=== PATIENT | female | born 1960 | race Caucasian/White ===

== ENCOUNTER 2023-06-29 14:34 | Outpatient (CLI) | payer MEDICARE, MEDICAID ==
[~2023-06-29 14:34] MED LIST: ADV50250 IH; ALBU18HF2 IH; ALBU8.5H17 IH; CLA10T PO; IBUP-1986 PO; LISI20TA28 PO
== END 2023-06-29 23:59 | disposition home or self-care (01) ==
LOC: RAD 14:34
PROVIDERS: ATTEND Nurse Practitioner Family
DX: M19.021 Primary osteoarthritis, right elbow (principal); M19.011 Primary osteoarthritis, right shoulder; M25.811 Other specified joint disorders, right shoulder; M65.28 Calcific tendinitis, other site; M25.821 Other specified joint disorders, right elbow; M25.721 Osteophyte, right elbow; M25.521 Pain in right elbow; M25.511 Pain in right shoulder; R09.02 Hypoxemia
CPT/HCPCS: 71046; 73030; 73080

== ENCOUNTER 2024-06-02 10:13 | Inpatient (IN) | payer MEDICARE, MEDICAID ==
[2024-06-02] VITALS (21 sets, daily range): BP systolic 114–165; BP diastolic 64–94; PULSE 87–151; RESP 12–28; TEMP 98.9–99.8; O2SAT 70–100
[~2024-06-02] VITALS: Ht 152.4 cm; Wt 138.0 kg
[2024-06-02] MEDS: metoprolol tartrate 1mg/ml inj IV ONE ×4 (10:34→14:02)
--- NOTE | 2024-06-02 10:36 | Physician Documentation ---
History of Present Illness ~ Chief Complaint: Rapid Heartbeat Stated Complaint: SVT Time Seen by MD: 10:35 Primary Medical Doctor: Radhames Source: patient, EMS Mode of Arrival: EMS HPI The patient arrives by EMS, with rapid heart rate and respiratory distress. She reportedly had SVT, was given 2 doses of adenosine, 6 mg and 12 mg, with what appeared to be atrial flutter as an underlying rhythm. She was placed on a non- rebreather for shortness of breath and hypoxia. Here in the ED, the patient states she is feeling somewhat better. She does report that recently she has been feeling ill, over the past 3-4 days. She reports having a cough and shortness of breath. No definite fevers. Today, she started to develop some chest discomfort, lightheadedness, and worsening shortness of breath. Does have a history of COPD and has had an increased cough. She has been using her inhalers without relief. She also reports a history of atrial fibrillation, is on sotalol and Eliquis. She did not take her morning medications. She reports chronic swelling in her legs, right worse than left. She has not been in the medical system for the past 6 months. She was report being under lot of stress recently due to moving Medication Reconciliation Allergies: Coded Allergies: coconut (Verified Allergy, Unknown, 09/10/17) HIVES codeine (Verified Allergy, Unknown, rash, 08/14/16) Scheduled Albuterol Sulfate (Ventolin Hfa), 2 PUFFS IH Q4H PRN SOB Apixaban (Eliquis), 1 TAB PO BID, (Reported) Fluticasone Propion/Salmeterol (Wixela 100-50 Inhub), 1 PUFFS PO BID, (Reported) Furosemide (Lasix), 1 TAB PO DAILY, (Reported) Lisinopril* (Lisinopril*), 1 TAB PO DAILY, (Reported) Loratadine* (Claritin*), 10 MG PO DAILY, (Reported) Potassium Chloride* (Potassium Chloride*), 1 CAP PO DAILY, (Reported) Sotalol Hcl (Sotalol Af), 0.5 TAB PO BID, (Reported) Discontinued Medications Albuterol Sulfate (Proair Hfa), 2 PUFFS IH Q4H PRN for SOB or wheezing Discontinued Reason: patient no longer taking Fluticasone/Salmeterol* (Advair 250-50 Diskus*), 1 PUFF IH BID, (Reported) Discontinued Reason: patient no longer taking Ibuprofen (Ibuprofen), 1 TAB PO Q8H Discontinued Reason: patient no longer taking Lisinopril (Lisinopril), MG PO DAILY, (Reported) Discontinued Reason: patient no longer taking Past Medical History Past Medical History: Atrial Fibrillation, Hypertension, COPD, Diabetes, Depression Past Surgical History: no surgical history Alcohol Use: None Drug Use: none Lives with: Family Lives In: Home Occupation: unemployed Review of Systems Constitutional: Denies: fever Respiratory: Reports: shortness of breath Cardiovascular: Reports: chest pain Physical Exam Vital Signs: Temperature: 97.9, Heart Rate: 157, Respiratory Rate: 22, BP: 171/117, Pulse Oximetry: 69, Weight: 132.300 Oxygen Flow Rate: 0 Physical Exam General: This is an ill-appearing middle-aged female, not currently in distress HEENT: Atraumatic, oropharynx appears dry Heart: Irregular rhythm with rapid rate, heart rate in the 150s, appears irregular on the monitor. She does have palpable radial pulses Lungs: Very tight lungs with poor air movement and scattered expiratory wheezes, oxygen saturations in the low 90s on 4 L nasal cannula Abdomen: Soft, nondistended, nontender all quadrants Extremities: Pitting edema to bilateral lower extremities, right worse than left Neuro: Alert and oriented, no focal deficits Psychiatric: Calm and cooperative with exam Progress Results/Orders Results/Orders Orders - ULISSES BARRERA MD Culture Blood (06/02/24 10:16) Urinalysis, Cult If Indicated (06/02/24 10:16) Chest,Single View (06/02/24 10:16) Monitor (06/02/24 10:16) Saline Lock (06/02/24 10:16) Electrocardiogram (06/02/24 10:16) BMP (06/02/24 10:16) Hs Troponin I W Calculations (06/02/24 13:16) Ipratropium/Albuterol Nebule (Ipratrop/A (06/02/24 11:30) MG (06/02/24 10:56) PBNP (06/02/24 10:56) TSH (06/02/24 10:56) Page Hospitalist (06/02/24 12:04) Completed Orders - ULISSES BARRERA MD Cbc/Diff (06/02/24 10:16) Chest,Single View (06/02/24 10:16) Procalcitonin (06/02/24 10:16) Hs Troponin I W Calculations (06/02/24 10:16) Hs Troponin I W Calculations (06/02/24 12:16) Lacticsepsis (06/02/24 10:16) Metoprolol Tartrate Inj (Lopressor Iv) (06/02/24 10:30) Metoprolol Tartrate Inj (Lopressor Iv) (06/02/24 10:40) Metoprolol Tartrate Inj (Lopressor Iv) (06/02/24 10:55) Diltiazem Iv (Cardizem Iv 5mg/Ml Inj.) (06/02/24 11:20) Methylprednisolone Sod Succ (Solumedrol (06/02/24 11:30) Furosemide Inj (Lasix Inj) (06/02/24 11:35) Furosemide 40mg Inj (Lasix Inj) (06/02/24 11:40) Medications Received in ER Medications (Trade) Dose Ordered Sig/Brina Route PRN Reason Start Time Stop Time Status Last Admin Dose Admin (Lopressor IV) 5 mg ONCE ONCE IV 06/02/24 10:30 06/02/24 10:31 DC 06/02/24 10:34 5 MG (Lopressor IV) 5 mg ONCE ONCE IV 06/02/24 10:40 06/02/24 10:41 DC 06/02/24 10:42 5 MG (Lopressor IV) 5 mg ONCE ONCE IV 06/02/24 10:55 06/02/24 10:56 DC 06/02/24 11:04 5 MG (Cardizem IV 5mg/ ml inj.) 20 mg ONCE ONCE IV 06/02/24 11:20 06/02/24 11:21 DC 06/02/24 11:23 20 MG (SoluMEDROL 125mg inj) 125 mg ONCE ONCE IV 06/02/24 11:30 06/02/24 11:31 DC 06/02/24 11:55 125 MG (ipratrop/ albuterol 0.5-3(2.5) MG/3ml nebule) 3 ml Q4H PRN NEB SOB or wheezing 06/02/24 11:30 06/02/24 12:06 3 ML (Lasix inj) 40 mg ONCE ONCE IV 06/02/24 11:40 06/02/24 11:41 DC 06/02/24 11:58 40 MG Vital Signs 06/02/24 06/02/24 06/02/24 06/02/24 10:17 10:34 10:40 10:42 Temp 97.9 98.4 Pulse 157 157 155 154 Resp 22 25 B/P (MAP) 192/117 154/101 (118) Pulse Ox 69 92 O2 Flow Rate 0 6.0 06/02/24 06/02/24 06/02/24 06/02/24 11:04 11:06 11:23 11:25 Temp 98.4 98.3 Pulse 152 151 151 76 Resp 18 29 B/P (MAP) 142/104 (117) 134/105 131/73 (92) Pulse Ox 93 91 O2 Flow Rate 6.0 4.0 06/02/24 06/02/24 06/02/24 06/02/24 12:08 12:18 12:21 12:24 Temp 98.3 Pulse 87 92 101 Resp 12 20 22 20 B/P (MAP) 136/97 (110) Pulse Ox 92 93 92 O2 Delivery Nasal Cannula* Nasal Cannula* O2 Flow Rate 6 4 6.0 FiO2 44 36 Laboratory Tests Test 06/02/24 10:56 06/02/24 12:07 White Blood Count 10.1 Red Blood Count 4.57 Hemoglobin 13.4 Hematocrit 41.0 Mean Corpuscular Volume 89.7 Mean Corpuscular Hemoglobin 29.3 Mean Corpuscular Hemoglobin Concent 32.6 L Red Cell Distribution Width 15.7 H Platelet Count 267 Mean Platelet Volume 10.1 Neutrophils (%) (Auto) 80.0 H Lymphocytes (%) (Auto) 13.0 L Monocytes (%) (Auto) 6.6 Eosinophils (%) (Auto) 0.2 Basophils (%) (Auto) 0.2 Neutrophils # (Auto) 8.0 H Lymphocytes # (Auto) 1.3 Monocytes # (Auto) 0.7 Eosinophils # (Auto) 0.0 Basophils # (Auto) 0.0 CBC Comment Sodium Level 142 Potassium Level 4.1 Chloride Level 104 Carbon Dioxide Level 34.2 H Anion Gap 4 L Blood Urea Nitrogen 20 H Creatinine 0.92 H Estimated GFR/1.73 m2 61 BUN/Creatinine Ratio 21.7 H Glucose Level 177 H Lactic Acid Level 1.2 Calcium Level 9.0 Troponin I High Sensitivity 23 24 Albumin 3.6 Procalcitonin < 0.05 Chemistry Comments Troponin I High Sens Percent Delta 4 Troponin I Hi Sens Absolute Change 1 Re-Evaluation Re-Evaluation : Additional Comment Re-evaluation: After 3 doses of IV metoprolol, the patient remains with flutter and heart rate of 150. Blood pressure remains elevated. Plan: Diltiazem trial. 12:00 p.m.: Re-evaluation: The patient's heart rate is now in the 80-90 range after 20 mg of diltiazem. She remains on oxygen. Discussed results of testing and plan for admission. EKG/XRAY/CT/US/VASC/MRI EKG : Additional Comment I personally interpreted the EKG and this shows: Atrial fibrillation/atrial flutter, rate 158, QTC 490, no obvious STEMI Chest X-Ray : Additional Comments I personally reviewed the x-ray, and it shows: Pulmonary edema and a very enlarged heart, no focal consolidation Consults/PCP Consults/PCP : Additional Comment Consult: I spoke to the internal medicine service, for admission in the hospital Medical Decision Making Additional Information Differential includes pneumonia, sepsis, dysrhythmia, CHF, ACS, COPD exacerbation, dehydration, electrolyte derangement, PE Assessment 63-year-old female, initially presenting with respiratory distress and tachycardia. EKG shows atrial fibrillation/atrial flutter with a rapid rate. She was given IV metoprolol with no response. She was then given IV diltiazem, with good rate control. Her workup is concerning for congestive heart failure exacerbation related to her heart rate. She may also have some component of a COPD exacerbation. She was treated for these things including with steroids, and Lasix. She does have an oxygen requirement that is new. She was already on anticoagulation, and so I doubt PE. She will be admitted to the medicine service for further workup and treatment. Departure Impression: Primary Impression: Rapid atrial fibrillation Additional Impressions: Acute hypoxic respiratory failure Acute exacerbation of congestive heart failure Referrals: NO PRIMARY CARE PROVIDER (PCP) Critical Care Note Critical Care Note Critical Care Note The very real possibility of a deterioration of this patient's condition required the highest level of my preparedness for sudden, emergent intervention. I provided critical care services, which included medication orders, frequent reevaluations of the patient's condition and response to treatment, ordering and reviewing test results, and discussing the case with various consultants. Excludes time spent performing separately billable procedures. The critical care time associated with the care of the patient was 45 minutes in the management of atrial fibrillation with RVR and hypoxic respiratory failure Signature Scribe Signature: osei Attestation: ULISSES Mukherjee MD Jun 02, 2024 10:36
--- NOTE | 2024-06-02 10:51 | RADIOLOGY REPORT ---
DI CHEST,SINGLE VIEW, HISTORY: sob COMPARISON: None None TECHNICAL DATA: 1 view of the chest was obtained. FINDINGS: Lines and tubes: None Cardiomediastinal silhouette: large Pulmonary vasculature: prominent Lung expansion: normal Lung airspace: normal Lung interstitium: normal Pleura: normal Pneumothorax: no Bones: Unremarkable Other: no IMPRESSION: Cardiomegaly with pulmonary vascular congestion.
[2024-06-02 11:12] LABS: BASOPHILS % (AUTO) 0.2 % (0-1); EOSINOPHILS % (AUTO) 0.2 % (0-6); HEMOGLOBIN 13.4 g/dl (12.0-16.0); LYMPHOCYTES # (AUTO) 1.3 X10'3 (1.1-4.8); MEAN CORPUSCULAR HEMOGLOBIN 29.3 PG (27.0-31.0); MEAN CORPUSCULAR HGB CONC 32.6 g/dL (33.0-36.5); MEAN CORPUSCULAR VOLUME 89.7 FL (78-98); MEAN PLATELET VOLUME 10.1 FL (7.4-10.4); MONOCYTES # (AUTO) 0.7 X10'3 (0-0.9); MONOCYTES % (AUTO) 6.6 % (2-12); PLATELET COUNT 267 X10'3 (140-440); RED BLOOD COUNT 4.57 X10'6 (4.20-5.60); RED CELL DISTRIBUTION WIDTH 15.7 % (11.5-14.5); WHITE BLOOD COUNT 10.1 X10'3 (4.5-11.0)
[2024-06-02 11:23] LABS: ALBUMIN 3.6 G/DL (3.4-5.0); ANION GAP 4 (8-16); BLOOD UREA NITROGEN 20 MG/DL (7-18); BUN/CREATININE RATIO 21.7 (10.0-20.0); CHLORIDE 104 MMOL/L (99-107); CREATININE 0.92 MG/DL (0.40-0.90); GLUCOSE 177 MG/DL (70-104); POTASSIUM 4.1 MMOL/L (3.5-5.1); SODIUM 142 MMOL/L (135-145); TOTAL CARBON DIOXIDE 34.2 MMOL/L (24-32); eCRCL 65 ML/MIN; eGFR 61 ML/MIN
[2024-06-02] MEDS: diltiazem 5mg/ml 5ml inj. IV ONE (11:23)
[2024-06-02] MEDS: methylPREDNISolone sod succ 125mg/2ml vial IV ONE (11:45)
[2024-06-02] MEDS: furosemide 10 MG/1 ML 10ml inj IV ONE (11:55)
[2024-06-02] MEDS: furosemide 40mg/4ml inj IV ONE (11:58)
[2024-06-02] MEDS: ipratropium/albuterol 3ml nebule NEB PRN (12:06)
[2024-06-02] MEDS ORDERED: LISI40TA13 PO (12:21)
[2024-06-02] MEDS ORDERED: SOTA80TA10 PO (12:21)
[2024-06-02] MEDS ORDERED: FURO-149 PO (12:21)
[2024-06-02] MEDS ORDERED: FLUT1BLS9 PO (12:21)
[2024-06-02] MEDS ORDERED: APIX5TAB3 PO (12:21)
[2024-06-02] MEDS ORDERED: POTA10CA95 PO (12:21)
[2024-06-02] MEDS ORDERED: potassium Cl 20 mEq SR tablet PO PRN ×2 (12:25)
[2024-06-02] MEDS ORDERED: magnesium Cl slow-release 64mg tablet PO PRN (12:25)
[2024-06-02] MEDS ORDERED: magnesium sulf-water 2g/50mL 50 ML IV PRN (12:25)
[2024-06-02] MEDS ORDERED: acetaminophen 325mg tablet PO PRN ×2 (12:25)
[2024-06-02] MEDS ORDERED: magnesium sulf-water 4G/100mL 100 ML IV PRN (12:25)
[2024-06-02] MEDS: diltiazem-NS 100mg/100ml 100 ML IV SCH (12:57)
[2024-06-02 13:31] LABS: MAGNESIUM 1.8 MG/DL (1.5-2.4); PRO BRAIN NATRIURETIC PEPTIDE 1201 PG/ML (0-125); THYROID STIMULATING HORMONE 2.04 ulU/ml (0.34-4.50)
--- NOTE | 2024-06-02 14:20 | RADIOLOGY REPORT ---
CHEST RADIOGRAPH Indication: foreign body Technique: Single frontal view of the chest was obtained Comparison: DI CHEST,SINGLE VIEW on DOS: 06/02/24 FINDINGS: Lines and Tubes: None Lungs: Interstitial prominence with obscuration of bilateral hemidiaphragm slightly worsened from kiah or imaging and may be accentuated by decreased lung volumes compared to prior imaging. No pneumothorax. Cardiomediastinal contours: Moderate cardiomegaly Bones: No acute osseous abnormality. IMPRESSION: Cardiomegaly with findings suggestive of congestive heart failure. Underlying infectious process can not be excluded. Possible pleural effusion.
--- NOTE | 2024-06-02 14:23 | ELECTROCARDIOGRAPH REPORT ---
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 Frank Corley Measurements Intervals [place] Rate: 158 P: 240 MS: 102 QRS: 80 QRSD: 105 T: 47 QT: 302 QTc: 490 Interpretive Statements Supraventricular tachycardia Low voltage, extremity and precordial leads Electronically Signed On 06-08-2024 9:38:[address] Frank Corley Please click the below link to view image of tracing.
[2024-06-02] MEDS ORDERED: fentaNYL/PF 50MCG/1 ML 2ML syringe IV PRN (14:35)
[2024-06-02] MEDS: propofol 1000mg/100ml bottle 100 ML IV SCH (14:43)
[2024-06-02] MEDS: FENTANYL-0.9 % NACL/PF 100 ML IV SCH (14:44)
--- NOTE | 2024-06-02 14:53 | CONSULTATION REPORT - RESIDENT ---
Consult Providers to CC Resident Creating Document: MAGDALENA SHEETS MD History of Present Illness Reason for Admit\Complaint: Resp Failure History of Present Illness Morbidly obese with H/O Chronic A Fib on Eliquis, HTN, CHF brought into ER with worsening SOB and palpitation. EKG showing SVT, pt did received Adenosine. HR now 150/m. While awaiting transfer to [facility] her WOB and SpO2 rapidly deteriorated requiring intubation and mechanical ventilation. Allergies: Coded Allergies: coconut (Verified Allergy, Unknown, 09/10/17) HIVES codeine (Verified Allergy, Unknown, rash, 08/14/16) Home Medications Home Medications Active Ventolin Hfa (Albuterol) 8.5 Gm Inhaler 2 Puffs IH Q4H PRN SOB Reported Lasix (Furosemide) 40 Mg Tablet 1 Tab PO DAILY 30 Days Lisinopril* (Lisinopril) 40 Mg Tablet 1 Tab PO DAILY Eliquis (Apixaban) 5 Mg Tablet 1 Tab PO BID Wixela 100-50 Inhub (Fluticasone Propion/Salmeterol) 100 Mcg-50 Mcg/Dose Blst.w.dev 1 Puffs PO BID Potassium Chloride* (Potassium Chloride) 10 Meq Capsule.sa 1 Cap PO DAILY Sotalol Af (Sotalol Hcl) 80 Mg Tablet 0.5 Tab PO BID Claritin* (Loratadine) 10 Mg Tablet 10 Mg PO DAILY Past Medical History Past Medical History See H&P SHELBY RYAN Unable to obtain, intubated Exam Vitals: Vital Signs Date Time Temp Pulse Resp B/P (MAP) Pulse Ox O2 Delivery O2 Flow Rate FiO2 06/02/24 14:44 16 06/02/24 14:43 118/87 06/02/24 14:40 151 100 100 06/02/24 14:11 Non-Rebreather 16 06/02/24 13:31 98.3 General: Morbidly obese HEENT: NICK Neck: Supple Chest: Crackles at bases Cardiovascular: A Fib Abdomen: Soft, non-tender, BS (+) Extremities: Edema (+) Central Nervous System: Sedated Diagnostic Data Last Recorded Lab Results: 06/02/24 1056 06/02/24 1056 Additional Plan 1-Acute Hypoxemic Resp Failure -F/U ABG 2-Acute CHF exacerbation -Check echo -Pre- and afterload reduction -Diuresis 3-Chronic A Fib -Continue home meds Hong REAGAN time 35min Sepsis Screening Reassessment Date: Jun 02, 2024 Date of Service: Jun 02, 2024 Billing Provider: MAGDALENA SHEETS MD Common Visit Codes: [id number] CARE 30-74 MIN MAGDALENA SHEETS MD Jun 02, 2024 14:53
--- NOTE | 2024-06-02 14:56 | RADIOLOGY REPORT ---
EXAM: DI CHEST,SINGLE VIEW HISTORY: ET Tube Placement COMPARISON: DI CHEST,SINGLE VIEW on DOS: 06/02/24, DI CHEST,SINGLE VIEW on DOS: 06/02/24 TECHNIQUE: Portable AP view of the chest was performed. FINDINGS: There is an endotracheal tube with its tip about 3.2 cm above the raul, difficult to well visualize the raul secondary to technical factors. OG tube is identified with its tip at or distal to the GE junction, not fully imaged here. No pneumothorax. There are diffuse bilateral pulmonary infiltrates , most dense in the left lung base. The heart is enlarged. There is thoracic degenerative disc disea se. IMPRESSION: 1. Mechanical ventilation with endotracheal tube and OG tube in good position. 2. Cardiomegaly and diffuse Bilateral pulmonary infiltrates which may be due to florid pulmonary clary a or bilateral severe pneumonia.
[2024-06-02] MEDS ORDERED: rocuronium 10mg/ml inj IV ONE (15:00)
[2024-06-02 15:15] LABS: BILIRUBIN,URINE NEGATIVE (Neg); CLARITY,URINE CLEAR (Clear); COLOR,URINE YELLOW (Yellow); GLUCOSE, URINE NEGATIVE (Neg); KETONES,URINE NEGATIVE (Neg); LEUKOCYTE ESTERASE ,URINE NEGATIVE (Neg); NITRITES, URINE NEGATIVE (Neg); OCCULT BLOOD,URINE NEGATIVE (Neg); PROTEIN,URINE 100 mg/dl (Neg); UROBILINOGEN,URINE 0.2 E.U/dL (0.2-1.0)
[2024-06-02 15:19] LABS: UA COLLECTION TYPE FOLEY CATH
[2024-06-02 15:21] LABS: BACTERIA,URINE FEW /HPF (Neg); SQUAMOUS EPITHELIAL CELL,UR FEW /LPF (FEW); TRANSITIONAL EPI CELLS,URINE FEW /HPF; WBC,URINE 0-4 /HPF (0-4)
[2024-06-02 15:22] LABS: FINE GRANULAR CAST 0-3 /LPF (NEGATIVE)
[2024-06-02] MEDS: sotalol 80mg tablet OGT SCH (16:26)
[2024-06-02 16:41] LABS: ABG BASE EXCESS 3.5 mmol/L (-2.0-3.0); ABG HCO3 29.2 mmol/L (21.0-28.0); ABG OXYGEN SATURATION 99.8 % (94.0-98.0); ABG PCO2 (T) 48.9 mmHg (32.0-45.0); ABG PH (T) 7.395 (7.350-7.450); ABG PO2 (T) 211.3 mmHg (83.0-108.0); ALLEN'S TEST POSITIVE; FCOHb 1.7 % (0.5-1.5); FHHb 0.2 % (0.0-5.0); FMetHb 0.3 % (0.0-1.5); FO2Hb 97.8 % (94.0-98.0); MODE VENT - AC/PRVC; PATIENT TEMPERATURE 37.2; PEEP 10 cm H2O; RESPIRATORY RATE 16 b/min; TIDAL VOLUME 450 mL; TOTAL HEMOGLOBIN 14.9 G/dl (12.0-16.0)
[2024-06-02] MEDS ORDERED: UNABLE TO OBTAIN (17:10)
--- NOTE | 2024-06-02 17:41 | HISTORY AND PHYSICAL ---
History & Physical Providers to CC ~ History of Present Illness Reason for Admit\Complaint: Rapid Heartbeat History of Present Illness Patient was seen in ER in presence of ER physician and nursing staff. Patient was coughing and choking and about to get intubated. As per ER provider she choked on her sandwich and they are going to transfer her soon to CICU after intubation. Unable to get any history from the patient. All the history is obtained from ER records. I called Dr. Rico who is aware regarding patient's transferred to CICU.The patient arrives by EMS, with rapid heart rate and respiratory distress. She reportedly had SVT, was given 2 doses of adenosine, 6 mg and 12 mg, with what appeared to be atrial flutter as an underlying rhythm. She was placed on a non-rebreather for shortness of breath and hypoxia. Today, she started to develop some chest discomfort, lightheadedness, and worsening shortness of breath. Does have a history of COPD and has had an increased cough. She has been using her inhalers without relief. She also reports a history of atrial fibrillation, is on sotalol and Eliquis. She did not take her morning medications. Allergies: Coded Allergies: coconut (Verified Allergy, Unknown, 09/10/17) HIVES codeine (Verified Allergy, Unknown, rash, 08/14/16) Home Medications Home Medications Active Ventolin Hfa (Albuterol) 8.5 Gm Inhaler 2 Puffs IH Q4H PRN SOB Reported Unable to Obtain Medications (Non-Formulary Medication) Each PT INTUBATED/SEDATED; SPOKE TO PTS DAUGHTER, UNABLE TO RECALL HOME MEDS. WILL BRING IN LIST AND GIVE TO NURSE Lasix (Furosemide) 40 Mg Tablet 1 Tab PO DAILY 30 Days Lisinopril* (Lisinopril) 40 Mg Tablet 1 Tab PO DAILY Eliquis (Apixaban) 5 Mg Tablet 1 Tab PO BID Wixela 100-50 Inhub (Fluticasone Propion/Salmeterol) 100 Mcg-50 Mcg/Dose Blst.w.dev 1 Puffs PO BID Potassium Chloride* (Potassium Chloride) 10 Meq Capsule.sa 1 Cap PO DAILY Sotalol Af (Sotalol Hcl) 80 Mg Tablet 0.5 Tab PO BID Claritin* (Loratadine) 10 Mg Tablet 10 Mg PO DAILY Past Medical History Past Medical History chronic swelling in her legs, Atrial Fibrillation, Hypertension, COPD, Diabetes, Depression Past Surgical History Surgical History Comment no surgical history Family History Family History: Patient reports no known family medical history. Past Social History Social History Comment Unable to obtain ROS ROS Unable to obtain Exam Vitals: Vital Signs Date Time Temp Pulse Resp B/P (MAP) Pulse Ox O2 Delivery O2 Flow Rate FiO2 06/02/24 17:00 99.4 97 16 145/94 (111) 99 Mechanical Ventilator 60 06/02/24 14:11 16 General: General-patient is in acute distress, awake , looking ill coughing lungs- coughing and choking and about to get intubated Eyes-no icterus or pallor seen in eyes Neurology-awake oriented Psychiatry - patient is not confused Diagnostic Data Last Recorded Lab Results: 06/02/24 1056 06/02/24 1056 Additional Plan Patient is 63-year-old female admitted for atrial fibrillation with RVR, acute respiratory failure, acute exacerbation of congestive heart failure. Order placed for nebulizer, IV antibiotics steroids and IV Lasix. Ordered echo. Patient is started on Cardizem for AFib with a RVR. In ER she choked while eating the sandwich intubated and transferred to CICU. We will continue to follow patient along with the CICU team. Further management as per columnist. Date of Service: Jun 02, 2024 Billing Provider: ALVARADO ALEXANDRE MD Common Visit Codes: [id number] INP/OBS CARE (HIGH) ALVARADO ALEXANDRE MD Jun 02, 2024 17:41
--- NOTE | 2024-06-02 18:47 | CARDIOLOGY REPORT ---
APPROVED REPORT EXAM: Comprehensive 2D, Doppler, and color-flow Echocardiogram. 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 118.9 cm/s AoV VTI 20.6 cm AO Peak GR. 5.7 mmHg AO Mean GR. 4 mmHg LVOT VTI 20.20 cm LVOT Peak Jaspal. 112.5 cm/s ENOC(VTI)/BSA 2.98 cm2/m2 ENOC (VTI) 2.98 cm2 Tricuspid Valve TR P. Velocity 241 cm/s RAP ESTIMATE 10 mmHg TR Peak Gr. 23 mmHg RVSP 33 mmHg LEFT VENTRICLE Normal LV size and wall thickness. Overall systolic function is normal. LVEF is 60-65%. RIGHT VENTRICLE Right ventricle is grossly normal in size and function. ATRIA The left atrium size is normal. AORTIC VALVE Trileaflet AV appears mildly sclerotic without stenosis. No insufficiency. MITRAL VALVE Mitral valve leaflets are mildly thickened with mild annular calcification. No stenosis. TRICUSPID VALVE The tricuspid valve is normal in structure with trace regurgitation. PULMONIC VALVE The pulmonary valve is normal in structure with physiologic insufficiency. GREAT VESSELS The aortic root is normal in size. The ascending aorta is normal in size. IVC is normal in size and c ollapses less than 50% with inspiration. PERICARDIUM Trace circumferential pericardial effusion without hemodynamic compromise. No echo indications of pe ricardial tamponade. Other Information Study Quality: Fair due to body habitus. Conclusion Normal LV size and wall thickness. Overall systolic function is normal. LVEF is 60-65%. Right ventricle is grossly normal in size and function. The left atrium size is normal. Trileaflet AV appears mildly sclerotic without stenosis. No insufficiency. Mitral valve leaflets are mildly thickened with mild annular calcification. No stenosis. The tricuspid valve is normal in structure with trace regurgitation. Trace circumferential pericardial effusion without hemodynamic compromise. No echo indications of pe ricardial tamponade.
[2024-06-02] MEDS: acetaZOLAMIDE IV 500mg inj IV SCH (19:39)
[2024-06-02] MEDS: apixaban 5mg tablet PO SCH (19:39)
[2024-06-02] MEDS: furosemide 40mg/4ml inj IV SCH (19:39)
[2024-06-02] MEDS: nystatin 15 GM powder TP SCH (19:40)
[2024-06-02] MEDS ORDERED: sotalol 80mg tablet PO SCH (20:00)
[2024-06-02] MEDS ORDERED: heparin, porcine 5000 units/ml vial SQ SCH (20:00)
[2024-06-02] MEDS ORDERED: methylPREDNISolone sod succ/PF 40mg inj. IV SCH (20:00)
[2024-06-02] MEDS: albuterol 2.5 MG/3 ML nebule NEB SCH (21:19)
[2024-06-02 22:52] LABS: BASOPHILS % (AUTO) 0 % (0-1); EOSINOPHILS % (AUTO) 0 % (0-6); HEMATOCRIT 38.4 % (35.0-45.0); HEMOGLOBIN 12.4 g/dl (12.0-16.0); LYMPHOCYTES # (AUTO) 0.8 X10'3 (1.1-4.8); LYMPHOCYTES % (AUTO) 9.5 % (21-51); MEAN CORPUSCULAR HEMOGLOBIN 29.1 PG (27.0-31.0); MEAN CORPUSCULAR HGB CONC 32.3 g/dL (33.0-36.5); MEAN CORPUSCULAR VOLUME 90.1 FL (78-98); MEAN PLATELET VOLUME 10.3 FL (7.4-10.4); MONOCYTES # (AUTO) 0.4 X10'3 (0-0.9); MONOCYTES % (AUTO) 4.2 % (2-12); NEUTROPHILS # (AUTO) 7.6 X10'3 (1.8-7.7); NEUTROPHILS % (AUTO) 86.3 % (42-75); PLATELET COUNT 208 X10'3 (140-440); RED BLOOD COUNT 4.26 X10'6 (4.20-5.60); RED CELL DISTRIBUTION WIDTH 15.7 % (11.5-14.5); WHITE BLOOD COUNT 8.8 X10'3 (4.5-11.0)
[2024-06-02] MEDS: pantoprazole 40 MG vial IV STA (23:02)
[2024-06-03] VITALS (44 sets, daily range): BP systolic 74–153; BP diastolic 32–84; PULSE 83–136; RESP 14–22; O2SAT 90–98
--- NOTE | 2024-06-03 00:15 | PROGRESS NOTE ---
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
[2024-06-03 02:51] LABS: BASOPHILS % (AUTO) 0.2 % (0-1); EOSINOPHILS % (AUTO) 0 % (0-6); HEMOGLOBIN 12.3 g/dl (12.0-16.0); LYMPHOCYTES % (AUTO) 9.8 % (21-51); MEAN CORPUSCULAR HEMOGLOBIN 29.5 PG (27.0-31.0); MEAN CORPUSCULAR HGB CONC 33.1 g/dL (33.0-36.5); MEAN CORPUSCULAR VOLUME 89.1 FL (78-98); MEAN PLATELET VOLUME 10.3 FL (7.4-10.4); MONOCYTES # (AUTO) 0.7 X10'3 (0-0.9); MONOCYTES % (AUTO) 6.7 % (2-12); NEUTROPHILS # (AUTO) 8.7 X10'3 (1.8-7.7); NEUTROPHILS % (AUTO) 83.3 % (42-75); PLATELET COUNT 200 X10'3 (140-440); RED BLOOD COUNT 4.16 X10'6 (4.20-5.60); RED CELL DISTRIBUTION WIDTH 15.5 % (11.5-14.5); WHITE BLOOD COUNT 10.5 X10'3 (4.5-11.0)
[2024-06-03 03:15] LABS: ALANINE AMINOTRANSFERASE 52 U/L (12-78); ALBUMIN/GLOBULIN RATIO 0.9 (1.1-1.5); ALKALINE PHOSPHATASE 74 IU/L (46-116); ANION GAP 6 (8-16); ASPARTATE AMINO TRANSFERASE 25 U/L (10-37); BILIRUBIN,TOTAL 0.9 MG/DL (0.1-1.0); BLOOD UREA NITROGEN 24 MG/DL (7-18); BUN/CREATININE RATIO 19.4 (10.0-20.0); CALCIUM 8.5 MG/DL (8.5-10.1); CHLORIDE 104 MMOL/L (99-107); CREATININE 1.24 MG/DL (0.40-0.90); GLUCOSE 120 MG/DL (70-104); MAGNESIUM 1.7 MG/DL (1.5-2.4); PHOSPHORUS 4.2 MG/DL (2.3-4.5); POTASSIUM 3.3 MMOL/L (3.5-5.1); SODIUM 144 MMOL/L (135-145); TOTAL CARBON DIOXIDE 33.8 MMOL/L (24-32); TOTAL PROTEIN 6.2 G/DL (6.4-8.2); eCRCL 48 ML/MIN; eGFR 44 ML/MIN
[2024-06-03 04:12] LABS: ABG BASE EXCESS 6.4 mmol/L (-2.0-3.0); ABG HCO3 29.6 mmol/L (21.0-28.0); ABG PCO2 (T) 37.7 mmHg (32.0-45.0); ABG PH (T) 7.513 (7.350-7.450); FCOHb 1.5 % (0.5-1.5); FHHb 6.9 % (0.0-5.0); FMetHb 0.3 % (0.0-1.5); FO2Hb 91.3 % (94.0-98.0); MODE VENT - PRVC; PATIENT TEMPERATURE 37.3; PEEP 10 cm H2O; RESPIRATORY RATE 16 b/min; TIDAL VOLUME 450 mL; TOTAL HEMOGLOBIN 12.7 G/dl (12.0-16.0)
[2024-06-03] MEDS: potassium Cl 40MEQ/1/2NS 520ml 520 ML IV PRN (04:23)
--- NOTE | 2024-06-03 06:12 | RADIOLOGY REPORT ---
EXAM: XR Chest, 1 View CLINICAL INDICATION: ET Tube Placement TECHNIQUE: Frontal view of the chest. COMPARISON: DI CHEST,SINGLE VIEW on DOS: 06/02/24, DI CHEST,SINGLE VIEW on DOS: 06/02/24, DI CHEST,SI NGLE VIEW on DOS: 06/02/24 FINDINGS: LUNGS AND PLEURAL SPACES: See below. HEART: Cardiomegaly with mild congestion. MEDIASTINUM: Unremarkable. Normal mediastinal contour. BONES/JOINTS: Unremarkable. No acute fracture. TUBES, LINES AND DEVICES: ETT in satisfactory position. Enteric tube tip cannot be seen but is bel ow the diaphragm. OTHER FINDINGS: . . . IMPRESSION: 1. ETT in satisfactory position. 2. Cardiomegaly with mild congestion.
[2024-06-03] MEDS ORDERED: CefTRIAXone 2gm/D5W 50ml BAG 50 ML IV SCH (08:00)
--- NOTE | 2024-06-03 08:15 | PROGRESS NOTE ---
Progress Note Dictate Providers to CC ~ Progress Note: No new acute issues overnight. Central Line/PICC still needed: N\A Ying Indications Met/Not Met: F/C Indications Met Antibiotic Ordered?: No Subjective Subjective Comfortable Objective Vitals Vital Signs Date Time Temp Pulse Resp B/P (MAP) Pulse Ox O2 Delivery O2 Flow Rate FiO2 06/03/24 07:30 108 16 94 35 06/03/24 06:01 99.3 153/34 (73) Mechanical Ventilator 06/02/24 14:11 16 Lab Results: 06/03/2421406/03/24214 Objective Heart: A Fib Lungs: crackles at bases Abd: Soft, non-tender, BS (+) Ext: No edema Neuro: sedated Problem\Assessment\Plan Additional Plan 1-Acute Hypoxemic/Hypercapnic Resp Failure -F/U ABG -Weaning trials 2-CHFpEF -Diuresis 3-Chronic A Fib -Continue home meds 4-Morbidly Obese -Will need referral for Bariatric Sx as aliya Rico CC time 35min Sepsis Screening Reassessment Date: Jun 03, 2024 MAGDALENA RICO MD Jun 03, 2024 08:15
[2024-06-03] MEDS: pantoprazole 40 MG vial IV SCH (09:48)
[2024-06-03] MEDS ORDERED: furosemide 40mg/4ml inj IV SCH (10:42)
[2024-06-03] MEDS ORDERED: albumin (human) 25% 100ml IV 100 ML in dextrose 5% water 500ml 400 ML IV ONE (11:25)
[2024-06-03] MEDS: albumin (Human) 5% 250ml 250 ML IV ONE ×2 (11:45)
[2024-06-03] MEDS ORDERED: albumin (Human) 5% 250ml 250 ML IV ONE ×2 (11:45→12:50)
[2024-06-03] MEDS ORDERED: acetaminophen 325mg/10.15ml oral unit dose solution OGT PRN ×2 (12:28→12:30)
[2024-06-03] MEDS ORDERED: POTASSIUM CHLORIDE 20 MEQ/15 ML oral solution OGT PRN ×2 (12:32)
[2024-06-03] MEDS ORDERED: HYDR12.55 PO (12:36)
--- NOTE | 2024-06-03 14:48 | PROGRESS NOTE- Residence ---
Progress Note - Resident Providers to CC Resident Creating Document: TATI OCASIO RES ~ Antibiotic Timeout Antibiotic Ordered?: No Objective Vital Signs Date Time Temp Pulse Resp B/P (MAP) Pulse Ox O2 Delivery O2 Flow Rate FiO2 06/03/24 14:00 98.6 107 16 112/56 (74) 98 Mechanical Ventilator 35 06/02/24 14:11 16 Result Diagram: 06/03/24 0215 06/03/24 0215 Vitals were stable at the moment with temp 98.6� F, [place] 107/minute, RR 16/minute, BP 112/56 mm Hg, pulse oximetry 98% on mechanical ventilator 35% FiO2. General: under sedations, not in acute distress, well cooperated during the physical. HEENT: Conjunctive are pink, sclerae clear, no icterus, pupil is equal in both sides, reactive to light, no ear discharge, no pharyngeal erythema or an edema, mouth and lips are dry. Neck: Supple, no JVD, no lymphadenopathy and thyromegaly. Lungs: Equal air entry on both lungs, bilateral fine basal crackles Heart: S1-S2 atrial fibrillation rhythm and, RVR, no gallops, no rubs, no murmurs Abdomen: No visible peristalsis, Bowel sounds present on auscultation, soft, nontender, no guarding, no rigidity Extremities: No obvious deformities, no pitting edema bilaterally, capillary refill intact, able to wiggle toes both sides, peripheral pulsations are intact on both sides LINING STUFFER: No focal neurological deficits, no motor and sensory weakness in all 4 extremities, could move all 4 extremities Musculoskeletal: No joint swelling, deformities, inflammations, and no scoliosis and back tenderness Skin: No active skin lesions and rashes. Assessment Assessment 63-year-old female, initially presenting with respiratory distress and tachycardia. EKG shows atrial fibrillation/atrial flutter with a rapid rate. She was given IV metoprolol with no response. She was then given IV diltiazem, with good rate control. Her workup is concerning for congestive heart failure exacerbation related to her heart rate. She may also have some component of a COPD exacerbation. She was treated for these things including with steroids, and Lasix. She does have an oxygen requirement that is new. She was already on anticoagulation, and so I doubt PE. She will be admitted to the medicine service for further workup and treatment. Plan Plan # A fib with RVR on Eliquis and Sotalol # Acute hypoxic and hypercapnic respiratory failure from possible CHFpEF 60-65% # ERASMO and Class 3 obesity, BMI 43.2 # elevated proBNP # Hx of HTN # low anion gap -currently on the [facility] vantilation in CICU under management of Intensivinist. -ABG showed pH 7.5, pO2 63, pCO2 37.7, HCO3 29.6 showing possible respiratory alkalosis as a compensation from the chronic metabolic and respiratory acidosis -Echocardiogram on 06/02/2024 showed LV wall thickness, overall systolic function normal, LVEF 60-65%, LA normal, trace circumferential pericardial effusion without hemodynamic compromise, [place] indications of pericardial tamponade. -serial trop showed 23, 24, 25. -proBNP 1201 and continue IV Lasix 40 mg daily. -she was given one time dose of IV ceftriaxone in ER. -her anion gap six, continue IV Diamox 500 mg b.i.d. -continue her sotalol 80 mg q.12 hours, monitor her QT interval, continue Eliquis -continue albuterol/ipratropium nebulization q.4 hours as needed -manage mechanical ventilation with sedation as per CICU team management plan, hospitalist team will follow patient in ICU. # mild electrolyte imbalance-hypokalemia # Possible DILAN on CKD 3 -creatinine 1.24, BUN 24, monitor I's and O's daily with the renal function tests. -continue IV fluids -replace electrolytes as needed as per protocol. CODE STATUS: Full code DVT prophylaxis: Eliquis Analgesia/sedation: Under sedations Lines/tubes: Peripheral IV, Ying, intubation with mechanical ventilation GI prophylaxis: Protonix Nutrition: NPO Prognosis: Guarded Disposition: Continue medical management as per CICU team management plan, hospitalist team will follow up patient in ICU and take care of the patient one the patient will be downgraded to the floor, appreciate for letting hospitalist team involve in the patient management. Resident MD attestation: Patient was seen and examined with attending MD, Dr. Mela OCASIO MD Internal Medicine Resident, PGY2 [facility] Date of Service: Jun 03, 2024 Billing Provider: ALVARADO ALEXANDRE MD Common Visit Codes: [id number] INP/OBS CARE(MOD) TATI OCASIO, RES Jun 03, 2024 14:48 ALVARADO ALEXANDRE MD Jun 03, 2024 18:21
[2024-06-03] MEDS: dexmedetomidin/NS 400mcg/100ml 100 ML IV SCH (16:20)
[2024-06-03] MEDS: apixaban 5mg tablet OGT SCH (21:07)
[2024-06-03] MEDS: ringers solution, lacted 1,000 ML IV ONE (21:08)
[2024-06-03 21:58] LABS: BASOPHILS % (AUTO) 0.1 % (0-1); EOSINOPHILS % (AUTO) 0.1 % (0-6); HEMOGLOBIN 11.8 g/dl (12.0-16.0); LYMPHOCYTES # (AUTO) 1.8 X10'3 (1.1-4.8); LYMPHOCYTES % (AUTO) 19.3 % (21-51); MEAN CORPUSCULAR HEMOGLOBIN 29.3 PG (27.0-31.0); MEAN CORPUSCULAR HGB CONC 32.7 g/dL (33.0-36.5); MEAN CORPUSCULAR VOLUME 89.7 FL (78-98); MEAN PLATELET VOLUME 10.2 FL (7.4-10.4); MONOCYTES # (AUTO) 0.8 X10'3 (0-0.9); MONOCYTES % (AUTO) 8.7 % (2-12); NEUTROPHILS # (AUTO) 6.7 X10'3 (1.8-7.7); NEUTROPHILS % (AUTO) 71.8 % (42-75); PLATELET COUNT 178 X10'3 (140-440); RED BLOOD COUNT 4.01 X10'6 (4.20-5.60); RED CELL DISTRIBUTION WIDTH 15.8 % (11.5-14.5); WHITE BLOOD COUNT 9.3 X10'3 (4.5-11.0)
[2024-06-04] VITALS (38 sets, daily range): BP systolic 92–147; BP diastolic 49–81; PULSE 96–155; RESP 13–25; TEMP 98–99.3; O2SAT 92–99
--- NOTE | 2024-06-04 02:29 | PROGRESS NOTE ---
Progress Note Dictate Providers to CC ~ Antibiotic Ordered?: No Objective Vitals Vital Signs Date Time Temp Pulse Resp B/P (MAP) Pulse Ox O2 Delivery O2 Flow Rate FiO2 06/04/24 02:00 99.7 97 16 103/58 (73) 96 35 06/04/24 01:00 Mechanical Ventilator 06/02/24 14:11 16 Lab Results: 06/03/24 2134 06/03/24 0215 Problem\Assessment\Plan Additional Plan TeleICU Patient seen and evaluated with HIPPA compliant AV device, discussed with bellows charger assembler On diuretics and had transient hypotention, no fevers Continue water valve mechanic vent hold diuretics 1L LR Daily SBT CCT 60mins [facility],ADRIANNE Pitts MD Jun 04, 2024 02:29
[2024-06-04 03:50] LABS: BASOPHILS % (AUTO) 0.1 % (0-1); EOSINOPHILS % (AUTO) 0.3 % (0-6); HEMATOCRIT 39.2 % (35.0-45.0); HEMOGLOBIN 12.8 g/dl (12.0-16.0); LYMPHOCYTES # (AUTO) 1.9 X10'3 (1.1-4.8); MEAN CORPUSCULAR HEMOGLOBIN 29.4 PG (27.0-31.0); MEAN CORPUSCULAR HGB CONC 32.6 g/dL (33.0-36.5); MEAN CORPUSCULAR VOLUME 90.1 FL (78-98); MEAN PLATELET VOLUME 10.3 FL (7.4-10.4); MONOCYTES % (AUTO) 10.4 % (2-12); NEUTROPHILS # (AUTO) 6.7 X10'3 (1.8-7.7); NEUTROPHILS % (AUTO) 69.2 % (42-75); PLATELET COUNT 154 X10'3 (140-440); RED BLOOD COUNT 4.35 X10'6 (4.20-5.60); RED CELL DISTRIBUTION WIDTH 16.3 % (11.5-14.5); WHITE BLOOD COUNT 9.7 X10'3 (4.5-11.0)
[2024-06-04 03:58] LABS: ABG BASE EXCESS 5.9 mmol/L (-2.0-3.0); ABG HCO3 30.4 mmol/L (21.0-28.0); ABG OXYGEN SATURATION 93.9 % (94.0-98.0); ABG PCO2 (T) 44.8 mmHg (32.0-45.0); ABG PH (T) 7.452 (7.350-7.450); ABG PO2 (T) 72.4 mmHg (83.0-108.0); FCOHb 1.3 % (0.5-1.5); FMetHb 0.3 % (0.0-1.5); FO2Hb 92.4 % (94.0-98.0); MODE VENT - PRVC; PATIENT TEMPERATURE 37.6; PEEP 5 cm H2O; RESPIRATORY RATE 16 b/min; TIDAL VOLUME 450 mL; TOTAL HEMOGLOBIN 12.4 G/dl (12.0-16.0)
[2024-06-04 04:16] LABS: ALANINE AMINOTRANSFERASE 45 U/L (12-78); ALBUMIN 2.9 G/DL (3.4-5.0); ALKALINE PHOSPHATASE 68 IU/L (46-116); ANION GAP 9 (8-16); ASPARTATE AMINO TRANSFERASE 19 U/L (10-37); BILIRUBIN,TOTAL 1.1 MG/DL (0.1-1.0); BLOOD UREA NITROGEN 38 MG/DL (7-18); BUN/CREATININE RATIO 22.6 (10.0-20.0); CALCIUM 8.3 MG/DL (8.5-10.1); CHLORIDE 104 MMOL/L (99-107); CREATININE 1.68 MG/DL (0.40-0.90); GLUCOSE 86 MG/DL (70-104); POTASSIUM 3.5 MMOL/L (3.5-5.1); SODIUM 144 MMOL/L (135-145); TOTAL CARBON DIOXIDE 30.9 MMOL/L (24-32); TOTAL PROTEIN 5.7 G/DL (6.4-8.2); eCRCL 35 ML/MIN; eGFR 31 ML/MIN
--- NOTE | 2024-06-04 06:35 | RADIOLOGY REPORT ---
CHEST RADIOGRAPH Indication: ET Tube Placement Technique: Single frontal view of the chest was obtained COMPARISON: DI CHEST,SINGLE VIEW on DOS: 06/03/24, DI CHEST,SINGLE VIEW on DOS: 06/02/24, DI CHEST,SING LE VIEW on DOS: 06/02/24, DI CHEST,SINGLE VIEW on DOS: 06/02/24 FINDINGS: Lines and Tubes: Unchanged. Lungs: Mild diffuse increased prominence of the pulmonary vasculature. No evidence of focal consolid ation. Pleura: No effusion. No pneumothorax. Cardiomediastinal contours: Stable cardiomegaly. Bones: Unremarkable IMPRESSION: 1. Mild diffuse increased prominence of the pulmonary vasculature. No evidence of consolidation. 2. Lines and tubes unchanged. 3. Cardiomegaly.
--- NOTE | 2024-06-04 06:49 | PROGRESS NOTE ---
Progress Note Dictate Providers to CC ~ Progress Note: No new acute issues overight Central Line/PICC still needed: N\A Ying Indications Met/Not Met: F/C Indications Met Antibiotic Ordered?: No Subjective Subjective Comfortable Objective Vitals Vital Signs Date Time Temp Pulse Resp B/P (MAP) Pulse Ox O2 Delivery O2 Flow Rate FiO2 06/04/24 06:00 99.5 100 16 121/75 (90) 96 Mechanical Ventilator 35 06/02/24 14:11 16 Lab Results: 06/04/24 0323 06/04/24 0323 Objective Heart: A Fib Lungs: crackles at bases Abd: Soft, non-tender, BS (+) Ext: No edema Neuro: sedated Problem\Assessment\Plan Additional Plan 1-Acute Hypoxemic Resp Failure -Weaning trials 2-Chronic A Fib -Continue current plan 3-CHF -Hold Lasix: increase BUN/creat 4-Morbidly Obese -Bariatric Sx and Sleep Study referral as aliya Rico CC time 35min Sepsis Screening Reassessment Date: Jun 04, 2024 MAGDALENA RICO MD Jun 04, 2024 06:49
[2024-06-04] MEDS ORDERED: acetaminophen 325mg/10.15ml oral unit dose solution PO PRN ×2 (10:30)
[2024-06-04] MEDS ORDERED: POTASSIUM CHLORIDE 20 MEQ/15 ML oral solution PO PRN ×2 (10:31)
--- NOTE | 2024-06-04 19:19 | PROGRESS NOTE ---
Daily Progress Note Providers to CC ~ Antibiotic Timeout Antibiotic Ordered?: No Subjective Patient was seen in CICU she is transferred to PCU floor today by hemotherapist team. As per patient breathing is getting better denies any other concerns. Before coming to the hospital she was able to ambulate with the help of walker. Objective Vital Signs Date Time Temp Pulse Resp B/P (MAP) Pulse Ox O2 Delivery O2 Flow Rate FiO2 06/04/24 17:38 123 06/04/24 17:00 99.1 21 131/79 (96) 95 Nasal Cannula 4.0 06/04/24 14:42 40 Result Diagram: 06/04/24 0323 06/04/24 0323 General-patient not in any acute distress, alert awake chronically ill-appearing , morbidly obese HEENT-atraumatic normocephalic, neck supple without elevated JVD, no thyromegaly or carotid bruit. No lymphadenopathy bilaterally. Eyes-no icterus or pallor seen in eyes Chest-coarse breath sounds to auscultation bilaterally, breathing nonlabored Heart-S1-S2 normal, regular heart rate no murmur Abdomen bowel sounds positive on auscultation, soft nondistended nontender no guarding, no rigidity Skin no active skin rash Neurology-grossly intact, nonfocal alert awake oriented Extremity- no pedal edema able to move all 4 extremities Psychiatry - patient is not confused or agitated cooperated during physical examination Problem\Assessment\Plan 63-year-old female, initially presenting with respiratory distress and tachycardia. EKG shows atrial fibrillation/atrial flutter with a rapid rate. She was given IV metoprolol with no response. She was then given IV diltiazem, with good rate control. Her workup is concerning for congestive heart failure exacerbation related to her heart rate. She may also have some component of a COPD exacerbation. She was treated for these things including with steroids, and Lasix. She does have an oxygen requirement that is new. She was already on anticoagulation, and so I doubt PE. She will be admitted to the medicine service for further workup and treatment. Plan Plan # A fib with RVR on Eliquis and Sotalol # Acute hypoxic and hypercapnic respiratory failure from possible CHFpEF 60-65% # ERASMO and Class 3 obesity, BMI 43.2 # elevated proBNP # Hx of HTN # low anion gap -she was initially on the [facility] vantilation in CICU under management of Intensivinist. -ABG showed pH 7.5, pO2 63, pCO2 37.7, HCO3 29.6 showing possible respiratory alkalosis as a compensation from the chronic metabolic and respiratory acidosis -serial trop showed 23, 24, 25. -proBNP 1201 and continue IV Lasix 40 mg daily. -started on IV Diamox 500 mg b.i.d. -continue her sotalol 80 mg q.12 hours, monitor her QT interval, continue Eliquis -continue albuterol/ipratropium nebulization q.4 hours as needed # mild electrolyte imbalance-hypokalemia # Possible DILAN on CKD 3 -replace electrolytes as needed as per protocol. Treated with IV fluids for acute kidney injury Patient is extubated currently in transferred to PCU we will continue to follow patient from hospitalist team in a.m. Date of Service: Jun 04, 2024 Billing Provider: ALVARADO ALEXANDRE MD Common Visit Codes: [id number] INP/OBS CARE(MOD) ALVARADO ALEXANDRE MD Jun 04, 2024 19:19
[2024-06-04] MEDS: apixaban 5mg tablet PO SCH (19:49)
[2024-06-04] MEDS: sotalol 80mg tablet PO SCH (19:50)
[2024-06-04] MEDS: famotidine 20mg tablet PO SCH (19:50)
[2024-06-05] VITALS (50 sets, daily range): BP systolic 56–173; BP diastolic 37–120; PULSE 49–148; RESP 15–29; TEMP 97.4–98.6; O2SAT 81–99
[2024-06-05] MEDS: sotalol HCl 40mg (1/2 tablet) PO ONE ×2 (02:43→06:08)
--- NOTE | 2024-06-05 05:50 | RADIOLOGY REPORT ---
CHEST RADIOGRAPH Indication: ET Tube Placement Technique: Single frontal view of the chest was obtained COMPARISON: DI CHEST,SINGLE VIEW on DOS: 06/04/24, DI CHEST,SINGLE VIEW on DOS: 06/03/24, DI CHEST,SING LE VIEW on DOS: 06/02/24, DI CHEST,SINGLE VIEW on DOS: 06/02/24, DI CHEST,SINGLE VIEW on DOS: 06/02/24 FINDINGS: Lines and Tubes: There has been interval extubation and removal of the enteric catheter. Lungs: No evidence of consolidation. Mild persistent increased prominence of the pulmonary vasculatu re. Pleura: No definite effusion. No pneumothorax. Cardiomediastinal contours: Stable cardiomegaly. Bones: Unremarkable IMPRESSION: 1. Status post interval extubation and removal of enteric catheter. 2. Stable mild diffuse increased prominence of the pulmonary vasculature. 3. Cardiomegaly.
[2024-06-05 06:30] LABS: BASOPHILS % (AUTO) 0.2 % (0-1); EOSINOPHILS % (AUTO) 0.4 % (0-6); HEMATOCRIT 39.1 % (35.0-45.0); HEMOGLOBIN 12.3 g/dl (12.0-16.0); LYMPHOCYTES # (AUTO) 1.2 X10'3 (1.1-4.8); LYMPHOCYTES % (AUTO) 12.5 % (21-51); MEAN CORPUSCULAR HEMOGLOBIN 28.9 PG (27.0-31.0); MEAN CORPUSCULAR HGB CONC 31.5 g/dL (33.0-36.5); MEAN CORPUSCULAR VOLUME 91.7 FL (78-98); MEAN PLATELET VOLUME 10.7 FL (7.4-10.4); MONOCYTES # (AUTO) 0.9 X10'3 (0-0.9); MONOCYTES % (AUTO) 9.7 % (2-12); NEUTROPHILS # (AUTO) 7.1 X10'3 (1.8-7.7); NEUTROPHILS % (AUTO) 77.2 % (42-75); PLATELET COUNT 235 X10'3 (140-440); RED BLOOD COUNT 4.26 X10'6 (4.20-5.60); RED CELL DISTRIBUTION WIDTH 16.6 % (11.5-14.5); WHITE BLOOD COUNT 9.2 X10'3 (4.5-11.0)
[2024-06-05 07:34] LABS: ANISOCYTOSIS 1+; LARGE PLATELETS FEW; PLATELET ESTIMATE NORMAL
[2024-06-05] MEDS ORDERED: atropine 0.1mg/ml 10ml syringe ONE (08:00)
[2024-06-05] MEDS: propofol 1000mg/100ml bottle 100 ML IV ONE (08:54)
[2024-06-05] MEDS: NORepinephrine 8mg/ 250ml NS 250 ML IV ONE (09:01)
[2024-06-05] MEDS: midazolam 1 mg/ML 2ml injection ONE (09:12)
[2024-06-05 09:42] LABS: ABG BASE EXCESS 0.8 mmol/L (-2.0-3.0); ABG HCO3 32.4 mmol/L (21.0-28.0); ABG PCO2 (T) 91.8 mmHg (32.0-45.0); ABG PH (T) 7.165 (7.350-7.450); ABG PO2 (T) 100.3 mmHg (83.0-108.0); FCOHb 1.8 % (0.5-1.5); FHHb 2.9 % (0.0-5.0); FMetHb 0.3 % (0.0-1.5); MODE VENT - AC; RESPIRATORY RATE 16 b/min; TIDAL VOLUME 400 mL
--- NOTE | 2024-06-05 09:57 | RADIOLOGY REPORT ---
CHEST RADIOGRAPH Indication: Post code blue Technique: Single frontal view of the chest was obtained COMPARISON: DI CHEST,SINGLE VIEW on DOS: 06/05/24, DI CHEST,SINGLE VIEW on DOS: 06/04/24, DI CHEST,SING LE VIEW on DOS: 06/03/24, DI CHEST,SINGLE VIEW on DOS: 06/02/24, DI CHEST,SINGLE VIEW on DOS: 06/02/24 FINDINGS: Lines and Tubes: Endotracheal tube in satisfactory position Lungs: Congestion Pleura: No effusion. No pneumothorax. Cardiomediastinal contours: Cardiomegaly Bones: Unremarkable IMPRESSION: Endotracheal tube in satisfactory position
--- NOTE | 2024-06-05 10:28 | PROCEDURE NOTE CC ---
Procedure Note CC Providers to CC ~ Procedure Name: Arterial Line Description: Indication: Shock Consent: Emergency Time Out: Done Site: R Radial Complication: None EBL: 0.5ml Technique: Direct Puncture Post: Good wave form Sepsis Screening Reassessment Date: Jun 05, 2024 MAGDALENA SHEETS MD Jun 05, 2024 10:28
--- NOTE | 2024-06-05 10:31 | PROCEDURE NOTE CC ---
Procedure Note CC Providers to CC ~ Procedure Name: Central Venous Multi-lumen Catheter Description: Indication: Shock Consent: Emergency Time Out: Done Site: R Sub-clavian Technique: [place] EBL: 0.5ml Complications: None. CXR reviewed by myself Anesthesia: Local Sepsis Screening Reassessment Date: Jun 05, 2024 MAGDALENA SHEETS MD Jun 05, 2024 10:31
--- NOTE | 2024-06-05 10:35 | PROGRESS NOTE ---
Progress Note Dictate Providers to CC ~ Progress Note: S/P Cardiac-resp arrest after choking on Breakfast. CPR *6min before ROSC Ying Indications Met/Not Met: F/C Indications Met Antibiotic Ordered?: No Subjective Subjective Critically ill Objective Vitals Vital Signs Date Time Temp Pulse Resp B/P (MAP) Pulse Ox O2 Delivery O2 Flow Rate FiO2 06/05/24 08:57 130 18 100 06/05/24 07:37 Nasal Cannula 4.0 06/05/24 07:30 93 06/05/24 07:00 97.4 94/54 (67) Lab Results: 06/05/24 0554 06/04/24 0323 Objective Heart: A Fib Lungs: crackles at bases. Decrease BS R-side Abd: Soft, non-tender, BS (+) Ext: No edema Neuro: sedated Problem\Assessment\Plan Additional Plan 1-Acute Hypoxemic/Hypercapnic Resp Failure -F/U ABG 2-Atelectasis -Bronchoscopy -F/U CXR 3-Chronic A Fib -Continue Current Tx 4-CHFpEF -Repeat echo 5-S/P Cardiac Arrest -EEG in next 24-48h 6-Morbidly Obese Hong Rico CC time 35min Sepsis Screening Reassessment Date: Jun 05, 2024 MAGDALENA RICO MD Jun 05, 2024 10:35
--- NOTE | 2024-06-05 11:08 | PROCEDURE NOTE CC ---
Procedure Note CC Providers to CC ~ Procedure Name: Bronchoscopy Description: Consent: Family Indication: Near complete R Atelectasis Time Out: Done Description: Bronchoscope introduced through ETT. [place]. L-side with minimal secretion. R-side with copious thick secretion partially occluding R Main bronc hus. BAL performed Complications: None Post: CXR ordered Sepsis Screening Reassessment Date: Jun 05, 2024 MAGDALENA SHEETS MD Jun 05, 2024 11:08
[2024-06-05] MEDS: FENTANYL-0.9 % NACL/PF 100 ML IV SCH (11:38)
[2024-06-05] MEDS: midazolam 100mg in NS 100ml 100 ML IV SCH (11:39)
[2024-06-05] MEDS: normal saline 1000ml 1,000 ML IV ONE ×2 (11:44→11:45)
[2024-06-05] MEDS: ringers solution, lacted 1,000 ML IV SCH (12:36)
--- NOTE | 2024-06-05 13:05 | RADIOLOGY REPORT ---
CLINICAL INFORMATION: Post bronchoscopy. TECHNIQUE: Single AP portable chest radiograph was obtained. COMPARISON: DI CHEST,SINGLE VIEW on DOS: 06/05/24, DI CHEST,SINGLE VIEW on DOS: 06/05/24, DI CHEST,SING LE VIEW on DOS: 06/04/24 FINDINGS: Stable satisfactory positioning of the endotracheal tube, enteric tube, and right subclavian central venous catheter. Bilateral airspace opacities and interstitial opacities again noted. There may be sl ight improvement in the consolidation in the right upper lung compared to the prior exam. No pneumoth orax. No other significant interval change. IMPRESSION: 1. Stable satisfactory positioning of the endotracheal tube, enteric tube, right subclavian central v enous catheter. 2. Questionable slight improvement in the consolidation in the right upper lung compared to the prior exam. Otherwise stable bilateral airspace opacities and interstitial opacities
--- NOTE | 2024-06-05 13:06 | RADIOLOGY REPORT ---
CHEST RADIOGRAPH Indication: POST LINE PLACEMENT Technique: Single frontal view of the chest was obtained Comparison: DI CHEST,SINGLE VIEW on DOS: 06/05/24, DI CHEST,SINGLE VIEW on DOS: 06/05/24, DI CHEST,SING LE VIEW on DOS: 06/04/24 FINDINGS: Lines and Tubes: Endotracheal tube, enteric tube and right upper extremity PICC are in satisfactory p osition. Lungs: Unchanged right upper to mid lung zone opacification. Diffuse interstitial prominence. Indisti nctness of the left hemidiaphragm. No pneumothorax. Cardiomediastinal contours: Moderate to severe cardiomegaly Bones: No acute osseous abnormality. IMPRESSION: Endotracheal tube, enteric tube and right upper extremity PICC in satisfactory position. Unchanged cardiomegaly. Pericardial effusion can not be excluded. Pulmonary vascular congestion. Right upper lung zone opacification which may represent atelectasis /e ffusion. Possible trace left-sided pleural effusion. CT chest is recommended for further evaluation.
[2024-06-05] MEDS: propofol 1000mg/100ml bottle 100 ML IV SCH (13:17)
--- NOTE | 2024-06-05 13:34 | PROGRESS NOTE- Residence ---
Progress Note - Resident Providers to CC Resident Creating Document: CAROLYNN MCCALL, JOSEPH ~ Objective Vital Signs Date Time Temp Pulse Resp B/P (MAP) Pulse Ox O2 Delivery O2 Flow Rate FiO2 06/05/24 13:00 98.2 92 24 110/82 (91) 94 Mechanical Ventilator 100 06/05/24 08:00 4.0 Result Diagram: 06/05/24 0554 06/04/24 0323 Assessment Assessment 63-year-old female, initially presenting with respiratory distress and tachycardia. EKG shows atrial fibrillation/atrial flutter with a rapid rate. She was given IV metoprolol with no response. She was then given IV diltiazem, with good rate control. Her workup is concerning for congestive heart failure exacerbation related to her heart rate. She may also have some component of a COPD exacerbation. She was treated for these things including with steroids, and Lasix. She does have an oxygen requirement that is new. She was already on anticoagulation, and so I doubt PE. She will be admitted to the medicine service for further workup and treatment. Plan Plan # A fib with RVR on Eliquis and Sotalol # Acute hypoxic and hypercapnic respiratory failure from possible CHFpEF 60-65% # ERASMO and Class 3 obesity, BMI 43.2 # elevated proBNP # Hx of HTN # low anion gap -currently on the [facility] vantilation in CICU under management of Intensivinist. -ABG showed pH 7.5, pO2 63, pCO2 37.7, HCO3 29.6 showing possible respiratory alkalosis as a compensation from the chronic metabolic and respiratory acidosis -Echocardiogram on 06/02/2024 showed LV wall thickness, overall systolic function normal, LVEF 60-65%, LA normal, trace circumferential pericardial effusion without hemodynamic compromise, [place] indications of pericardial tamponade. -serial trop showed 23, 24, 25. -proBNP 1201 and continue IV Lasix 40 mg daily. -she was given one time dose of IV ceftriaxone in ER. -her anion gap six, continue IV Diamox 500 mg b.i.d. -continue her sotalol 80 mg q.12 hours, monitor her QT interval, continue Eliquis -continue albuterol/ipratropium nebulization q.4 hours as needed -manage mechanical ventilation with sedation as per CICU team management plan, hospitalist team will follow patient in ICU. # mild electrolyte imbalance-hypokalemia # Possible DILAN on CKD 3 -creatinine 1.24, BUN 24, monitor I's and O's daily with the renal function tests. -continue IV fluids -replace electrolytes as needed as per protocol. CODE STATUS: Full code DVT prophylaxis: Eliquis Analgesia/sedation: Under sedations Lines/tubes: Peripheral IV, Ying, intubation with mechanical ventilation GI prophylaxis: Protonix Nutrition: NPO Prognosis: Guarded Disposition: Continue medical management as per CICU team management plan, hospitalist team will follow up patient in ICU and take care of the patient one the patient will be downgraded to the floor, appreciate for letting hospitalist team involve in the patient management. Resident MD attestation: Patient was seen and examined with attending MD, Dr. Mela OCASIO MD Internal Medicine Resident, PGY2 [facility] Date of Service: Jun 05, 2024 Billing Provider: RENÉE DELEON MD, PRAVAHIKA, RES Jun 05, 2024 13:34
--- NOTE | 2024-06-05 13:53 | PROGRESS NOTE- Residence ---
Progress Note - Resident Providers to CC Resident Creating Document: CAROLYNN MCCALL RES ~ Antibiotic Timeout Antibiotic Ordered?: No Subjective Patient had a code blue this morning. Patient apparently choked on his eggs this morning. ROSC was achieved after 6 minutes, was intubated and ventilated and was transferred to ICU. In the ICU was started on Levophed drip. Objective Vital Signs Date Time Temp Pulse Resp B/P (MAP) Pulse Ox O2 Delivery O2 Flow Rate FiO2 06/05/24 13:00 98.2 92 24 110/82 (91) 94 Mechanical Ventilator 100 06/05/24 08:00 4.0 Result Diagram: 06/05/24 0554 06/04/24 0323 General- patient is sedated and intubated. HEENT-atraumatic normocephalic, neck supple without elevated JVD, no thyromegaly or carotid bruit. No lymphadenopathy bilaterally. Eyes-no icterus or pallor seen in eyes Chest-crackles heard at the bases. Decreased breath sounds in the right Heart-S1-S2 normal, irregular rhythm, no murmurs Abdomen bowel sounds positive on auscultation, soft nondistended nontender no guarding, no rigidity Skin no active skin rash Neurology-patient is sedated and intubated. Extremity- no pedal edema able to move all 4 extremities Plan Plan Assessment This is a 63-year-old female with a history of atrial fibrillation, hypertension, COPD, diabetes, depression. She was brought to the ER with rapid heart rate and respiratory distress. Reportedly had SVT, was given two doses of adenosine. In the ER at the time of admission patient was coughing and choking on her sandwich, was intubated on was transferred to the ICU. Patient was doing well, was extubated on 06/04/2024 and was transferred to the floors. On 2024, she choked on her eggs in the morning, went into cardiac arrest, code blue was initiated, ROSC was achieved in 6 minutes. She was intubated and was transferred to ICU. In the ICU central line was placed and was started on Levophed drip. Acute hypoxemic respiratory failure Aspiration pneumonia Acute on chronic COPD exacerbation Obstructive sleep apnea and class 3 obesity On 06/02/2024 patient choked on her sandwich in the ER at the time of admission, was intubated and ventilated and was transferred to ICU. She was extubated on 06/04/2024 and was transferred to PCU She again choked on her breakfast on 2024, went into cardiac arrest, ROSC was achieved in 6 minutes, was intubated and ventilated and transferred back to ICU. Currently on mechanical ventilator with a FiO2 of 100 and PEEP of 10. ABG showed a pH of 7.165, pCO2 of 91.8 Bronchoscopy was done by Dr. Rico. Findings- L-side with minimal secretion. R-side with copious thick secretion partially occluding R Main bronchus. BAL performed. Follow up with respiratory cultures. Cardiac arrest s/p ROSC Patient went into cardiac arrest this morning after choking on breakfast, ROSC was achieved after 6 minutes. Was intubated and transferred to ICU. On LR @100 mL/hour Initiated on Levophed drip in the ICU. Sedated with fentanyl, midazolam, propofol. EEG in the next 24-48 hours. Atrial fibrillation with controlled ventricular rate She was in rapid ventricular rate at the time of admission. Heart rate improved. Continued medications sotalol 80 mg b.i.d. and apixaban 5 mg b.i.d.. Chronic CHF with preserved ejection fraction Echo on 06/02/2024 showed an ejection fraction of 60-65%, trace pericardial effusion. Repeat echo ordered. Lasix discontinued DILAN on CKD three, likely secondary to vasomotor nephropathy. Creatinine today is 1.68 Baseline 0.9-1.0 Follow up with repeat BMP. Disposition: Continue care in ICU CODE STATUS: Full code DVT prophylaxis: Eliquis-WAS DISCONTINUED PATIENT IS NPO Analgesia/sedation: Under sedations Lines/tubes: Peripheral IV, Ying, intubation with mechanical ventilation, central line GI prophylaxis: Protonix Nutrition: NPO Prognosis: Guarded Carolynn Mccall M.D PGY1 PATIENT IS BEING MANAGED IN THE ICU BY THE [employer] Date of Service: Jun 05, 2024 Billing Provider: RENÉE DELEON MD Common Visit Codes: [id number] INP/OBS CARE(HIGH) CAROLYNN MCCALL, RES Jun 05, 2024 13:53 RENÉE DELEON MD Jun 05, 2024 14:27
[2024-06-05] MEDS: NORepinephrine 8mg/ 250ml NS 250 ML IV SCH (14:12)
[2024-06-05] MEDS: amiodarone 150mg/dext, iso-os 100 ML IV ONE (15:07)
[2024-06-05] MEDS: amiodarone/D5 360MG/200ML BAG 200 ML IV SCH (15:26)
--- NOTE | 2024-06-05 18:44 | CARDIOLOGY REPORT ---
APPROVED REPORT EXAM: Limited 2D, Doppler, and color-flow Echocardiogram. Patient Location: 2006 Blood Pressure: 109/70 mmHg Heart Rate: 67 bpm Rhythm: ATRIAL FIBRILLATION Indications EVALUATE LVEF S/P CARDIAC ARREST ATRIAL FLUTTER HYPERTENSION DIABETES COPD [employer] Manager: Sergio Sung MD Previous echo: 06/02/24 [facility] (EF 60-65%, trace TR, trace pericardial effusion without hemodynamic comp romise) 2D Dimensions RVDd 4.4 cm FS (%) 39.3 % SV 41.7 ml CO 2.7 L/min M-Mode Dimensions IVSd 1.14 (0.7-1.1cm) LVDd 4.82 (4.0-5.6cm) PWd 1.11 (0.7-1.1cm) IVSs 1.60 cm LVDs 3.62 (2.0-3.8cm) FS (%) 31 % PWs 1.46 cm ESV(Teich) 44.2 ml LVEF(%) 48 (>50%) LEFT VENTRICLE Normal LV size and wall thickness. Overall systolic function is mildly reduced. LVEF appears to be 45 -50%. RIGHT VENTRICLE RV is moderatley dilated with severely reduced systolic function. AORTIC VALVE Trileaflet AV appears grossly normal without gross stenosis or insufficiency. MITRAL VALVE Mild MV annular calcification without gross stenosis. Trace regurgitation. TRICUSPID VALVE TV appears structurally normal with trace regurgitation. PERICARDIUM Trace circumferential pericardial effusion without evidence of hemodynamic compromise. Conclusion Normal LV size and wall thickness. Overall systolic function is mildly reduced. LVEF appears to be 45 -50%. RV is moderatley dilated with severely reduced systolic function. Trileaflet AV appears grossly normal without gross stenosis or insufficiency. Mild MV annular calcification without gross stenosis. Trace regurgitation. TV appears structurally normal with trace regurgitation. Trace circumferential pericardial effusion without evidence of hemodynamic compromise.
[2024-06-05 19:30] LABS: BASOPHILS % (AUTO) 0.2 % (0-1); EOSINOPHILS # (AUTO) 0.1 X10'3 (0-0.9); EOSINOPHILS % (AUTO) 0.5 % (0-6); HEMATOCRIT 39.3 % (35.0-45.0); HEMOGLOBIN 12.6 g/dl (12.0-16.0); LYMPHOCYTES # (AUTO) 1.6 X10'3 (1.1-4.8); MEAN CORPUSCULAR HEMOGLOBIN 28.7 PG (27.0-31.0); MEAN CORPUSCULAR VOLUME 89.7 FL (78-98); MEAN PLATELET VOLUME 10.8 FL (7.4-10.4); MONOCYTES # (AUTO) 1.3 X10'3 (0-0.9); MONOCYTES % (AUTO) 10.7 % (2-12); NEUTROPHILS # (AUTO) 9.2 X10'3 (1.8-7.7); NEUTROPHILS % (AUTO) 75.6 % (42-75); PLATELET COUNT 271 X10'3 (140-440); RED BLOOD COUNT 4.38 X10'6 (4.20-5.60); RED CELL DISTRIBUTION WIDTH 15.9 % (11.5-14.5); WHITE BLOOD COUNT 12.2 X10'3 (4.5-11.0)
[2024-06-05 19:47] LABS: ALANINE AMINOTRANSFERASE 121 U/L (12-78); ALBUMIN 2.6 G/DL (3.4-5.0); ALKALINE PHOSPHATASE 68 IU/L (46-116); ANION GAP 12 (8-16); ASPARTATE AMINO TRANSFERASE 89 U/L (10-37); BILIRUBIN,TOTAL 1.2 MG/DL (0.1-1.0); BLOOD UREA NITROGEN 44 MG/DL (7-18); BUN/CREATININE RATIO 33.1 (10.0-20.0); CALCIUM 7.8 MG/DL (8.5-10.1); CHLORIDE 104 MMOL/L (99-107); CREATININE 1.33 MG/DL (0.40-0.90); GLUCOSE 130 MG/DL (70-104); MAGNESIUM 1.8 MG/DL (1.5-2.4); PHOSPHORUS 3.1 MG/DL (2.3-4.5); POTASSIUM 3.8 MMOL/L (3.5-5.1); SODIUM 141 MMOL/L (135-145); TOTAL CARBON DIOXIDE 24.8 MMOL/L (24-32); TOTAL PROTEIN 5.3 G/DL (6.4-8.2); eCRCL 45 ML/MIN; eGFR 40 ML/MIN
[2024-06-06] VITALS (43 sets, daily range): BP systolic 95–152; BP diastolic 32–74; PULSE 51–71; RESP 17–24; O2SAT 92–98
[2024-06-06 02:33] LABS: BASOPHILS % (AUTO) 0.1 % (0-1); EOSINOPHILS % (AUTO) 0.5 % (0-6); HEMATOCRIT 37.2 % (35.0-45.0); HEMOGLOBIN 11.8 g/dl (12.0-16.0); LYMPHOCYTES # (AUTO) 1.5 X10'3 (1.1-4.8); MEAN CORPUSCULAR HEMOGLOBIN 28.4 PG (27.0-31.0); MEAN CORPUSCULAR HGB CONC 31.9 g/dL (33.0-36.5); MEAN CORPUSCULAR VOLUME 89.1 FL (78-98); MEAN PLATELET VOLUME 10.7 FL (7.4-10.4); MONOCYTES # (AUTO) 0.8 X10'3 (0-0.9); MONOCYTES % (AUTO) 8.7 % (2-12); NEUTROPHILS # (AUTO) 7.1 X10'3 (1.8-7.7); NEUTROPHILS % (AUTO) 74.7 % (42-75); PLATELET COUNT 213 X10'3 (140-440); RED BLOOD COUNT 4.17 X10'6 (4.20-5.60); RED CELL DISTRIBUTION WIDTH 15.6 % (11.5-14.5); WHITE BLOOD COUNT 9.5 X10'3 (4.5-11.0)
[2024-06-06 02:52] LABS: ALANINE AMINOTRANSFERASE 105 U/L (12-78); ALBUMIN 2.3 G/DL (3.4-5.0); ALBUMIN/GLOBULIN RATIO 0.8 (1.1-1.5); ALKALINE PHOSPHATASE 61 IU/L (46-116); ANION GAP 12 (8-16); BILIRUBIN,TOTAL 1.2 MG/DL (0.1-1.0); BLOOD UREA NITROGEN 44 MG/DL (7-18); BUN/CREATININE RATIO 31.4 (10.0-20.0); CALCIUM 7.6 MG/DL (8.5-10.1); CHLORIDE 105 MMOL/L (99-107); GLUCOSE 117 MG/DL (70-104); MAGNESIUM 1.8 MG/DL (1.5-2.4); PREALBUMIN 13.7 MG/DL (19-36); SODIUM 141 MMOL/L (135-145); TOTAL CARBON DIOXIDE 24.3 MMOL/L (24-32); TOTAL PROTEIN 5.1 G/DL (6.4-8.2); TRIGLYCERIDES 156 MG/DL (20-135); eCRCL 42 ML/MIN; eGFR 38 ML/MIN
[2024-06-06 02:53] LABS: ASPARTATE AMINO TRANSFERASE 68 U/L (10-37); POTASSIUM 3.5 MMOL/L (3.5-5.1)
[2024-06-06 03:23] LABS: ABG BASE EXCESS 1.7 mmol/L (-2.0-3.0); ABG HCO3 24.3 mmol/L (21.0-28.0); ABG PCO2 (T) 31.3 mmHg (32.0-45.0); ABG PH (T) 7.506 (7.350-7.450); ABG PO2 (T) 79.7 mmHg (83.0-108.0); FCOHb 1.2 % (0.5-1.5); FMetHb 0.3 % (0.0-1.5); FO2Hb 95.5 % (94.0-98.0); MODE PRVC; PATIENT TEMPERATURE 36.5; PEEP 10 cm H2O; RESPIRATORY RATE 24 b/min; TIDAL VOLUME 375 mL; TOTAL HEMOGLOBIN 12.8 G/dl (12.0-16.0)
[2024-06-06 05:33] LABS: ABG BASE EXCESS 0.5 mmol/L (-2.0-3.0); ABG HCO3 24.1 mmol/L (21.0-28.0); ABG OXYGEN SATURATION 94.9 % (94.0-98.0); ABG PCO2 (T) 35.3 mmHg (32.0-45.0); ABG PH (T) 7.452 (7.350-7.450); ABG PO2 (T) 71.7 mmHg (83.0-108.0); FCOHb 1.1 % (0.5-1.5); FMetHb 0.3 % (0.0-1.5); FO2Hb 93.6 % (94.0-98.0); MODE prvc; PATIENT TEMPERATURE 36.8; PEEP 10 cm H2O; RESPIRATORY RATE 18 b/min; TIDAL VOLUME 375 mL; TOTAL HEMOGLOBIN 12.1 G/dl (12.0-16.0)
--- NOTE | 2024-06-06 05:46 | RADIOLOGY REPORT ---
CHEST RADIOGRAPH Indication: ET Tube Placement Technique: Single frontal view of the chest was obtained COMPARISON: DI CHEST,SINGLE VIEW on DOS: 06/05/24, DI CHEST,SINGLE VIEW on DOS: 06/05/24, DI CHEST,SING LE VIEW on DOS: 06/05/24, DI CHEST,SINGLE VIEW on DOS: 06/05/24, DI CHEST,SINGLE VIEW on DOS: 06/04/24 FINDINGS: Lines and Tubes: Endotracheal tube, enteric catheter and right central venous catheter in satisfactor y position. Lungs: Multifocal airspace disease. Pleura: No effusion. No pneumothorax. Cardiomediastinal contours: Cardiomegaly Bones: Unremarkable IMPRESSION: Lines and tubes in satisfactory position. No significant interval change.
[2024-06-06] MEDS ORDERED: dextrose 50%-water 50ml dispensing syringe IV PRN (07:50)
[2024-06-06] MEDS ORDERED: DEXTROSE 15 GM of carb/4 tabs (each vial/BOTTLE has 4 tablets) PO PRN ×2 (07:50)
[2024-06-06] MEDS ORDERED: glucagon, human recombinant 1mg kit SUBCUT PRN (07:50)
[2024-06-06] MEDS: dextrose 50%-water 50ml dispensing syringe IV PRN (07:55)
--- NOTE | 2024-06-06 09:39 | PROGRESS NOTE- Residence ---
Progress Note - Resident Providers to CC Resident Creating Document: MONTEZ ONOFRE RES CC: MAGDALENA SHEETS MD ~ Central Line/PICC still needed: Yes Ying-Non Protocol Ying Indications Met/Not Met: F/C Indications Met Antibiotic Timeout Antibiotic Ordered?: No Subjective Patient is seen this morning. She is intubated and sedated with RASS of -1. She is on low-dose Levophed Objective Vital Signs Date Time Temp Pulse Resp B/P (MAP) Pulse Ox O2 Delivery O2 Flow Rate FiO2 06/06/24 08:00 18 97 Mechanical Ventilator 50 06/06/24 08:00 98.2 54 111/56 (74) 06/05/24 08:00 4.0 Result Diagram: 06/06/2415806/06/24 015 General: Elderly female, obese, intubated and sedated with RASS of -1 Head: Normocephalic with an atraumatic Eyes: Pupils- 3mm, reacting to light, conjunctiva- anicteric Nose and throat: No polyps, septum- normal, no mucosal ulcers Neck: Supple, no lymphadenopathy, no carotid bruit Respiratory: No use of accessory muscles of respiration, Bilateral equal air entry Cardiac: S1-S2 heard, rythm regular, no gallop/murmur Abdomen: obese, distended, no tenderness, no organomegaly, bowel sounds- heard Extremities: no clubbing, no pedal edema, no deformities, peripheral pulses- 2+ Skin: warm and dry, no rash, no purpura, 1+ pitting edema Neuro: sedated Assessment Assessment This is a 63-year-old female with a history of atrial fibrillation, hypertension, COPD, diabetes, depression. She was brought to the ER with rapid heart rate and respiratory distress. Reportedly had SVT, was given two doses of adenosine. In the ER at the time of admission patient was coughing and choking on her sandwich, was intubated on was transferred to the ICU. Patient was doing well, was extubated on 06/04/2024 and was transferred to the floors. On 2024, she choked on her eggs in the morning, went into cardiac arrest, code blue was initiated, ROSC was achieved in 6 minutes. She was intubated and was transferred to ICU. In the ICU central line was placed and was started on Levophed drip. Plan Plan Respiratory Acute hypoxemic respiratory failure Secondary to aspiration pneumonia COPD exacerbation ERASMO -currently on AC/PRVC, FiO2 of 50, tidal volume of 375, peep of 10 -ABG 7.45/35/71/24, PF ratio 112 -bronchoscopy done on 05/26- L-side with minimal secretion. R-side with copious thick secretion partially occluding R Main bronchus. BAL performed. -preliminary respiratory cultures negative -SBT trials from tomorrow Cardiac S/p cardiac arrest- PEA Cardiogenic shock AFib with CVR Chronic heart failure with preserved ejection fraction -currently on Levophed 0.03 mics per kg per minute -monitor to maintain map above 65 -amiodarone is DCed as the heart rate is under control -continue Eliquis -Echo on 06/02/2024 showed an ejection fraction of 60-65%, trace pericardial effusion. -echo done on 06/05 after cardiac arrest showed EF of 45-50%, RV moderately dilated with severely reduced systolic function Renal DILAN-likely prerenal Creatinine 1.4>>1.33>>1.68 net positive of 4.2L Monitor bmp and i/o chart GI Elevated transaminase -suspect likely secondary to amiodarone Endocrine Diabetes mellitus type 2 -follow up on A1c -patient had hypoglycemic episode this morning, resolved with IV dextrose -goal to maintain glucose in the range of 140-180 Nutrition -started on tube feeds from today Code Status: Full code Analgesia/sedation: Fentanyl, midazolam, propofol Line/tube: Right subclavian CVC, right radial arterial line, ETT, OGT, Ying GI prophylaxis: Pepcid DVT prophylaxis: Eliquis Nutrition: Tube feeds Prognosis: critical Disposition: Continue care in ICU Montez Onofre, ICU PGY-2 resident Date of Service: Jun 06, 2024 Billing Provider: MAGDALENA SHEETS MD,MONTEZ, RES Jun 06, 2024 09:39
--- NOTE | 2024-06-06 12:50 | PROGRESS NOTE- Residence ---
Progress Note - Resident Providers to CC Resident Creating Document: TATI OCASIO RES ~ Antibiotic Timeout Antibiotic Ordered?: No Subjective Patient was seen at the CICU under sedation with Levophed pressor, her amiodarone was stopped yesterday because of her bradycardia, stay under mechanical ventilation. Objective Vital Signs Date Time Temp Pulse Resp B/P (MAP) Pulse Ox O2 Delivery O2 Flow Rate FiO2 06/06/24 12:00 97.7 51 18 111/58 (75) 98 Mechanical Ventilator 40 06/05/24 08:00 4.0 Result Diagram: 06/06/2415806/06/24158 Vitals were stable at the moment with temp 36.5, BP 108/56 mmHg, MAP 73, RR 18/min, FIO2 50% with PEEP 10 and making UO. General: under sedations, not in acute distress. HEENT: Conjunctive are pink, sclerae clear, no icterus, pupil is equal in both sides, reactive to light, no ear discharge, no pharyngeal erythema or an edema, mouth and lips are dry. Neck: Supple, no JVD, no lymphadenopathy and thyromegaly. Lungs: Equal air entry on both lungs, bilateral fine basal crackles Heart: S1-S2 atrial fibrillation rhythm and, RVR, no gallops, no rubs, no murmurs Abdomen: No visible peristalsis, Bowel sounds present on auscultation, soft, nontender, no guarding, no rigidity Extremities: No obvious deformities, no pitting edema bilaterally, capillary refill intact, able to wiggle toes both sides, peripheral pulsations are intact on both sides HUMANITIES COORDINATOR: No focal neurological deficits, no motor and sensory weakness in all 4 extremities, could move all 4 extremities Musculoskeletal: No joint swelling, deformities, inflammations, and no scoliosis and back tenderness Skin: No active skin lesions and rashes. Assessment Assessment A 63-year-old female with PMH AFib with RVR on Eliquis and sotalol, ERASMO and class two obesity BMI 43.2, hypertension, CKD 3, COPD, and T2DM and depression presented to the Hospital with rapid heart rate and respiratory distress. In ER, she possibly underwent SVT for which she was given two doses of adenosine causing possible bronchospasm in lieu of choking on her sandwich and a coughing in ER made her intubation and transferred out to CICU on admission. The patient was extubated on 06/04/2024 after SBT and downgraded to the floor on 06/05/24. However, she choked again on her scrambled eggs in the morning of 05/2024 made her to cardiac arrest for which code blue was initiated and she regained her ROSC in 6 minutes after CPR. Her respiration was supported with mechanical ventilation again and transferred out to CICU again, central line was placed for pressor drips. She had a bronchoscopy on 06/05/24 found that she has an aspiration pneumonia with evidences of scrambled egg in her respiratory tract. Plan Plan Acute hypoxemic respiratory failure Aspiration pneumonia Acute on chronic COPD exacerbation Obstructive sleep apnea and class 3 obesity - currently on mechanical ventilation support under sedation, Sedated with fentanyl, midazolam, propofol. -Dr. Rico performed bronchoscopy yesterday with the evidence of scrambled eight aspiration, left-sided with minimal secretion, right-sided with copious thick secretions partially occluding right main bronchus. -ICU team will try SBT tomorrow Cardiac arrest s/p ROSC -Patient went into cardiac arrest after choking on breakfast, ROSC was achieved after 6 minutes. Was intubated and transferred to ICU. -On LR @100 mL/hour and currently on Levophed drip in the ICU with MAP 73 -echo done on 06/05 after cardiac arrest showed EF of 45-50%, RV moderately dilated with severely reduced systolic function Atrial fibrillation with controlled ventricular rate Chronic CHF with preserved ejection fraction -She was in rapid ventricular rate at the time of admission. - amiodarone was stopped because of her bradycardia. EEG in the next 24-48 hours. -Echo on 06/02/2024 showed an ejection fraction of 60-65%, trace pericardial effusion. Heart rate improved. -Lasix discontinued DILAN on CKD three, likely secondary to vasomotor nephropathy. -Creatinine today is 1.4 -Baseline 0.9-1.0 -Follow up with repeat BMP. Non specific Transaminitis -mostly 2/2 reduced hepatic blood supply Vs amiodarone administration -monitor liver function tests daily. -Continue tube feedings Disposition: Continue care in ICU CODE STATUS: Full code DVT prophylaxis: Eliquis Analgesia/sedation: Under sedations (Fentanyl, midazolam, propofol) Lines/tubes: Peripheral IV, Ying, intubation with mechanical ventilation, central line GI prophylaxis: Protonix Nutrition: Tube feeding Prognosis: Guarded Resident MD padgettation: Patient was seen and examined with attending MD, Dr. Blanca OCASIO MD Internal Medicine Resident, PGY2 [facility] Patient is seen and examined at bedside Patient is being managed in the ICU by the product consultant Date of Service: Jun 06, 2024 Billing Provider: RENÉE DELEON MD Common Visit Codes: [id number] INP/OBS CARE(HIGH) TATI OCASIO, RES Jun 06, 2024 12:50 RENÉE DELEON MD Jun 06, 2024 17:43
[2024-06-06] MEDS: famotidine 20mg tablet NG SCH (20:05)
[2024-06-06] MEDS: apixaban 5mg tablet NG SCH (20:06)
[2024-06-06 23:27] LABS: ABG BASE EXCESS 0.3 mmol/L (-2.0-3.0); ABG HCO3 27.8 mmol/L (21.0-28.0); ABG OXYGEN SATURATION 91.6 % (94.0-98.0); ABG PCO2 (T) 58.6 mmHg (32.0-45.0); ABG PH (T) 7.295 (7.350-7.450); ABG PO2 (T) 71.3 mmHg (83.0-108.0); FCOHb 1.3 % (0.5-1.5); FHHb 8.3 % (0.0-5.0); FMetHb 0.3 % (0.0-1.5); FO2Hb 90.1 % (94.0-98.0); MODE PRVC; PATIENT TEMPERATURE 37.4; PEEP 10 cm H2O; RESPIRATORY RATE 18 b/min; TIDAL VOLUME 375 mL; TOTAL HEMOGLOBIN 12.9 G/dl (12.0-16.0)
[2024-06-07] VITALS (45 sets, daily range): BP systolic 84–129; BP diastolic 36–64; PULSE 57–88; RESP 19–23; O2SAT 93–98
--- NOTE | 2024-06-07 02:40 | PROGRESS NOTE ---
Progress Note Dictate Providers to CC ~ Antibiotic Ordered?: N/A Objective Vitals Vital Signs Date Time Temp Pulse Resp B/P (MAP) Pulse Ox O2 Delivery O2 Flow Rate FiO2 06/07/24 01:29 131/56 06/07/24 01:11 71 22 96 50 06/07/24 01:00 99.5 Mechanical Ventilator 06/06/24 20:00 Lab Results: 06/06/24 0159 06/06/24 0159 Problem\Assessment\Plan Additional Plan TeleICU Patient seen and evaluated with HIPPA compliant AV device, discussed with charge nurse Had cardiac arrest from chocking CXR PNA Now intubated and sedated levophed for shock Vent magement Tube feed Daily SBT CCT 60mins Adrianne MELENDEZ,ADRIANNE Pitts MD Jun 07, 2024 02:40
[2024-06-07 03:41] LABS: ABG HCO3 22.1 mmol/L (21.0-28.0); ABG OXYGEN SATURATION 97.6 % (94.0-98.0); ABG PCO2 (T) 36.1 mmHg (32.0-45.0); ABG PH (T) 7.406 (7.350-7.450); ABG PO2 (T) 97.3 mmHg (83.0-108.0); FCOHb 1.2 % (0.5-1.5); FHHb 2.4 % (0.0-5.0); FMetHb 0.3 % (0.0-1.5); FO2Hb 96.1 % (94.0-98.0); MODE PRVC; PATIENT TEMPERATURE 37.2; PEEP 10 cm H2O; RESPIRATORY RATE 22 b/min; TIDAL VOLUME 375 mL; TOTAL HEMOGLOBIN 12.1 G/dl (12.0-16.0)
[2024-06-07 04:01] LABS: BASOPHILS % (AUTO) 0.2 % (0-1); EOSINOPHILS # (AUTO) 0.1 X10'3 (0-0.9); EOSINOPHILS % (AUTO) 0.9 % (0-6); HEMATOCRIT 35.5 % (35.0-45.0); HEMOGLOBIN 11.6 g/dl (12.0-16.0); LYMPHOCYTES % (AUTO) 12.2 % (21-51); MEAN CORPUSCULAR HEMOGLOBIN 29.2 PG (27.0-31.0); MEAN CORPUSCULAR HGB CONC 32.7 g/dL (33.0-36.5); MEAN CORPUSCULAR VOLUME 89.2 FL (78-98); MEAN PLATELET VOLUME 10.8 FL (7.4-10.4); MONOCYTES # (AUTO) 0.9 X10'3 (0-0.9); MONOCYTES % (AUTO) 10.5 % (2-12); NEUTROPHILS # (AUTO) 6.6 X10'3 (1.8-7.7); NEUTROPHILS % (AUTO) 76.2 % (42-75); PLATELET COUNT 188 X10'3 (140-440); RED BLOOD COUNT 3.98 X10'6 (4.20-5.60); RED CELL DISTRIBUTION WIDTH 15.9 % (11.5-14.5); WHITE BLOOD COUNT 8.6 X10'3 (4.5-11.0)
[2024-06-07 04:14] LABS: ALANINE AMINOTRANSFERASE 70 U/L (12-78); ALBUMIN 2.3 G/DL (3.4-5.0); ALBUMIN/GLOBULIN RATIO 0.7 (1.1-1.5); ALKALINE PHOSPHATASE 59 IU/L (46-116); ANION GAP 6 (8-16); ASPARTATE AMINO TRANSFERASE 33 U/L (10-37); BILIRUBIN,TOTAL 0.9 MG/DL (0.1-1.0); BLOOD UREA NITROGEN 43 MG/DL (7-18); BUN/CREATININE RATIO 33.9 (10.0-20.0); CALCIUM 7.8 MG/DL (8.5-10.1); CHLORIDE 105 MMOL/L (99-107); CREATININE 1.27 MG/DL (0.40-0.90); GLUCOSE 121 MG/DL (70-104); POTASSIUM 3.4 MMOL/L (3.5-5.1); SODIUM 140 MMOL/L (135-145); TOTAL CARBON DIOXIDE 28.8 MMOL/L (24-32); TOTAL PROTEIN 5.4 G/DL (6.4-8.2); eCRCL 47 ML/MIN; eGFR 42 ML/MIN
[2024-06-07] MEDS ORDERED: magnesium sulf-water 2g/50mL 50 ML IV PRN (04:30)
[2024-06-07] MEDS ORDERED: potassium Cl 20 mEq SR tablet PO PRN ×2 (04:30)
[2024-06-07] MEDS ORDERED: magnesium sulf-water 4G/100mL 100 ML IV PRN (04:30)
[2024-06-07 05:06] LABS: HEMOGLOBIN A1C 6.8 % (4.5-6.2)
[2024-06-07] MEDS: potassium Cl 40MEQ/270ML bag 270 ML IV PRN (05:34)
--- NOTE | 2024-06-07 05:57 | RADIOLOGY REPORT ---
EXAM: XR Chest, 1 View CLINICAL INDICATION: ET Tube Placement TECHNIQUE: Frontal view of the chest. COMPARISON: DI CHEST,SINGLE VIEW on DOS: 06/06/24, DI CHEST,SINGLE VIEW on DOS: 06/05/24, DI CHEST,SI NGLE VIEW on DOS: 06/05/24, DI CHEST,SINGLE VIEW on DOS: 06/05/24, DI CHEST,SINGLE VIEW on DOS: 06/05/24 FINDINGS: LUNGS AND PLEURAL SPACES: See below. HEART: Cardiomegaly with pulmonary congestion and edema. Superimposed pneumonia cannot be excluded. MEDIASTINUM: Unremarkable. Normal mediastinal contour. BONES/JOINTS: Unremarkable. No acute fracture. TUBES, LINES AND DEVICES: The endotracheal tube (ETT) is in satisfactory position. Enteric tube ti p cannot be seen but is below the diaphragm. Right-sided central line with distal tip in the SVC. OTHER FINDINGS: . . . IMPRESSION: Cardiomegaly with pulmonary congestion and edema. Superimposed pneumonia cannot be excluded.
[2024-06-07] MEDS ORDERED: DEXTROSE 15 GM of carb/4 tabs (each vial/BOTTLE has 4 tablets) NG PRN ×2 (07:31)
[2024-06-07] MEDS: sotalol HCl 40mg (1/2 tablet) NG SCH (08:00)
[2024-06-07] MEDS: K and/or MAG REPLACEMENT MC SCH (08:00)
[2024-06-07] MEDS: mineral oil/petrolatum ophthal oint EACHEYE SCH (08:30)
--- NOTE | 2024-06-07 09:40 | PROGRESS NOTE- Residence ---
Progress Note - Resident Providers to CC Resident Creating Document: MONTEZ ONOFRE RES CC: MAGDALENA SHEETS MD ~ Central Line/PICC still needed: Yes Ying-Non Protocol Ying Indications Met/Not Met: F/C Indications Met Antibiotic Timeout Antibiotic Ordered?: No Subjective No acute overnight events. This morning at around 7:45 a.m. the sedation was stopped, and even after 3 hours patient is still somnolent. She was on low-dose Levophed this morning which was stopped after that pressures has been normal. Objective Vital Signs Date Time Temp Pulse Resp B/P (MAP) Pulse Ox O2 Delivery O2 Flow Rate FiO2 06/07/24 08:56 122/57 06/07/24 07:20 76 22 Mechanical Ventilator 40.0 06/07/24 07:13 97 40 06/07/24 06:00 99.0 Result Diagram: 06/07/246 06/07/24 0246 General: Elderly female, obese, intubated, not responding even after stopping sedation Head: Normocephalic with an atraumatic Eyes: Pupils- 3mm, reacting to light, conjunctiva- anicteric Nose and throat: No polyps, septum- normal, no mucosal ulcers Neck: Supple, no lymphadenopathy, no carotid bruit Respiratory: No use of accessory muscles of respiration, Bilateral equal air entry Cardiac: S1-S2 heard, rythm regular, no gallop/murmur Abdomen: obese, distended, no tenderness, no organomegaly, bowel sounds- heard Extremities: no clubbing, no pedal edema, no deformities, peripheral pulses- 2+ Skin: warm and dry, no rash, no purpura, 1+ pitting edema Neuro: sedated Assessment Assessment This is a 63-year-old female with a history of atrial fibrillation, hypertension, COPD, diabetes, depression. She was brought to the ER with rapid heart rate and respiratory distress. Reportedly had SVT, was given two doses of adenosine. In the ER at the time of admission patient was coughing and choking on her sandwich, was intubated on was transferred to the ICU. Patient was doing well, was extubated on 06/04/2024 and was transferred to the floors. On 2024, she choked on her eggs in the morning, went into cardiac arrest, code blue was initiated, ROSC was achieved in 6 minutes. She was intubated and was transferred to ICU. In the ICU central line was placed and was started on Levophed drip. Plan Plan Respiratory Acute hypoxemic respiratory failure Secondary to aspiration pneumonia COPD exacerbation ERASMO -currently on AC/PRVC, FiO2 of 40, tidal volume of 375, peep of 10 -ABG 7.4/36/97/22, PF ratio 192 -bronchoscopy done on 05/26- L-side with minimal secretion. R-side with copious thick secretion partially occluding R Main bronchus. BAL performed. -preliminary respiratory cultures negative Plan -FiO2 is down to 40 from 50 and improved PF ratio -SAT and SBT today Cardiac S/p cardiac arrest- PEA ROSC after 6 mins Cardiogenic shock AFib with CVR Chronic heart failure with preserved ejection fraction -levophed stopped -monitor to maintain map above 65 -amiodarone is DCed on 06/06 -continue Eliquis, and sotalol 40 mg bid -Echo on 06/02/2024 showed an ejection fraction of 60-65%, trace pericardial effusion. -echo done on 06/05 after cardiac arrest showed EF of 45-50%, RV moderately dilated with severely reduced systolic function Renal DILAN-likely prerenal Creatinine 1.27>> 1.4>>1.33>>1.68 net positive of 1.9L Monitor bmp and i/o chart GI Elevated transaminase -lfts trending down -suspect likely secondary to amiodarone Endocrine Diabetes mellitus type 2 with a1c of 6.8 -goal to maintain glucose in the range of 140-180 -insulin if needed Nutrition -continue TFs Neurology -EEG today as she has no response even after stopping sedation\ Events on 06/06 -FiO2 50, on low-dose Levophed -started tube feeds -DC amiodarone Events on 06/07 -FiO2 down to 40 from 50 -weaned off Levophed -SAT/SBT -creatinine, LFTs trending down -EEG today -added sotalol Code Status: Full code Analgesia/sedation: Fentanyl, midazolam, propofol, currently on hold Line/tube: Right subclavian CVC, right radial arterial line, ETT, OGT, Ying GI prophylaxis: Pepcid DVT prophylaxis: Eliquis Nutrition: Tube feeds Prognosis: critical Disposition: Continue care in ICU Montez Onofre, ICU PGY-2 resident Date of Service: Jun 07, 2024 Billing Provider: MAGDALENA SHEETS MD,[facility], RES Jun 07, 2024 09:40
--- NOTE | 2024-06-07 18:38 | PROGRESS NOTE- Residence ---
Progress Note - Resident Providers to CC Resident Creating Document: TATI OCASIO RES ~ Antibiotic Timeout Antibiotic Ordered?: No Subjective No acute overnight events. This morning at around 7:45 a.m. the sedation was stopped, and even after 3 hours patient is still somnolent. She was on low-dose Levophed this morning which was stopped after that pressures has been normal. Objective Vital Signs Date Time Temp Pulse Resp B/P (MAP) Pulse Ox O2 Delivery O2 Flow Rate FiO2 06/07/24 18:11 118/48 06/07/24 17:37 81 22 96 45 06/07/24 15:00 99.5 Mechanical Ventilator 06/07/24 07:20 40.0 Result Diagram: 06/07/24 0246 06/07/24 024 Vitals were stable at the moment with temp 99.1 F, BP 99/59 mmHg, MAP 69, RR 18/min, FIO2 40% with PEEP 10 and making UO. General: under sedations, not in acute distress. HEENT: Conjunctive are pink, sclerae clear, no icterus, pupil is equal in both sides, reactive to light, no ear discharge, no pharyngeal erythema or an edema, mouth and lips are dry. Neck: Supple, no JVD, no lymphadenopathy and thyromegaly. Lungs: Equal air entry on both lungs, bilateral fine basal crackles Heart: S1-S2 atrial fibrillation rhythm and, RVR, no gallops, no rubs, no murmurs Abdomen: No visible peristalsis, Bowel sounds present on auscultation, soft, nontender, no guarding, no rigidity Extremities: No obvious deformities, no pitting edema bilaterally, capillary refill intact, able to wiggle toes both sides, peripheral pulsations are intact on both sides OCEAN CLAM BOAT CAPTAIN: No focal neurological deficits, no motor and sensory weakness in all 4 extremities, could move all 4 extremities Musculoskeletal: No joint swelling, deformities, inflammations, and no scoliosis and back tenderness Skin: No active skin lesions and rashes. Assessment Assessment A 63-year-old female with PMH AFib with RVR on Eliquis and sotalol, ERASMO and class two obesity BMI 43.2, hypertension, CKD 3, COPD, and T2DM and depression presented to the Hospital with rapid heart rate and respiratory distress. In ER, she possibly underwent SVT for which she was given two doses of adenosine causing possible bronchospasm in lieu of choking on her sandwich and a coughing in ER made her intubation and transferred out to CICU on admission. The patient was extubated on 06/04/2024 after SBT and downgraded to the floor on 06/05/24. However, she choked again on her scrambled eggs in the morning of 05/2024 made her to cardiac arrest for which code blue was initiated and she regained her ROSC in 6 minutes after CPR. Her respiration was supported with mechanical ventilation again and transferred out to CICU again, central line was placed for pressor drips. She had a bronchoscopy on 06/05/24 found that she has an aspiration pneumonia with evidences of scrambled egg in her respiratory tract. Plan Plan Acute hypoxemic respiratory failure Aspiration pneumonia Acute on chronic COPD exacerbation Obstructive sleep apnea and class 3 obesity -currently on AC/PRVC, FiO2 of 40% was tirated down from 50 on 06/07/24, peep of 10 -ABG pH 7.4, pCO2 36.1, PO2 97.3, HC03 22.1 -Dr. Rico performed bronchoscopy on 06/05/24 with the evidence of scrambled eight aspiration, left-sided with minimal secretion, right-sided with copious thick secretions partially occluding right main bronchus. -preliminary respiratory cultures negative -ICU will try SBT S/p cardiac arrest- PEA ROSC after 6 mins Cardiogenic shock -levophed was stopped after titrated down, sedations will be weaned off -monitor to maintain map above 65 -amiodarone was DCed on 06/06 -continue Eliquis, and sotalol 40 mg bid -Echo on 06/02/2024 showed an ejection fraction of 60-65%, trace pericardial effusion. -echo done on 06/05 after cardiac arrest showed EF of 45-50%, RV moderately dilated with severely reduced systolic function Atrial fibrillation with controlled ventricular rate Chronic CHF with preserved ejection fraction -She was in rapid ventricular rate at the time of admission. - amiodarone was stopped because of her bradycardia. EEG in the next 24-48 hours. -Echo on 06/02/2024 showed an ejection fraction of 60-65%, trace pericardial effusion. Heart rate improved. -Lasix was discontinued DILAN on CKD three, likely secondary to renal tubular statsis/ pre renal. Creatinine 1.27, Baseline 0.9-1.0 Monitor bmp and i/o chart Non specific Transaminitis -mostly 2/2 reduced hepatic blood supply Vs amiodarone administration -monitor liver function tests daily. -Continue tube feedings Diabetes mellitus type 2 with a1c of 6.8 -goal to maintain glucose in the range of 140-180 -insulin if needed Post cardiac arrest encephalopathy mostly anoxic brain injury -EEG today as she has no response even after stopping sedation Events on 06/06 -FiO2 50, on low-dose Levophed -started tube feeds -DC amiodarone Events on 06/07 -FiO2 down to 40 from 50 -weaned off Levophed -SAT/SBT -creatinine, LFTs trending down -EEG today -added sotalol Code Status: Full code Analgesia/sedation: Fentanyl, midazolam, propofol, currently on hold Line/tube: Right subclavian CVC, right radial arterial line, ETT, OGT, Ying GI prophylaxis: Pepcid DVT prophylaxis: Eliquis Nutrition: Tube feeds Prognosis: critical Disposition: Continue care in ICU, hospitalist team will follow the patient and appreciate for letting us involve in patient care. Resident MD attestation: Patient was seen and examined with attending MD, Dr. Jeremy OCASIO MD Internal Medicine Resident, PGY2 [facility] Date of Service: Jun 07, 2024 Billing Provider: SHIRAZ MOLINA MD Common Visit Codes: [id number] INP/OBS CARE(HIGH) TATI OCASIO, RES Jun 07, 2024 18:38 SHIRAZ MOLINA MD Jun 08, 2024 05:45
[2024-06-07] MEDS: dexmedetomidin/NS 400mcg/100ml 100 ML IV PRN (18:48)
--- NOTE | 2024-06-07 18:49 | PROCEDURE NOTE ---
Procedure Note Providers to CC ~ Interpretation: [place] EEG Note # Demographics Type of EEG Read: - Routine EEG - video Patient Location: Inpatient First Name: Kristy Last Name: Hakan Date of : 1960 Age: 63 Gender: Female Facility: [facility] Time of Initial Page ([place] ): 06/07/2024 11:44 Time of Return Call ([place] Time): 06/07/2024 11:44 # EEG Interpretation Start Time of EEG Read ([place] Time): 06/07/2024 11:45 Stop Time of EEG Read ([place] ): 06/07/2024 12:06 Duration: 0h 21m Technical Details: - The EEG electrodes were placed using the standard International 10-20 system of electrode placement. Video and an accessory EKG lead were used during the course of this study. - This study was recorded using the [employer] EEG software Indication: - seizure # Description Phases Captured: - drowsy Symmetry: symmetric Predominant Frequencies: - theta (4-7 Hz) - abundant (50-89%) Superimposed Frequencies: - delta (2-3 Hz) - frequent (10-49%) Non-posterior dominant alpha rhythm also seen Amplitude: normal Reactivity: yes Variability: yes Continuity: continuous # Abnormalities Epileptiform Abnormalities: - NOT present Focal Slowing: no Seizure: - NOT present # Impression Impression: abnormal 1. Diffuse Slowing # Clinical Correlation Clinical Correlation: Diffuse slowing is non-specific and may be seen in the setting of diffuse cerebral dysfunction; such as toxic/metabolic/infectious encephalopathy or heavily sedating medication use. # Demographics First Name: Kristy Last Name: Hakan Facility: [facility] JJ YEPEZ MD Jun 07, 2024 18:49
[2024-06-07] MEDS: ringers solution, lactated 500ml IV solution IV ONE (23:48)
[2024-06-08] VITALS (45 sets, daily range): BP systolic 81–144; BP diastolic 40–64; PULSE 63–85; RESP 17–26; O2SAT 93–99
[2024-06-08 01:23] LABS: BASOPHILS % (AUTO) 0.2 % (0-1); EOSINOPHILS # (AUTO) 0.1 X10'3 (0-0.9); EOSINOPHILS % (AUTO) 1.3 % (0-6); HEMATOCRIT 31.9 % (35.0-45.0); HEMOGLOBIN 10.6 g/dl (12.0-16.0); LYMPHOCYTES # (AUTO) 0.9 X10'3 (1.1-4.8); LYMPHOCYTES % (AUTO) 12.4 % (21-51); MEAN CORPUSCULAR HEMOGLOBIN 29.9 PG (27.0-31.0); MEAN CORPUSCULAR HGB CONC 33.3 g/dL (33.0-36.5); MEAN CORPUSCULAR VOLUME 89.7 FL (78-98); MEAN PLATELET VOLUME 10.4 FL (7.4-10.4); MONOCYTES # (AUTO) 0.8 X10'3 (0-0.9); MONOCYTES % (AUTO) 11.3 % (2-12); NEUTROPHILS # (AUTO) 5.3 X10'3 (1.8-7.7); NEUTROPHILS % (AUTO) 74.8 % (42-75); PLATELET COUNT 151 X10'3 (140-440); RED BLOOD COUNT 3.55 X10'6 (4.20-5.60); RED CELL DISTRIBUTION WIDTH 15.4 % (11.5-14.5); WHITE BLOOD COUNT 7.1 X10'3 (4.5-11.0)
[2024-06-08 01:37] LABS: ALANINE AMINOTRANSFERASE 54 U/L (12-78); ALBUMIN 2.1 G/DL (3.4-5.0); ALBUMIN/GLOBULIN RATIO 0.7 (1.1-1.5); ALKALINE PHOSPHATASE 52 IU/L (46-116); ANION GAP 7 (8-16); ASPARTATE AMINO TRANSFERASE 18 U/L (10-37); BILIRUBIN,TOTAL 0.9 MG/DL (0.1-1.0); BLOOD UREA NITROGEN 45 MG/DL (7-18); BUN/CREATININE RATIO 35.4 (10.0-20.0); CHLORIDE 107 MMOL/L (99-107); CREATININE 1.27 MG/DL (0.40-0.90); GLUCOSE 139 MG/DL (70-104); PHOSPHORUS 2.7 MG/DL (2.3-4.5); POTASSIUM 3.7 MMOL/L (3.5-5.1); SODIUM 142 MMOL/L (135-145); TOTAL CARBON DIOXIDE 28.1 MMOL/L (24-32); TOTAL PROTEIN 5.1 G/DL (6.4-8.2); TRIGLYCERIDES 116 MG/DL (20-135); eCRCL 32 ML/MIN; eGFR 42 ML/MIN
[2024-06-08 03:58] LABS: ABG BASE EXCESS -0.7 mmol/L (-2.0-3.0); ABG HCO3 22.5 mmol/L (21.0-28.0); ABG PCO2 (T) 32.7 mmHg (32.0-45.0); ABG PH (T) 7.456 (7.350-7.450); ABG PO2 (T) 79.8 mmHg (83.0-108.0); FCOHb 1.2 % (0.5-1.5); FHHb 3.9 % (0.0-5.0); FMetHb 0.3 % (0.0-1.5); FO2Hb 94.6 % (94.0-98.0); MODE VENT - AC; PATIENT TEMPERATURE 37.5; PEEP 10 cm H2O; RESPIRATORY RATE 22 b/min; TIDAL VOLUME 375 mL; TOTAL HEMOGLOBIN 11.2 G/dl (12.0-16.0)
--- NOTE | 2024-06-08 06:01 | RADIOLOGY REPORT ---
CHEST RADIOGRAPH Indication: ET Tube Placement Technique: Single frontal view of the chest was obtained Comparison: DI CHEST,SINGLE VIEW on DOS: 06/07/24, DI CHEST FINDINGS: Lines and Tubes: The endotracheal tube terminates 3.9 cm above the raul. Right central venous beatriz ter terminates in the superior vena cava. The enteric tube is seen to the level of the distal esophag us. The tip is obscured. Lungs: Bilateral pulmonary suggesting edema and/or congestion similar to prior study. Pleura: Bilateral pleural effusions. No pneumothorax. No pneumothorax. Cardiomediastinal contours: Cardiomegaly. Bones: No acute osseous abnormality. IMPRESSION: 1. Endotracheal tube terminates 3.9 cm above the raul. 2. Pulmonary edema and/or congestion. Bilateral pleural effusions.
[2024-06-08] MEDS: furosemide 10 MG/1 ML 10ml inj IV ONE (06:33)
[2024-06-08] MEDS: KETAMINE IV SCH (08:19)
[2024-06-08] MEDS: NORMAL SALINE IV SCH (08:19)
[2024-06-08] MEDS: FENTANYL-0.9 % NACL/PF 100 ML IV SCH (09:47)
--- NOTE | 2024-06-08 11:18 | PROGRESS NOTE- Residence ---
Progress Note - Resident Providers to CC Resident Creating Document: MONTEZ ONOFRE RES CC: MAGDALENA SHEETS MD ~ Central Line/PICC still needed: Yes Central Line/PICC Necessity: Prolonged IV access req Ying-Non Protocol Ying Indications Met/Not Met: F/C Indications Met Antibiotic Timeout Antibiotic Ordered?: No Subjective No acute overnight events. QT interval was prolonged and sedation Precedex was stopped. She had hypotension and propofol was stopped. sedation is is changed to ketamine and fentanyl. She is awake, responding to commands. Objective Vital Signs Date Time Temp Pulse Resp B/P (MAP) Pulse Ox O2 Delivery O2 Flow Rate FiO2 06/08/24 10:00 99.3 72 20 103/58 (73) 95 Mechanical Ventilator 45 103/53 (70) 06/08/24 08:00 40.0 Result Diagram: 06/08/2410406/08/24104 General: Elderly female, obese, intubated, awake and responding to commands Head: Normocephalic with an atraumatic Eyes: Pupils- 3mm, reacting to light, conjunctiva- anicteric Nose and throat: No polyps, septum- normal, no mucosal ulcers Neck: Supple, no lymphadenopathy, no carotid bruit Respiratory: No use of accessory muscles of respiration, Bilateral equal air entry Cardiac: S1-S2 heard, rythm regular, no gallop/murmur Abdomen: obese, distended, no tenderness, no organomegaly, bowel sounds- heard Extremities: no clubbing, no pedal edema, no deformities, peripheral pulses- 2+ Skin: warm and dry, no rash, no purpura, 1+ pitting edema Neuro: moving all extremities Assessment Assessment This is a 63-year-old female with a history of atrial fibrillation, hypertension, COPD, diabetes, depression. She was brought to the ER with rapid heart rate and respiratory distress. Reportedly had SVT, was given two doses of adenosine. In the ER at the time of admission patient was coughing and choking on her sandwich, was intubated on was transferred to the ICU. Patient was doing well, was extubated on 06/04/2024 and was transferred to the floors. On 2024, she choked on her eggs in the morning, went into cardiac arrest, code blue was initiated, ROSC was achieved in 6 minutes. She was intubated and was transferred to ICU. In the ICU central line was placed and was started on Levophed dr Plan Plan Respiratory Acute hypoxemic respiratory failure Secondary to aspiration pneumonia COPD exacerbation ERASMO -currently on AC/PRVC with VC, FiO2 of 40, tidal volume of 375, peep of 10 -abg- 7.45/32/79/22, P/F-172 -bronchoscopy done on 05/26- L-side with minimal secretion. R-side with copious thick secretion partially occluding R Main bronchus. BAL performed. -respiratory cultures negative -chest x-ray done today showed bilateral pleural effusions with increasing pulmonary congestion Plan -plan to wean off PEEP -SAT and SBT today -Lasix 80 mg IV followed by 40 mg b.i.d. Cardiac S/p cardiac arrest- PEA ROSC after 6 mins Cardiogenic shock AFib with CVR Chronic heart failure with preserved ejection fraction -currently on Levophed at 0.03 mcg/kg per minute -monitor to maintain map above 65 -amiodarone is DCed on 06/06 -continue Eliquis, and sotalol 40 mg bid -Echo on 06/02/2024 showed an ejection fraction of 60-65%, trace pericardial effusion. -echo done on 06/05 after cardiac arrest showed EF of 45-50%, RV moderately dilated with severely reduced systolic function Renal DILAN-likely prerenal Creatinine 1.27>> 1.4>>1.33>>1.68 net positive of 1.3L Monitor bmp and i/o chart GI Elevated transaminase- normalized -lfts trending down -suspect likely secondary to amiodarone Endocrine Diabetes mellitus type 2 with a1c of 6.8 -goal to maintain glucose in the range of 140-180 -insulin if needed Nutrition -continue TFs Neurology -awake and alert -continue sedation with ketamine and fentanyl, with RASS of 0 to -1 Events on 06/06 -FiO2 50, on low-dose Levophed -started tube feeds -DC amiodarone Events on 06/07 -FiO2 down to 40 from 50 -weaned off Levophed -SAT/SBT -creatinine, LFTs trending down -EEG today -added sotalol events on 06/08 -fio2-40 with peep of 10 -on levophed at 0.03 mcg/kg/min -sedation changed to ketamine and fentanyl -iv lasix 80 f/b 40 mg bid for pleural effusions and worsening pulm edema Code Status: Full code Analgesia/sedation: Fentanyl, ketamine Line/tube: Right subclavian CVC, right radial arterial line, ETT, OGT, Ying GI prophylaxis: Pepcid DVT prophylaxis: Eliquis Nutrition: Tube feeds Prognosis: critical Disposition: Continue care in ICU Montez Onofre, ICU PGY-2 resident Date of Service: Jun 08, 2024 Billing Provider: MAGDALENA SHEETS MD,QUIQUE, RES Jun 08, 2024 11:18
[2024-06-08] MEDS: propofol 1000mg/100ml bottle 100 ML IV SCH (14:40)
--- NOTE | 2024-06-08 14:53 | PROGRESS NOTE- Residence ---
Progress Note - Resident Providers to CC Resident Creating Document: TATI OCASIO, RES ~ Ying-Non Protocol Ying Indications Met/Not Met: F/C Indications Met Antibiotic Timeout Antibiotic Ordered?: No Subjective NO special report was noted from the CICU team over last night. pt is still under sedationsof ketamine and fentanyl with the Mechanical ventilation. She had hypotension and propofol was stopped. she is arousal on the awaking. Objective Vital Signs Date Time Temp Pulse Resp B/P (MAP) Pulse Ox O2 Delivery O2 Flow Rate FiO2 06/08/24 14:27 79 20 Mechanical Ventilator 45 06/08/24 14:21 97 06/08/24 14:00 99.0 111/53 (72) 118/48 (71) 06/08/24 08:00 40.0 Result Diagram: 06/08/24 0105 06/08/24 0105 Vitals were stable at the moment with temp 99.7'F, TX 79/min, RR 20/min, BP 117/58 mmHg, and TX 95% on Mech Vent with FiO2 of 45%. General: under sedations, not in acute distress. HEENT: Conjunctive are pink, sclerae clear, no icterus, pupil is equal in both sides, reactive to light, no ear discharge, no pharyngeal erythema or an edema, mouth and lips are dry. Neck: Supple, no JVD, no lymphadenopathy and thyromegaly. Lungs: Equal air entry on both lungs, bilateral fine basal crackles Heart: S1-S2 atrial fibrillation rhythm and, RVR, no gallops, no rubs, no murmurs Abdomen: No visible peristalsis, Bowel sounds present on auscultation, soft, nontender, no guarding, no rigidity Extremities: No obvious deformities, no pitting edema bilaterally, capillary refill intact, able to wiggle toes both sides, peripheral pulsations are intact on both sides [employer]: No focal neurological deficits, no motor and sensory weakness in all 4 extremities, could move all 4 extremities Musculoskeletal: No joint swelling, deformities, inflammations, and no scoliosis and back tenderness Skin: No active skin lesions and rashes. Assessment Assessment A 63-year-old female with PMH AFib with RVR on Eliquis and sotalol, ERASMO and class two obesity BMI 43.2, hypertension, CKD 3, COPD, and T2DM and depression presented to the Hospital with rapid heart rate and respiratory distress. In ER, she possibly underwent SVT for which she was given two doses of adenosine causing possible bronchospasm in lieu of choking on her sandwich and a coughing in ER made her intubation and transferred out to CICU on admission. The patient was extubated on 06/04/2024 after SBT and downgraded to the floor on 06/05/24. However, she choked again on her scrambled eggs in the morning of 05/2024 made her to cardiac arrest for which code blue was initiated and she regained her ROSC in 6 minutes after CPR. Her respiration was supported with mechanical ventilation again and transferred out to CICU again, central line was placed for pressor drips. She had a bronchoscopy on 06/05/24 found that she has an aspiration pneumonia with evidences of scrambled egg in her respiratory tract. Plan Plan Acute hypoxemic respiratory failure Aspiration pneumonia Acute on chronic COPD exacerbation Obstructive sleep apnea and class 3 obesity -currently on AC/PRVC, FiO2 of 40% was tirated down from 50 on 06/07/24, peep of 10 -ABG pH 7.4, pCO2 32.7, PO2 79.8, HC03 22.5 -Dr. Rico performed bronchoscopy on 06/05/24 with the evidence of scrambled eight aspiration, left-sided with minimal secretion, right-sided with copious thick secretions partially occluding right main bronchus. -respiratory cultures showed negative -ICU will plan to wean off PEEP, SBT and SAT, lasix 80 mg f/by 40 bid S/p cardiac arrest- PEA ROSC after 6 mins Cardiogenic shock -levophed was stopped after titrated down, sedations will be weaned off -currently on Levophed at 0.03 mcg/kg per minute -monitor to maintain map above 65 -amiodarone is DCed on 06/06 -continue Eliquis, and sotalol 40 mg bid -Echo on 06/02/2024 showed an ejection fraction of 60-65%, trace pericardial effusion. -echo done on 06/05 after cardiac arrest showed EF of 45-50%, RV moderately dilated with severely reduced systolic function Atrial fibrillation with controlled ventricular rate Chronic CHF with preserved ejection fraction -She was in rapid ventricular rate at the time of admission. - amiodarone was stopped because of her bradycardia. EEG in the next 24-48 hours. -Echo on 06/02/2024 showed an ejection fraction of 60-65%, trace pericardial effusion. Heart rate improved. -Lasix was reduced to 40 BID DILAN on CKD three, likely secondary to renal tubular statsis/ pre renal. Creatinine 1.27, Baseline 0.9-1.0 net positive of 1.3L Monitor bmp and i/o chart Non specific Transaminitis- improved -mostly 2/2 reduced hepatic blood supply Vs amiodarone administration -monitor liver function tests daily and trending down, maintain MAP at least 65 -Continue tube feedings Diabetes mellitus type 2 with a1c of 6.8 -goal to maintain glucose in the range of 140-180 -insulin if needed Nutrition -continue TFs Post cardiac arrest encephalopathy mostly anoxic brain injury- recovering -EEG was done yesterday -awake and alert -continue sedation with ketamine and fentanyl, with RASS of 0 to -1 Events on 06/06 -FiO2 50, on low-dose Levophed -started tube feeds -DC amiodarone Events on 06/07 -FiO2 down to 40 from 50 -weaned off Levophed -SAT/SBT -creatinine, LFTs trending down -EEG today -added sotalol events on 06/08 -fio2-40 with peep of 10 -on levophed at 0.03 mcg/kg/min -sedation changed to ketamine and fentanyl -iv lasix 80 f/b 40 mg bid for pleural effusions and worsening pulm edema Code Status: Full code Analgesia/sedation: Fentanyl, ketamine Line/tube: Right subclavian CVC, right radial arterial line, ETT, OGT, Ying GI prophylaxis: Pepcid DVT prophylaxis: Eliquis Nutrition: Tube feeds Prognosis: critical Disposition: Continue care in ICU, hosptialist team will be following and apprecite for letting us involve in the pt's management Resident attestation: Patient was seen and examined with attending MD, Dr. Jeremy OCASIO MD Internal Medicine Resident, PGY2 [facility] Date of Service: Jun 08, 2024 Billing Provider: SHIRAZ MOLINA MD Common Visit Codes: [id number] INP/OBS CARE(HIGH) TATI OCASIO RES Jun 08, 2024 14:53 SHIRAZ MOLINA MD Jun 08, 2024 19:29
[2024-06-08] MEDS: furosemide 40mg/4ml inj IV SCH (19:39)
--- NOTE | 2024-06-08 21:44 | PROGRESS NOTE ---
Progress Note Dictate Providers to CC ~ Antibiotic Ordered?: Yes Subjective Subjective Intubated and sedated Objective Vitals Vital Signs Date Time Temp Pulse Resp B/P (MAP) Pulse Ox O2 Delivery O2 Flow Rate FiO2 06/08/24 21:22 85 19 94 40 06/08/24 21:00 100.2 118/42 (67) Mechanical Ventilator 06/08/24 20:00 40.0 Lab Results: 06/08/24 0105 06/08/24 0105 Problem\Assessment\Plan Additional Plan 63 yo F with Hx of COPD, A fib on eliquis and sotalol, ERASMO, obesity HTN, CKD 3, T2 DM, and depression, presented with A fib with RVR, hypotension and respiratory distess. Initially extubated 06/04 then reintubated with cardiopulm arrest with ROSC after 6 min CPR, subsequently treated for aspiration PNA. # Acute hypoxemic respiratory failure # Aspiration pneumonia # Acute on chronic COPD exacerbation # Obstructive sleep apnea and class 3 obesity # Shock 2/2 sepsis vs cardiogenic. s/p CPA. Neuro: # intubated and sedated, wakes up off sedation. Sedation/Analgesia: fentanyl, propofol Titrate to RASS -1 to -2. Daily sedation vacations. Avoid ICU delirium, frequent reorientation and neurochecks. Avoid deliriogenic medications. Reduce environmental factors contributing to delirium, promote day-night circadian rhythm, encourage familiar faces, and treat pain EEG 06/07 - diffuse slowing, non-specific. Reviewed by neurology. CV: # hypotension. s/p cardiac arrest. Poss. Cardiogenic shock vs. septic. Poss. Acute on chronic COPD exacerbation. A fib with RVR Sotolol 40 bid Titrate to MAPS > 65 if pressors needed. 0.01 levophed on occasion. Running earlier today. Amio was DCd 06/06. ECHO 06/12 with 60-65$% EF. Trace pericardial effusion. On eliquis 5 bid Pulm: acute respiratory failure. Intubated � Vent Settings: 22 / 450 / 45% / 10 Wean O2 to sats > 94% ABG reviewed 7.456 / 32.7 / 79.8 / 22.5 on 35% PEEP 10 CXR reviewed bilateral pleural effusions. No PTX. Pulm. Congestion. Daily sedation vacation and SBT as tolerated Diuresis as tolerated On lasix 40 bid. Cont Duonebs/bronchodilators (Albuterol and ipratropium). GI: -Continue Tube feeds Endocrine: T2DM HgA1C 6.8 Goal Blood glucose <180. ISS. Renal/ Fluids and Electrolytes: BUN 45/ 1.27 Diuresis: lasix 40 bid. follow renal indices. Strict Is and Os. Replete electrolytes as needed. Renally adjust medications as needed Ying: strict is and os. ID: WBC 7.1 Prior Asp. PNA Follow up cultures as needed. Heme/Onc: Hgb 10.6 PLT 151 Trend H/H and watch for thrombocytopenia and coagulopathy. PPX: VTE: SCDs, eliaquis 5 bid GI ppx: protonix 40 iv daily. Patient seen through remote audiovisual assessment through HIPAA compliant setup. All labs, flowsheets, and images reviewed Cumulative nonprocedural critical care time spent in directed patient care = 60min YOLA MAYNARD MD Jun 08, 2024 21:44
[2024-06-09] VITALS (39 sets, daily range): BP systolic 96–143; BP diastolic 43–71; PULSE 65–89; RESP 16–38; O2SAT 87–98
[2024-06-09 03:14] LABS: BASOPHILS % (AUTO) 0.2 % (0-1); EOSINOPHILS # (AUTO) 0.2 X10'3 (0-0.9); EOSINOPHILS % (AUTO) 2.3 % (0-6); HEMATOCRIT 31.7 % (35.0-45.0); HEMOGLOBIN 10.5 g/dl (12.0-16.0); LYMPHOCYTES # (AUTO) 1.1 X10'3 (1.1-4.8); LYMPHOCYTES % (AUTO) 14.7 % (21-51); MEAN CORPUSCULAR HEMOGLOBIN 29.6 PG (27.0-31.0); MEAN CORPUSCULAR VOLUME 89.7 FL (78-98); MEAN PLATELET VOLUME 10.6 FL (7.4-10.4); MONOCYTES # (AUTO) 0.8 X10'3 (0-0.9); MONOCYTES % (AUTO) 11.2 % (2-12); NEUTROPHILS # (AUTO) 5.1 X10'3 (1.8-7.7); NEUTROPHILS % (AUTO) 71.6 % (42-75); PLATELET COUNT 160 X10'3 (140-440); RED BLOOD COUNT 3.53 X10'6 (4.20-5.60); RED CELL DISTRIBUTION WIDTH 16.1 % (11.5-14.5); WHITE BLOOD COUNT 7.2 X10'3 (4.5-11.0)
[2024-06-09 03:22] LABS: ALANINE AMINOTRANSFERASE 46 U/L (12-78); ALBUMIN 2.1 G/DL (3.4-5.0); ALBUMIN/GLOBULIN RATIO 0.6 (1.1-1.5); ALKALINE PHOSPHATASE 49 IU/L (46-116); ANION GAP 4 (8-16); ASPARTATE AMINO TRANSFERASE 20 U/L (10-37); BILIRUBIN,TOTAL 0.8 MG/DL (0.1-1.0); BLOOD UREA NITROGEN 44 MG/DL (7-18); BUN/CREATININE RATIO 35.8 (10.0-20.0); CHLORIDE 107 MMOL/L (99-107); CREATININE 1.23 MG/DL (0.40-0.90); GLUCOSE 129 MG/DL (70-104); MAGNESIUM 1.8 MG/DL (1.5-2.4); PHOSPHORUS 2.7 MG/DL (2.3-4.5); POTASSIUM 3.6 MMOL/L (3.5-5.1); SODIUM 142 MMOL/L (135-145); TOTAL CARBON DIOXIDE 30.7 MMOL/L (24-32); TOTAL PROTEIN 5.5 G/DL (6.4-8.2); TRIGLYCERIDES 101 MG/DL (20-135); eCRCL 33 ML/MIN; eGFR 44 ML/MIN
[2024-06-09 03:50] LABS: ABG BASE EXCESS 4.1 mmol/L (-2.0-3.0); ABG HCO3 28.6 mmol/L (21.0-28.0); ABG OXYGEN SATURATION 95.6 % (94.0-98.0); ABG PCO2 (T) 44.7 mmHg (32.0-45.0); ABG PH (T) 7.428 (7.350-7.450); FCOHb 1.1 % (0.5-1.5); FHHb 4.3 % (0.0-5.0); FMetHb 0.3 % (0.0-1.5); FO2Hb 94.3 % (94.0-98.0); MODE PRVC; PEEP 10 cm H2O; RESPIRATORY RATE 20 b/min; TIDAL VOLUME 375 mL
[2024-06-09] MEDS: acetaminophen 325mg/10.15ml oral unit dose solution NG PRN (03:59)
--- NOTE | 2024-06-09 06:51 | RADIOLOGY REPORT ---
EXAM: XR Chest, 1 View CLINICAL INDICATION: ET Tube Placement TECHNIQUE: Frontal view of the chest. COMPARISON: DI CHEST,SINGLE VIEW on DOS: 06/08/24, DI CHEST,SINGLE VIEW on DOS: 06/07/24, DI CHEST,SI NGLE VIEW on DOS: 06/06/24, DI CHEST,SINGLE VIEW on DOS: 06/05/24, DI CHEST,SINGLE VIEW on DOS: 06/05/24 FINDINGS: LUNGS AND PLEURAL SPACES: Bilateral pleural effusions. HEART: Cardiomegaly with mild congestion. MEDIASTINUM: Unremarkable. Normal mediastinal contour. BONES/JOINTS: Unremarkable. No acute fracture. TUBES, LINES AND DEVICES: The endotracheal tube (ETT) is in satisfactory position. Enteric tube ti p in the stomach. OTHER FINDINGS: . . . IMPRESSION: 1. Cardiomegaly with mild congestion. 2. Bilateral pleural effusions.
[2024-06-09] MEDS: furosemide 40mg/4ml inj IV SCH (07:35)
--- NOTE | 2024-06-09 09:27 | PROGRESS NOTE- Residence ---
Progress Note - Resident Providers to CC Resident Creating Document: MONTEZ ONOFRE RES CC: MAGDALENA SHEETS MD ~ Central Line/PICC still needed: Yes Central Line/PICC Necessity: Prolonged IV access req Ying-Non Protocol Ying Indications Met/Not Met: F/C Indications Met Antibiotic Timeout Antibiotic Ordered?: No Subjective patient seen this morning. Last evening sedation changed to fentanyl and propofol, low dose levophed running. currently sedated with RASS of -1. no overnight events. urine output with lasix- 747 ml yesterday Objective Vital Signs Date Time Temp Pulse Resp B/P (MAP) Pulse Ox O2 Delivery O2 Flow Rate FiO2 06/09/24 09:00 99.7 76 20 99/45 (63) 96 Mechanical Ventilator 06/09/24 07:11 40 06/08/24 20:00 40.0 Result Diagram: 06/09/24 0200 06/09/24 0200 General: Elderly female, obese, intubated, sedated with RASS of -1 Head: Normocephalic with an atraumatic Eyes: Pupils- 3mm, reacting to light, conjunctiva- anicteric Nose and throat: No polyps, septum- normal, no mucosal ulcers Neck: Supple, no lymphadenopathy, no carotid bruit Respiratory: No use of accessory muscles of respiration, Bilateral equal air entry Cardiac: S1-S2 heard, rythm regular, no gallop/murmur Abdomen: obese, distended, no tenderness, no organomegaly, bowel sounds- heard Extremities: no clubbing, no pedal edema, no deformities, peripheral pulses- 2+ Skin: warm and dry, no rash, no purpura, 1+ pitting edema Neuro: moving all extremities Assessment Assessment This is a 63-year-old female with a history of atrial fibrillation, hypertension, COPD, diabetes, depression. She was brought to the ER with rapid heart rate and respiratory distress. Reportedly had SVT, was given two doses of adenosine. In the ER at the time of admission patient was coughing and choking on her sandwich, was intubated on was transferred to the ICU. Patient was doing well, was extubated on 06/04/2024 and was transferred to the floors. On 2024, she choked on her eggs in the morning, went into cardiac arrest, code blue was initiated, ROSC was achieved in 6 minutes. She was intubated and was transferred to ICU. In the ICU central line was placed and was started on Levophed drip Plan Plan Acute hypoxemic respiratory failure Secondary to aspiration pneumonia COPD exacerbation ERASMO -currently on AC/PRVC with VC, FiO2 of 40, tidal volume of 375, peep of 4 -abg- 7.42/44/82/28, P/F-192 -bronchoscopy done on 05/26- L-side with minimal secretion. R-side with copious thick secretion partially occluding R Main bronchus. BAL performed. -respiratory cultures negative -chest x-ray done today showed bilateral pleural effusions with pulmonary congestion Plan -SAT and SBT today -Lasix 40 mg IV q8 Cardiac S/p cardiac arrest- PEA ROSC after 6 mins Cardiogenic shock AFib with CVR Chronic heart failure with preserved ejection fraction -currently on Levophed at 0.03 mcg/kg per minute -monitor to maintain map above 65 -amiodarone is DCed on 06/06 -continue Eliquis, and sotalol 40 mg bid -Echo on 06/02/2024 showed an ejection fraction of 60-65%, trace pericardial effusion. -echo done on 06/05 after cardiac arrest showed EF of 45-50%, RV moderately dilated with severely reduced systolic function Renal DILAN-likely prerenal Creatinine 1.23.>>1.27>> 1.4>>1.33>>1.68 net negative of 400cc on lasix, hence increased the dose of lasix as mentioned above Monitor bmp and i/o chart GI Elevated transaminase- normalized -lfts trending down -suspect likely secondary to amiodarone Endocrine Diabetes mellitus type 2 with a1c of 6.8 -goal to maintain glucose in the range of 140-180 -insulin if needed Nutrition -continue TFs Neurology -awake and alert -continue sedation with ketamine and fentanyl, with RASS of 0 to -1 Events on 06/06 -FiO2 50, on low-dose Levophed -started tube feeds -DC amiodarone Events on 06/07 -FiO2 down to 40 from 50 -weaned off Levophed -SAT/SBT -creatinine, LFTs trending down -EEG today -added sotalol events on 06/08 -fio2-40 with peep of 10 -on levophed at 0.03 mcg/kg/min -sedation changed to ketamine and fentanyl -iv lasix 80 f/b 40 mg bid for pleural effusions and worsening pulm edema events on 06/09 -lasix increased to 40 mg q8 -PEEP down to 5 -SAT/SBT Code Status: Full code Analgesia/sedation: propfol, fentanyl Line/tube: Right subclavian CVC, right radial arterial line, ETT, OGT, Ying GI prophylaxis: Pepcid DVT prophylaxis: Eliquis Nutrition: Tube feeds Prognosis: critical Disposition: Continue care in ICU Montez Onofre, ICU PGY-2 resident Date of Service: Jun 09, 2024 Billing Provider: MAGDALENA SHEETS MD,[facility], RES Jun 09, 2024 09:27
--- NOTE | 2024-06-09 17:07 | PROGRESS NOTE- Residence ---
Progress Note - Resident Providers to CC Resident Creating Document: TATI OCASIO, JOSEPH ~ Ying-Non Protocol Ying Indications Met/Not Met: F/C Indications Met Antibiotic Timeout Antibiotic Ordered?: No Subjective Patient was seen this morning in ICU bed, sill under the mechanical ventilation, and awake and alert Objective Vital Signs Date Time Temp Pulse Resp B/P (MAP) Pulse Ox O2 Delivery O2 Flow Rate FiO2 06/09/24 16:08 20 06/09/24 15:37 76 Mechanical Ventilator 40 06/09/24 15:19 95 06/09/24 15:00 100.0 118/56 (76) 06/09/24 08:00 40.0 Result Diagram: 06/09/24 0200 06/09/24 0200 Vitals were stable at the moment General: under sedations, not in acute distress. HEENT: Conjunctive are pink, sclerae clear, no icterus, pupil is equal in both sides, reactive to light, no ear discharge, no pharyngeal erythema or an edema, mouth and lips are dry. Neck: Supple, no JVD, no lymphadenopathy and thyromegaly. 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 Assessment Assessment This is a 63-year-old female with a history of atrial fibrillation, hypertension, COPD, diabetes, depression. She was brought to the ER with rapid heart rate and respiratory distress. Reportedly had SVT, was given two doses of adenosine. In the ER at the time of admission patient was coughing and choking on her sandwich, was intubated on was transferred to the ICU. Patient was doing well, was extubated on 06/04/2024 and was transferred to the floors. On 2024, she choked on her eggs in the morning, went into cardiac arrest, code blue was initiated, ROSC was achieved in 6 minutes. She was intubated and was transferred to ICU. In the ICU central line was placed and was started on Levophed drip Plan Plan Acute hypoxemic respiratory failure Secondary to aspiration pneumonia COPD exacerbation Obstructive sleep apnea and class 3 obesity -currently on AC/PRVC with VC, FiO2 of 40, tidal volume of 375, peep of 4 -abg- 7.42/44/82/28, P/F-192 -bronchoscopy done on 05/26- L-side with minimal secretion. R-side with copious thick secretion partially occluding R Main bronchus. BAL performed. -respiratory cultures negative -chest x-ray done today showed bilateral pleural effusions with pulmonary congestion -SAT and SBT today -Lasix 40 mg IV q8 S/p cardiac arrest- PEA ROSC after 6 mins Cardiogenic shock AFib with CVR Chronic heart failure with preserved ejection fraction -currently on Levophed at 0.03 mcg/kg per minute -monitor to maintain map above 65 -amiodarone is DCed on 06/06 -continue Eliquis, and sotalol 40 mg bid -Echo on 06/02/2024 showed an ejection fraction of 60-65%, trace pericardial effusion. -echo done on 06/05 after cardiac arrest showed EF of 45-50%, RV moderately dilated with severely reduced systolic function DILAN on CKD three, likely secondary to renal tubular statsis/ pre renal. Creatinine 1.23.>>1.27>> 1.4>>1.33>>1.68 net negative of 400cc on lasix, hence increased the dose of lasix as mentioned above Monitor bmp and i/o chart Non specific Transaminitis- improved -lfts trending down -suspect likely secondary to amiodarone Diabetes mellitus type 2 with a1c of 6.8 -goal to maintain glucose in the range of 140-180 -insulin if needed Nutrition -continue TFs Post cardiac arrest encephalopathy mostly anoxic brain injury- recovering -awake and alert -continue sedation with ketamine and fentanyl, with RASS of 0 to -1 Events on 06/06 -FiO2 50, on low-dose Levophed -started tube feeds -DC amiodarone Events on 06/07 -FiO2 down to 40 from 50 -weaned off Levophed -SAT/SBT -creatinine, LFTs trending down -EEG today -added sotalol events on 06/08 -fio2-40 with peep of 10 -on levophed at 0.03 mcg/kg/min -sedation changed to ketamine and fentanyl -iv lasix 80 f/b 40 mg bid for pleural effusions and worsening pulm edema events on 06/09 -lasix increased to 40 mg q8 -PEEP down to 5 -SAT/SBT Code Status: Full code Analgesia/sedation: propfol, fentanyl Line/tube: Right subclavian CVC, right radial arterial line, ETT, OGT, Ying GI prophylaxis: Pepcid DVT prophylaxis: Eliquis Nutrition: Tube feeds Prognosis: critical Disposition: Continue care in ICU Resident attestation: Patient was seen and examined with attending MD, Dr. Jeremy OCASIO MD Internal Medicine Resident, PGY2 [facility] Date of Service: Jun 09, 2024 Billing Provider: SHIRAZ MOLINA MD Common Visit Codes: [id number] INP/OBS CARE(HIGH) TATI OCASIO, JOSEPH Jun 09, 2024 17:07 SHIRAZ MOLINA MD Jun 09, 2024 20:45
[2024-06-10] VITALS (43 sets, daily range): BP systolic 68–140; BP diastolic 37–65; PULSE 55–88; RESP 16–33; O2SAT 91–100
[2024-06-10] MEDS: FENTANYL-0.9 % NACL/PF 100 ML IV ONE (00:11)
[2024-06-10 03:15] LABS: BASOPHILS % (AUTO) 0.3 % (0-1); EOSINOPHILS # (AUTO) 0.2 X10'3 (0-0.9); HEMATOCRIT 30.4 % (35.0-45.0); HEMOGLOBIN 10.1 g/dl (12.0-16.0); LYMPHOCYTES # (AUTO) 1.1 X10'3 (1.1-4.8); MEAN CORPUSCULAR HEMOGLOBIN 29.5 PG (27.0-31.0); MEAN CORPUSCULAR HGB CONC 33.1 g/dL (33.0-36.5); MEAN PLATELET VOLUME 10.2 FL (7.4-10.4); MONOCYTES # (AUTO) 0.8 X10'3 (0-0.9); MONOCYTES % (AUTO) 12.3 % (2-12); NEUTROPHILS # (AUTO) 4.4 X10'3 (1.8-7.7); NEUTROPHILS % (AUTO) 67.4 % (42-75); PLATELET COUNT 167 X10'3 (140-440); RED BLOOD COUNT 3.42 X10'6 (4.20-5.60); RED CELL DISTRIBUTION WIDTH 15.7 % (11.5-14.5); WHITE BLOOD COUNT 6.5 X10'3 (4.5-11.0)
[2024-06-10 03:31] LABS: ALANINE AMINOTRANSFERASE 40 U/L (12-78); ALBUMIN 2.2 G/DL (3.4-5.0); ALBUMIN/GLOBULIN RATIO 0.6 (1.1-1.5); ALKALINE PHOSPHATASE 55 IU/L (46-116); ANION GAP 7 (8-16); ASPARTATE AMINO TRANSFERASE 25 U/L (10-37); BILIRUBIN,TOTAL 0.8 MG/DL (0.1-1.0); BLOOD UREA NITROGEN 38 MG/DL (7-18); BUN/CREATININE RATIO 33.3 (10.0-20.0); CALCIUM 8.3 MG/DL (8.5-10.1); CHLORIDE 107 MMOL/L (99-107); CREATININE 1.14 MG/DL (0.40-0.90); GLUCOSE 91 MG/DL (70-104); MAGNESIUM 1.7 MG/DL (1.5-2.4); PHOSPHORUS 2.7 MG/DL (2.3-4.5); POTASSIUM 3.3 MMOL/L (3.5-5.1); SODIUM 143 MMOL/L (135-145); TOTAL CARBON DIOXIDE 29.4 MMOL/L (24-32); TOTAL PROTEIN 5.6 G/DL (6.4-8.2); eCRCL 36 ML/MIN; eGFR 48 ML/MIN
[2024-06-10 03:33] LABS: ABG PCO2 (T) 36.5 mmHg (32.0-45.0); ABG PH (T) 7.514 (7.350-7.450); ABG PO2 (T) 83.1 mmHg (83.0-108.0); PATIENT TEMPERATURE 38.2; PEEP 5 cm H2O; RESPIRATORY RATE 20 b/min; TIDAL VOLUME 375 mL
[2024-06-10 03:34] LABS: ABG BASE EXCESS 5.7 mmol/L (-2.0-3.0); ABG HCO3 28.5 mmol/L (21.0-28.0); ABG OXYGEN SATURATION 96.8 % (94.0-98.0); FCOHb 1.2 % (0.5-1.5); FHHb 3.2 % (0.0-5.0); FMetHb 0.3 % (0.0-1.5); FO2Hb 95.3 % (94.0-98.0); TOTAL HEMOGLOBIN 10.9 G/dl (12.0-16.0)
[2024-06-10] MEDS: fentaNYL/PF inj 2,500 MCG in normal saline 250ml IV soln 200 ML IV SCH (03:39)
[2024-06-10] MEDS: piperacillin/tazo 3.375gm/50ml 50 ML IV SCH (04:30)
[2024-06-10] MEDS: vancomycin/NS 1 GM ADD-VANTAGE 250 ML IV ONE (04:30)
[2024-06-10] MEDS: acetaminophen 325mg/10.15ml oral unit dose solution NG PRN (04:32)
[2024-06-10] MEDS: POTASSIUM CHLORIDE 20 MEQ/15 ML oral solution NG PRN (04:33)
--- NOTE | 2024-06-10 05:19 | PROGRESS NOTE ---
Progress Note Dictate Providers to CC Continue using the ICU with a spike of fever 39 ~ Progress Note: This is a 63-year-old female with a history of atrial fibrillation, hypertension, COPD, diabetes, depression. She was brought to the ER with rapid heart rate and respiratory distress. Reportedly had SVT, was given two doses of adenosine. In the ER at the time of admission patient was coughing and choking on her sandwich, was intubated on was transferred to the ICU. Patient was doing well, was extubated on 06/04/2024 and was transferred to the floors. On 2024, she choked on her eggs in the morning, went into cardiac arrest, code blue was initiated, ROSC was achieved in 6 minutes. She was intubated and was transferred to ICU. In the ICU central line was placed and was started on Levophed drip Currently not on antibiotics spiked a fever without much white count Antibiotic Ordered?: N/A Objective Vitals Vital Signs Date Time Temp Pulse Resp B/P (MAP) Pulse Ox O2 Delivery O2 Flow Rate FiO2 06/10/24 04:35 79 22 96 40 06/10/24 03:00 100.8 106/51 (69) Mechanical Ventilator 06/09/24 20:00 40.0 Lab Results: 06/10/24 0300 06/10/24 0300 Objective Discussed with RN. Remains hemodynamically stable. Examination unremarkable Problem\Assessment\Plan Additional Plan 1. New onset of fever in the ICU 2. Respiratory failure 3. Cardiac arrest 4. History of atrial fibrillation 5. diabetes type 2 Plan continue the current care antibiotics started 1 dose now will send sputum for Gram stain and culture further continuation of antibiotics per the primary DAY team. DARIUSZ JOINER MD Jun 10, 2024 05:19
--- NOTE | 2024-06-10 05:31 | RADIOLOGY REPORT ---
EXAM: XR Chest, 1 View CLINICAL INDICATION: ET Tube Placement TECHNIQUE: Frontal view of the chest. COMPARISON: DI CHEST,SINGLE VIEW on DOS: 06/09/24, DI CHEST,SINGLE VIEW on DOS: 06/08/24, DI CHEST,SI NGLE VIEW on DOS: 06/07/24, DI CHEST,SINGLE VIEW on DOS: 06/06/24, DI CHEST,SINGLE VIEW on DOS: 06/05/24 FINDINGS: LUNGS AND PLEURAL SPACES: See below. HEART: Cardiomegaly with pulmonary congestion and edema. Superimposed pneumonia cannot be excluded. MEDIASTINUM: Unremarkable. Normal mediastinal contour. BONES/JOINTS: Unremarkable. No acute fracture. TUBES, LINES AND DEVICES: The endotracheal tube (ETT) is in satisfactory position. Enteric tube ti p cannot be seen but is below the diaphragm. OTHER FINDINGS: . . . IMPRESSION: Cardiomegaly with pulmonary congestion and edema. Superimposed pneumonia cannot be excluded.
[2024-06-10] MEDS: furosemide 10 MG/1 ML 10ml inj IV SCH (08:00)
--- NOTE | 2024-06-10 08:40 | PROGRESS NOTE- Residence ---
Progress Note - Resident Providers to CC Resident Creating Document: MONTEZ ONOFRE RES CC: MAGDALENA SHEETS MD ~ Central Line/PICC still needed: Yes Central Line/PICC Necessity: Prolonged IV access req Ying-Non Protocol Ying Indications Met/Not Met: F/C Indications Met Antibiotic Timeout Antibiotic Ordered?: Yes If Yes, Indications: fever Subjective patient seen this morning, spiking fevers last night, sputum cultures sent and was started on piptazo and vanco. currently on sedation with RASS of 0, fentanyl down to 100 and propofol down to 10 off the levophed since starting ketamine yesterday. TFs running at 50cc/hr, yes she had some tube feeds coming out of mouth Objective Vital Signs Date Time Temp Pulse Resp B/P (MAP) Pulse Ox O2 Delivery O2 Flow Rate FiO2 06/10/24 07:34 74 22 96 40 06/10/24 07:00 100.0 92/42 (59) Mechanical Ventilator 06/09/24 20:00 40.0 Result Diagram: 06/10/24 0300 06/10/24 0300 General: Elderly female, obese, intubated, sedated with RASS of 0 Head: Normocephalic with an atraumatic Eyes: Pupils- 3mm, reacting to light, conjunctiva- anicteric Nose and throat: No polyps, septum- normal, no mucosal ulcers Neck: Supple, no lymphadenopathy, no carotid bruit Respiratory: No use of accessory muscles of respiration, Bilateral equal air entry, decreased breath sounds over the basal areas Cardiac: S1-S2 heard, rythm regular, no gallop/murmur Abdomen: obese, distended, no tenderness, no organomegaly, bowel sounds- heard Extremities: no clubbing, no pedal edema, no deformities, peripheral pulses- 2+ Skin: warm and dry, no rash, no purpura, 1+ pitting edema Neuro: moving all extremities Assessment Assessment This is a 63-year-old female with a history of atrial fibrillation, hypertension, COPD, diabetes, depression. She was brought to the ER with rapid heart rate and respiratory distress. Reportedly had SVT, was given two doses of adenosine. In the ER at the time of admission patient was coughing and choking on her sandwich, was intubated on was transferred to the ICU. Patient was doing well, was extubated on 06/04/2024 and was transferred to the floors. On 2024, she choked on her eggs in the morning, went into cardiac arrest, code blue was initiated, ROSC was achieved in 6 minutes. She was intubated and was transferred to ICU. In the ICU central line was placed and was started on Levophed drip Plan Plan Acute hypoxemic respiratory failure aspiration pneumonia from 06/05 COPD exacerbation ERASMO -currently on AC/PRVC with VC, 18/375/40/5 -abg- 7.51/36/83/28, with PF-192 -bronchoscopy done on 05/26- L-side with minimal secretion. R-side with copious thick secretion partially occluding R Main bronchus. BAL performed. -respiratory cultures on 06/05 negative -chest x-ray done today showed increased bilateral pleural effusions with pulmonary congestion, cvp- Plan -lasix increased to 60 mg q8h -daily SBT/SAT ID new onset fever suspect 2/2 aspiration pneumonia -repeat respiratory cultures sent on 06/10 -DC Zosyn and vanco, -started on IV doxycycline 100 mg b.i.d. -f/u on procal, blood cultures -central line, and art line placed on 06/05, Cardiac S/p cardiac arrest- PEA ROSC after 6 mins Cardiogenic shock AFib with CVR Chronic heart failure with preserved ejection fraction -levophed dced on 06/09 -monitor to maintain map above 65 -amiodarone is DCed on 06/06 -continue Eliquis, and sotalol 40 mg bid -Echo on 06/02/2024 showed an ejection fraction of 60-65%, trace pericardial effusion. -echo done on 06/05 after cardiac arrest showed EF of 45-50%, RV moderately dilated with severely reduced systolic function Renal DILAN-likely prerenal- improving Creatinine 1.124>>1.23.>>1.27>> 1.4>>1.33>>1.68 net negative of 1.4L on lasix Monitor bmp and i/o chart GI Elevated transaminase- normalized -lfts trending down -suspect likely secondary to amiodarone Endocrine Diabetes mellitus type 2 with a1c of 6.8 -goal to maintain glucose in the range of 140-180 -insulin if needed Nutrition -continue TFs -DC OG and place Corpak Neurology -awake and alert -continue sedation with propofol and fentanyl, with RASS of 0 to -1 Events on 06/06 -FiO2 50, on low-dose Levophed -started tube feeds -DC amiodarone Events on 06/07 -FiO2 down to 40 from 50 -weaned off Levophed -SAT/SBT -creatinine, LFTs trending down -EEG today -added sotalol events on 06/08 -fio2-40 with peep of 10 -on levophed at 0.03 mcg/kg/min -sedation changed to ketamine and fentanyl -iv lasix 80 f/b 40 mg bid for pleural effusions and worsening pulm edema events on 06/09 -lasix increased to 40 mg q8 -PEEP down to 5 -SAT/SBT events on 06/10 -spiking fevers, blood cultures, resp cultures- sent -emperically started on piptazo, and vanco, DC Zosyn and vanco, started on IV doxy 100 mg b.i.d. -lasix dose increased to 60mg q8, for elevated CVP, and increased pulm congestion on cxr -DC OG and changed to corpak Code Status: Full code Analgesia/sedation: propfol, fentanyl, ketamine Line/tube: Right subclavian CVC, right radial arterial line, ETT, Stepan gan GI prophylaxis: Pepcid DVT prophylaxis: Eliquis Nutrition: Tube feeds Prognosis: critical Disposition: Continue care in ICU Montez Onofre, ICU PGY-2 resident Date of Service: Jun 10, 2024 Billing Provider: MAGDALENA SHEETS MD,[facility], RES Jun 10, 2024 08:40
[2024-06-10] MEDS: furosemide 10 MG/1 ML 10ml inj IV ONE (09:55)
[2024-06-10] MEDS: DOXYCYCLINE 100 MG in NORMAL SALINE 100ml IV.SOLN IV SCH (14:03)
[2024-06-10] MEDS: dexmedetomidin/NS 400mcg/100ml 100 ML IV SCH (14:09)
[2024-06-10] MEDS: COMMUNICATION ORDER 1 EA MISC MC ONE (14:40)
[2024-06-10] MEDS ORDERED: vancomycin/NS 1 GM ADD-VANTAGE 250 ML IV SCH (16:00)
[2024-06-10] MEDS ORDERED: VANCOmycin 1250MG/NS 250ml Bag 250 ML IV SCH (17:00)
--- NOTE | 2024-06-10 18:03 | RADIOLOGY REPORT ---
Exam: DI ABDOMEN,SINGLE VIEW(KUB) Indication: Corpak placement Comparison: None Technique: 1 radiographic views of the abdomen. Findings: Enteric catheter tube tip overlies the distal stomach Nonspecific bowel-gas pattern. There is no definite evidence for pneumoperitoneum. No abnormal calcifications noted. Impression: Enteric catheter tube tip overlies the distal stomach.
--- NOTE | 2024-06-10 19:03 | PROGRESS NOTE- Residence ---
Progress Note - Resident Providers to CC Resident Creating Document: TATI OCASIO RES ~ Antibiotic Timeout Antibiotic Ordered?: Yes Subjective pt was seen this morning at the bedside CICU, under sedation with propofol 10 and fentanyl, and ketamine was off. Not currently on any pressors, spiking fevers last night, sputum cultures sent and was started on piptazo and vanco. possible chances of TF regurgitation and aspiration last night. making good urine output. Objective Vital Signs Date Time Temp Pulse Resp B/P (MAP) Pulse Ox O2 Delivery O2 Flow Rate FiO2 06/10/24 18:00 98.6 60 33 98/44 (62) 92 Mechanical Ventilator 06/10/24 17:00 40 06/09/24 20:00 40.0 Result Diagram: 06/10/24 0300 06/10/24 0300 Vitals were stable at the moment with temp 37.4'C, FiO2 40%, peep six, a/C PRVC, OR 87/minute General: under sedations, not in acute distress but awake and responded. HEENT: Conjunctive are pink, sclerae clear, no icterus, pupil is equal in both sides, reactive to light, no ear discharge, no pharyngeal erythema or an edema, mouth and lips are dry. Neck: Supple, no JVD, no lymphadenopathy and thyromegaly. 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 Assessment Assessment This is a 63-year-old female with a history of atrial fibrillation, hypertension, COPD, diabetes, depression. She was brought to the ER with rapid heart rate and respiratory distress. Reportedly had SVT, was given two doses of adenosine. In the ER at the time of admission patient was coughing and choking on her sandwich, was intubated on was transferred to the ICU. Patient was doing well, was extubated on 06/04/2024 and was transferred to the floors. On 2024, she choked on her eggs in the morning, went into cardiac arrest, code blue was initiated, ROSC was achieved in 6 minutes. She was intubated and was transferred to ICU. In the ICU central line was placed and was started on Levophed drip Plan Plan # Acute hypoxemic respiratory failure, aspiration pneumonia from 06/05 # COPD exacerbation # ERASMO - on A/C PRV -reported TF aspiration last night, developed fever, on ABx IV DOxy -abg- 7.51/36/83/28, with PF-192 - bronch evidence with aspiration pneumonia -chest x-ray done today showed increased bilateral pleural effusions with pulmonary congestion, cvp-21 -lasix was increased -Daily trial SBT # Possible aspiration induced fever -repeat respiratory cultures sent on 06/10 -DC Zosyleia and perry, -started on IV doxycycline 100 mg b.i.d. -f/u on procal, blood cultures -central line, and art line placed on 06/05, # S/p cardiac arrest- PEA # ROSC after 6 mins -treated w/ targeted temp therapy # Cardiogenic shock # AFib with CVR # Chronic heart failure with preserved ejection fraction -no more on pressor - maintain MAP at least 65 -continue Eliquis, and sotalol 40 mg bid -Echo on 06/02/2024 showed an ejection fraction of 60-65%, trace pericardial effusion. -echo done on 06/05 after cardiac arrest showed EF of 45-50%, RV moderately dilated with severely reduced systolic function # DILAN-likely prerenal- improving -Creatinine 1.124 today showed some improvement, -Monitor bmp and i/o chart # Elevated transaminase- normalized -lfts trending down -suspect likely secondary to amiodarone Vs hypoperfusion # Diabetes mellitus type 2 with a1c of 6.8 -goal to maintain glucose in the range of 140-180 -insulin if needed Nutrition -continue TFs 50cc/ hr, recheck/ aspirate if suspected for the regurgitation as per lastest guideline -DC OG and place Corpak Post cardiac arrest encephalopathy mostly anoxic brain injury- recovering -awake and alert -continue sedation with propofol and fentanyl, with RASS of 0 to -1 Events on 06/06 -FiO2 50, on low-dose Levophed -started tube feeds -DC amiodarone Events on 06/07 -FiO2 down to 40 from 50 -weaned off Levophed -SAT/SBT -creatinine, LFTs trending down -EEG today -added sotalol events on 06/08 -fio2-40 with peep of 10 -on levophed at 0.03 mcg/kg/min -sedation changed to ketamine and fentanyl -iv lasix 80 f/b 40 mg bid for pleural effusions and worsening pulm edema events on 06/09 -lasix increased to 40 mg q8 -PEEP down to 5 -SAT/SBT events on 06/10 -spiking fevers, blood cultures, resp cultures- sent -emperically started on piptazo, and vanco, DC Zosyn and vanco, started on IV doxy 100 mg b.i.d. -lasix dose increased to 60mg q8, for elevated CVP, and increased pulm congestion on cxr -DC OG and changed to corpak Code Status: Full code Analgesia/sedation: propfol, fentanyl, ketamine Line/tube: Right subclavian CVC, right radial arterial line, ETT, corpak, Ying GI prophylaxis: Pepcid DVT prophylaxis: Eliquis Nutrition: Tube feeds Prognosis: critical Disposition: Continue care in ICU Resident MD attestation: Patient was seen and examined with attending MD, Dr. Jeremy OCASIO MD Internal Medicine Resident, PGY2 [facility] Date of Service: Jun 10, 2024 Billing Provider: SHIRAZ MOLINA MD Common Visit Codes: [id number] INP/OBS CARE(HIGH) TATI OCASIO, RES Jun 10, 2024 19:03 SHIRAZ MOLINA MD Jun 10, 2024 20:03
[2024-06-11] VITALS (44 sets, daily range): BP systolic 100–165; BP diastolic 44–103; PULSE 50–89; RESP 17–33; O2SAT 91–100
[2024-06-11 03:15] LABS: ABG BASE EXCESS 3.9 mmol/L (-2.0-3.0); ABG HCO3 26.3 mmol/L (21.0-28.0); ABG OXYGEN SATURATION 94.8 % (94.0-98.0); ABG PCO2 (T) 33.1 mmHg (32.0-45.0); ABG PH (T) 7.521 (7.350-7.450); ABG PO2 (T) 74.6 mmHg (83.0-108.0); FHHb 5.1 % (0.0-5.0); FMetHb 0.3 % (0.0-1.5); FO2Hb 93.6 % (94.0-98.0); MODE VENT - AC; PATIENT TEMPERATURE 37.9; PEEP 5 cm H2O; RESPIRATORY RATE 18 b/min; TIDAL VOLUME 375 mL; TOTAL HEMOGLOBIN 10.6 G/dl (12.0-16.0)
[2024-06-11 03:49] LABS: BASOPHILS % (AUTO) 0.2 % (0-1); EOSINOPHILS # (AUTO) 0.1 X10'3 (0-0.9); EOSINOPHILS % (AUTO) 1.5 % (0-6); HEMATOCRIT 29.6 % (35.0-45.0); HEMOGLOBIN 9.8 g/dl (12.0-16.0); LYMPHOCYTES % (AUTO) 19.8 % (21-51); MEAN CORPUSCULAR HEMOGLOBIN 29.5 PG (27.0-31.0); MEAN CORPUSCULAR HGB CONC 33.2 g/dL (33.0-36.5); MEAN PLATELET VOLUME 10.6 FL (7.4-10.4); MONOCYTES # (AUTO) 0.5 X10'3 (0-0.9); MONOCYTES % (AUTO) 10.3 % (2-12); NEUTROPHILS # (AUTO) 3.5 X10'3 (1.8-7.7); NEUTROPHILS % (AUTO) 68.2 % (42-75); PLATELET COUNT 159 X10'3 (140-440); RED BLOOD COUNT 3.33 X10'6 (4.20-5.60); RED CELL DISTRIBUTION WIDTH 15.2 % (11.5-14.5); WHITE BLOOD COUNT 5.2 X10'3 (4.5-11.0)
--- NOTE | 2024-06-11 03:50 | PROGRESS NOTE ---
Progress Note Dictate Providers to CC Patient critically ill in the ICU on ventilator with sepsis secondary to recurrent aspiration pneumonia~ Progress Note: Patient with multiple medical issues, paroxysmal A-fib, history of cardiac arrest, and now with aspiration pneumonia respiratory failure on ventilator. Evaluated with the help of RN. Overnight no new issues reported. In fact patient did tolerate lower FiO2 and may be even tried for weaning trials and extubation today Antibiotic Ordered?: N/A Objective Vitals Vital Signs Date Time Temp Pulse Resp B/P (MAP) Pulse Ox O2 Delivery O2 Flow Rate FiO2 06/11/24 03:17 64 27 Mechanical Ventilator 40 06/11/24 03:04 94 06/11/24 00:00 99.7 123/64 (83) 06/10/24 20:00 40.0 Lab Results: 06/10/24 0300 06/10/24 0300 Objective Discussed with RN. Remains hemodynamically stable. Examination unremarkable Problem\Assessment\Plan Additional Plan Impression 1. acute respiratory failure 2. Pneumonia 3. Sepsis septic shock 4. Atrial fibrillation 5. History of cardiac arrest Plan Overall picture seems to be improving. Per RN patient is a potential weaning trial and extubation today. May be considered for swallow evaluation later after extubation due to the fact that patient is getting recurrent aspiration pneumonias. DARIUSZ JOINER MD Jun 11, 2024 03:50
[2024-06-11 03:59] LABS: ALANINE AMINOTRANSFERASE 45 U/L (12-78); ALBUMIN 2.1 G/DL (3.4-5.0); ALBUMIN/GLOBULIN RATIO 0.6 (1.1-1.5); ALKALINE PHOSPHATASE 55 IU/L (46-116); ANION GAP 7 (8-16); ASPARTATE AMINO TRANSFERASE 25 U/L (10-37); BILIRUBIN,TOTAL 0.8 MG/DL (0.1-1.0); BLOOD UREA NITROGEN 38 MG/DL (7-18); BUN/CREATININE RATIO 30.4 (10.0-20.0); CALCIUM 8.4 MG/DL (8.5-10.1); CHLORIDE 108 MMOL/L (99-107); CREATININE 1.25 MG/DL (0.40-0.90); GLUCOSE 154 MG/DL (70-104); MAGNESIUM 1.6 MG/DL (1.5-2.4); PHOSPHORUS 3.2 MG/DL (2.3-4.5); POTASSIUM 3.4 MMOL/L (3.5-5.1); SODIUM 144 MMOL/L (135-145); TOTAL CARBON DIOXIDE 29.5 MMOL/L (24-32); TOTAL PROTEIN 5.5 G/DL (6.4-8.2); TRIGLYCERIDES 118 MG/DL (20-135); eCRCL 33 ML/MIN; eGFR 43 ML/MIN
--- NOTE | 2024-06-11 06:59 | RADIOLOGY REPORT ---
CHEST RADIOGRAPH Indication: ET Tube Placement Technique: Single frontal view of the chest was obtained COMPARISON: DI CHEST,SINGLE VIEW on DOS: 06/10/24, DI CHEST,SINGLE VIEW on DOS: 06/09/24, DI CHEST,SING LE VIEW on DOS: 06/08/24, DI CHEST,SINGLE VIEW on DOS: 06/07/24, DI CHEST,SINGLE VIEW on DOS: 06/06/24 FINDINGS: Lines and Tubes: Unchanged. Lungs: Slight interval improvement in diffuse prominence of the pulmonary vasculature. No evidence of focal consolidation. Small bilateral pleural effusions are not excluded. No pneumothorax. Cardiomediastinal contours: Stable cardiomegaly Bones: Unremarkable IMPRESSION: 1. Slight interval improvement in diffuse prominence of the pulmonary vasculature with otherwise stab le cardiomegaly and probable small bilateral pleural effusions. 2. Lines and tubes unchanged.
[2024-06-11] MEDS: POTASSIUM CHLORIDE 20 MEQ/15 ML oral solution NG PRN (09:04)
[2024-06-11] MEDS ORDERED: Dextrose 10%-water IV solution 1,000 ML IV SCH (10:45)
[2024-06-11] MEDS: morphine 2 MG/ML inj. syringe IV PRN (11:06)
--- NOTE | 2024-06-11 12:53 | PROGRESS NOTE ---
Progress Note Dictate Providers to CC ~ Progress Note: No new acute issues overnight. Good diuresis on Lasix Central Line/PICC still needed: Yes Ying Indications Met/Not Met: F/C Indications Met Antibiotic Ordered?: Yes Subjective Subjective Comfortable Objective Vitals Vital Signs Date Time Temp Pulse Resp B/P (MAP) Pulse Ox O2 Delivery O2 Flow Rate FiO2 06/11/24 11:41 57 20 95 40 06/11/24 10:30 166/100 06/11/24 09:02 Mechanical Ventilator 06/11/24 06:00 100.0 06/10/24 20:00 40.0 Lab Results: 06/11/24 0330 06/11/24 0330 Objective Heart: A Fib Lungs: crackles at bases. Decrease BS R-side Abd: Soft, non-tender, BS (+) Ext: No edema Neuro: sedated Problem\Assessment\Plan Additional Plan 1-Acute Hypoxemic Resp Failure -F/U ABG -Weaning trials 2-CHFpEF -Diuresis 3-Chronic A Fib -Continue current plan 4-PNA -Continue abx 5-Morbidly Obese [place] CC time 35min Sepsis Screening Reassessment Date: Jun 11, 2024 MAGDALENA RICO MD Jun 11, 2024 12:53
[2024-06-11] MEDS ORDERED: famotidine 20mg tablet NG SCH (13:20)
[2024-06-11] MEDS: insulin regular, human U-100 10ml vial - multi-dose SQ SCH (13:39)
--- NOTE | 2024-06-11 18:28 | PROGRESS NOTE- Residence ---
Progress Note - Resident Providers to CC Resident Creating Document: TATI OCASIO, JOSEPH ~ Ying-Non Protocol Ying Indications Met/Not Met: F/C Indications Met Antibiotic Timeout Antibiotic Ordered?: Yes Subjective pt was seen this morning at the bedside CICU, under sedation with precedex. Not currently on any pressors,currently on IV ABx, still on A/C PRVC, making good urine output. Objective Vital Signs Date Time Temp Pulse Resp B/P (MAP) Pulse Ox O2 Delivery O2 Flow Rate FiO2 06/11/24 16:30 70 19 97 40 06/11/24 16:26 163/78 06/11/24 14:53 Mechanical Ventilator 06/11/24 06:00 100.0 06/10/24 20:00 40.0 Result Diagram: 06/11/2432906/11/24329 Vitals were stable at the moment with temp 37.5'C, PEEP 6, FiO2 40%, A/C PRVC, HR 62, SpO2 97% General: under sedations, not in acute distress but awake and responded. HEENT: Conjunctive are pink, sclerae clear, no icterus, pupil is equal in both sides, reactive to light, no ear discharge, no pharyngeal erythema or an edema, mouth and lips are dry. Neck: Supple, no JVD, no lymphadenopathy and thyromegaly. Lungs: Equal air entry on both lungs, bilateral fine basal crackles Heart: S1-S2 atrial fibrillation rhythm and, RVR, no gallops, no rubs, no murmurs Abdomen: No visible peristalsis, Bowel sounds present on auscultation, soft, nontender, no guarding, no rigidity Extremities: No obvious deformities, no pitting edema bilaterally, capillary refill intact, able to wiggle toes both sides, peripheral pulsations are intact on both sides REGISTRAR ASSISTANT: No focal neurological deficits, no motor and sensory weakness in all 4 extremities, could move all 4 extremities Musculoskeletal: No joint swelling, deformities, inflammations, and no scoliosis and back tenderness Skin: No active skin lesions and rashes. Assessment Assessment This is a 63-year-old female with a history of atrial fibrillation, hypertension, COPD, diabetes, depression. She was brought to the ER with rapid heart rate and respiratory distress. Reportedly had SVT, was given two doses of adenosine. In the ER at the time of admission patient was coughing and choking on her sandwich, was intubated on was transferred to the ICU. Patient was doing well, was extubated on 06/04/2024 and was transferred to the floors. On 2024, she choked on her eggs in the morning, went into cardiac arrest, code blue was initiated, ROSC was achieved in 6 minutes. She was intubated and was transferred to ICU. In the ICU central line was placed and was started on Levophed drip Plan Plan # Acute hypoxemic respiratory failure, aspiration pneumonia from 06/05 # COPD exacerbation # ERASMO - on A/C PRVC -continue ABx IV DOxy - bronch evidence with aspiration pneumonia -continue IV Lasix -Daily trial SBT # Possible aspiration induced fever -still low grade feverish around 100 -DC Faustina, -continue on IV doxycycline 100 mg b.i.d. -f/u on procal, blood cultures which showed No growth after 5days -central line, and art line placed on 06/05 # S/p cardiac arrest- PEA # ROSC after 6 mins -treated w/ targeted temp therapy # Cardiogenic shock # AFib with CVR # Chronic heart failure with preserved ejection fraction -no more on pressor - maintain MAP at least 65 -continue Eliquis, and sotalol 40 mg bid -Echo on 06/02/2024 showed an ejection fraction of 60-65%, trace pericardial effusion. -echo done on 06/05 after cardiac arrest showed EF of 45-50%, RV moderately dilated with severely reduced systolic function # DILAN-likely prerenal- improving -Creatinine 1.25 today -Monitor bmp and i/o chart # Elevated transaminase- normalized -lfts trending down and normalized now -suspect likely secondary to amiodarone Vs hypoperfusion # Diabetes mellitus type 2 with a1c of 6.8 -goal to maintain glucose in the range of 140-180 -insulin if needed Nutrition -continue TFs 50cc/ hr, recheck/ aspirate if suspected for the regurgitation as per lastest guideline -DC OG and place Corpak Post cardiac arrest encephalopathy mostly anoxic brain injury- recovering -awake and alert -continue sedation with propofol and fentanyl, with RASS of 0 to -1 Events on 06/06 -FiO2 50, on low-dose Levophed -started tube feeds -DC amiodarone Events on 06/07 -FiO2 down to 40 from 50 -weaned off Levophed -SAT/SBT -creatinine, LFTs trending down -EEG today -added sotalol events on 06/08 -fio2-40 with peep of 10 -on levophed at 0.03 mcg/kg/min -sedation changed to ketamine and fentanyl -iv lasix 80 f/b 40 mg bid for pleural effusions and worsening pulm edema events on 06/09 -lasix increased to 40 mg q8 -PEEP down to 5 -SAT/SBT events on 06/10 -spiking fevers, blood cultures, resp cultures- sent -emperically started on piptazo, and vanco, DC Zosyn and vanco, started on IV doxy 100 mg b.i.d. -lasix dose increased to 60mg q8, for elevated CVP, and increased pulm congestion on cxr -DC OG and changed to corpak Code Status: Full code Analgesia/sedation: propfol, fentanyl, ketamine Line/tube: Right subclavian CVC, right radial arterial line, ETT, corpak, Ying GI prophylaxis: Pepcid DVT prophylaxis: Eliquis Nutrition: Tube feeds Prognosis: critical Disposition: Continue care in ICU Resident attestation: Patient was seen and examined with attending MD, Dr. Jeremy OCASIO MD Internal Medicine Resident, PGY2 [facility] Date of Service: Jun 11, 2024 Billing Provider: SHIRAZ MOLINA MD, TIN, RES Jun 11, 2024 18:28
[2024-06-12] VITALS (46 sets, daily range): BP systolic 92–136; BP diastolic 42–67; PULSE 43–73; RESP 9–34; O2SAT 91–97
[2024-06-12 01:58] LABS: BASOPHILS % (AUTO) 0.3 % (0-1); EOSINOPHILS # (AUTO) 0.1 X10'3 (0-0.9); EOSINOPHILS % (AUTO) 1.9 % (0-6); HEMOGLOBIN 10.3 g/dl (12.0-16.0); LYMPHOCYTES # (AUTO) 1.3 X10'3 (1.1-4.8); LYMPHOCYTES % (AUTO) 22.2 % (21-51); MEAN CORPUSCULAR HEMOGLOBIN 29.4 PG (27.0-31.0); MEAN CORPUSCULAR HGB CONC 33.3 g/dL (33.0-36.5); MEAN CORPUSCULAR VOLUME 88.2 FL (78-98); MEAN PLATELET VOLUME 10.4 FL (7.4-10.4); MONOCYTES # (AUTO) 0.6 X10'3 (0-0.9); MONOCYTES % (AUTO) 9.2 % (2-12); NEUTROPHILS % (AUTO) 66.4 % (42-75); PLATELET COUNT 170 X10'3 (140-440); RED BLOOD COUNT 3.52 X10'6 (4.20-5.60); RED CELL DISTRIBUTION WIDTH 15.7 % (11.5-14.5)
[2024-06-12 02:16] LABS: ALANINE AMINOTRANSFERASE 38 U/L (12-78); ALBUMIN 2.1 G/DL (3.4-5.0); ALBUMIN/GLOBULIN RATIO 0.6 (1.1-1.5); ALKALINE PHOSPHATASE 51 IU/L (46-116); ANION GAP 8 (8-16); ASPARTATE AMINO TRANSFERASE 17 U/L (10-37); BILIRUBIN,TOTAL 0.6 MG/DL (0.1-1.0); BLOOD UREA NITROGEN 39 MG/DL (7-18); BUN/CREATININE RATIO 33.9 (10.0-20.0); CALCIUM 8.6 MG/DL (8.5-10.1); CHLORIDE 108 MMOL/L (99-107); CREATININE 1.15 MG/DL (0.40-0.90); GLUCOSE 146 MG/DL (70-104); MAGNESIUM 1.8 MG/DL (1.5-2.4); PHOSPHORUS 2.8 MG/DL (2.3-4.5); POTASSIUM 3.3 MMOL/L (3.5-5.1); SODIUM 146 MMOL/L (135-145); TOTAL CARBON DIOXIDE 29.8 MMOL/L (24-32); TOTAL PROTEIN 5.7 G/DL (6.4-8.2); VANCOMYCIN,TROUGH 1.8 ug/mL (10.0-20.0); eCRCL 36 ML/MIN; eGFR 48 ML/MIN
[2024-06-12] MEDS ORDERED: FENTANYL 1000MCG/NS 100 ML BAG /PF IV SCH (03:00)
[2024-06-12 04:25] LABS: ABG BASE EXCESS 7.9 mmol/L (-2.0-3.0); ABG HCO3 29.3 mmol/L (21.0-28.0); ABG OXYGEN SATURATION 92.1 % (94.0-98.0); ABG PCO2 (T) 29.9 mmHg (32.0-45.0); ABG PH (T) 7.608 (7.350-7.450); ABG PO2 (T) 57.1 mmHg (83.0-108.0); FCOHb 0.8 % (0.5-1.5); FHHb 7.8 % (0.0-5.0); FMetHb 0.3 % (0.0-1.5); FO2Hb 91.1 % (94.0-98.0); MODE VENT - AC; PATIENT TEMPERATURE 37.1; PEEP 5 cm H2O; RESPIRATORY RATE 18 b/min; TIDAL VOLUME 375 mL; TOTAL HEMOGLOBIN 10.8 G/dl (12.0-16.0)
[2024-06-12] MEDS ORDERED: VANCOMYCIN LEVEL IV ONE (04:30)
--- NOTE | 2024-06-12 06:30 | RADIOLOGY REPORT ---
CHEST RADIOGRAPH Indication: ET Tube AND Corpak Placement Technique: Single frontal view of the chest was obtained COMPARISON: DI CHEST,SINGLE VIEW on DOS: 06/11/24, DI CHEST,SINGLE VIEW on DOS: 06/10/24, DI CHEST,SING LE VIEW on DOS: 06/09/24, DI CHEST,SINGLE VIEW on DOS: 06/08/24, DI CHEST,SINGLE VIEW on DOS: 06/07/24 FINDINGS: Lines and Tubes: Unchanged. Lungs: Stable diffuse increased prominence of the pulmonary vasculature. Bilateral pleural effusions are likely also stable. No pneumothorax. Cardiomediastinal contours: Cardiomegaly. Bones: Unremarkable IMPRESSION: 1. Stable diffuse increased prominence of the pulmonary vasculature and probable bilateral pleural ef fusions. 2. Cardiomegaly. 3. Lines and tubes unchanged.
--- NOTE | 2024-06-12 06:32 | RADIOLOGY REPORT ---
Exam: DI ABDOMEN,SINGLE VIEW(KUB) Indication: Corpak Placement Comparison: DI ABDOMEN,SINGLE VIEW(KUB) on DOS: 06/10/24 Technique: 3 radiographic views of the abdomen. Findings: Endotracheal tube tip projects approximately 3.3 cm above the level of the raul. Corpak feeding tub e courses below the level of the diaphragm and terminates within the central abdomen at the midline. There is moderate diffuse increased prominence of the pulmonary vasculature and small bilateral pleur al effusions. The heart is enlarged. No evidence of pneumothorax. A nonobstructive bowel gas pattern is identified without definite evidence of pneumoperitoneum. Impression: 1. Persistent diffuse increased prominence of the pulmonary vasculature, small bilateral pleural effu sions and cardiomegaly. 2. Lines and tubes unchanged. 3. No evidence of acute abdominal process.
--- NOTE | 2024-06-12 07:48 | PROGRESS NOTE ---
Progress Note Dictate Providers to CC ~ Progress Note: No new acute issues overnight. Good diuresis on Lasix Central Line/PICC still needed: No Ying Indications Met/Not Met: F/C Indications Met Antibiotic Ordered?: Yes Subjective Subjective More alert, comfortable Objective Vitals Vital Signs Date Time Temp Pulse Resp B/P (MAP) Pulse Ox O2 Delivery O2 Flow Rate FiO2 06/12/24 07:34 19 06/12/24 07:12 62 97 40 06/12/24 07:00 99.1 118/56 (76) Mechanical Ventilator 06/10/24 20:00 40.0 Lab Results: 06/12/24 0134 06/12/24 0134 Objective Heart: A Fib Lungs: crackles at bases. Decrease BS R-side Abd: Soft, non-tender, BS (+) Ext: No edema Neuro: alert Problem\Assessment\Plan Additional Plan 1-Acute Hypoxemic Resp Failure -Weaning trials 2-CHFpEF -Continue diuresis -F/U BMP 3-Chronic A Fib -Continue current plan 4-Aspiration PNA -Complete 5-7d of abx 5-Dysphagia -*2 episodes of Aspiration. 6-Morbidly Obese -Bariatric Sx referral as aliya Rico CC time 35min Sepsis Screening Reassessment Date: Jun 12, 2024 MAGDALENA RICO MD Jun 12, 2024 07:48
[2024-06-12] MEDS: ondansetron/PF 4mg/2ml inj IV PRN (09:53)
[2024-06-12] MEDS: acetaZOLAMIDE IV 500mg inj IV SCH (10:49)
[2024-06-12] MEDS ORDERED: DEXTROSE 15 GM of carb/4 tabs (each vial/BOTTLE has 4 tablets) CORPAK PRN ×2 (11:51)
[2024-06-12] MEDS ORDERED: POTASSIUM CHLORIDE 20 MEQ/15 ML oral solution CORPAK PRN (11:52)
--- NOTE | 2024-06-12 12:15 | PROGRESS NOTE ---
Daily Progress Note Providers to CC ~ Antibiotic Timeout Antibiotic Ordered?: Yes Subjective Patient is intubated and sedated Objective Vital Signs Date Time Temp Pulse Resp B/P (MAP) Pulse Ox O2 Delivery O2 Flow Rate FiO2 06/12/24 11:00 29 40 06/12/24 11:00 98.6 58 123/63 (83) 96 Mechanical Ventilator 06/10/24 20:00 40.0 Result Diagram: 06/12/24 0134 06/12/24 0134 In nonacute distress HEENT patient has an OG tube and an ET tube Lungs with decreased bilateral entry no crackles Heart normal rate and rhythm S1-S2 Abdomen is soft obese nontender bowel sounds are present Extremities trace edema Sedated Problem\Assessment\Plan 63-year-old female, initially presenting with respiratory distress and tachycardia. EKG shows atrial fibrillation/atrial flutter with a rapid rate. She was given IV metoprolol with no response. She was then given IV diltiazem, with good rate control. Her workup is concerning for congestive heart failure exacerbation related to her heart rate. She may also have some component of a COPD exacerbation. She was treated for these things including with steroids, and Lasix. She does have an oxygen requirement that is new. She was already on anticoagulation, and so I doubt PE. She will be admitted to the medicine service for further workup and treatment. Plan Plan # A fib with RVR on Eliquis and Sotalol # Acute hypoxic and hypercapnic respiratory failure from possible CHFpEF 60-65% # ERASMO and Class 3 obesity, BMI 43.2 # elevated proBNP # Hx of HTN # low anion gap -she was initially on the [facility] vantilation in CICU under management of Intensivinist. -ABG showed pH 7.5, pO2 63, pCO2 37.7, HCO3 29.6 showing possible respiratory alkalosis as a compensation from the chronic metabolic and respiratory acidosis -serial trop showed 23, 24, 25. -proBNP 1201 and continue IV Lasix 40 mg daily. -started on IV Diamox 500 mg b.i.d. -continue her sotalol 80 mg q.12 hours, monitor her QT interval, continue Eliquis -continue albuterol/ipratropium nebulization q.4 hours as needed # mild electrolyte imbalance-hypokalemia # Possible DILAN on CKD 3 -replace electrolytes as needed as per protocol. Treated with IV fluids for acute kidney injury 06/12 remains intubated and sedated; continue diuresis; management per ICU team Date of Service: Jun 12, 2024 Billing Provider: SHIRAZ MOLINA MD Common Visit Codes: [id number] INP/OBS CARE(HIGH) SHIRAZ MOLINA MD Jun 12, 2024 12:14
[2024-06-12] MEDS: apixaban 5mg tablet CORPAK SCH (19:33)
[2024-06-12] MEDS: sennosides/docusate sodium tablet CORPAK SCH (19:34)
[2024-06-12] MEDS: sotalol HCl 40mg (1/2 tablet) CORPAK SCH (20:00)
[2024-06-12] MEDS: mineral oil/petrolatum ophthal oint EACHEYE PRN (22:09)
[2024-06-13] VITALS (45 sets, daily range): BP systolic 91–153; BP diastolic 33–73; PULSE 44–64; RESP 14–34; O2SAT 70–98
[2024-06-13 02:23] LABS: BASOPHILS % (AUTO) 0.3 % (0-1); EOSINOPHILS # (AUTO) 0.2 X10'3 (0-0.9); EOSINOPHILS % (AUTO) 3.2 % (0-6); HEMOGLOBIN 10.8 g/dl (12.0-16.0); LYMPHOCYTES % (AUTO) 16.1 % (21-51); MEAN CORPUSCULAR HEMOGLOBIN 29.4 PG (27.0-31.0); MEAN CORPUSCULAR HGB CONC 32.6 g/dL (33.0-36.5); MEAN CORPUSCULAR VOLUME 90.1 FL (78-98); MONOCYTES # (AUTO) 0.6 X10'3 (0-0.9); NEUTROPHILS # (AUTO) 4.5 X10'3 (1.8-7.7); NEUTROPHILS % (AUTO) 71.4 % (42-75); PLATELET COUNT 176 X10'3 (140-440); RED BLOOD COUNT 3.66 X10'6 (4.20-5.60); RED CELL DISTRIBUTION WIDTH 15.8 % (11.5-14.5); WHITE BLOOD COUNT 6.3 X10'3 (4.5-11.0)
[2024-06-13 02:36] LABS: ALBUMIN 2.3 G/DL (3.4-5.0); ANION GAP 10 (8-16); BILIRUBIN,TOTAL 0.6 MG/DL (0.1-1.0); BLOOD UREA NITROGEN 41 MG/DL (7-18); BUN/CREATININE RATIO 36.6 (10.0-20.0); CALCIUM 8.6 MG/DL (8.5-10.1); CHLORIDE 109 MMOL/L (99-107); CREATININE 1.12 MG/DL (0.40-0.90); GLUCOSE 128 MG/DL (70-104); MAGNESIUM 1.8 MG/DL (1.5-2.4); PHOSPHORUS 4.2 MG/DL (2.3-4.5); POTASSIUM 3.5 MMOL/L (3.5-5.1); SODIUM 148 MMOL/L (135-145); TOTAL CARBON DIOXIDE 29.1 MMOL/L (24-32); TOTAL PROTEIN 6.1 G/DL (6.4-8.2); eCRCL 36 ML/MIN; eGFR 49 ML/MIN
[2024-06-13 02:37] LABS: ALANINE AMINOTRANSFERASE 36 U/L (12-78); ALBUMIN/GLOBULIN RATIO 0.6 (1.1-1.5); ALKALINE PHOSPHATASE 55 IU/L (46-116); ASPARTATE AMINO TRANSFERASE 21 U/L (10-37); PREALBUMIN 17.9 MG/DL (19-36); TRIGLYCERIDES 97 MG/DL (20-135)
[2024-06-13 02:46] LABS: ABG BASE EXCESS 5.1 mmol/L (-2.0-3.0); ABG HCO3 27.4 mmol/L (21.0-28.0); ABG OXYGEN SATURATION 97.3 % (94.0-98.0); ABG PCO2 (T) 32.4 mmHg (32.0-45.0); ABG PH (T) 7.545 (7.350-7.450); ABG PO2 (T) 88.1 mmHg (83.0-108.0); FHHb 2.7 % (0.0-5.0); FMetHb 0.3 % (0.0-1.5); MODE vent-ac prvc; PEEP 5 cm H2O; RESPIRATORY RATE 14 b/min; TIDAL VOLUME 350 mL; TOTAL HEMOGLOBIN 11.4 G/dl (12.0-16.0)
--- NOTE | 2024-06-13 06:02 | RADIOLOGY REPORT ---
EXAM: XR Chest, 1 View CLINICAL INDICATION: ET Tube Placement TECHNIQUE: Frontal view of the chest. COMPARISON: DI CHEST,SINGLE VIEW on DOS: 06/12/24, DI CHEST,SINGLE VIEW on DOS: 06/11/24, DI CHEST,SI NGLE VIEW on DOS: 06/10/24, DI CHEST,SINGLE VIEW on DOS: 06/09/24, DI CHEST,SINGLE VIEW on DOS: 06/08/24 FINDINGS: LUNGS AND PLEURAL SPACES: Pulmonary congestion and edema. Pneumonia cannot be excluded. Bilateral pleural effusions. No pneumothorax. HEART: Unremarkable. No cardiomegaly. MEDIASTINUM: Unremarkable. Normal mediastinal contour. BONES/JOINTS: Unremarkable. No acute fracture. TUBES, LINES AND DEVICES: The endotracheal tube (ETT) is in satisfactory position. Enteric tube ti p cannot be seen but is below the diaphragm. OTHER FINDINGS: . . IMPRESSION: 1. Pulmonary congestion and edema. Pneumonia cannot be excluded. 2. Bilateral pleural effusions.
[2024-06-13] MEDS: nafcillin inj 2 GM in normal saline 100ml IV soln 100 ML IV SCH (11:51)
--- NOTE | 2024-06-13 12:21 | PROGRESS NOTE- Residence ---
Progress Note - Resident Providers to CC Resident Creating Document: KWABENA ONOFRE RES CC: PARMJIT PACHECO MD ~ Central Line/PICC still needed: N\A Ying-Non Protocol Ying Indications Met/Not Met: F/C Indications Met Antibiotic Timeout Antibiotic Ordered?: Yes If Yes, Indications: mssa pneumonia Subjective Patient is awake and alert, on low-dose Precedex, her son by her bedside, she is able to communicate. She is currently not on any pressors. Objective Vital Signs Date Time Temp Pulse Resp B/P (MAP) Pulse Ox O2 Delivery O2 Flow Rate FiO2 06/13/24 12:00 48 19 117/56 (76) 93 Mechanical Ventilator 40 06/13/24 05:54 98.2 06/12/24 19:00 40.0 Result Diagram: 06/13/24 0200 06/13/24 0200 General: Elderly female, obese, intubated, awake and alert Head: Normocephalic with an atraumatic Eyes: Pupils- 3mm, reacting to light, conjunctiva- anicteric Nose and throat: No polyps, septum- normal, no mucosal ulcers Neck: Supple, no lymphadenopathy, no carotid bruit Respiratory: No use of accessory muscles of respiration, Bilateral equal air entry, decreased breath sounds over the basal areas Cardiac: S1-S2 heard, rythm regular, no gallop/murmur Abdomen: obese, distended, no tenderness, no organomegaly, bowel sounds- heard Extremities: no clubbing, no pedal edema, no deformities, peripheral pulses- 2+ Skin: warm and dry, no rash, no purpura, 1+ pitting edema Neuro: moving all extremities Assessment Assessment This is a 63-year-old female with a history of atrial fibrillation, hypertension, COPD, diabetes, depression. She was brought to the ER with rapid heart rate and respiratory distress. Reportedly had SVT, was given two doses of adenosine. In the ER at the time of admission patient was coughing and choking on her sandwich, was intubated on was transferred to the ICU. Patient was doing well, was extubated on 06/04/2024 and was transferred to the floors. On 2024, she choked on her eggs in the morning, went into cardiac arrest, code blue was initiated, ROSC was achieved in 6 minutes. She was intubated and was transferred to ICU. In the ICU central line was placed and was started on Levophed drip Plan Plan Acute hypoxemic respiratory failure aspiration pneumonia from 06/05 COPD exacerbation ERASMO -currently on AC/PRVC with VC, 33/375/40/5 -abg- 7.54/32/88/27 PF of 2.2 -bronchoscopy done on 05/26- L-side with minimal secretion. R-side with copious thick secretion partially occluding R Main bronchus. BAL performed. -respiratory cultures on 06/05 negative -chest x-ray done today showed bilateral pleural effusions with pulmonary congestion, Plan -lasix 60 mg q8h -daily SBT/SAT. not able to tolerate SBT today i/v/o high RR -Dr. Reeves consulted for tracheostomy and G-tube placement ID new onset fever- resolved suspect 2/2 aspiration pneumonia -respiratory cultures on 06/10- MSSA -received doxy from 06/10-06.13 -changed to IV nafcillin 2 g q.6 from today Cardiac S/p cardiac arrest- PEA ROSC after 6 mins Cardiogenic shock Paroxysmal AFib with CVR Chronic heart failure with preserved ejection fraction -levophed dced on 06/09 -monitor to maintain map above 65 -amiodarone is DCed on 06/06 -continue sotalol 40 mg bid, Eliquis on hold in view of anticipated procedure -Echo on 06/02/2024 showed an ejection fraction of 60-65%, trace pericardial effusion. -echo done on 06/05 after cardiac arrest showed EF of 45-50%, RV moderately dilated with severely reduced systolic function Renal DILAN-likely prerenal- improving Creatinine 1.12>>1.23.>>1.27>> 1.4>>1.33>>1.68 net negative of 1.2L on lasix Monitor bmp and i/o chart Fluid and electrolytes Hypernatremia Sodium 148 Increase free water flushes GI Elevated transaminase- normalized -lfts trending down -suspect likely secondary to amiodarone Endocrine Diabetes mellitus type 2 with a1c of 6.8 -goal to maintain glucose in the range of 140-180 -insulin if needed Nutrition -continue TFs with corpak Neurology -awake and alert -continue sedation with precedex Events on 06/06 -FiO2 50, on low-dose Levophed -started tube feeds -DC amiodarone Events on 06/07 -FiO2 down to 40 from 50 -weaned off Levophed -SAT/SBT -creatinine, LFTs trending down -EEG today -added sotalol events on 06/08 -fio2-40 with peep of 10 -on levophed at 0.03 mcg/kg/min -sedation changed to ketamine and fentanyl -iv lasix 80 f/b 40 mg bid for pleural effusions and worsening pulm edema events on 06/09 -lasix increased to 40 mg q8 -PEEP down to 5 -SAT/SBT events on 06/10 -spiking fevers, blood cultures, resp cultures- sent -emperically started on piptazo, and vanco, DC Zosyn and vanco, started on IV doxy 100 mg b.i.d. -lasix dose increased to 60mg q8, for elevated CVP, and increased pulm congestion on cxr -DC OG and changed to corpak Events on 06/13 -discussed with patient and her son and they agreed for tracheostomy and PEG. Dr. Reeves consulted -Eliquis held for trach and PEG placement -DC doxycycline and changed to IV nafcillin Code Status: Full code Analgesia/sedation: Precedex Line/tube: right radial arterial line, ETT, corpak, Ying GI prophylaxis: Pepcid DVT prophylaxis: SCD Nutrition: Tube feeds Prognosis: critical Disposition: [facility]2 [facility] Patient is seen during morning rounds, case discussed at hospitalist/military source operations officer morning conference as well as multidisciplinary team. I agree with the above assessment and treatment plan. Critical care time in excess of 35 minutes. Date of Service: Jun 13, 2024 Billing Provider: PARMJIT PACHECO MD, HARIVARS, RES Jun 13, 2024 12:21 PARMJIT PACHECO MD June 18, 2024 10:40
--- NOTE | 2024-06-13 18:11 | PROGRESS NOTE- Residence ---
Progress Note - Resident Providers to CC Resident Creating Document: TATI OCASIO RES ~ Antibiotic Timeout Antibiotic Ordered?: Yes Subjective Pt is awake and communicable with writing to her family member this morning. She is still on Mech Vent under low dose Precedex. Objective Vital Signs Date Time Temp Pulse Resp B/P (MAP) Pulse Ox O2 Delivery O2 Flow Rate FiO2 06/13/24 17:28 62 30 95 40 06/13/24 17:00 104/53 (70) Mechanical Ventilator 06/13/24 05:54 98.2 06/12/24 19:00 40.0 Result Diagram: 06/13/24 0200 06/13/24 0200 Vitals were stable at the moment. General: under sedations, not in acute distress but awake and responded. HEENT: Conjunctive are pink, sclerae clear, no icterus, pupil is equal in both sides, reactive to light, no ear discharge, no pharyngeal erythema or an edema, mouth and lips are dry. Neck: Supple, no JVD, no lymphadenopathy and thyromegaly. Lungs: Equal air entry on both lungs, bilateral fine basal crackles Heart: S1-S2 atrial fibrillation rhythm and, RVR, no gallops, no rubs, no murmurs Abdomen: No visible peristalsis, Bowel sounds present on auscultation, soft, nontender, no guarding, no rigidity Extremities: No obvious deformities, no pitting edema bilaterally, capillary refill intact, able to wiggle toes both sides, peripheral pulsations are intact on both sides WOOD GRINDER: No focal neurological deficits, no motor and sensory weakness in all 4 extremities, could move all 4 extremities Musculoskeletal: No joint swelling, deformities, inflammations, and no scoliosis and back tenderness Skin: No active skin lesions and rashes. Assessment Assessment This is a 63-year-old female with a history of atrial fibrillation, hypertension, COPD, diabetes, depression. She was brought to the ER with rapid heart rate and respiratory distress. Reportedly had SVT, was given two doses of adenosine. In the ER at the time of admission patient was coughing and choking on her sandwich, was intubated on was transferred to the ICU. Patient was doing well, was extubated on 06/04/2024 and was transferred to the floors. On 2024, she choked on her eggs in the morning, went into cardiac arrest, code blue was initiated, ROSC was achieved in 6 minutes. She was intubated and was transferred to ICU. In the ICU central line was placed and was started on Levophed drip Plan Plan # Acute hypoxemic respiratory failure, aspiration pneumonia from 06/05 # COPD exacerbation # ERASMO -currently on AC/PRVC and planning to wean off Mech Vent today as per ICU team. -abg- 7.54/32/88/27 PF of 2.2 -bronchoscopy done on 05/26- L-side with minimal secretion. R-side with copious thick secretion partially occluding R Main bronchus. BAL performed. -respiratory cultures on 06/05 negative -chest x-ray done today showed bilateral pleural effusions with pulmonary congestion, Plan -continue lasix 60 mg q8h -daily SBT/SAT. not able to tolerate SBT today i/v/o high RR -Dr. Reeves consulted for tracheostomy and G-tube placement and possible placement at [facility] # Possible aspiration induced fever -new onset fever- resolved -respiratory cultures on 06/10- MSSA -received doxy from 06/10-06/13 -changed to IV nafcillin 2 g q.6 from today # S/p cardiac arrest- PEA # ROSC after 6 mins -treated w/ targeted temp therapy # Cardiogenic shock # AFib with CVR # Chronic heart failure with preserved ejection fraction -no more-pressor - maintain MAP at least 65 -amiodarone is DCed on 06/06 -continue sotalol 40 mg bid, Eliquis on hold in view of anticipated procedure -Echo on 06/02/2024 showed an ejection fraction of 60-65%, trace pericardial effusion. -echo done on 06/05 after cardiac arrest showed EF of 45-50%, RV moderately dilated with severely reduced systolic function # DILAN-likely prerenal- improving Creatinine 1.12>>1.23.>>1.27>> 1.4>>1.33>>1.68 net negative of 1.2L on lasix Monitor bmp and i/o chart # Hypernatremia Sodium 148 Increase free water flushes # Elevated transaminase- normalized -lfts trending down and normalized now -suspect likely secondary to amiodarone Vs hypoperfusion # Diabetes mellitus type 2 with a1c of 6.8 -goal to maintain glucose in the range of 140-180 -insulin if needed Nutrition -continue TFs with corpak 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- recovering -awake and alert -continue sedation with precedex Events on 06/06 -FiO2 50, on low-dose Levophed -started tube feeds -DC amiodarone Events on 06/07 -FiO2 down to 40 from 50 -weaned off Levophed -SAT/SBT -creatinine, LFTs trending down -EEG today -added sotalol events on 06/08 -fio2-40 with peep of 10 -on levophed at 0.03 mcg/kg/min -sedation changed to ketamine and fentanyl -iv lasix 80 f/b 40 mg bid for pleural effusions and worsening pulm edema events on 06/09 -lasix increased to 40 mg q8 -PEEP down to 5 -SAT/SBT events on 06/10 -spiking fevers, blood cultures, resp cultures- sent -emperically started on piptazo, and vanco, DC Zosyn and vanco, started on IV doxy 100 mg b.i.d. -lasix dose increased to 60mg q8, for elevated CVP, and increased pulm congestion on cxr -DC OG and changed to corpak Events on 06/13 -discussed with patient and her son and they agreed for tracheostomy and PEG. Dr. Reeves consulted -Eliquis held for trach and PEG placement -DC doxycycline and changed to IV nafcillin Code Status: Full code Analgesia/sedation: Precedex Line/tube: right radial arterial line, ETT, corpak, Ying GI prophylaxis: Pepcid DVT prophylaxis: SCD Nutrition: Tube feeds Prognosis: critical Disposition: Continue care in ICU RESIDENT ATTESTATION: PATIENT WAS SEEN AND EXAMINED WITH ATTENDING MD, DR. TRACY OCASIO MD INTERNAL MEDICINE RESIDENT, PGY2 [facility] Date of Service: Jun 13, 2024 Billing Provider: SHIRAZ MOLINA MD Common Visit Codes: [id number] INP/OBS CARE(HIGH) TATI OCASIO, JOSEPH Jun 13, 2024 18:11 SHIRAZ MOLINA MD Jun 13, 2024 21:16
--- NOTE | 2024-06-13 19:16 | PROGRESS NOTE ---
Progress Note Dictate Providers to CC ~ Antibiotic Ordered?: No Subjective Subjective EICU Patient on ventilator sedated with precedex, follows commands no pressors on lasix and diamox daytime notes reviewed Hemant linares. Plan for trach/peg Objective Vitals Vital Signs Date Time Temp Pulse Resp B/P (MAP) Pulse Ox O2 Delivery O2 Flow Rate FiO2 06/13/24 22:00 98.6 47 25 115/49 (71) 95 Mechanical Ventilator 40 06/12/24 19:00 40.0 Lab Results: 06/13/24 0200 06/13/24 0200 Problem\Assessment\Plan Problems/Diagnosis: (1) Foot contusion (2) Foot contusion (3) Morbid obesity (4) Acute bronchitis (5) Acute respiratory infection (6) COPD exacerbation (7) Rapid atrial fibrillation (8) Acute exacerbation of congestive heart failure (9) Acute hypoxic respiratory failure Additional Plan Assessment Acute resp failure with hypoxemia Aspiration Pneumonia/MSSA Afib-s/p RVR COPD exacerbation Cardiac Arrest post aspiration, ROSC 6 minutes DILAN Hypernatremia DM 2 HFpEF Recommendations -Lung protective ventilation, failed extubation, recurrent aspiration -plan for trach/peg -Precedex drip for sedation -Nafcillin antibiotics for MSSA sputum -Sotalol for Afib RVR -Pepcid for GI prophylaxis -SCD for DVT prophylaxis Seen via HIPAA compliant audio visual platform, spent 60 minutes CC time LORNA DEMPSEY MD Jun 13, 2024 19:16
[2024-06-14] VITALS (44 sets, daily range): BP systolic 96–147; BP diastolic 33–63; PULSE 19–73; RESP 8–33; O2SAT 91–100
[2024-06-14 02:30] LABS: ALANINE AMINOTRANSFERASE 32 U/L (12-78); ALBUMIN 2.4 G/DL (3.4-5.0); ALBUMIN/GLOBULIN RATIO 0.6 (1.1-1.5); ALKALINE PHOSPHATASE 57 IU/L (46-116); ANION GAP 9 (8-16); ASPARTATE AMINO TRANSFERASE 20 U/L (10-37); BILIRUBIN,TOTAL 0.8 MG/DL (0.1-1.0); BLOOD UREA NITROGEN 49 MG/DL (7-18); BUN/CREATININE RATIO 40.2 (10.0-20.0); CALCIUM 8.5 MG/DL (8.5-10.1); CHLORIDE 111 MMOL/L (99-107); CREATININE 1.22 MG/DL (0.40-0.90); GLUCOSE 146 MG/DL (70-104); MAGNESIUM 1.9 MG/DL (1.5-2.4); PHOSPHORUS 5.1 MG/DL (2.3-4.5); POTASSIUM 3.4 MMOL/L (3.5-5.1); SODIUM 147 MMOL/L (135-145); TOTAL CARBON DIOXIDE 27.2 MMOL/L (24-32); TOTAL PROTEIN 6.2 G/DL (6.4-8.2); TRIGLYCERIDES 84 MG/DL (20-135); eCRCL 33 ML/MIN; eGFR 44 ML/MIN
[2024-06-14 02:42] LABS: BASOPHILS % (AUTO) 0.3 % (0-1); EOSINOPHILS # (AUTO) 0.2 X10'3 (0-0.9); EOSINOPHILS % (AUTO) 3.3 % (0-6); HEMATOCRIT 31.3 % (35.0-45.0); HEMOGLOBIN 10.4 g/dl (12.0-16.0); LYMPHOCYTES # (AUTO) 1.2 X10'3 (1.1-4.8); LYMPHOCYTES % (AUTO) 19.4 % (21-51); MEAN CORPUSCULAR HGB CONC 33.3 g/dL (33.0-36.5); MEAN CORPUSCULAR VOLUME 89.9 FL (78-98); MEAN PLATELET VOLUME 10.9 FL (7.4-10.4); MONOCYTES # (AUTO) 0.5 X10'3 (0-0.9); MONOCYTES % (AUTO) 7.8 % (2-12); NEUTROPHILS # (AUTO) 4.3 X10'3 (1.8-7.7); NEUTROPHILS % (AUTO) 69.2 % (42-75); PLATELET COUNT 183 X10'3 (140-440); RED BLOOD COUNT 3.48 X10'6 (4.20-5.60); RED CELL DISTRIBUTION WIDTH 15.8 % (11.5-14.5); WHITE BLOOD COUNT 6.2 X10'3 (4.5-11.0)
[2024-06-14 03:11] LABS: ELLIPTOCYTES FEW; LARGE PLATELETS FEW; PLATELET ESTIMATE NORMAL; TEAR DROP CELLS FEW
[2024-06-14 03:26] LABS: ABG BASE EXCESS 3.4 mmol/L (-2.0-3.0); ABG HCO3 26.7 mmol/L (21.0-28.0); ABG OXYGEN SATURATION 95.8 % (94.0-98.0); ABG PCO2 (T) 35.9 mmHg (32.0-45.0); ABG PH (T) 7.489 (7.350-7.450); ABG PO2 (T) 78.5 mmHg (83.0-108.0); FCOHb 0.7 % (0.5-1.5); FHHb 4.2 % (0.0-5.0); FMetHb 0.3 % (0.0-1.5); FO2Hb 94.8 % (94.0-98.0); MODE PRVC; PEEP 5 cm H2O; RESPIRATORY RATE 14 b/min; TIDAL VOLUME 350 mL; TOTAL HEMOGLOBIN 11.1 G/dl (12.0-16.0)
[2024-06-14] MEDS: POTASSIUM CHLORIDE 20 MEQ/15 ML oral solution CORPAK PRN (04:18)
--- NOTE | 2024-06-14 05:46 | RADIOLOGY REPORT ---
EXAM: XR Chest, 1 View CLINICAL INDICATION: ET Tube Placement TECHNIQUE: Frontal view of the chest. COMPARISON: DI CHEST,SINGLE VIEW on DOS: 06/13/24, DI CHEST,SINGLE VIEW on DOS: 06/12/24, DI CHEST,SI NGLE VIEW on DOS: 06/11/24, DI CHEST,SINGLE VIEW on DOS: 06/10/24, DI CHEST,SINGLE VIEW on DOS: 06/09/24 FINDINGS: LUNGS AND PLEURAL SPACES: Pleural effusions. HEART: Cardiomegaly with mild congestion. MEDIASTINUM: Unremarkable. Normal mediastinal contour. BONES/JOINTS: Unremarkable. No acute fracture. TUBES, LINES AND DEVICES: The endotracheal tube (ETT) is in satisfactory position. OTHER FINDINGS: . IMPRESSION: Cardiomegaly with mild congestion.
[2024-06-14] MEDS: famotidine 20mg tablet CORPAK SCH (07:29)
[2024-06-14] MEDS: FENTANYL 1000MCG/NS 100 ML BAG /PF IV SCH (10:55)
--- NOTE | 2024-06-14 15:10 | PROGRESS NOTE- Residence ---
Progress Note - Resident Providers to CC Resident Creating Document: MONTEZ ONOFRE RES CC: PARMJIT PACHECO MD ~ Central Line/PICC still needed: N\A Central Line/PICC Necessity: Prolonged IV access req Ying-Non Protocol Ying Indications Met/Not Met: F/C Indications Met Antibiotic Timeout Antibiotic Ordered?: Yes Subjective No acute overnight events noted. Patient is awake and alert, on low-dose Precedex. She is currently on mechanical ventilation, planned to undergo tracheostomy and PEG tube placement on . She did have a bowel movement today Objective Vital Signs Date Time Temp Pulse Resp B/P (MAP) Pulse Ox O2 Delivery O2 Flow Rate FiO2 06/14/24 15:00 100.4 19 31 124/55 (78) 96 Mechanical Ventilator 40 06/12/24 19:00 40.0 Result Diagram: 06/14/2415406/14/24154 General: Elderly female, obese, intubated, awake and alert Head: Normocephalic with an atraumatic Eyes: Pupils- 3mm, reacting to light, conjunctiva- anicteric Nose and throat: No polyps, septum- normal, no mucosal ulcers Neck: Supple, no lymphadenopathy, no carotid bruit Respiratory: No use of accessory muscles of respiration, Bilateral equal air entry, decreased breath sounds over the basal areas Cardiac: S1-S2 heard, rythm regular, no gallop/murmur Abdomen: obese, distended, no tenderness, no organomegaly, bowel sounds- heard Extremities: no clubbing, no pedal edema, no deformities, peripheral pulses- 2+ Skin: warm and dry, no rash, no purpura, 1+ pitting edema Neuro: moving all extremities Assessment Assessment This is a 63-year-old female with a history of atrial fibrillation, hypertension, COPD, diabetes, depression. She was brought to the ER with rapid heart rate and respiratory distress. Reportedly had SVT, was given two doses of adenosine. In the ER at the time of admission patient was coughing and choking on her sandwich, was intubated on was transferred to the ICU. Patient was doing well, was extubated on 06/04/2024 and was transferred to the floors. On 2024, she choked on her eggs in the morning, went into cardiac arrest, code blue was initiated, ROSC was achieved in 6 minutes. She was intubated and was transferred to ICU. In the ICU central line was placed and was started on Levophed drip Plan Plan Acute hypoxemic respiratory failure aspiration pneumonia from 06/05 COPD exacerbation ERASMO -currently on AC/PRVC with VC, 14/350/40/5 -abg-7.48/35/78/26, P/F 1.96 -bronchoscopy done on 05/26- L-side with minimal secretion. R-side with copious thick secretion partially occluding R Main bronchus. BAL performed. -respiratory cultures on 06/05 negative -chest x-ray done today showed bilateral pleural effusions with pulmonary congestion, Plan -continue lasix 60 mg q8h -daily SBT/SAT. -Dr. Reeves consulted for tracheostomy and G-tube placement ID new onset fever- resolved suspect 2/2 aspiration pneumonia sepsis/septic shock-ruled out -respiratory cultures on 06/10- MSSA -received doxy from 06/10-06.13 -changed to IV nafcillin 2 g q.6 from 06/13, x 5 days Cardiac S/p cardiac arrest- PEA ROSC after 6 mins Cardiogenic shock Paroxysmal AFib with CVR Chronic heart failure with preserved ejection fraction -levophed dced on 06/09 -monitor to maintain map above 65 -amiodarone is DCed on 06/06 -continue sotalol 40 mg bid, Eliquis on hold in view of anticipated procedure -Echo on 06/02/2024 showed an ejection fraction of 60-65%, trace pericardial effusion. -echo done on 06/05 after cardiac arrest showed EF of 45-50%, RV moderately dilated with severely reduced systolic function Renal DILAN-likely prerenal- improving Creatinine 1.22>1.12>>1.23.>>1.27>> 1.4>>1.33>>1.68 net negative of 1.6L on lasix Monitor bmp and i/o chart Fluid and electrolytes Hypernatremia Sodium 148 free water flushes 100 mL q.4h GI Elevated transaminase- normalized -lfts trending down -suspect likely secondary to amiodarone Endocrine Diabetes mellitus type 2 with a1c of 6.8 -goal to maintain glucose in the range of 140-180 -insulin if needed Nutrition -continue TFs with corpak Neurology -awake and alert -continue sedation with precedex Events on 06/06 -FiO2 50, on low-dose Levophed -started tube feeds -DC amiodarone Events on 06/07 -FiO2 down to 40 from 50 -weaned off Levophed -SAT/SBT -creatinine, LFTs trending down -EEG today -added sotalol events on 06/08 -fio2-40 with peep of 10 -on levophed at 0.03 mcg/kg/min -sedation changed to ketamine and fentanyl -iv lasix 80 f/b 40 mg bid for pleural effusions and worsening pulm edema events on 06/09 -lasix increased to 40 mg q8 -PEEP down to 5 -SAT/SBT events on 06/10 -spiking fevers, blood cultures, resp cultures- sent -emperically started on piptazo, and vanco, DC Zosyn and vanco, started on IV doxy 100 mg b.i.d. -lasix dose increased to 60mg q8, for elevated CVP, and increased pulm congestion on cxr -DC OG and changed to corpak Events on 06/13 -discussed with patient and her son and they agreed for tracheostomy and PEG. Dr. Reeves consulted -Eliquis held for trach and PEG placement -DC doxycycline and changed to IV nafcillin Events on 06/14 -Precedex DC dced sedation changed to fentanyl -awaiting trach and PEG on Code Status: Full code Analgesia/sedation: fentanyl Line/tube: right radial arterial line, ETT, corpak, Ying, PIV GI prophylaxis: Pepcid DVT prophylaxis: SCD Nutrition: Tube feeds Prognosis: critical Disposition: Continue care in ICU Montez Onofre, ICU PGY-2 resident Patient is seen during morning rounds, case discussed at hospitalist/production grader morning conference as well as multidisciplinary team. I agree with the above assessment and treatment plan. Critical care time in excess of 35 minutes. Date of Service: Jun 14, 2024 Billing Provider: PARMJIT PACHECO MD, HARIVARSHA, RES Jun 14, 2024 15:10 PARMJIT PACHECO MD June 18, 2024 10:41
[2024-06-14] MEDS: acetaminophen 325mg/10.15ml oral unit dose solution CORPAK PRN (17:51)
--- NOTE | 2024-06-14 20:31 | PROGRESS NOTE- Residence ---
Progress Note - Resident Providers to CC Resident Creating Document: TATI OCASIO RES ~ Antibiotic Timeout Antibiotic Ordered?: Yes Subjective Pt is communicating with hand writing and awake and alert. still on low dose Precedex. She did have a bowel movement today Plan Trach and PEG placement on Objective Vital Signs Date Time Temp Pulse Resp B/P (MAP) Pulse Ox O2 Delivery O2 Flow Rate FiO2 06/14/24 19:21 62 24 Mechanical Ventilator 40 06/14/24 19:15 96 06/14/24 19:00 100.9 123/51 (75) 06/12/24 19:00 40.0 Result Diagram: 06/14/24 0155 06/14/24 0155 Vitals were stable at the moment. General: under sedations, not in acute distress but awake and responded. HEENT: Conjunctive are pink, sclerae clear, no icterus, pupil is equal in both sides, reactive to light, no ear discharge, no pharyngeal erythema or an edema, mouth and lips are dry. Neck: Supple, no JVD, no lymphadenopathy and thyromegaly. Lungs: Equal air entry on both lungs, bilateral fine basal crackles Heart: S1-S2 atrial fibrillation rhythm and, RVR, no gallops, no rubs, no murmurs Abdomen: No visible peristalsis, Bowel sounds present on auscultation, soft, nontender, no guarding, no rigidity Extremities: No obvious deformities, no pitting edema bilaterally, capillary refill intact, able to wiggle toes both sides, peripheral pulsations are intact on both sides OPERATIONS GENERAL AGENT: No focal neurological deficits, no motor and sensory weakness in all 4 extremities, could move all 4 extremities Musculoskeletal: No joint swelling, deformities, inflammations, and no scoliosis and back tenderness Skin: No active skin lesions and rashes. Assessment Assessment This is a 63-year-old female with a history of atrial fibrillation, hypertension, COPD, diabetes, depression. She was brought to the ER with rapid heart rate and respiratory distress. Reportedly had SVT, was given two doses of adenosine. In the ER at the time of admission patient was coughing and choking on her sandwich, was intubated on was transferred to the ICU. Patient was doing well, was extubated on 06/04/2024 and was transferred to the floors. On 2024, she choked on her eggs in the morning, went into cardiac arrest, code blue was initiated, ROSC was achieved in 6 minutes. She was intubated and was transferred to ICU. In the ICU central line was placed and was started on Levophed drip Plan Plan #Acute hypoxemic respiratory failure #aspiration pneumonia from 06/05 #COPD exacerbation #ERASMO -currently on AC/PRVC with VC, 14/350/40/5 -abg-7.48/35/78/26, P/F 1.96 -bronchoscopy done on 05/26- L-side with minimal secretion. R-side with copious thick secretion partially occluding R Main bronchus. BAL performed. -respiratory cultures on 06/05 negative -chest x-ray done today showed bilateral pleural effusions with pulmonary congestion, -continue lasix 60 mg q8h -daily SBT/SAT. -Dr. Reeves consulted and planning for tracheostomy and G-tube placement on # Possible aspiration induced fever new onset fever- resolved suspect 2/2 aspiration pneumonia sepsis/septic shock-ruled out -respiratory cultures on 06/10- MSSA -received doxy from 06/10-06.13 -changed to IV nafcillin 2 g q.6 from 06/13, x 5 days #S/p cardiac arrest- PEA #ROSC after 6 mins #Cardiogenic shock #Paroxysmal AFib with CVR #Chronic heart failure with preserved ejection fraction -levophed dced on 06/09 -monitor to maintain map above 65 -amiodarone is DCed on 06/06 -continue sotalol 40 mg bid, Eliquis on hold in view of anticipated procedure -Echo on 06/02/2024 showed an ejection fraction of 60-65%, trace pericardial effusion. -echo done on 06/05 after cardiac arrest showed EF of 45-50%, RV moderately dilated with severely reduced systolic function # DILAN-likely prerenal- improving Creatinine 1.22>1.12>>1.23.>>1.27>> 1.4>>1.33>>1.68 net negative of 1.6L on lasix Monitor bmp and i/o chart # Hypernatremia Sodium 148 free water flushes 100 mL q.4h # Elevated transaminase- normalized -lfts trending down -suspect likely secondary to amiodarone # Diabetes mellitus type 2 with a1c of 6.8 -goal to maintain glucose in the range of 140-180 -insulin if needed # Nutrition -continue TFs with corpak 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- recovering -awake and alert -continue sedation with precedex Events on 06/06 -FiO2 50, on low-dose Levophed -started tube feeds -DC amiodarone Events on 06/07 -FiO2 down to 40 from 50 -weaned off Levophed -SAT/SBT -creatinine, LFTs trending down -EEG today -added sotalol events on 06/08 -fio2-40 with peep of 10 -on levophed at 0.03 mcg/kg/min -sedation changed to ketamine and fentanyl -iv lasix 80 f/b 40 mg bid for pleural effusions and worsening pulm edema events on 06/09 -lasix increased to 40 mg q8 -PEEP down to 5 -SAT/SBT events on 06/10 -spiking fevers, blood cultures, resp cultures- sent -emperically started on piptazo, and vanco, DC Zosyn and vanco, started on IV doxy 100 mg b.i.d. -lasix dose increased to 60mg q8, for elevated CVP, and increased pulm congestion on cxr -DC OG and changed to corpak Events on 06/13 -discussed with patient and her son and they agreed for tracheostomy and PEG. Dr. Reeves consulted -Eliquis held for trach and PEG placement -DC doxycycline and changed to IV nafcillin Events on 06/14 -Precedex DC dced sedation changed to fentanyl -awaiting trach and PEG on Code Status: Full code Analgesia/sedation: fentanyl Line/tube: right radial arterial line, ETT, corpak, Ying, PIV GI prophylaxis: Pepcid DVT prophylaxis: SCD Nutrition: Tube feeds Prognosis: critical Disposition: Continue care in ICU RESIDENT ATTESTATION: PATIENT WAS SEEN AND EXAMINED WITH ATTENDING MD, DR. TRACY OCASIO MD INTERNAL MEDICINE RESIDENT, PGY2 [facility] Date of Service: Jun 14, 2024 Billing Provider: SHIRAZ MOLINA MD Common Visit Codes: [id number] INP/OBS CARE(HIGH) TATI OCASIO RES Jun 14, 2024 20:31 SHIRAZ MOLINA MD Jun 14, 2024 22:15
[2024-06-14] MEDS: dexmedetomidin/NS 400mcg/100ml 100 ML IV SCH (20:49)
[2024-06-15] VITALS (42 sets, daily range): BP systolic 91–155; BP diastolic 39–77; PULSE 4–69; RESP 14–31; O2SAT 93–99
[2024-06-15 02:28] LABS: BASOPHILS % (AUTO) 0.5 % (0-1); EOSINOPHILS # (AUTO) 0.2 X10'3 (0-0.9); EOSINOPHILS % (AUTO) 2.7 % (0-6); HEMATOCRIT 31.2 % (35.0-45.0); HEMOGLOBIN 9.8 g/dl (12.0-16.0); LYMPHOCYTES # (AUTO) 1.4 X10'3 (1.1-4.8); LYMPHOCYTES % (AUTO) 20.9 % (21-51); MEAN CORPUSCULAR HEMOGLOBIN 28.5 PG (27.0-31.0); MEAN CORPUSCULAR HGB CONC 31.5 g/dL (33.0-36.5); MEAN CORPUSCULAR VOLUME 90.5 FL (78-98); MEAN PLATELET VOLUME 10.5 FL (7.4-10.4); MONOCYTES # (AUTO) 0.5 X10'3 (0-0.9); MONOCYTES % (AUTO) 7.4 % (2-12); NEUTROPHILS # (AUTO) 4.6 X10'3 (1.8-7.7); NEUTROPHILS % (AUTO) 68.5 % (42-75); PLATELET COUNT 176 X10'3 (140-440); RED BLOOD COUNT 3.44 X10'6 (4.20-5.60); RED CELL DISTRIBUTION WIDTH 15.6 % (11.5-14.5); WHITE BLOOD COUNT 6.6 X10'3 (4.5-11.0)
[2024-06-15 02:36] LABS: ALANINE AMINOTRANSFERASE 30 U/L (12-78); ALBUMIN 2.2 G/DL (3.4-5.0); ALBUMIN/GLOBULIN RATIO 0.6 (1.1-1.5); ALKALINE PHOSPHATASE 53 IU/L (46-116); ANION GAP 9 (8-16); ASPARTATE AMINO TRANSFERASE 17 U/L (10-37); BILIRUBIN,TOTAL 0.6 MG/DL (0.1-1.0); BLOOD UREA NITROGEN 55 MG/DL (7-18); CALCIUM 8.4 MG/DL (8.5-10.1); CHLORIDE 111 MMOL/L (99-107); CREATININE 1.25 MG/DL (0.40-0.90); GLUCOSE 147 MG/DL (70-104); MAGNESIUM 1.9 MG/DL (1.5-2.4); PHOSPHORUS 3.7 MG/DL (2.3-4.5); SODIUM 146 MMOL/L (135-145); TOTAL CARBON DIOXIDE 25.6 MMOL/L (24-32); TOTAL PROTEIN 5.6 G/DL (6.4-8.2); eCRCL 33 ML/MIN; eGFR 43 ML/MIN
[2024-06-15] MEDS: albumin (Human) 5% 250ml 250 ML IV ONE (02:48)
[2024-06-15 03:51] LABS: ABG BASE EXCESS 1.1 mmol/L (-2.0-3.0); ABG HCO3 24.3 mmol/L (21.0-28.0); ABG OXYGEN SATURATION 97.8 % (94.0-98.0); ABG PCO2 (T) 34.3 mmHg (32.0-45.0); ABG PO2 (T) 97.4 mmHg (83.0-108.0); FCOHb 0.8 % (0.5-1.5); FHHb 2.2 % (0.0-5.0); FMetHb 0.3 % (0.0-1.5); FO2Hb 96.7 % (94.0-98.0); MODE PRVC; PATIENT TEMPERATURE 37.4; PEEP 5 cm H2O; RESPIRATORY RATE 14 b/min; TIDAL VOLUME 350 mL; TOTAL HEMOGLOBIN 10.9 G/dl (12.0-16.0)
[2024-06-15] MEDS: acetaminophen 325mg/10.15ml oral unit dose solution CORPAK PRN (04:44)
--- NOTE | 2024-06-15 06:18 | RADIOLOGY REPORT ---
EXAM: XR Chest, 1 View CLINICAL INDICATION: ET Tube Placement TECHNIQUE: Frontal view of the chest. COMPARISON: DI CHEST,SINGLE VIEW on DOS: 06/14/24, DI CHEST,SINGLE VIEW on DOS: 06/13/24, DI CHEST,SI NGLE VIEW on DOS: 06/12/24, DI CHEST,SINGLE VIEW on DOS: 06/11/24, DI CHEST,SINGLE VIEW on DOS: 06/10/24 FINDINGS: LUNGS AND PLEURAL SPACES: See below. HEART: Cardiomegaly with mild congestion. MEDIASTINUM: Unremarkable. Normal mediastinal contour. BONES/JOINTS: Unremarkable. No acute fracture. TUBES, LINES AND DEVICES: The endotracheal tube (ETT) is in satisfactory position. Enteric tube ti p cannot be seen but is below the diaphragm. OTHER FINDINGS: . . . IMPRESSION: Cardiomegaly with mild congestion.
--- NOTE | 2024-06-15 06:36 | PROGRESS NOTE ---
Progress Note Dictate Providers to CC ~Patient known from previous interactions. Prior history of aspiration pneumonia cardiac arrest no await's trach and PEG placement after failing extubation. Progress Note: Of note has been changing sedation to fentanyl from dexmedetomidine. RN reports patient being awake and showing signs of being dyssynchronous with ventilator support. Requested to resume Dex. For tonight we will continue Dex-until seen by the morning team Antibiotic Ordered?: N/A Objective Vitals Vital Signs Date Time Temp Pulse Resp B/P (MAP) Pulse Ox O2 Delivery O2 Flow Rate FiO2 06/15/24 15:43 48 21 Mechanical Ventilator 40 06/15/24 15:33 95 06/15/24 15:00 99.3 96/43 (60) 06/12/24 19:00 40.0 Lab Results: 06/15/24 0200 06/15/24 1520 Objective Discussed with RN. Remains hemodynamically stable. Examination unremarkable Problem\Assessment\Plan Additional Plan Patient with cardiac arrest Respiratory failure Hypokalemia Hyponatremia Renal failure DILAN Aspiration pneumonia Sepsis Awaiting trach and PEG ---- . Plan continue the current care. will resume Precedex temporarily tonight. Issues to be addressed morning with the primary team about change of sedation strategies. Await's trach and PEG DARIUSZ JOINER MD Jun 15, 2024 06:36
--- NOTE | 2024-06-15 13:13 | PROGRESS NOTE- Residence ---
Progress Note - Resident Providers to CC Resident Creating Document: MONTEZ ONOFRE RES CC: PARMJIT PACHECO MD ~ Central Line/PICC still needed: N\A Ying-Non Protocol Ying Indications Met/Not Met: F/C Indications Met Antibiotic Timeout Antibiotic Ordered?: Yes Subjective T-max of 101�, received a dose of albumin for soft blood pressures yesterday night. Otherwise doing well, awake and alert on low-dose Precedex, intubated. Awaiting trach and PEG tomorrow Objective Vital Signs Date Time Temp Pulse Resp B/P (MAP) Pulse Ox O2 Delivery O2 Flow Rate FiO2 06/15/24 12:00 100.0 53 25 107/59 (75) 97 Mechanical Ventilator 40 06/12/24 19:00 40.0 Result Diagram: 06/15/2419906/15/24 0200 General: Elderly female, obese, intubated, awake and alert Head: Normocephalic with an atraumatic Eyes: Pupils- 3mm, reacting to light, conjunctiva- anicteric Nose and throat: No polyps, septum- normal, no mucosal ulcers Neck: Supple, no lymphadenopathy, no carotid bruit Respiratory: No use of accessory muscles of respiration, Bilateral equal air entry, decreased breath sounds over the basal areas Cardiac: S1-S2 heard, rythm regular, no gallop/murmur Abdomen: obese, distended, no tenderness, no organomegaly, bowel sounds- heard Extremities: no clubbing, no pedal edema, no deformities, peripheral pulses- 2+ Skin: warm and dry, no rash, no purpura, 1+ pitting edema Neuro: moving all extremities Assessment Assessment This is a 63-year-old female with a history of atrial fibrillation, hypertension, COPD, diabetes, depression. She was brought to the ER with rapid heart rate and respiratory distress. Reportedly had SVT, was given two doses of adenosine. In the ER at the time of admission patient was coughing and choking on her sandwich, was intubated on was transferred to the ICU. Patient was doing well, was extubated on 06/04/2024 and was transferred to the floors. On 2024, she choked on her eggs in the morning, went into cardiac arrest, code blue was initiated, ROSC was achieved in 6 minutes. She was intubated and was transferred to ICU. In the ICU central line was placed and was started on Levophed drip Plan Plan Acute hypoxemic respiratory failure aspiration pneumonia from 06/05 COPD exacerbation ERASMO -currently on AC/PRVC with VC, 14/350/40/5 -abg-7.47/34/97/24, with P/F 238 -bronchoscopy done on 05/26- L-side with minimal secretion. R-side with copious thick secretion partially occluding R Main bronchus. BAL performed. -respiratory cultures on 06/05 negative -chest x-ray done today showed bilateral pleural effusions with pulmonary congestion, Plan -continue lasix 60 mg q8h -daily SBT/SAT. -Dr. Reeves consulted for tracheostomy and G-tube placement ID new onset fever- resolved suspect 2/2 aspiration pneumonia sepsis/septic shock-ruled out -respiratory cultures on 06/10- MSSA -received doxy from 06/10-06.13 -changed to IV nafcillin 2 g q.6 from 06/13, x 5 days Cardiac S/p cardiac arrest- PEA ROSC after 6 mins Cardiogenic shock Paroxysmal AFib with CVR Chronic heart failure with preserved ejection fraction -levophed dced on 06/09 -monitor to maintain map above 65 -amiodarone is DCed on 06/06 -continue sotalol 40 mg bid, Eliquis on hold in view of anticipated procedure -Echo on 06/02/2024 showed an ejection fraction of 60-65%, trace pericardial effusion. -echo done on 06/05 after cardiac arrest showed EF of 45-50%, RV moderately dilated with severely reduced systolic function Renal DILAN-likely prerenal- improving Creatinine 1.25>>1.22>1.12>>1.23.>>1.27>> 1.4>>1.33>>1.68 net negative of 1.6L on lasix Monitor bmp and i/o chart Fluid and electrolytes Hypernatremia Hypokalemia-likely secondary to Lasix Sodium down to 146 from 148 free water flushes 100 mL q.4h K replacement per protocol GI Elevated transaminase- normalized -lfts trending down -suspect likely secondary to amiodarone Endocrine Diabetes mellitus type 2 with a1c of 6.8 -goal to maintain glucose in the range of 140-180 -insulin if needed Nutrition -continue TFs with corpak Neurology -awake and alert -continue sedation with precedex Events on 06/06 -FiO2 50, on low-dose Levophed -started tube feeds -DC amiodarone Events on 06/07 -FiO2 down to 40 from 50 -weaned off Levophed -SAT/SBT -creatinine, LFTs trending down -EEG today -added sotalol events on 06/08 -fio2-40 with peep of 10 -on levophed at 0.03 mcg/kg/min -sedation changed to ketamine and fentanyl -iv lasix 80 f/b 40 mg bid for pleural effusions and worsening pulm edema events on 06/09 -lasix increased to 40 mg q8 -PEEP down to 5 -SAT/SBT events on 06/10 -spiking fevers, blood cultures, resp cultures- sent -emperically started on piptazo, and vanco, DC Zosyn and vanco, started on IV doxy 100 mg b.i.d. -lasix dose increased to 60mg q8, for elevated CVP, and increased pulm congestion on cxr -DC OG and changed to corpak Events on 06/13 -discussed with patient and her son and they agreed for tracheostomy and PEG. Dr. Reeves consulted -Eliquis held for trach and PEG placement -DC doxycycline and changed to IV nafcillin Events on 06/14 -Precedex DC dced sedation changed to fentanyl -awaiting trach and PEG on Events on 06/15 -hypokalemia -potassium replacement -hypernatremia increased free water flushes Code Status: Full code Analgesia/sedation: fentanyl Line/tube: right radial arterial line, ETT, corpak, Ying, PIV GI prophylaxis: Pepcid DVT prophylaxis: SCD, resume elquis after procedures tmrw Nutrition: Tube feeds Prognosis: critical Disposition: Continue care in ICU Montez Onofre, ICU PGY-2 resident Patient is seen during morning rounds, case discussed at hospitalist/machine setter automatic morning conference as well as multidisciplinary team. I agree with the above assessment and treatment plan. Critical care time in excess of 35 minutes. Date of Service: Jun 15, 2024 Billing Provider: PARMJIT PACHECO MD,[facility], RES Jun 15, 2024 13:13 PARMJIT PACHECO MD June 18, 2024 10:42
--- NOTE | 2024-06-15 20:42 | PROGRESS NOTE- Residence ---
Progress Note - Resident Providers to CC Resident Creating Document: TATI OCASIO, JOSEPH ~ Ying-Non Protocol Ying Indications Met/Not Met: F/C Indications Met Antibiotic Timeout Antibiotic Ordered?: Yes Subjective Patient is responding well and wake and alert on low-dose Precedex. T-max of 101�, received a dose of albumin for soft blood pressures yesterday night, intubated. Awaiting trach and PEG tomorrow Objective Vital Signs Date Time Temp Pulse Resp B/P (MAP) Pulse Ox O2 Delivery O2 Flow Rate FiO2 06/15/24 19:52 58 06/15/24 19:51 117/55 06/15/24 19:16 17 Mechanical Ventilator 40 06/15/24 19:12 96 06/15/24 18:59 99.3 06/12/24 19:00 40.0 Result Diagram: 06/15/24 0200 06/15/24 1520 Vitals were stable at the moment temp 37.8� C, OH 57/minute, SpO2 97% on AC/PRVC FiO2 40%, peep six, BP 104/42 mm Hg with MAP 62 General: under sedations, not in acute distress but awake and responded. HEENT: Conjunctive are pink, sclerae clear, no icterus, pupil is equal in both sides, reactive to light, no ear discharge, no pharyngeal erythema or an edema, mouth and lips are dry. Neck: Supple, no JVD, no lymphadenopathy and thyromegaly. 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 Assessment Assessment This is a 63-year-old female with a history of atrial fibrillation, hypertension, COPD, diabetes, depression. She was brought to the ER with rapid heart rate and respiratory distress. Reportedly had SVT, was given two doses of adenosine. In the ER at the time of admission patient was coughing and choking on her sandwich, was intubated on was transferred to the ICU. Patient was doing well, was extubated on 06/04/2024 and was transferred to the floors. On 2024, she choked on her eggs in the morning, went into cardiac arrest, code blue was initiated, ROSC was achieved in 6 minutes. She was intubated and was transferred to ICU. In the ICU central line was placed and was started on Levophed drip Plan Plan # Acute hypoxemic respiratory failure, aspiration pneumonia from 06/05 # COPD exacerbation # ERASMO -currently on AC/PRVC with VC, 14/350/40/5 -abg-7.47/34/97/24, with P/F 238 -bronchoscopy done on 05/26- L-side with minimal secretion. R-side with copious thick secretion partially occluding R Main bronchus. BAL performed. -respiratory cultures on 06/05 negative -chest x-ray done today showed bilateral pleural effusions with pulmonary congestion, Plan -continue lasix 60 mg q8h -daily SBT/SAT and tolerable with apneic episode -Dr. Reeves consulted for tracheostomy and G-tube placement # Possible aspiration induced fever -new onset fever- resolved -suspect 2/2 aspiration pneumonia -sepsis/septic shock-ruled out -respiratory cultures on 06/10- MSSA -received doxy from 06/10-06.13 -changed to IV nafcillin 2 g q.6 from 06/13, x 5 days # S/p cardiac arrest- PEA # ROSC after 6 mins -treated w/ targeted temp therapy # Cardiogenic shock # AFib with CVR # Chronic heart failure with preserved ejection fraction -levophed dced on 06/09 -monitor to maintain map above 65 -amiodarone is DCed on 06/06 -continue sotalol 40 mg bid, Eliquis on hold in view of anticipated procedure -Echo on 06/02/2024 showed an ejection fraction of 60-65%, trace pericardial effusion. -echo done on 06/05 after cardiac arrest showed EF of 45-50%, RV moderately dilated with severely reduced systolic function # DILAN-likely prerenal- improving Creatinine 1.25>>1.22>1.12>>1.23.>>1.27>> 1.4>>1.33>>1.68 net negative of 1.6L on lasix Monitor bmp and i/o chart #Hypernatremia #Hypokalemia-likely secondary to Lasix Sodium down to 146 from 148 free water flushes 100 mL q.4h K replacement per protocol # Elevated transaminase- normalized -lfts trending down -suspect likely secondary to amiodarone # Diabetes mellitus type 2 with a1c of 6.8 -goal to maintain glucose in the range of 140-180 -insulin if needed Nutrition -continue TFs with corpak 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- recovering -awake and alert -continue sedation with precedex Events on 06/06 -FiO2 50, on low-dose Levophed -started tube feeds -DC amiodarone Events on 06/07 -FiO2 down to 40 from 50 -weaned off Levophed -SAT/SBT -creatinine, LFTs trending down -EEG today -added sotalol events on 06/08 -fio2-40 with peep of 10 -on levophed at 0.03 mcg/kg/min -sedation changed to ketamine and fentanyl -iv lasix 80 f/b 40 mg bid for pleural effusions and worsening pulm edema events on 06/09 -lasix increased to 40 mg q8 -PEEP down to 5 -SAT/SBT events on 06/10 -spiking fevers, blood cultures, resp cultures- sent -emperically started on piptazo, and vanco, DC Zosyn and vanco, started on IV doxy 100 mg b.i.d. -lasix dose increased to 60mg q8, for elevated CVP, and increased pulm congestion on cxr -DC OG and changed to corpak Events on 06/13 -discussed with patient and her son and they agreed for tracheostomy and PEG. Dr. Reeves consulted -Hemant held for trach and PEG placement -DC doxycycline and changed to IV nafcillin Events on 06/14 -Precedex DC dced sedation changed to fentanyl -awaiting trach and PEG on Events on 06/15 -hypokalemia -potassium replacement -hypernatremia increased free water flushes Code Status: Full code Analgesia/sedation: fentanyl Line/tube: right radial arterial line, ETT, corpak, Ying, PIV GI prophylaxis: Pepcid DVT prophylaxis: SCD, resume elquis after procedures tmrw Nutrition: Tube feeds Prognosis: critical Disposition: Continue care in ICU RESIDENT MD ATTESTATION: PATIENT WAS SEEN AND EXAMINED WITH ATTENDING MD, DR. TRACY OCASIO MD INTERNAL MEDICINE RESIDENT, PGY2 [facility] Date of Service: Jun 15, 2024 Billing Provider: SHIRAZ MOLINA MD Common Visit Codes: [id number] INP/OBS CARE(HIGH) TATI OCASIO, JOSEPH Jun 15, 2024 20:42 SHIRAZ MOLINA MD Jun 15, 2024 22:09
[2024-06-16] VITALS (44 sets, daily range): BP systolic 83–148; BP diastolic 41–90; PULSE 41–79; RESP 0–32; O2SAT 91–100
[2024-06-16 03:05] LABS: BASOPHILS % (AUTO) 0.5 % (0-1); EOSINOPHILS # (AUTO) 0.2 X10'3 (0-0.9); EOSINOPHILS % (AUTO) 2.9 % (0-6); HEMATOCRIT 31.5 % (35.0-45.0); HEMOGLOBIN 10.4 g/dl (12.0-16.0); LYMPHOCYTES # (AUTO) 1.3 X10'3 (1.1-4.8); MEAN CORPUSCULAR HEMOGLOBIN 29.3 PG (27.0-31.0); MEAN CORPUSCULAR HGB CONC 32.9 g/dL (33.0-36.5); MEAN CORPUSCULAR VOLUME 89.1 FL (78-98); MEAN PLATELET VOLUME 10.4 FL (7.4-10.4); MONOCYTES # (AUTO) 0.4 X10'3 (0-0.9); MONOCYTES % (AUTO) 7.2 % (2-12); NEUTROPHILS # (AUTO) 3.4 X10'3 (1.8-7.7); NEUTROPHILS % (AUTO) 64.4 % (42-75); PLATELET COUNT 173 X10'3 (140-440); RED BLOOD COUNT 3.53 X10'6 (4.20-5.60); RED CELL DISTRIBUTION WIDTH 15.4 % (11.5-14.5); WHITE BLOOD COUNT 5.3 X10'3 (4.5-11.0)
[2024-06-16 03:25] LABS: ABG BASE EXCESS 3.1 mmol/L (-2.0-3.0); ABG OXYGEN SATURATION 96.6 % (94.0-98.0); ABG PCO2 (T) 28.7 mmHg (32.0-45.0); ABG PH (T) 7.556 (7.350-7.450); ALLEN'S TEST Modified; FCOHb 0.9 % (0.5-1.5); FHHb 3.4 % (0.0-5.0); FMetHb 0.3 % (0.0-1.5); FO2Hb 95.4 % (94.0-98.0); MODE VENT - AC/PRVC; PATIENT TEMPERATURE 36.6; PEEP 5 cm H2O; RESPIRATORY RATE 14 b/min; TIDAL VOLUME 350 mL
[2024-06-16 03:30] LABS: ALANINE AMINOTRANSFERASE 26 U/L (12-78); ALBUMIN 2.6 G/DL (3.4-5.0); ALBUMIN/GLOBULIN RATIO 0.7 (1.1-1.5); ALKALINE PHOSPHATASE 52 IU/L (46-116); ANION GAP 10 (8-16); ASPARTATE AMINO TRANSFERASE 13 U/L (10-37); BILIRUBIN,TOTAL 0.7 MG/DL (0.1-1.0); BLOOD UREA NITROGEN 49 MG/DL (7-18); BUN/CREATININE RATIO 43.4 (10.0-20.0); CALCIUM 8.7 MG/DL (8.5-10.1); CHLORIDE 114 MMOL/L (99-107); CREATININE 1.13 MG/DL (0.40-0.90); GLUCOSE 146 MG/DL (70-104); MAGNESIUM 2.1 MG/DL (1.5-2.4); POTASSIUM 3.7 MMOL/L (3.5-5.1); PREALBUMIN 21.2 MG/DL (19-36); SODIUM 150 MMOL/L (135-145); TOTAL CARBON DIOXIDE 25.7 MMOL/L (24-32); TOTAL PROTEIN 6.2 G/DL (6.4-8.2); eCRCL 36 ML/MIN; eGFR 48 ML/MIN
[2024-06-16] MEDS: dextrose 5%-water 1,000 ML IV SCH (04:40)
--- NOTE | 2024-06-16 04:53 | PROGRESS NOTE ---
Progress Note Dictate Providers to CC Continues to remain critically ill in the ICU. Await tracheostomy placements.~ Progress Note: Evaluated with the help of RN. Used HIPAA compliant A/V technology. Patient remains on vent with no new issues. Tolerating sedation. According to RN patient wakes up appropriately. Most recent labs discussed. ABG shows significant alkalosis. Compressive panel CO2 remains within limits. Suspect combined acid-base disturbance. Metabolic alkalosis, respiratory alkalosis and possible metabolic acidosis. . Persistent hyponatremia discussed with the team. Currently on free water. Will add D5W also. Antibiotic Ordered?: N/A Objective Vitals Vital Signs Date Time Temp Pulse Resp B/P (MAP) Pulse Ox O2 Delivery O2 Flow Rate FiO2 06/16/24 03:12 48 20 97 40 06/16/24 03:00 97.9 122/59 (80) Mechanical Ventilator 06/12/24 19:00 40.0 Lab Results: 06/16/24 0240 06/16/24 0240 Objective Discussed with RN. Remains hemodynamically stable. Examination unremarkable Problem\Assessment\Plan Additional Plan 1. Respiratory failure hypoxic 2. Ventilator dependent status 3. Hypernatremia 4. Alkalosis profound respiratory and metabolic alkalosis 5. Sepsis improved 6. History of respiratory failure 7. Pneumonia secondary to aspiration Plan Continue the current care Add D5W 50 mL/h should be continued for the next 48 hours to correct hypernatremia. Hopefully this will correct the metabolic alkalosis part of the acid-base disturbance. Tracheostomy is planned DARIUSZ JOINER MD June 16, 2024 04:53
--- NOTE | 2024-06-16 05:58 | RADIOLOGY REPORT ---
EXAM: XR Chest, 1 View CLINICAL INDICATION: intubated TECHNIQUE: Frontal view of the chest. COMPARISON: DI CHEST,SINGLE VIEW on DOS: 06/15/24, DI CHEST,SINGLE VIEW on DOS: 06/14/24, DI CHEST,SI NGLE VIEW on DOS: 06/13/24, DI CHEST,SINGLE VIEW on DOS: 06/12/24, DI CHEST,SINGLE VIEW on DOS: 06/11/24 FINDINGS: LUNGS AND PLEURAL SPACES: See below. HEART: Cardiomegaly with mild congestion. MEDIASTINUM: Unremarkable. Normal mediastinal contour. BONES/JOINTS: Unremarkable. No acute fracture. TUBES, LINES AND DEVICES: The endotracheal tube (ETT) is in satisfactory position. Enteric tube ti p cannot be seen but is below the diaphragm. OTHER FINDINGS: . IMPRESSION: Cardiomegaly with mild congestion.
--- NOTE | 2024-06-16 08:29 | PROGRESS NOTE- Residence ---
Progress Note - Resident Providers to CC Resident Creating Document: MONTEZ ONOFRE RES CC: PARMJIT PACHECO MD ~ Central Line/PICC still needed: N\A Ying-Non Protocol Ying Indications Met/Not Met: F/C Indications Met Antibiotic Timeout Antibiotic Ordered?: Yes Subjective Patient seen this morning, NAOE, Started on D5 for hypernatremia, initially planned for trach and PEG today, as per Dr. Reeves, needs cardiac eval, and pre-op clearance for the procedure Objective Vital Signs Date Time Temp Pulse Resp B/P (MAP) Pulse Ox O2 Delivery O2 Flow Rate FiO2 06/16/24 07:40 45 20 Mechanical Ventilator 40 06/16/24 07:37 99 06/16/24 07:00 97.7 131/60 (83) 06/12/24 19:00 40.0 Result Diagram: 06/16/240 06/16/24 0240 General: Elderly female, obese, intubated, awake and alert, folowing commands, seen watching tv Head: Normocephalic with an atraumatic Eyes: Pupils- 3mm, reacting to light, conjunctiva- anicteric Nose and throat: No polyps, septum- normal, no mucosal ulcers Neck: Supple, no lymphadenopathy, no carotid bruit Respiratory: No use of accessory muscles of respiration, Bilateral equal air entry, decreased breath sounds over the basal areas Cardiac: S1-S2 heard, rythm regular, no gallop/murmur Abdomen: obese, distended, no tenderness, no organomegaly, bowel sounds- heard Extremities: no clubbing, no pedal edema, no deformities, peripheral pulses- 2+ Skin: warm and dry, no rash, no purpura, edema- resolved Neuro: moving all extremities Assessment Assessment This is a 63-year-old female with a history of atrial fibrillation, hypertension, COPD, diabetes, depression. She was brought to the ER with rapid heart rate and respiratory distress. Reportedly had SVT, was given two doses of adenosine. In the ER at the time of admission patient was coughing and choking on her sandwich, was intubated on was transferred to the ICU. Patient was doing well, was extubated on 06/04/2024 and was transferred to the floors. On 2024, she choked on her eggs in the morning, went into cardiac arrest, code blue was initiated, ROSC was achieved in 6 minutes. She was intubated and was transferred to ICU. In the ICU central line was placed and was started on Levophed drip Plan Plan Acute hypoxemic respiratory failure aspiration pneumonia from 06/05 COPD exacerbation ERASMO -currently on AC/PRVC with VC, 14/350/40/5 -abg-7.55/28.7/77/25, resp alkalosis -bronchoscopy done on 05/26- L-side with minimal secretion. R-side with copious thick secretion partially occluding R Main bronchus. BAL performed. -respiratory cultures on 06/05 negative -chest x-ray done today showed bilateral pleural effusions with pulmonary congestion, Plan -decrease TV to 300cc for resp alkalosis -continue lasix 60 mg q8, and add metalozone 10 mg q12 -daily SBT/SAT. -Dr. Reeves consulted for tracheostomy and G-tube placement. He recommended cardiac clearance before the surgery, awaiting cardiology recs ID new onset fever- resolved suspect 2/2 aspiration pneumonia sepsis/septic shock-ruled out -respiratory cultures on 06/10- MSSA -received doxy from 06/10-06.13 -continue IV nafcillin 2 g q.6 from 06/13 to 06/17 Cardiac S/p cardiac arrest- PEA ROSC after 6 mins Cardiogenic shock Paroxysmal AFib with CVR Chronic heart failure with preserved ejection fraction -levophed dced on 06/09 -monitor to maintain map above 65 -amiodarone is DCed on 06/06 -HR going more toward eva- in the range of 40s to 60s -continue sotalol 40 mg bid, resume elquis after the procedure -Echo on 06/02/2024 showed an ejection fraction of 60-65%, trace pericardial effusion. -echo done on 06/05 after cardiac arrest showed EF of 45-50%, RV moderately dilated with severely reduced systolic function Renal DILAN-likely prerenal- resolved Creatinine 1.13>>1.25>>1.22>1.12>>1.23.>>1.27>> 1.4>>1.33>>1.68 net negative of 1.9L on lasix Monitor bmp and i/o chart Fluid and electrolytes Hypernatremia Hypokalemia-likely secondary to Lasix- resolved Sodium-150, fwd of 4.4L for na of 140 Increase free water flushes 200 mL q.4h D5W @ 50cc/hr for 96 hrs K replacement per protocol GI Elevated transaminase- normalized -lfts-normalized -suspect likely secondary to amiodarone Endocrine Diabetes mellitus type 2 with a1c of 6.8 -goal to maintain glucose in the range of 140-180 -insulin if needed Nutrition -continue TFs with corpak. Neurology -awake and alert -continue sedation with low dose fenatnyl Events on 06/06 -FiO2 50, on low-dose Levophed -started tube feeds -DC amiodarone Events on 06/07 -FiO2 down to 40 from 50 -weaned off Levophed -SAT/SBT -creatinine, LFTs trending down -EEG today -added sotalol events on 06/08 -fio2-40 with peep of 10 -on levophed at 0.03 mcg/kg/min -sedation changed to ketamine and fentanyl -iv lasix 80 f/b 40 mg bid for pleural effusions and worsening pulm edema events on 06/09 -lasix increased to 40 mg q8 -PEEP down to 5 -SAT/SBT events on 06/10 -spiking fevers, blood cultures, resp cultures- sent -emperically started on piptazo, and vanco, DC Zosyn and vanco, started on IV doxy 100 mg b.i.d. -lasix dose increased to 60mg q8, for elevated CVP, and increased pulm congestion on cxr -DC OG and changed to corpak Events on 06/13 -discussed with patient and her son and they agreed for tracheostomy and PEG. Dr. Reeves consulted -Hemant held for trach and PEG placement -DC doxycycline and changed to IV nafcillin Events on 06/14 -Precedex DC dced sedation changed to fentanyl -awaiting trach and PEG on Events on 06/15 -hypokalemia -potassium replacement -hypernatremia increased free water flushes events on 06/16 -D5W for na of 150 -added metalozone -preop cardiac clearance for trach/peg placement requested Code Status: Full code Analgesia/sedation: precedex Line/tube: right radial arterial line, ETT, corpak, Ying, PIV GI prophylaxis: Pepcid DVT prophylaxis: SCD, resume elquis after procedure Nutrition: Tube feeds Prognosis: guarded Disposition: Continue care in ICU Montez Onofre [facility] PGY-2 resident Patient is seen during morning rounds, case discussed at hospitalist/advertising columnist morning conference as well as multidisciplinary team. I agree with the above assessment and treatment plan. Critical care time in excess of 35 minutes. Date of Service: June 16, 2024 Billing Provider: PARMJIT PACHECO MD, HARIVARSHA, [facility] June 16, 2024 08:29 PARMJIT PACHECO MD June 18, 2024 10:42
[2024-06-16] MEDS ORDERED: NORepinephrine 8mg/ 250ml NS 250 ML IV ONE (09:05)
[2024-06-16] MEDS ORDERED: BUPIVAcaine 2.5mg/ml inj 50ml vial (contains preservative) ONE (09:18)
[2024-06-16] MEDS ORDERED: iohexol 300mg/ml 100ml inj. ONE (09:43)
--- NOTE | 2024-06-16 11:09 | RADIOLOGY REPORT ---
Exam: CT CT CHEST ABDOMEN PELVIS W/ IV CONTRAST History: enlarged heart Comparison Study: None available at time of dictation. Technique: Multidetector spiral CT of the chest, abdomen and pelvis was performed from lower neck to pubic symphysis. Intravenous contrast was administered during this examination. Portal venous imagi ng was obtained. Axial, coronal and sagittal multiplanar reformats were performed by the technologist on a separate workstation. Radiation Dose : 1. Chest/Abdomen/Pelvis: CTDIvol 37 mGy, DLP 2430 mGy*cm. Findings: Lower neck: Endotracheal tube in satisfactory position. Lungs: Bilateral lower lobe compressive atelectasis, blndh-gulrzum-abpi-left. Linear scarring or atel ectasis is present in the bilateral upper lobes, [id number]-right. Heart/Vascular Structures: Cardiomegaly. Enlarged main pulmonary artery measures 4.2 cm. Small to mod erate pericardial effusion. Lymph Nodes: No adenopathy Pleura: Small right pleural effusion. Trace left pleural effusion. Liver: Hepatomegaly. Hepatic steatosis. Gallbladder and Biliary Tree: Unremarkable Spleen: Unremarkable Pancreas: The pancreas is normal in appearance without focal lesions or abnormal enhancement. Adrenal Glands: Unremarkable Kidneys: Kidneys demonstrate normal symmetric enhancement without focal lesions, calculi or hydroneph rosis. Bladder: Bladder is decompressed with a Ying catheter and cannot be adequately assessed. Bowel: Enteric catheter in the stomach. Colonic diverticulosis. The appendix is not visualized; lopez luan, no secondary findings of acute appendicitis identified. Ascites: Absent Lymphadenopathy: No mesenteric, retroperitoneal or periportal lymphadenopathy. Abdominal Wall and Mesentery: Unremarkable. Vasculature: The visualized abdominal aorta is normal in size and caliber. Abdominal and pelvic vess els demonstrate normal enhancement. Pelvic Organs: Unremarkable Musculoskeletal: No aggressive focal bony lesions, acute fractures or dislocation. Multilevel degener ative changes of the spine. IMPRESSION: Cardiomegaly. Enlarged main pulmonary artery measuring 4.2 cm. This may represent a component of und erlying pulmonary arterial hypertension. Small to moderate pericardial effusion. Small bilateral pleural effusions and associated compressive atelectasis, right greater than left.
[2024-06-16] MEDS: ceFOXitin sod/dextrose 2g/50ml 50 ML IV ONE (11:14)
[2024-06-16] MEDS: metolazone 2.5mg tablet PO SCH (11:31)
--- NOTE | 2024-06-16 12:31 | PROGRESS NOTE- Residence ---
Progress Note - Resident Providers to CC Resident Creating Document: MILES FLORES RES ~ Antibiotic Timeout Antibiotic Ordered?: Yes Subjective Patient seen and examined at the bedside, awake alert follow commands. initially planned for trach and PEG today, as per Dr. Reeves, needs cardiac eval, and pre-op clearance for the procedure Objective Vital Signs Date Time Temp Pulse Resp B/P (MAP) Pulse Ox O2 Delivery O2 Flow Rate FiO2 06/16/24 12:05 56 15 109/90 (96) 100 06/16/24 11:44 40 06/16/24 11:00 97.7 06/16/24 10:00 Mechanical Ventilator 06/12/24 19:00 40.0 Result Diagram: 06/16/24 0240 06/16/24 0240 General: Elderly female, obese, intubated, awake and alert, folowing commands, seen watching tv Head: Normocephalic with an atraumatic Eyes: Pupils- 3mm, reacting to light, conjunctiva- anicteric Nose and throat: No polyps, septum- normal, no mucosal ulcers Neck: Supple, no lymphadenopathy, no carotid bruit Respiratory: No use of accessory muscles of respiration, Bilateral equal air entry, decreased breath sounds over the basal areas Cardiac: S1-S2 heard, rythm regular, no gallop/murmur Abdomen: obese, distended, no tenderness, no organomegaly, bowel sounds- heard Extremities: no clubbing, no pedal edema, no deformities, peripheral pulses- 2+ Skin: warm and dry, no rash, no purpura, edema- resolved Neuro: moving all extremities Assessment Assessment This is a 63-year-old female with a history of atrial fibrillation, hypertension, COPD, diabetes, depression. She was brought to the ER with rapid heart rate and respiratory distress. Reportedly had SVT, was given two doses of adenosine. In the ER at the time of admission patient was coughing and choking on her sandwich, was intubated on was transferred to the ICU. Patient was doing well, was extubated on 06/04/2024 and was transferred to the floors. On 2024, she choked on her eggs in the morning, went into cardiac arrest, code blue was initiated, ROSC was achieved in 6 minutes. She was intubated and was transferred to ICU. In the ICU central line was placed and was started on Levophed drip Plan Plan Acute hypoxemic respiratory failure aspiration pneumonia from 06/05 COPD exacerbation ERASMO -currently on AC/PRVC with VC, 14/350/40/5 -abg-7.55/28.7//, resp alkalosis -bronchoscopy done on 05/26- L-side with minimal secretion. R-side with copious thick secretion partially occluding R Main bronchus. BAL performed. -respiratory cultures on 06/05 negative -chest x-ray done today showed bilateral pleural effusions with pulmonary congestion, Plan -decrease TV to 300cc for resp alkalosis -continue lasix 60 mg q8, and add metalozone 10 mg q12 -daily SBT/SAT. -Dr. Reeves consulted for tracheostomy and G-tube placement. He recommended cardiac clearance before the surgery, awaiting cardiology recs new onset fever- resolved suspect 03/20 aspiration pneumonia sepsis/septic shock-ruled out -respiratory cultures on 06/10- MSSA -received doxy from 06/10-06.13 -continue IV nafcillin 2 g q.6 from 06/13 to 06/17 S/p cardiac arrest- PEA ROSC after 6 mins Cardiogenic shock Paroxysmal AFib with CVR Chronic heart failure with preserved ejection fraction -levophed dced on 06/09 -monitor to maintain map above 65 -amiodarone is DCed on 06/06 -HR going more toward eva- in the range of 40s to 60s -continue sotalol 40 mg bid, resume elquis after the procedure -Echo on 06/02/2024 showed an ejection fraction of 60-65%, trace pericardial effusion. -echo done on 06/05 after cardiac arrest showed EF of 45-50%, RV moderately dilated with severely reduced systolic function DILAN-likely prerenal- resolved Creatinine 1.13>>1.25>>1.22>1.12>>1.23.>>1.27>> 1.4>>1.33>>1.68 net negative of 1.9L on lasix Monitor bmp and i/o chart Hypernatremia Hypokalemia-likely secondary to Lasix- resolved Sodium-150, fwd of 4.4L for na of 140 Increase free water flushes 200 mL q.4h D5W @ 50cc/hr for 96 hrs K replacement per protocol Elevated transaminase- normalized -lfts-normalized -suspect likely secondary to amiodarone Diabetes mellitus type 2 with a1c of 6.8 -goal to maintain glucose in the range of 140-180 -insulin if needed Nutrition -continue TFs with corpak. Events on 06/06 -FiO2 50, on low-dose Levophed -started tube feeds -DC amiodarone Events on 06/07 -FiO2 down to 40 from 50 -weaned off Levophed -SAT/SBT - creatinine, LFTs trending down -EEG today -added sotalol Events on 06/08 -fio2-40 with peep of 10 -on levophed at 0.03 mcg/kg/min - sedation changed to ketamine and fentanyl -iv lasix 80 f/b 40 mg bid for pleural effusions and worsening pulm edema Events on 06/09 -lasix increased to 40 mg q8 -PEEP down to 5 -SAT/SBT Events on 06/10 -spiking fevers, blood cultures, resp cultures- sent -emperically started on piptazo, and vanco, DC Zosyn and vanco, started on IV doxy 100 mg b.i.d. -lasix dose increased to 60mg q8, for elevated CVP, and increased pulm congestion on cxr -DC OG and changed to corpak Events on 06/13 -discussed with patient and her son and they agreed for tracheostomy and PEG. Dr. Reeves consulted -Eliquis held for trach and PEG placement -DC doxycycline and changed to IV nafcillin Events on 06/14 -Precedex DC dced sedation changed to fentanyl -awaiting trach and PEG on Events on 06/15 -hypokalemia -potassium replacement -hypernatremia increased free water flushes Events on 06/16 -D5W for na of 150 -added metalozone -preop cardiac clearance for trach/peg placement requested Code Status: Full code Analgesia/sedation: precedex Line/tube: right radial arterial line, ETT, corpak, Ying, PIV GI prophylaxis: Pepcid DVT prophylaxis: SCD, resume elquis after procedure Nutrition: Tube feeds Prognosis: guarded Disposition: Continue care in ICU, patient is managed by roller varnisher, hospitalist follows as protocol Miles Flores MD Internal Medicine Resident Date of Service: June 16, 2024 Billing Provider: SHIRAZ MOLINA MD Common Visit Codes: [id number] INP/OBS CARE(HIGH) MILES FLORES, RES June 16, 2024 12:31 SHIRAZ MOLINA MD June 16, 2024 22:08
--- NOTE | 2024-06-16 15:49 | CONSULTATION REPORT ---
History of Present Illness Providers to CC CC: ANTONIO SUNG MD ~ Reason for Admit\Admit Dx: Cardiology consultation Refering MD: Radhames History of Present Illness This is a 63-year-old female with past medical history significant for hypertension, type 2 diabetes, obesity and paroxysmal atrial fibrillation. She was followed by Dr. Ramirez for Cardiology Services as an outpatient. Cardiology consultation was requested for surgery clearance for tracheostomy and PEG tube placement with Dr. Reeves. Patient had presented on June 02, 2024 with SVT. Given adenosine which revealed underlying rhythm of atrial flutter. She was on a non-rebreather secondary to hypoxia. Heart rate 150-170. Intubated secondary to respiratory distress and possibly aspiration as well. Initial echocardiogram performed on June 02 showed an LVEF of 60-65% with grossly normal RV function. Patient had a PE arrest after choking on her breakfast with ROSC after 6 minutes of resuscitation 06/05/24. Repeat echocardiogram was performed on June 05, 2024 which revealed an LVEF of 45-50%. RV now moderately dilated with severely reduced function. Trace circumferential pericardial effusion without evidence of hemodynamic compromise. Patient was currently intubated. On some fentanyl but otherwise not sedated and unable to answer questions/right questions. Allergies: Coded Allergies: coconut (Verified Allergy, Unknown, 09/10/17) HIVES codeine (Verified Allergy, Unknown, rash, 08/14/16) Home Medications Home Medications Active Reported Hydrochlorothiazide 12.5 Mg Tablet 1 Tab PO DAILY Lasix (Furosemide) 40 Mg Tablet 1 Tab PO DAILY Lisinopril* (Lisinopril) 40 Mg Tablet 1 Tab PO DAILY Eliquis (Apixaban) 5 Mg Tablet 1 Tab PO BID Potassium Chloride* (Potassium Chloride) 10 Meq Capsule.sa 1 Cap PO DAILY Sotalol Af (Sotalol Hcl) 80 Mg Tablet 0.5 Tab PO BID Claritin* (Loratadine) 10 Mg Tablet 10 Mg PO DAILY Past Medical History Medical History Comment Paroxysmal atrial fibrillation Hypertension Obesity Diabetes mellitus type 2 Past Family History Family History: Patient reports no known family medical history. Physical Exam Last Vital Signs Recorded: RN Vital Signs have been reviewed: Yes, Temperature: 97.4, Source: Bladder, Heart Rate: 53, Respiratory Rate: 29, BP: 113/44, Pulse Oximetry: 100 Physical Exam General: Awake, alert. Intubated. On minimal sedation. Not sure head to answer question and also writes her own questions on paper. Neck: Supple. Normal range of motion. No JVD Respiratory: Lungs are clear to auscultation bilaterally. No respiratory distress. Chest: Normal shape and size. No accessory muscle use. Cardiovascular: Regular rate and rhythm. S1-S2. No murmur, gallop, rub. Gastrointestinal: Abdomen is soft. Nontender to palpation. Bowel sounds present. Extremities: No lower extremity edema, cyanosis or clubbing. Neurologic: Alert and oriented x4. Nonfocal Psychiatric: Normal mood and affect. Skin: Normal color. Warm and dry. Review of Systems ROS Patient denies chest pain when asked. Review of systems limited as patient was intubated. Results EKG EKG EKG 1. Showed an SVT Echocardiogram Echocardiogram Conclusion Normal LV size and wall thickness. Overall systolic function is normal. LVEF is 60-65%. Right ventricle is grossly normal in size and function. The left atrium size is normal. Trileaflet AV appears mildly sclerotic without stenosis. No insufficiency. Mitral valve leaflets are mildly thickened with mild annular calcification. No stenosis. The tricuspid valve is normal in structure with trace regurgitation. Trace circumferential pericardial effusion without hemodynamic compromise. No echo indications of pericardial tamponade. Dictated by:DEEPTHI BRADEN MD Dictation date and time:06/02/241845 Electronically Signed by: DEEPTHI BRADEN MD Date and Time: 06/02/241846 Conclusion Normal LV size and wall thickness. Overall systolic function is mildly reduced. LVEF appears to be 45-50%. RV is moderatley dilated with severely reduced systolic function. Trileaflet AV appears grossly normal without gross stenosis or insufficiency. Mild MV annular calcification without gross stenosis. Trace regurgitation. TV appears structurally normal with trace regurgitation. Trace circumferential pericardial effusion without evidence of hemodynamic compromise. Dictated by:DEEPTHI BRADEN MD Dictation date and time:06/05/241843 Cardiac Stress Test Cardiac Stress Test Last stress test January 14, 2023 neg for ischemia Diagram Lab Result Diagram: 06/16/24 0240 06/16/24 024 Assessment/Plan Additional Plan This is a 63-year-old female who presented with AFib RVR and subsequent cardiopulmonary arrest secondary to aspiration of breakfast. Now requiring tracheostomy and PEG tube placement. Cardiology consultation requested for surgical clearance. Following is her problem list: Acute respiratory failure Requiring mechanical ventilation and tracheostomy Currently on 40% FiO2 --management per instructor physical education Cardiopulmonary arrest after aspiration event Required 6 minutes of resuscitation attempts with ROSC acheived Repeat TTE with decreased RV function --suspect this is related to shock state as initial echocardiogram demonstrated preserved RV function. --continue to optimize respiratory status Heart failure with mid-range LVEF TTE repeat after cardiopulmonary arrest showed an LVEF of 45-50% --stopped sotalol --start metoprolol succinate Atrial fibrillation, paroxysmal Presented with RVR Now with controlled ventricular response --stopped sotalol given decreased LVEF --start metoprolol succinate and up titrate as needed for rate control --chads Vasc now 4 (gender, chF, HTN, DM) --resume Eliquis when stable Preoperative cardiovascular evaluation Given recent cardiopulmonary arrest, heart failure, diabetes likely moderate risk for surgery From a cardiovascular standpoint she was medically optimized and may proceed with surgery Other comorbidities: History of hypertension History of diabetes mellitus History of sleep apnea (not on outpatient documentation) History of COPD Case discussed with Dr. Avinash Sung who is in agreement with the above. From a cardiac standpoint cleared to proceed with surgery. Supervising MD Supervising Physician: NABIL Rudd NP June 16, 2024 15:49
--- NOTE | 2024-06-16 17:00 | PROGRESS NOTE ---
Progress Note ID Providers to CC ~ Progress Note Progress Note: cardiolgy consult [id number] thursday DANDRE LAUREN MD June 16, 2024 17:00
[2024-06-16 17:40] LABS: ALANINE AMINOTRANSFERASE 25 U/L (12-78); ALBUMIN 2.7 G/DL (3.4-5.0); ALBUMIN/GLOBULIN RATIO 0.7 (1.1-1.5); ALKALINE PHOSPHATASE 60 IU/L (46-116); ANION GAP 9 (8-16); ASPARTATE AMINO TRANSFERASE 15 U/L (10-37); BILIRUBIN,TOTAL 0.9 MG/DL (0.1-1.0); BLOOD UREA NITROGEN 48 MG/DL (7-18); BUN/CREATININE RATIO 37.8 (10.0-20.0); CHLORIDE 111 MMOL/L (99-107); CREATININE 1.27 MG/DL (0.40-0.90); GLUCOSE 146 MG/DL (70-104); POTASSIUM 3.6 MMOL/L (3.5-5.1); SODIUM 148 MMOL/L (135-145); TOTAL CARBON DIOXIDE 28.5 MMOL/L (24-32); TOTAL PROTEIN 6.5 G/DL (6.4-8.2); eCRCL 32 ML/MIN; eGFR 42 ML/MIN
--- NOTE | 2024-06-16 19:45 | PROGRESS NOTE ---
Progress Note Dictate Providers to CC ~ Progress Note: Camera Remains on ventilator sedated-> on small amount of fentanyl drip, getting diuresis off vasopressors D5W IVF for hypernatremia Antibiotic Ordered?: No Objective Vitals Vital Signs Date Time Temp Pulse Resp B/P (MAP) Pulse Ox O2 Delivery O2 Flow Rate FiO2 06/16/24 20:42 70 16 91 40 06/16/24 19:26 Mechanical Ventilator 06/16/24 18:00 86/72 (77) 06/16/24 14:00 97.5 06/12/24 19:00 40.0 Lab Results: 06/16/24 0240 06/16/24 1645 Problem\Assessment\Plan Problems/Diagnosis: (1) Foot contusion (2) Foot contusion (3) Morbid obesity (4) Acute bronchitis (5) Acute respiratory infection (6) COPD exacerbation (7) Rapid atrial fibrillation (8) Acute exacerbation of congestive heart failure (9) Acute hypoxic respiratory failure Additional Plan Assessment This is a 63-year-old female with a history of atrial fibrillation, hypertension, COPD, diabetes, depression. She was brought to the ER with rapid heart rate and respiratory distress. Reportedly had SVT, was given two doses of adenosine. In the ER at the time of admission patient was coughing and choking on her sandwich, was intubated on was transferred to the ICU. Patient was doing well, was extubated on 06/04/2024 and was transferred to the floors. On 2024, she choked on her eggs in the morning, went into cardiac arrest, code blue was initiated, ROSC was achieved in 6 minutes. She was intubated and was transferred to ICU. In the ICU central line was placed and was started on Levophed drip Assessment Acute resp failure with hypoxemia Aspiration Pneumonia/MSSA Afib-s/p RVR COPD exacerbation Cardiac Arrest post aspiration, ROSC 6 minutes DILAN Hypernatremia DM 2 HFpEF Recommendations -Lung protective ventilation, failed extubation, recurrent aspiration -plan for trach/peg->awaiting cardiac clearance -off Levophed -diuresis with lasix and metolazone -Fentanyl drip for sedation -Nafcillin antibiotics for MSSA sputum -Sotalol for Afib RVR -Pepcid for GI prophylaxis -SCD for DVT prophylaxis (eliquis on hold for trach/peg) Seen via HIPAA compliant audio visual platform, spent 60 minutes CC time LORNA DEMPSEY MD June 16, 2024 19:45
[2024-06-16] MEDS: diatr meglu/diatrizoate 30ml oral sol.-(3 dose) bottle PO SCH (21:00)
[2024-06-16] MEDS: metoprolol tartrate 50mg tablet PO SCH (21:44)
[2024-06-17] VITALS (45 sets, daily range): BP systolic 106–170; BP diastolic 33–94; PULSE 58–86; RESP 12–20; O2SAT 94–99
[2024-06-17 02:46] LABS: BASOPHILS % (AUTO) 0.4 % (0-1); EOSINOPHILS # (AUTO) 0.2 X10'3 (0-0.9); EOSINOPHILS % (AUTO) 3.2 % (0-6); HEMATOCRIT 34.7 % (35.0-45.0); HEMOGLOBIN 11.3 g/dl (12.0-16.0); LYMPHOCYTES # (AUTO) 1.4 X10'3 (1.1-4.8); LYMPHOCYTES % (AUTO) 18.2 % (21-51); MEAN CORPUSCULAR HEMOGLOBIN 29.2 PG (27.0-31.0); MEAN CORPUSCULAR HGB CONC 32.5 g/dL (33.0-36.5); MEAN CORPUSCULAR VOLUME 89.8 FL (78-98); MEAN PLATELET VOLUME 9.5 FL (7.4-10.4); MONOCYTES # (AUTO) 0.5 X10'3 (0-0.9); MONOCYTES % (AUTO) 6.7 % (2-12); NEUTROPHILS # (AUTO) 5.5 X10'3 (1.8-7.7); NEUTROPHILS % (AUTO) 71.5 % (42-75); PLATELET COUNT 220 X10'3 (140-440); RED BLOOD COUNT 3.86 X10'6 (4.20-5.60); RED CELL DISTRIBUTION WIDTH 15.8 % (11.5-14.5); WHITE BLOOD COUNT 7.7 X10'3 (4.5-11.0)
[2024-06-17 03:01] LABS: ALANINE AMINOTRANSFERASE 27 U/L (12-78); ALBUMIN 2.8 G/DL (3.4-5.0); ALBUMIN/GLOBULIN RATIO 0.8 (1.1-1.5); ALKALINE PHOSPHATASE 61 IU/L (46-116); ANION GAP 7 (8-16); ASPARTATE AMINO TRANSFERASE 15 U/L (10-37); BILIRUBIN,TOTAL 0.9 MG/DL (0.1-1.0); BLOOD UREA NITROGEN 47 MG/DL (7-18); BUN/CREATININE RATIO 35.1 (10.0-20.0); CALCIUM 9.2 MG/DL (8.5-10.1); CHLORIDE 105 MMOL/L (99-107); CREATININE 1.34 MG/DL (0.40-0.90); GLUCOSE 122 MG/DL (70-104); MAGNESIUM 2.3 MG/DL (1.5-2.4); PHOSPHORUS 5.5 MG/DL (2.3-4.5); POTASSIUM 3.2 MMOL/L (3.5-5.1); SODIUM 145 MMOL/L (135-145); TOTAL CARBON DIOXIDE 33.2 MMOL/L (24-32); TOTAL PROTEIN 6.5 G/DL (6.4-8.2); TRIGLYCERIDES 139 MG/DL (20-135); eCRCL 30 ML/MIN; eGFR 40 ML/MIN
--- NOTE | 2024-06-17 05:53 | RADIOLOGY REPORT ---
EXAM: XR Chest, 1 View CLINICAL INDICATION: vent TECHNIQUE: Frontal view of the chest. COMPARISON: DI CHEST,SINGLE VIEW on DOS: 06/16/24, DI CHEST,SINGLE VIEW on DOS: 06/15/24, DI CHEST,SIN GLE VIEW on DOS: 06/14/24, DI CHEST,SINGLE VIEW on DOS: 06/13/24, DI CHEST,SINGLE VIEW on DOS: 06/12/24 FINDINGS: LUNGS AND PLEURAL SPACES: See below. HEART: Cardiomegaly with pulmonary congestion and edema. Superimposed pneumonia cannot be excluded. MEDIASTINUM: Unremarkable. Normal mediastinal contour. BONES/JOINTS: Unremarkable. No acute fracture. TUBES, LINES AND DEVICES: The endotracheal tube (ETT) is in satisfactory position. Enteric tube ti p cannot be seen but is below the diaphragm. OTHER FINDINGS: . . . IMPRESSION: Cardiomegaly with pulmonary congestion and edema. Superimposed pneumonia cannot be excluded.
--- NOTE | 2024-06-17 08:40 | PROGRESS NOTE- Residence ---
Progress Note - Resident Providers to CC Resident Creating Document: MONTEZ ONOFRE RES CC: PARMJIT PACHECO MD ~ Central Line/PICC still needed: N\A Ying-Non Protocol Ying Indications Met/Not Met: F/C Indications Met Antibiotic Timeout Antibiotic Ordered?: Yes Subjective Patient seen and examined at the bedside, awake alert follow commands. NAOE, will be undergoing trach and peg today. good uop after adding metolazone Objective Vital Signs Date Time Temp Pulse Resp B/P (MAP) Pulse Ox O2 Delivery O2 Flow Rate FiO2 06/17/24 08:02 14 97 Mechanical Ventilator 40 06/17/24 07:58 65 06/17/24 06:01 123/46 (71) 06/17/24 04:00 97.9 Result Diagram: 06/17/24 0238 06/17/24 0238 General: Elderly female, obese, intubated, awake and alert, folowing commands Head: Normocephalic with an atraumatic Eyes: Pupils- 3mm, reacting to light, conjunctiva- anicteric Nose and throat: No polyps, septum- normal, no mucosal ulcers Neck: Supple, no lymphadenopathy, no carotid bruit Respiratory: No use of accessory muscles of respiration, Bilateral equal air entry, decreased breath sounds over the basal areas Cardiac: S1-S2 heard, rythm regular, no gallop/murmur Abdomen: obese, distended, no tenderness, no organomegaly, bowel sounds- heard Extremities: no clubbing, no pedal edema, no deformities, peripheral pulses- 2+ Skin: warm and dry, no rash, no purpura, edema- resolved Neuro: moving all extremities Assessment Assessment This is a 63-year-old female with a history of atrial fibrillation, hypertension, COPD, diabetes, depression. She was brought to the ER with rapid heart rate and respiratory distress. Reportedly had SVT, was given two doses of adenosine. In the ER at the time of admission patient was coughing and choking on her sandwich, was intubated on was transferred to the ICU. Patient was doing well, was extubated on 06/04/2024 and was transferred to the floors. On 2024, she choked on her eggs in the morning, went into cardiac arrest, code blue was initiated, ROSC was achieved in 6 minutes. She was intubated and was transferred to ICU. In the ICU central line was placed and was started on Levophed drip Plan Plan Acute hypoxemic respiratory failure aspiration pneumonia from 06/05 COPD exacerbation ERASMO PAH -currently on AC/PRVC with VC, 14/300/40/5 -bronchoscopy done on 05/26- L-side with minimal secretion. R-side with copious thick secretion partially occluding R Main bronchus. BAL performed. -respiratory cultures on 06/05 negative -chest x-ray done today showed bilateral pleural effusions with pulmonary congestion, -CT Chest showed dilated MPA of 4.2 cms Plan -continue lasix 60 mg q8, and continue metalozone 10 mg q12 -Dr. Reeves consulted for tracheostomy and G-tube placement. He recommended cardiac clearance before the surgery, preop cardiac clearance done, will be undergoing trach, and peg today ID new onset fever- resolved suspect 2/2 aspiration pneumonia sepsis/septic shock-ruled out -respiratory cultures on 06/10- MSSA -received doxy from 06/10-06.13 -continue IV nafcillin 2 g q.6 from 06/13 to 06/17 Cardiac S/p cardiac arrest- PEA ROSC after 6 mins Cardiogenic shock Paroxysmal AFib with CVR Chronic heart failure with preserved ejection fraction Small to moderate pericardial effusion -levophed dced on 06/09 -monitor to maintain map above 65 -amiodarone is DCed on 06/06 -as per cardio, dc sotalol i/v/o low EF, and start metoprolol -continue metoprolol tartarate 50 mg bid, resume elquis after the procedure -Echo on 06/02/2024 showed an ejection fraction of 60-65%, trace pericardial effusion. -echo done on 06/05 after cardiac arrest showed EF of 45-50%, RV moderately dilated with severely reduced systolic function Renal DILAN-likely prerenal- resolved Cr-likely trending up 2/2 diuresis Creatinine1.34>> 1.13>>1.25>>1.22>1.12>>1.23.>>1.27>> 1.4>>1.33>>1.68 net negative of 6 L on lasix, and metolazone Monitor bmp and i/o chart Fluid and electrolytes Hypernatremia- improved Hypokalemia-likely secondary to Lasix- resolved mild metabolic alkalosis- 03/20 lasix induced contraction alkalosis Sodium- down to 145, continue free water flushes 200 mL q.4h DC D5W K replacement per protocol GI Elevated transaminase- normalized -lfts-normalized -suspect likely secondary to amiodarone Endocrine Diabetes mellitus type 2 with a1c of 6.8 -goal to maintain glucose in the range of 140-180 -insulin if needed Nutrition -continue TFs with corpak. Neurology -awake and alert -continue sedation with low dose fenatnyl Events on 06/06 -FiO2 50, on low-dose Levophed -started tube feeds -DC amiodarone Events on 06/07 -FiO2 down to 40 from 50 -weaned off Levophed -SAT/SBT -creatinine, LFTs trending down -EEG today -added sotalol events on 06/08 -fio2-40 with peep of 10 -on levophed at 0.03 mcg/kg/min -sedation changed to ketamine and fentanyl -iv lasix 80 f/b 40 mg bid for pleural effusions and worsening pulm edema events on 06/09 -lasix increased to 40 mg q8 -PEEP down to 5 -SAT/SBT events on 06/10 -spiking fevers, blood cultures, resp cultures- sent -emperically started on piptazo, and vanco, DC Zosyn and vanco, started on IV doxy 100 mg b.i.d. -lasix dose increased to 60mg q8, for elevated CVP, and increased pulm congestion on cxr -DC OG and changed to corpak Events on 06/13 -discussed with patient and her son and they agreed for tracheostomy and PEG. Dr. Reeves consulted -Hemant held for trach and PEG placement -DC doxycycline and changed to IV nafcillin Events on 06/14 -Precedex DC dced sedation changed to fentanyl -awaiting trach and PEG on Events on 06/15 -hypokalemia -potassium replacement -hypernatremia increased free water flushes events on 06/16 -D5W for na of 150 -added metalozone -preop cardiac clearance for trach/peg placement requested events on 06/17 -na-145, dc D5W -cardiac clearance obtained, trach and peg today -DC sotalol, change to metoprolol 50 mg bid -ct chest- enlarged MPA, small to mod pericardial effusion -good uop after adding metolazone -cr- trending up Code Status: Full code Analgesia/sedation: precedex Line/tube: right radial arterial line, ETT, corpak, Ying, PIV GI prophylaxis: Pepcid DVT prophylaxis: SCD, resume elquis after procedure Nutrition: Tube feeds Prognosis: guarded Disposition: Continue care in ICU [facility] Onof[facility], ICU PGY-2 resident Patient is seen during morning rounds, case discussed at hospitalist/sewer morning conference as well as multidisciplinary team. I agree with the above assessment and treatment plan. Critical care time in excess of 35 minutes. Date of Service: June 17, 2024 Billing Provider: PARMJIT PACHECO MD, HARIVARSHA, RES June 17, 2024 08:40 PARMJIT PACHECO MD June 18, 2024 10:43
[2024-06-17] MEDS ORDERED: NORepinephrine 8mg/ 250ml NS 250 ML IV ONE (10:03)
[2024-06-17] MEDS: POTASSIUM CHLORIDE 20 MEQ/15 ML oral solution CORPAK SCH (12:08)
[2024-06-17] MEDS: pantoprazole 40 MG vial IV SCH (12:22)
[2024-06-17] MEDS ORDERED: rocuronium 10mg/ml inj IV ONE (16:19)
[2024-06-17] MEDS ORDERED: sevoflurane 250ml liquid IH ONE (16:28)
[2024-06-17] MEDS ORDERED: LIDOcaine 1% 30ml preserv. free vial ONE (17:04)
[2024-06-17] MEDS ORDERED: BUPIVAcaine 2.5mg/ml inj 50ml vial (contains preservative) ONE (17:05)
--- NOTE | 2024-06-17 17:47 | OPERATIVE REPORT ---
Operative Report Providers to CC CC: CHETAN SAHA MD ~ Date of Procedure: June 17, 2024 Pre-Operative Diagnosis: Acute respiratory failure Post-Operative Diagnosis SAME as PRE-Op Procedure Performed Percutaneous endoscopic gastrostomy tube placement Surgeon: Chetan Saha MD FACS Steam Press Tender None Anesthesiologist: Gabino Centeno Type of Anesthesia: General Findings: 18 [place] PEG tube placed in the distal gastric body under endoscopic visualization Complications None Prosthetics\Implants used: 18 [place] PEG tube Estimated Blood Loss: Minimally Specimen Removed: None Description of Procedure: Patient was brought to the operating room and identified by the nursing staff and the attending physician. Patient was placed supine and general anesthesia was induced. Upper endoscope was advanced through the mouth and into the oropharynx and easily passed into the esophagus, following the orogastric tube into the stomach. Stomach had some bilious fluid but no evidence of tube feeds. Stomach was insufflated. The abdominal wall was transilluminated and with the lights dimmed, easily visualized. The site was marked and local anesthetic was infiltrated. There was a stab incision made. Needle with sheath was passed through the abdominal wall and into the gastric lumen under endoscopic visual ization. Wire was secured with an endoscopic snare and pulled back through the esophagus, attached to an 18 [place] PEG tube which was then pulled through and secured within the distal gastric body. Skin edge correlated with 4.5 cm on the PEG tube. Tube was secured with a silicone flange, cut to size and port placed on the end. Attention was then turned to the tracheostomy (separate operative report). Counts repoted as correct: Yes CHETAN SAHA MD June 17, 2024 17:47
--- NOTE | 2024-06-17 17:53 | OPERATIVE REPORT ---
Operative Report Providers to CC CC: CHETAN SAHA MD ~ Date of Procedure: June 17, 2024 Pre-Operative Diagnosis: Acute respiratory failure Post-Operative Diagnosis SAME as PRE-Op Procedure Performed Open tracheostomy tube placement Surgeon: Chetan Saha MD FACS Hat Finisher None Anesthesiologist: Gabino Centeno Type of Anesthesia: General Findings: Extra long eight [place] Shiley tracheostomy tube placed and confirmed with end- tidal CO2 Complications None Prosthetics\Implants used: Extra long eight [place] Sh[place] tracheostomy tube Estimated Blood Loss: 10 cc Specimen Removed: None Description of Procedure: Patient, already under general anesthesia following PEG tube placement. Attention was turned to the neck where the anterior neck and upper chest were prepped and draped in the standard sterile fashion. Shoulder bump was placed in the neck was slightly extended. Patient's neck was extremely obese, short and landmarks were difficult to palpate. Sternal notch was marked and two fingerbreadths above this, a planned line of incision was made. Local anesthetic was infiltrated and a skin crease incision was made. This was deepened down through the subcutaneous tissues. There was an exceptional amount of subcutaneous fatty tissue that was divided before encountering the platysma then strap muscles. Strap muscles were divided in the midline and retracted bilaterally and the dissection was carried until the pretracheal fascia was encountered. Due to the patient's extremely short neck, a tracheal hook was used to elevate the trachea and access the 1st couple of tracheal rings. Pretracheal fascia was incised. A cruciate incision was made between the 2nd and 3rd tracheal ring. Two prong dilator followed by three prong dilator. The endotracheal tube was withdrawn proximal to the tracheotomy site and an extra long eight [place] Shiley tracheostomy tube was easily inserted. Balloon was inflated and the inner cannula inserted. This was attached to the ventilator circuit. End-tidal CO2 and good tidal volumes confirmed good placement. The tracheostomy flange was secured at four corners with interrupted silk sutures. Dressing was applied and the trach collar was placed. Patient was transferred back to the intensive care unit in guarded condition. Counts repoted as correct: Yes CHETAN SAHA MD June 17, 2024 17:53
[2024-06-17] MEDS: COMMUNICATION ORDER 1 EA MISC MC ONE (18:38)
[2024-06-17] MEDS: metolazone 2.5mg tablet CORPAK SCH (20:00)
[2024-06-17] MEDS: metoprolol tartrate 50mg tablet CORPAK SCH (20:00)
[2024-06-17] MEDS: diatr meglu/diatrizoate 30ml oral sol.-(3 dose) bottle CORPAK SCH (20:28)
--- NOTE | 2024-06-17 20:47 | PROGRESS NOTE- Residence ---
Progress Note - Resident Providers to CC Resident Creating Document: TATI OCASIO, JOSEPH ~ Ying-Non Protocol Ying Indications Met/Not Met: F/C Indications Met Antibiotic Timeout Antibiotic Ordered?: Yes Subjective Patient seen and examined at the bedside, awake alert follow commands. NAOE, will be undergoing trach and peg today. good uop after adding metolazone Objective Vital Signs Date Time Temp Pulse Resp B/P (MAP) Pulse Ox O2 Delivery O2 Flow Rate FiO2 06/17/24 20:00 50 06/17/24 19:00 98.1 12 120/56 (77) 97 Mechanical Ventilator 40 Result Diagram: 06/17/24 0238 06/17/242016 Vitals were stable at the moment General: not in acute distress but awake and responded. HEENT: Conjunctive are pink, sclerae clear, no icterus, pupil is equal in both sides, reactive to light, no ear discharge, no pharyngeal erythema or an edema, mouth and lips are dry. Neck: Supple, no JVD, no lymphadenopathy and thyromegaly. Lungs: Equal air entry on both lungs, bilateral fine basal crackles Heart: S1-S2 atrial fibrillation rhythm and, RVR, no gallops, no rubs, no murmurs Abdomen: No visible peristalsis, Bowel sounds present on auscultation, soft, nontender, no guarding, no rigidity Extremities: No obvious deformities, no pitting edema bilaterally, capillary refill intact, able to wiggle toes both sides, peripheral pulsations are intact on both sides COMPUTER ANALYST: No focal neurological deficits, no motor and sensory weakness in all 4 extremities, could move all 4 extremities Musculoskeletal: No joint swelling, deformities, inflammations, and no scoliosis and back tenderness Skin: No active skin lesions and rashes. Assessment Assessment This is a 63-year-old female with a history of atrial fibrillation, hypertension, COPD, diabetes, depression. She was brought to the ER with rapid heart rate and respiratory distress. Reportedly had SVT, was given two doses of adenosine. In the ER at the time of admission patient was coughing and choking on her sandwich, was intubated on was transferred to the ICU. Patient was doing well, was extubated on 06/04/2024 and was transferred to the floors. On 2024, she choked on her eggs in the morning, went into cardiac arrest, code blue was initiated, ROSC was achieved in 6 minutes. She was intubated and was transferred to ICU. In the ICU central line was placed and was started on Levophed drip Plan Plan # Acute hypoxemic respiratory failure, aspiration pneumonia from 06/05 # COPD exacerbation # ERASMO # PAH -currently on AC/PRVC with VC, 14/300/40/5 -bronchoscopy done on 05/26- L-side with minimal secretion. R-side with copious thick secretion partially occluding R Main bronchus. BAL performed. -respiratory cultures on 06/05 negative -chest x-ray done today showed bilateral pleural effusions with pulmonary congestion, -CT Chest showed dilated MPA of 4.2 cms Plan -continue lasix 60 mg q8, and continue metalozone 10 mg q12 -Dr. Reeves consulted for tracheostomy and G-tube placement. He recommended cardiac clearance before the surgery, preop cardiac clearance done, will be undergoing trach, and peg today # Possible aspiration induced fever new onset fever- resolved suspect / aspiration pneumonia sepsis/septic shock-ruled out -respiratory cultures on 06/10- MSSA -received doxy from 06/10-06.13 -continue IV nafcillin 2 g q.6 from 06/13 to 06/17 # S/p cardiac arrest- PEA # ROSC after 6 mins -treated w/ targeted temp therapy # Cardiogenic shock # AFib with CVR # Chronic heart failure with preserved ejection fraction # Small to moderate pericardial effusion -levophed dced on 06/09 -monitor to maintain map above 65 -amiodarone is DCed on 06/06 -as per cardio, dc sotalol i/v/o low EF, and start metoprolol -continue metoprolol tartarate 50 mg bid, resume elquis after the procedure -Echo on 06/02/2024 showed an ejection fraction of 60-65%, trace pericardial effusion. -echo done on 06/05 after cardiac arrest showed EF of 45-50%, RV moderately dilated with severely reduced systolic function # DILAN-likely prerenal- improved Cr-likely trending up 2/2 diuresis Creatinine1.34>> 1.13>>1.25>>1.22>1.12>>1.23.>>1.27>> 1.4>>1.33>>1.68 net negative of 6 L on lasix, and metolazone Monitor bmp and i/o chart #Hypernatremia #Hypokalemia-likely secondary to Lasix # mild metabolic alkalosis- 2/2 lasix induced contraction alkalosis Sodium- down to 145, continue free water flushes 200 mL q.4h DC D5W K replacement per protocol # Elevated transaminase- normalized -lfts-normalized -suspect likely secondary to amiodarone # Diabetes mellitus type 2 with a1c of 6.8 -goal to maintain glucose in the range of 140-180 -insulin if needed Nutrition -continue TFs with corpak. 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- recovering -awake and alert -continue sedation with low dose fenatnyl Events on 06/06 -FiO2 50, on low-dose Levophed -started tube feeds -DC amiodarone Events on 06/07 -FiO2 down to 40 from 50 -weaned off Levophed -SAT/SBT -creatinine, LFTs trending down -EEG today -added sotalol events on 06/08 -fio2-40 with peep of 10 -on levophed at 0.03 mcg/kg/min -sedation changed to ketamine and fentanyl -iv lasix 80 f/b 40 mg bid for pleural effusions and worsening pulm edema events on 06/09 -lasix increased to 40 mg q8 -PEEP down to 5 -SAT/SBT events on 06/10 -spiking fevers, blood cultures, resp cultures- sent -emperically started on piptazo, and vanco, DC Zosyn and vanco, started on IV doxy 100 mg b.i.d. -lasix dose increased to 60mg q8, for elevated CVP, and increased pulm congestion on cxr -DC OG and changed to corpak Events on 06/13 -discussed with patient and her son and they agreed for tracheostomy and PEG. Dr. Reeves consulted -Hemant held for trach and PEG placement -DC doxycycline and changed to IV nafcillin Events on 06/14 -Precedex DC dced sedation changed to fentanyl -awaiting trach and PEG on Events on 06/15 -hypokalemia -potassium replacement -hypernatremia increased free water flushes events on 06/16 -D5W for na of 150 -added metalozone -preop cardiac clearance for trach/peg placement requested events on 06/17 -na-145, dc D5W -cardiac clearance obtained, trach and peg today -DC sotalol, change to metoprolol 50 mg bid -ct chest- enlarged MPA, small to mod pericardial effusion -good uop after adding metolazone -cr- trending up Code Status: Full code Analgesia/sedation: precedex Line/tube: right radial arterial line, ETT, corpak, Ying, PIV GI prophylaxis: Pepcid DVT prophylaxis: SCD, resume elquis after procedure Nutrition: Tube feeds Prognosis: guarded Disposition: Continue care in ICU RESIDENT ATTESTATION: PATIENT WAS SEEN AND EXAMINED WITH ATTENDING MD, DR. TRACY OCASIO MD INTERNAL MEDICINE RESIDENT, PGY2 [facility] Date of Service: June 17, 2024 Billing Provider: SHIRAZ MOLINA MD Common Visit Codes: [id number] INP/OBS CARE(HIGH) TATI OCASIO RES June 17, 2024 20:47 SHIRAZ MOLINA MD June 17, 2024 22:15
[2024-06-17] MEDS: potassium Cl 40MEQ/1/2NS 520ml 520 ML IV PRN (21:24)
--- NOTE | 2024-06-17 22:34 | PROGRESS NOTE ---
Progress Note Dictate Providers to CC ~ Progress Note: Telemed ICU note. Patient has no complaints. Central Line/PICC still needed: N\A Ying Indications Met/Not Met: F/C Indications Not Met Antibiotic Ordered?: No MRSA Education MRSA Education Provided to pt: N/A Subjective Subjective Patient denies any shortness of breath or chest pains. Objective Vitals Vital Signs Date Time Temp Pulse Resp B/P (MAP) Pulse Ox O2 Delivery O2 Flow Rate FiO2 06/17/24 21:30 67 14 Mechanical Ventilator 40 06/17/24 21:14 97 06/17/24 19:00 98.1 120/56 (77) Lab Results: 06/17/24 0238 06/17/242016 Objective General: obese, on vent; not in distress HEENT: Trached. Lungs: no tacypnea. Heart: no arrhythmias on telemetry Counseling Services Smoking & Tobacco Cessation: N/A Advance Care Planning Advanced Care planning: N/A Problem\Assessment\Plan Problems/Diagnosis: (1) Acute aspiration pneumonia (2) Acute hypoxic respiratory failure Assessment & Plan: No significant events so far. Post tracheostomy. No complications. Oxygenating well. Continue current course of therapy. Patient was seen using HIPAA-compliant technology. Critical Care time: 37 minutes. KALPESH MONROY MD June 17, 2024 22:34
[2024-06-18] VITALS (45 sets, daily range): BP systolic 89–152; BP diastolic 38–77; PULSE 62–91; RESP 13–32; O2SAT 81–98
[2024-06-18 03:07] LABS: BASOPHILS % (AUTO) 0.5 % (0-1); EOSINOPHILS # (AUTO) 0.2 X10'3 (0-0.9); EOSINOPHILS % (AUTO) 2.2 % (0-6); HEMATOCRIT 37.5 % (35.0-45.0); HEMOGLOBIN 12.4 g/dl (12.0-16.0); LYMPHOCYTES # (AUTO) 1.5 X10'3 (1.1-4.8); LYMPHOCYTES % (AUTO) 19.8 % (21-51); MEAN CORPUSCULAR HEMOGLOBIN 29.4 PG (27.0-31.0); MEAN CORPUSCULAR HGB CONC 33.2 g/dL (33.0-36.5); MEAN CORPUSCULAR VOLUME 88.6 FL (78-98); MEAN PLATELET VOLUME 10.3 FL (7.4-10.4); MONOCYTES # (AUTO) 0.6 X10'3 (0-0.9); MONOCYTES % (AUTO) 7.8 % (2-12); NEUTROPHILS # (AUTO) 5.1 X10'3 (1.8-7.7); NEUTROPHILS % (AUTO) 69.7 % (42-75); PLATELET COUNT 240 X10'3 (140-440); RED BLOOD COUNT 4.23 X10'6 (4.20-5.60); RED CELL DISTRIBUTION WIDTH 15.1 % (11.5-14.5); WHITE BLOOD COUNT 7.3 X10'3 (4.5-11.0)
[2024-06-18 03:16] LABS: ALANINE AMINOTRANSFERASE 26 U/L (12-78); ALBUMIN/GLOBULIN RATIO 0.8 (1.1-1.5); ALKALINE PHOSPHATASE 71 IU/L (46-116); ANION GAP 6 (8-16); ASPARTATE AMINO TRANSFERASE 21 U/L (10-37); BILIRUBIN,TOTAL 1.2 MG/DL (0.1-1.0); BLOOD UREA NITROGEN 38 MG/DL (7-18); BUN/CREATININE RATIO 30.4 (10.0-20.0); CHLORIDE 102 MMOL/L (99-107); CREATININE 1.25 MG/DL (0.40-0.90); GLUCOSE 93 MG/DL (70-104); POTASSIUM 3.6 MMOL/L (3.5-5.1); SODIUM 143 MMOL/L (135-145); TOTAL CARBON DIOXIDE 34.9 MMOL/L (24-32); eCRCL 33 ML/MIN; eGFR 43 ML/MIN
[2024-06-18 08:27] LABS: MAGNESIUM 2.4 MG/DL (1.5-2.4); PHOSPHORUS 4.7 MG/DL (2.3-4.5)
--- NOTE | 2024-06-18 10:54 | PROGRESS NOTE ---
Subjective Subjective Patient seen and examined at the bedside, awake alert follow commands. Status post tracheostomy and PEG tube placement yesterday. Reason for visit: Pulmonary critical care follow-up Reviewed: Care Plan, H&P, Labs, Previous Orders, Radiology Review of Systems Changes from previous H/P or p: No Changes Daily Progress Note Exam Vitals Vital Signs Date Time Temp Pulse Resp B/P (MAP) Pulse Ox O2 Delivery O2 Flow Rate FiO2 06/18/24 10:02 72 06/18/24 08:46 17 96 40 06/18/24 07:33 Mechanical Ventilator 06/18/24 06:15 99.0 113/44 (67) Result Diagram: 06/18/24 0225 06/18/24 022 Exam General: Elderly female, obese, intubated, awake and alert, folowing commands Head: Normocephalic with an atraumatic Eyes: Pupils- 3mm, reacting to light, conjunctiva- anicteric Nose and throat: No polyps, septum- normal, no mucosal ulcers Neck: Supple, no lymphadenopathy, no carotid bruit Respiratory: No use of accessory muscles of respiration, Bilateral equal air entry, decreased breath sounds over the basal areas Cardiac: S1-S2 heard, rythm regular, no gallop/murmur Abdomen: obese, distended, no tenderness, no organomegaly, bowel sounds- heard Extremities: no clubbing, no pedal edema, no deformities, peripheral pulses- 2+ Skin: warm and dry, no rash, no purpura, edema- resolved Neuro: moving all extremities VTE VTE Risk Score VTE Risk Score Reference Ranges: Score 0-1 = Low Risk (Aggressive mobilization; early ambulation; no VTE prophylaxis required) Score 2: Moderate Risk (Intermittent/Pneumatic Compression Device OR Lovenox/Heparin/Coumadin) Score 3-4: High Risk (Intermittent/Pneumatic Compression Device AND Lovenox/Heparin/Coumadin) Score > or = 5: Highest Risk (Intermittent/Pneumatic Compression Device AND Lovenox/Heparin/Coumadin) Assessment/Plan Assessment This is a 63-year-old female with a history of atrial fibrillation, hypertension, COPD, diabetes, depression. She was brought to the ER with rapid heart rate and respiratory distress. Reportedly had SVT, was given two doses of adenosine. In the ER at the time of admission patient was coughing and choking on her sandwich, was intubated on was transferred to the ICU. Patient was doing well, was extubated on 06/04/2024 and was transferred to the floors. On 2024, she choked on her eggs in the morning, went into cardiac arrest, code blue was initiated, ROSC was achieved in 6 minutes. She was intubated and was transferred to ICU. In the ICU central line was placed and was started on Levophed drip Plan Acute hypoxemic respiratory failure aspiration pneumonia from 06/05 COPD exacerbation ERASMO PAH -currently on AC/PRVC with VC, 14/300/40/5 -bronchoscopy done on 05/26- L-side with minimal secretion. R-side with copious thick secretion partially occluding R Main bronchus. BAL performed. -respiratory cultures on 06/05 negative -chest x-ray done today showed bilateral pleural effusions with pulmonary congestion, -CT Chest showed dilated MPA of 4.2 cms Plan -continue lasix 60 mg q8, and continue metalozone 10 mg q12 -Dr. Reeves consulted for tracheostomy and G-tube placement. He recommended cardiac clearance before the surgery, preop cardiac clearance done, will be undergoing trach, and peg today ID new onset fever- resolved suspect 2/2 aspiration pneumonia sepsis/septic shock-ruled out -respiratory cultures on 06/10- MSSA -received doxy from 06/10-06.13 -continue IV nafcillin 2 g q.6 from 06/13 to 06/17 Cardiac S/p cardiac arrest- PEA ROSC after 6 mins Cardiogenic shock Paroxysmal AFib with CVR Chronic heart failure with preserved ejection fraction Small to moderate pericardial effusion -levophed dced on 06/09 -monitor to maintain map above 65 -amiodarone is DCed on 06/06 -as per cardio, dc sotalol i/v/o low EF, and start metoprolol -continue metoprolol tartarate 50 mg bid, resume elquis after the procedure -Echo on 06/02/2024 showed an ejection fraction of 60-65%, trace pericardial effusion. -echo done on 06/05 after cardiac arrest showed EF of 45-50%, RV moderately dilated with severely reduced systolic function Renal DILAN-likely prerenal- resolved Cr-likely trending up 2/2 diuresis Creatinine down to 1.25 today. net negative of 4 L on lasix, and metolazone Monitor bmp and i/o chart Fluid and electrolytes Hypernatremia- improved Hypokalemia-likely secondary to Lasix- resolved mild metabolic alkalosis- 2/2 lasix induced contraction alkalosis Sodium- down to 145, continue free water flushes 200 mL q.4h K replacement per protocol and scheduled potassium chloride 40 mEq per tube q.6 hours. GI Elevated transaminase- normalized -lfts-normalized -suspect likely secondary to amiodarone Endocrine Diabetes mellitus type 2 with a1c of 6.8 -goal to maintain glucose in the range of 140-180 -insulin if needed Nutrition -continue TFs with corpak. Neurology -awake and alert -continue sedation with low dose fenatnyl Events on 06/06 -FiO2 50, on low-dose Levophed -started tube feeds -DC amiodarone Events on 06/07 -FiO2 down to 40 from 50 -weaned off Levophed -SAT/SBT -creatinine, LFTs trending down -EEG today -added sotalol events on 06/08 -fio2-40 with peep of 10 -on levophed at 0.03 mcg/kg/min -sedation changed to ketamine and fentanyl -iv lasix 80 f/b 40 mg bid for pleural effusions and worsening pulm edema events on 06/09 -lasix increased to 40 mg q8 -PEEP down to 5 -SAT/SBT events on 06/10 -spiking fevers, blood cultures, resp cultures- sent -emperically started on piptazo, and vanco, DC Zosyn and vanco, started on IV doxy 100 mg b.i.d. -lasix dose increased to 60mg q8, for elevated CVP, and increased pulm congestion on cxr -DC OG and changed to corpak Events on 06/13 -discussed with patient and her son and they agreed for tracheostomy and PEG. Dr. Reeves consulted -Eliquis held for trach and PEG placement -DC doxycycline and changed to IV nafcillin Events on 06/14 -Precedex DC dced sedation changed to fentanyl -awaiting trach and PEG on Events on 06/15 -hypokalemia -potassium replacement -hypernatremia increased free water flushes events on 06/16 -D5W for na of 150 -added metalozone -preop cardiac clearance for trach/peg placement requested events on 06/17 -na-145, dc D5W -cardiac clearance obtained, trach and peg today -DC sotalol, change to metoprolol 50 mg bid -ct chest- enlarged MPA, small to mod pericardial effusion -good uop after adding metolazone -cr- trending up Code Status: Full code Analgesia/sedation: precedex Line/tube: right radial arterial line, ETT, corpak, Ying, PIV GI prophylaxis: Pepcid DVT prophylaxis: SCD, resume elquis after procedure Nutrition: Tube feeds Prognosis: guarded Disposition: Continue care in ICU [facility] ICU PGY-2 resident Patient is seen during morning rounds, case discussed at hospitalist/research biostatistician morning conference as well as multidisciplinary team. I agree with the above assessment and treatment plan. Critical care time in excess of 35 minutes. Disposition: Plan to transferred to the LTAC by 23 Jun 2024. Expected Outcome/Goals Expected Outcomes/Goals: maintain stable wt, tolerance to TF, bowel regularity, maintain skin integrity, Glu 140-180 mg/dL PARMJIT PACHECO MD June 18, 2024 10:54
--- NOTE | 2024-06-18 18:17 | PROGRESS NOTE- Residence ---
Progress Note - Resident Providers to CC Resident Creating Document: TATI OCASIO RES ~ Antibiotic Timeout Antibiotic Ordered?: Yes Subjective Pt received trach and PEG yesterday, follow simple commands and wake and alert. Objective Vital Signs Date Time Temp Pulse Resp B/P (MAP) Pulse Ox O2 Delivery O2 Flow Rate FiO2 06/18/24 17:31 80 18 96 40 06/18/24 15:36 Mechanical Ventilator 06/18/24 15:00 98.4 114/49 (70) Result Diagram: 06/18/2422406/18/24224 Vitals were stable at the moment with HC/PRVC, FiO2 40%, peep five, BP 100/46 mm Hg, stay on fentanyl, 95% SpO2 with OR 72/minute, temp 37� C on tube feeding. General: not in acute distress but awake and responded. HEENT: Conjunctive are pink, sclerae clear, no icterus, pupil is equal in both sides, reactive to light, no ear discharge, no pharyngeal erythema or an edema, mouth and lips are dry. Neck: Supple, no JVD, no lymphadenopathy and thyromegaly. Lungs: Equal air entry on both lungs, bilateral fine basal crackles Heart: S1-S2 atrial fibrillation rhythm and, RVR, no gallops, no rubs, no murmurs Abdomen: No visible peristalsis, Bowel sounds present on auscultation, soft, nontender, no guarding, no rigidity Extremities: No obvious deformities, no pitting edema bilaterally, capillary refill intact, able to wiggle toes both sides, peripheral pulsations are intact on both sides DRIVER GUIDE: No focal neurological deficits, no motor and sensory weakness in all 4 extremities, could move all 4 extremities Musculoskeletal: No joint swelling, deformities, inflammations, and no scoliosis and back tenderness Skin: No active skin lesions and rashes. Assessment Assessment This is a 63-year-old female with a history of atrial fibrillation, hypertension, COPD, diabetes, depression. She was brought to the ER with rapid heart rate and respiratory distress. Reportedly had SVT, was given two doses of adenosine. In the ER at the time of admission patient was coughing and choking on her sandwich, was intubated on was transferred to the ICU. Patient was doing well, was extubated on 06/04/2024 and was transferred to the floors. On 2024, she choked on her eggs in the morning, went into cardiac arrest, code blue was initiated, ROSC was achieved in 6 minutes. She was intubated and was transferred to ICU. In the ICU central line was placed and was started on Levophed drip Plan Plan # Acute hypoxemic respiratory failure, aspiration pneumonia from 06/05 # COPD exacerbation # ERASMO # PAH -currently on AC/PRVC with VC, 14/300/40/5 -bronchoscopy done on 05/26- L-side with minimal secretion. R-side with copious thick secretion partially occluding R Main bronchus. BAL performed. -respiratory cultures on 06/05 negative -chest x-ray done today showed bilateral pleural effusions with pulmonary congestion, -CT Chest showed dilated MPA of 4.2 cms Plan -continue lasix 60 mg q8, and continue metalozone 10 mg q12 -Dr. Reeves consulted for tracheostomy and G-tube placement. He recommended cardiac clearance before the surgery, preop cardiac clearance done, will be undergoing trach, and peg today # Possible aspiration induced fever new onset fever- resolved suspect 03/20 aspiration pneumonia sepsis/septic shock-ruled out -respiratory cultures on 06/10- MSSA -received doxy from 06/10-06.13 -continue IV nafcillin 2 g q.6 from 06/13 to 06/17 # S/p cardiac arrest- PEA # ROSC after 6 mins -treated w/ targeted temp therapy # Cardiogenic shock # AFib with CVR # Chronic heart failure with preserved ejection fraction # Small to moderate pericardial effusion -levophed dced on 06/09 -monitor to maintain map above 65 -amiodarone is DCed on 06/06 -as per cardio, dc sotalol i/v/o low EF, and start metoprolol -continue metoprolol tartarate 50 mg bid, resume elquis after the procedure -Echo on 06/02/2024 showed an ejection fraction of 60-65%, trace pericardial effusion. -echo done on 06/05 after cardiac arrest showed EF of 45-50%, RV moderately dilated with severely reduced systolic function # DILAN-likely prerenal- improved Cr-likely trending up 2/2 diuresis Creatinine1.34>> 1.13>>1.25>>1.22>1.12>>1.23.>>1.27>> 1.4>>1.33>>1.68 net negative of 6 L on lasix, and metolazone Monitor bmp and i/o chart #Hypernatremia #Hypokalemia-likely secondary to Lasix # mild metabolic alkalosis- 2/2 lasix induced contraction alkalosis Sodium- down to 145, continue free water flushes 200 mL q.4h DC D5W K replacement per protocol and TF KCL 40 mEq Q6h # Elevated transaminase- normalized -lfts-normalized -suspect likely secondary to amiodarone # Diabetes mellitus type 2 with a1c of 6.8 -goal to maintain glucose in the range of 140-180 -insulin if needed Nutrition -continue TFs with corpak. 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- recovering -awake and alert -continue sedation with low dose fenatnyl Events on 06/06 -FiO2 50, on low-dose Levophed -started tube feeds -DC amiodarone Events on 06/07 -FiO2 down to 40 from 50 -weaned off Levophed -SAT/SBT -creatinine, LFTs trending down -EEG today -added sotalol events on 06/08 -fio2-40 with peep of 10 -on levophed at 0.03 mcg/kg/min -sedation changed to ketamine and fentanyl -iv lasix 80 f/b 40 mg bid for pleural effusions and worsening pulm edema events on 06/09 -lasix increased to 40 mg q8 -PEEP down to 5 -SAT/SBT events on 06/10 -spiking fevers, blood cultures, resp cultures- sent -emperically started on piptazo, and vanco, DC Zosyn and vanco, started on IV doxy 100 mg b.i.d. -lasix dose increased to 60mg q8, for elevated CVP, and increased pulm congestion on cxr -DC OG and changed to corpak Events on 06/13 -discussed with patient and her son and they agreed for tracheostomy and PEG. Dr. Reeves consulted -Hemant held for trach and PEG placement -DC doxycycline and changed to IV nafcillin Events on 06/14 -Precedex DC dced sedation changed to fentanyl -awaiting trach and PEG on Events on 06/15 -hypokalemia -potassium replacement -hypernatremia increased free water flushes events on 06/16 -D5W for na of 150 -added metalozone -preop cardiac clearance for trach/peg placement requested events on 06/17 -na-145, dc D5W -cardiac clearance obtained, trach and peg today -DC sotalol, change to metoprolol 50 mg bid -ct chest- enlarged MPA, small to mod pericardial effusion -good uop after adding metolazone -cr- trending up Code Status: Full code Analgesia/sedation: precedex Line/tube: right radial arterial line, ETT, corpak, Ying, PIV GI prophylaxis: Pepcid DVT prophylaxis: SCD, resume elquis after procedure Nutrition: Tube feeds Prognosis: guarded Disposition: Continue care in ICU and plan to transfer out the pt to [facility] on 06/23/24 RESIDENT MD ATTESTATION: PATIENT WAS SEEN AND EXAMINED WITH ATTENDING MD, DR. TRACY OCASIO MD INTERNAL MEDICINE RESIDENT, PGY2 [facility] Date of Service: June 18, 2024 Billing Provider: SHIRAZ MOLINA MD Common Visit Codes: [id number] INP/OBS CARE(HIGH) TATI OCASIO, RES June 18, 2024 18:17 SHIRAZ MOLINA MD June 18, 2024 19:59
[2024-06-19] VITALS (46 sets, daily range): BP systolic 100–131; BP diastolic 45–68; PULSE 67–89; RESP 13–30; O2SAT 6–98
[2024-06-19 05:42] LABS: BASOPHILS % (AUTO) 0.2 % (0-1); EOSINOPHILS # (AUTO) 0.2 X10'3 (0-0.9); HEMATOCRIT 38.9 % (35.0-45.0); HEMOGLOBIN 12.9 g/dl (12.0-16.0); LYMPHOCYTES # (AUTO) 1.1 X10'3 (1.1-4.8); LYMPHOCYTES % (AUTO) 12.3 % (21-51); MEAN CORPUSCULAR HEMOGLOBIN 29.5 PG (27.0-31.0); MEAN CORPUSCULAR HGB CONC 33.1 g/dL (33.0-36.5); MEAN CORPUSCULAR VOLUME 88.9 FL (78-98); MEAN PLATELET VOLUME 10.6 FL (7.4-10.4); MONOCYTES # (AUTO) 0.6 X10'3 (0-0.9); MONOCYTES % (AUTO) 6.6 % (2-12); NEUTROPHILS # (AUTO) 7.2 X10'3 (1.8-7.7); NEUTROPHILS % (AUTO) 78.9 % (42-75); PLATELET COUNT 241 X10'3 (140-440); RED BLOOD COUNT 4.38 X10'6 (4.20-5.60); RED CELL DISTRIBUTION WIDTH 15.2 % (11.5-14.5); WHITE BLOOD COUNT 9.2 X10'3 (4.5-11.0)
[2024-06-19 06:15] LABS: ALANINE AMINOTRANSFERASE 23 U/L (12-78); ALBUMIN/GLOBULIN RATIO 0.7 (1.1-1.5); ALKALINE PHOSPHATASE 78 IU/L (46-116); ANION GAP 6 (8-16); ASPARTATE AMINO TRANSFERASE 16 U/L (10-37); BILIRUBIN,TOTAL 1.3 MG/DL (0.1-1.0); BLOOD UREA NITROGEN 47 MG/DL (7-18); BUN/CREATININE RATIO 34.1 (10.0-20.0); CALCIUM 8.9 MG/DL (8.5-10.1); CHLORIDE 99 MMOL/L (99-107); CREATININE 1.38 MG/DL (0.40-0.90); GLUCOSE 193 MG/DL (70-104); POTASSIUM 3.9 MMOL/L (3.5-5.1); SODIUM 141 MMOL/L (135-145); TOTAL CARBON DIOXIDE 35.9 MMOL/L (24-32); TOTAL PROTEIN 7.2 G/DL (6.4-8.2); eCRCL 30 ML/MIN; eGFR 38 ML/MIN
--- NOTE | 2024-06-19 14:57 | PROGRESS NOTE ---
Subjective Subjective Pt received trach and PEG on 06/17/2024, following simple commands and wake and alert. Still on fentanyl drip status post tracheostomy. Reason for visit: Pulmonary critical care follow-up Reviewed: Care Plan, H&P, Labs, Previous Orders, Radiology Review of Systems Changes from previous H/P or p: No Changes Daily Progress Note Exam Vitals Vital Signs Date Time Temp Pulse Resp B/P (MAP) Pulse Ox O2 Delivery O2 Flow Rate FiO2 06/19/24 13:22 76 20 95 40 06/19/24 07:27 Mechanical Ventilator 06/19/24 06:00 98.4 129/54 (79) Result Diagram: 06/19/24 0436 06/19/24 0436 Exam General: Elderly female, obese, intubated, awake and alert, folowing commands Head: Normocephalic with an atraumatic Eyes: Pupils- 3mm, reacting to light, conjunctiva- anicteric Nose and throat: No polyps, septum- normal, no mucosal ulcers Neck: Supple, no lymphadenopathy, no carotid bruit Respiratory: No use of accessory muscles of respiration, Bilateral equal air entry, decreased breath sounds over the basal areas Cardiac: S1-S2 heard, rythm regular, no gallop/murmur Abdomen: obese, distended, no tenderness, no organomegaly, bowel sounds- heard Extremities: no clubbing, no pedal edema, no deformities, peripheral pulses- 2+ Skin: warm and dry, no rash, no purpura, edema- resolved Neuro: moving all extremities VTE VTE Risk Score VTE Risk Score Reference Ranges: Score 0-1 = Low Risk (Aggressive mobilization; early ambulation; no VTE prophylaxis required) Score 2: Moderate Risk (Intermittent/Pneumatic Compression Device OR Lovenox/Heparin/Coumadin) Score 3-4: High Risk (Intermittent/Pneumatic Compression Device AND Lovenox/Heparin/Coumadin) Score > or = 5: Highest Risk (Intermittent/Pneumatic Compression Device AND Lovenox/Heparin/Coumadin) Assessment/Plan Assessment This is a 63-year-old female with a history of atrial fibrillation, hypertension, COPD, diabetes, depression. She was brought to the ER with rapid heart rate and respiratory distress. Reportedly had SVT, was given two doses of adenosine. In the ER at the time of admission patient was coughing and choking on her sandwich, was intubated on was transferred to the ICU. Patient was doing well, was extubated on 06/04/2024 and was transferred to the floors. On 2024, she choked on her eggs in the morning, went into cardiac arrest, code blue was initiated, ROSC was achieved in 6 minutes. She was intubated and was transferred to ICU. In the ICU central line was placed and was started on Levophed drip Plan # Acute hypoxemic respiratory failure, aspiration pneumonia from 06/05 # COPD exacerbation # ERASMO # PAH -currently on PSV 11/21/2039% FiO2 with a pulse oximeter reading of 93%. -bronchoscopy done on 05/26- L-side with minimal secretion. R-side with copious thick secretion partially occluding R Main bronchus. BAL performed. -respiratory cultures on 06/05 negative -chest x-ray done today showed bilateral pleural effusions with pulmonary congestion, -CT Chest showed dilated MPA of 4.2 cms Plan -continue lasix 60 mg q8, and continue metalozone 10 mg q12 -Dr. Reeves consulted for tracheostomy and G-tube placement. He recommended cardiac clearance before the surgery, preop cardiac clearance done, will be undergoing trach, and peg today # Possible aspiration induced fever new onset fever- resolved suspect 2/2 aspiration pneumonia sepsis/septic shock-ruled out -respiratory cultures on 06/10- MSSA -received doxy from 06/10-06.13 -continue IV nafcillin 2 g q.6 from 06/13 to 06/17 # S/p cardiac arrest- PEA # ROSC after 6 mins -treated w/ targeted temp therapy # Cardiogenic shock: Resolved # AFib with CVR # Chronic heart failure with preserved ejection fraction # Small to moderate pericardial effusion -levophed dced on 06/09 -monitor to maintain map above 65 -amiodarone is DCed on 06/06 -as per cardio, dc sotalol i/v/o low EF, and start metoprolol -continue metoprolol tartarate 50 mg bid, resume elquis after the procedure -Echo on 06/02/2024 showed an ejection fraction of 60-65%, trace pericardial effusion. -echo done on 06/05 after cardiac arrest showed EF of 45-50%, RV moderately dilated with severely reduced systolic function # DILAN-likely prerenal- improved Cr-likely trending up 2/2 diuresis Creatinine1.38 net negative of 21 L on lasix, and metolazone ? Monitor bmp and i/o chart #Hypernatremia #Hypokalemia-likely secondary to Lasix # mild metabolic alkalosis- 2/2 lasix induced contraction alkalosis Sodium- down to 141, continue free water flushes 200 mL q.4h K replacement per protocol and TF KCL 40 mEq Q6h # Elevated transaminase- normalized -lfts-normalized -suspect likely secondary to amiodarone # Diabetes mellitus type 2 with a1c of 6.8 -goal to maintain glucose in the range of 140-180 -insulin if needed Nutrition -continue TFs with corpak. 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- recovering -awake and alert -continue sedation with low dose fenatnyl Events on 06/06 -FiO2 50, on low-dose Levophed -started tube feeds -DC amiodarone Events on 06/07 -FiO2 down to 40 from 50 -weaned off Levophed -SAT/SBT -creatinine, LFTs trending down -EEG today -added sotalol events on 06/08 -fio2-40 with peep of 10 -on levophed at 0.03 mcg/kg/min -sedation changed to ketamine and fentanyl -iv lasix 80 f/b 40 mg bid for pleural effusions and worsening pulm edema events on 06/09 -lasix increased to 40 mg q8 -PEEP down to 5 -SAT/SBT events on 06/10 -spiking fevers, blood cultures, resp cultures- sent -emperically started on piptazo, and vanco, DC Zosyn and vanco, started on IV doxy 100 mg b.i.d. -lasix dose increased to 60mg q8, for elevated CVP, and increased pulm congestion on cxr -DC OG and changed to corpak Events on 06/13 -discussed with patient and her son and they agreed for tracheostomy and PEG. Dr. Reeves consulted -Hemant held for trach and PEG placement -DC doxycycline and changed to IV nafcillin Events on 06/14 -Precedex DC dced sedation changed to fentanyl -awaiting trach and PEG on Events on 06/15 -hypokalemia -potassium replacement -hypernatremia increased free water flushes events on 06/16 -D5W for na of 150 -added metalozone -preop cardiac clearance for trach/peg placement requested events on 06/17 -na-145, dc D5W -cardiac clearance obtained, trach and peg today -DC sotalol, change to metoprolol 50 mg bid -ct chest- enlarged MPA, small to mod pericardial effusion -good uop after adding metolazone -cr- trending up Code Status: Full code Analgesia/sedation: precedex Line/tube: right radial arterial line, ETT, corpak, Ying, PIV GI prophylaxis: Changed to pantoprazole. DVT prophylaxis: SCD, resumed elquis after procedure Nutrition: Tube feeds Prognosis: guarded Disposition: Continue care in ICU and plan to transfer out the pt to [facility] on 06/23/24 Expected Outcome/Goals Expected Outcomes/Goals: maintain stable wt, tolerance to TF, bowel regularity, maintain skin integrity, Glu 140-180 mg/dL PARMIJT PACHECO MD June 19, 2024 14:56
--- NOTE | 2024-06-19 18:07 | PROGRESS NOTE- Residence ---
Progress Note - Resident Providers to CC Resident Creating Document: SILVINO COLE RES ~ Antibiotic Timeout Antibiotic Ordered?: Yes Subjective Pt received trach and PEG on 06/17/2024, following simple commands and wake and alert. Still on fentanyl drip on and off for agitation and sedation status post tracheostomy. Objective Vital Signs Date Time Temp Pulse Resp B/P (MAP) Pulse Ox O2 Delivery O2 Flow Rate FiO2 06/19/24 17:05 88 24 95 40 06/19/24 15:26 Mechanical Ventilator 06/19/24 06:00 98.4 129/54 (79) Result Diagram: 06/19/24 0436 06/19/24 0436 General: Intubated and sedated HEENT: Conjunctiva pink, Sclera clear, Mucus Membranes moist. Resp: Unlabored. Lungs clear to auscultation bilaterally. Heart: Regular Rate and rhythm, normal S1 and S2 without murmur, rub or gallop. Abdomen: Soft and non tender no organomegaly Extremities: No cyanosis,clubbing or edema. Skin: Warm and Dry. Assessment Assessment This is a 63-year-old female with a history of atrial fibrillation, hypertension, COPD, diabetes, depression. She was brought to the ER with rapid heart rate and respiratory distress. Reportedly had SVT, was given two doses of adenosine. In the ER at the time of admission patient was coughing and choking on her sandwich, was intubated on was transferred to the ICU. Patient was doing well, was extubated on 06/04/2024 and was transferred to the floors. On 2024, she choked on her eggs in the morning, went into cardiac arrest, code blue was initiated, ROSC was achieved in 6 minutes. She was intubated and was transferred to ICU. In the ICU central line was placed and was started on Levophed drip Plan Plan # Acute hypoxemic respiratory failure, aspiration pneumonia from 06/05 # COPD exacerbation # ERASMO # PAH -currently on PSV 11/21/2039% FiO2 with a pulse oximeter reading of 93%. -bronchoscopy done on 05/26- L-side with minimal secretion. R-side with copious thick secretion partially occluding R Main bronchus. BAL performed. -respiratory cultures on 06/05 negative -chest x-ray done today showed bilateral pleural effusions with pulmonary congestion, -CT Chest showed dilated MPA of 4.2 cms Plan -continue lasix 60 mg q8, and continue metalozone 10 mg q12 -Dr. Reeves consulted for tracheostomy and G-tube placement. He recommended cardiac clearance before the surgery, preop cardiac clearance done, will be undergoing trach, and peg today # Possible aspiration induced fever new onset fever- resolved suspect 2/2 aspiration pneumonia sepsis/septic shock-ruled out -respiratory cultures on 06/10- MSSA -received doxy from 06/10-06.13 -continue IV nafcillin 2 g q.6 from 06/13 to 06/17 # S/p cardiac arrest- PEA # ROSC after 6 mins -treated w/ targeted temp therapy # Cardiogenic shock: Resolved # AFib with CVR # Chronic heart failure with preserved ejection fraction # Small to moderate pericardial effusion -levophed dced on 06/09 -monitor to maintain map above 65 -amiodarone is DCed on 06/06 -as per cardio, dc sotalol i/v/o low EF, and start metoprolol -continue metoprolol tartarate 50 mg bid, resume elquis after the procedure -Echo on 06/02/2024 showed an ejection fraction of 60-65%, trace pericardial effusion. -echo done on 06/05 after cardiac arrest showed EF of 45-50%, RV moderately dilated with severely reduced systolic function # DILAN-likely prerenal- improved Cr-likely trending up 2/2 diuresis Creatinine1.38 net negative of 21 L on lasix, and metolazone ? Monitor bmp and i/o chart #Hypernatremia #Hypokalemia-likely secondary to Lasix # mild metabolic alkalosis- 2/2 lasix induced contraction alkalosis Sodium- down to 141, continue free water flushes 200 mL q.4h K replacement per protocol and TF KCL 40 mEq Q6h # Elevated transaminase- normalized -lfts-normalized -suspect likely secondary to amiodarone # Diabetes mellitus type 2 with a1c of 6.8 -goal to maintain glucose in the range of 140-180 -insulin if needed Nutrition -continue TFs with corpak. 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- recovering -awake and alert -continue sedation with low dose fenatnyl Events on 06/06 -FiO2 50, on low-dose Levophed -started tube feeds -DC amiodarone Events on 06/07 -FiO2 down to 40 from 50 -weaned off Levophed -SAT/SBT -creatinine, LFTs trending down -EEG today -added sotalol events on 06/08 -fio2-40 with peep of 10 -on levophed at 0.03 mcg/kg/min -sedation changed to ketamine and fentanyl -iv lasix 80 f/b 40 mg bid for pleural effusions and worsening pulm edema events on 06/09 -lasix increased to 40 mg q8 -PEEP down to 5 -SAT/SBT events on 06/10 -spiking fevers, blood cultures, resp cultures- sent -emperically started on piptazo, and vanco, DC Zosyn and vanco, started on IV doxy 100 mg b.i.d. -lasix dose increased to 60mg q8, for elevated CVP, and increased pulm congestion on cxr -DC OG and changed to corpak Events on 06/13 -discussed with patient and her son and they agreed for tracheostomy and PEG. Dr. Reeves consulted -Eliquis held for trach and PEG placement -DC doxycycline and changed to IV nafcillin Events on 06/14 -Precedex DC dced sedation changed to fentanyl -awaiting trach and PEG on Events on 06/15 -hypokalemia -potassium replacement -hypernatremia increased free water flushes events on 06/16 -D5W for na of 150 -added metalozone -preop cardiac clearance for trach/peg placement requested events on 06/17 -na-145, dc D5W -cardiac clearance obtained, trach and peg today -DC sotalol, change to metoprolol 50 mg bid -ct chest- enlarged MPA, small to mod pericardial effusion -good uop after adding metolazone -cr- trending up Code Status: Full code Analgesia/sedation: precedex Line/tube: right radial arterial line, ETT, corpak, Ying, PIV GI prophylaxis: Changed to pantoprazole. DVT prophylaxis: SCD, resumed elquis after procedure Nutrition: Tube feeds Prognosis: guarded Disposition: Continue care in ICU and plan to transfer out the pt to [facility] on 06/23/24 Silvino Cole PGY2, Internal medicine resident Date of Service: June 19, 2024 Billing Provider: SHIRAZ MOLINA MD Common Visit Codes: [id number] INP/OBS CARE(HIGH) SILVINO COLE, JOSEPH June 19, 2024 18:07 SHIRAZ MOLINA MD June 19, 2024 21:24
[2024-06-19] MEDS: nystatin 500,000 unit/5ML UD oral suspension PO SCH (19:36)
[2024-06-20] VITALS (40 sets, daily range): BP systolic 94–142; BP diastolic 43–70; PULSE 67–98; RESP 12–26; O2SAT 92–99
[2024-06-20 06:11] LABS: BASOPHILS % (AUTO) 0.3 % (0-1); EOSINOPHILS # (AUTO) 0.2 X10'3 (0-0.9); EOSINOPHILS % (AUTO) 2.4 % (0-6); HEMOGLOBIN 13.1 g/dl (12.0-16.0); LYMPHOCYTES # (AUTO) 1.6 X10'3 (1.1-4.8); LYMPHOCYTES % (AUTO) 15.9 % (21-51); MEAN CORPUSCULAR HEMOGLOBIN 29.4 PG (27.0-31.0); MEAN CORPUSCULAR HGB CONC 32.8 g/dL (33.0-36.5); MEAN CORPUSCULAR VOLUME 89.5 FL (78-98); MEAN PLATELET VOLUME 10.7 FL (7.4-10.4); MONOCYTES # (AUTO) 0.7 X10'3 (0-0.9); MONOCYTES % (AUTO) 7.2 % (2-12); NEUTROPHILS # (AUTO) 7.4 X10'3 (1.8-7.7); NEUTROPHILS % (AUTO) 74.2 % (42-75); PLATELET COUNT 289 X10'3 (140-440); RED BLOOD COUNT 4.46 X10'6 (4.20-5.60); RED CELL DISTRIBUTION WIDTH 15.1 % (11.5-14.5); WHITE BLOOD COUNT 9.9 X10'3 (4.5-11.0)
--- NOTE | 2024-06-20 06:12 | RADIOLOGY REPORT ---
EXAM: XR Chest, 1 View CLINICAL INDICATION: Acute CHF TECHNIQUE: Frontal view of the chest. COMPARISON: DI CHEST,SINGLE VIEW on DOS: 06/17/24, DI CHEST,SINGLE VIEW on DOS: 06/16/24, DI CHEST,SING LE VIEW on DOS: 06/15/24, DI CHEST,SINGLE VIEW on DOS: 06/14/24, DI CHEST,SINGLE VIEW on DOS: 06/13/24 FINDINGS: LUNGS AND PLEURAL SPACES: See below. HEART: Cardiomegaly with mild congestion. MEDIASTINUM: Unremarkable. Normal mediastinal contour. BONES/JOINTS: Unremarkable. No acute fracture. TUBES, LINES AND DEVICES: Tracheostomy tube in satisfactory position. OTHER FINDINGS: . . . . IMPRESSION: Cardiomegaly with mild congestion.
[2024-06-20 06:31] LABS: ALANINE AMINOTRANSFERASE 20 U/L (12-78); ALBUMIN/GLOBULIN RATIO 0.7 (1.1-1.5); ALKALINE PHOSPHATASE 77 IU/L (46-116); ANION GAP 8 (8-16); ASPARTATE AMINO TRANSFERASE 12 U/L (10-37); BILIRUBIN,TOTAL 1.2 MG/DL (0.1-1.0); BLOOD UREA NITROGEN 57 MG/DL (7-18); BUN/CREATININE RATIO 40.4 (10.0-20.0); CALCIUM 8.8 MG/DL (8.5-10.1); CHLORIDE 99 MMOL/L (99-107); CREATININE 1.41 MG/DL (0.40-0.90); GLUCOSE 171 MG/DL (70-104); POTASSIUM 3.7 MMOL/L (3.5-5.1); SODIUM 143 MMOL/L (135-145); TOTAL CARBON DIOXIDE 36.4 MMOL/L (24-32); TOTAL PROTEIN 7.4 G/DL (6.4-8.2); TRIGLYCERIDES 92 MG/DL (20-135); eCRCL 29 ML/MIN; eGFR 38 ML/MIN
[2024-06-20] MEDS: HYDROcodone/acetaminophen 5mg/325mg tablet PO PRN (10:55)
--- NOTE | 2024-06-20 13:13 | RADIOLOGY REPORT ---
INDICATION: 08/25 abdominal pain TECHNIQUE: Multiple real-time sonographic images were obtained of the right upper quadrant. COMPARISON: None FINDINGS: The liver demonstrates homogeneous echotexture without focal mass lesions. The liver measu res 21.2 cm. There is no intrahepatic or extrahepatic ductal dilatation. The common duct measures 0.4 cm. The gallbladder is without evidence of stone or sludge. The gallbladder wall measures 0.2 cm and is w ithin normal limits. Right kidney is obscured secondary to overlying bowel gas. The pancreas is not well visualized due to overlying bowel gas. IMPRESSION: Hepatomegaly. Area of interest around the gastrostomy tube placement site is unremarkable.
--- NOTE | 2024-06-20 15:18 | PROGRESS NOTE ---
Subjective Subjective Pt received trach and PEG on 06/17/2024, following simple commands and wake and alert. Off fentanyl drip . Reason for visit: Pulmonary critical care follow-up Reviewed: Care Plan, H&P, Labs, Previous Orders, Radiology Review of Systems Changes from previous H/P or p: No Changes Daily Progress Note Exam Vitals Vital Signs Date Time Temp Pulse Resp B/P (MAP) Pulse Ox O2 Delivery O2 Flow Rate FiO2 06/20/24 14:55 77 22 Cool Aerosol 8.0 40 Mechanical Ventilator 06/20/24 14:48 93 06/20/24 10:00 99.0 106/44 (64) Result Diagram: 06/20/24 0505 06/20/24 0505 Exam General: Elderly female, obese, ventilation via tracheostomy, awake and alert, folowing commands Head: Normocephalic with an atraumatic Eyes: Pupils- 3mm, reacting to light, conjunctiva- anicteric Nose and throat: No polyps, septum- normal, no mucosal ulcers Neck: Supple, no lymphadenopathy, no carotid bruit Respiratory: No use of accessory muscles of respiration, Bilateral equal air entry, decreased breath sounds over the basal areas Cardiac: S1-S2 heard, rythm regular, no gallop/murmur Abdomen: obese, distended, no tenderness, no organomegaly, bowel sounds- heard Extremities: no clubbing, no pedal edema, no deformities, peripheral pulses- 2+ Skin: warm and dry, no rash, no purpura, edema- resolved Neuro: moving all extremities VTE VTE Risk Score VTE Risk Score Reference Ranges: Score 0-1 = Low Risk (Aggressive mobilization; early ambulation; no VTE prophylaxis required) Score 2: Moderate Risk (Intermittent/Pneumatic Compression Device OR Lovenox/Heparin/Coumadin) Score 3-4: High Risk (Intermittent/Pneumatic Compression Device AND Lovenox/Heparin/Coumadin) Score > or = 5: Highest Risk (Intermittent/Pneumatic Compression Device AND Lovenox/Heparin/Coumadin) Assessment/Plan Assessment This is a 63-year-old female with a history of atrial fibrillation, hypertension, COPD, diabetes, depression. She was brought to the ER with rapid heart rate and respiratory distress. Reportedly had SVT, was given two doses of adenosine. In the ER at the time of admission patient was coughing and choking on her sandwich, was intubated on was transferred to the ICU. Patient was doing well, was extubated on 06/04/2024 and was transferred to the floors. On 2024, she choked on her eggs in the morning, went into cardiac arrest, code blue was initiated, ROSC was achieved in 6 minutes. She was intubated and was transferred to ICU. In the ICU central line was placed and was started on Levophed drip Plan This is a 63-year-od female with a history of atrial fibrillation, hypertension, COPD, diabetes, depression. She was brought to the ER with rapid heart rate and respiratory distress. Reportedly had SVT, was given two doses of adenosine. In the ER at the time of admission patient was coughing and choking on her sandwich, was intubated on was transferred to the ICU. Patient was doing well, was extubated on 06/04/2024 and was transferred to the floors. On 2024, she choked on her eggs in the morning, went into cardiac arrest, code blue was initiated, ROSC was achieved in 6 minutes. She was intubated and was transferred to ICU. In the ICU central line was placed and was started on Levophed drip # Small to moderate pericardial effusion # Acute hypoxemic respiratory failure, aspiration pneumonia from 06/05 # COPD exacerbation # ERASMO # PAH -currently on PSV 11/21/2039% FiO2 with a pulse oximeter reading of 95%. Patient tolerating humidified trach collar trial today.. -bronchoscopy done on 05/26- L-side with minimal secretion. R-side with copious thick secretion partially occluding R Main bronchus. BAL performed. -respiratory cultures on 06/05 negative -chest x-ray done today showed bilateral pleural effusions with pulmonary congestion, -CT Chest showed dilated MPA of 4.2 cms Plan -continue lasix 60 mg q8, and continue metalozone 10 mg q12 -patient is status post tracheostomy and PEG tube placement. # Possible aspiration induced fever new onset fever- resolved suspect 03/20 aspiration pneumonia sepsis/septic shock-ruled out -respiratory cultures on 06/10- MSSA -received doxy from 06/10-06.13 -continue IV nafcillin 2 g q.6 from 06/13 to 06/17 # S/p cardiac arrest- PEA # ROSC after 6 mins -treated w/ targeted temp therapy # Cardiogenic shock: Resolved # AFib with CVR # Chronic heart failure with preserved ejection fraction Plan # Acute hypoxemic respiratory failure, aspiration pneumonia from 06/05 # COPD exacerbation # ERASMO # PAH -status post tracheostomy and PEG tube placement 06/18/2023 -continue to wean patient via pressure support ventilation and humidified trach collar trials. -bronchoscopy done on 05/26- L-side with minimal secretion. R-side with copious thick secretion partially occluding R Main bronchus. BAL performed. -respiratory cultures on 06/05 negative -chest x-ray done today showed bilateral pleural effusions with pulmonary congestion, -CT Chest showed dilated MPA of 4.2 cms Plan -continue lasix 60 mg q8, and continue metalozone 10 mg q12 # Possible aspiration induced fever new onset fever- resolved suspect 03/20 aspiration pneumonia sepsis/septic shock-ruled out -respiratory cultures on 06/10- MSSA -received doxy from 06/10-06.13 -continue IV nafcillin 2 g q.6 from 06/13 to 06/17 # S/p cardiac arrest- PEA. He has recovered without any neurological sequelae. # ROSC after 6 mins -treated w/ targeted temp therapy # Cardiogenic shock: Resolved # AFib with CVR # Chronic heart failure with preserved ejection fraction # Small to moderate pericardial effusion -levophed dced on 06/09 -monitor to maintain map above 65 -amiodarone is DCed on 06/06 -as per cardio, dc sotalol i/v/o low EF, and start metoprolol -continue metoprolol tartarate 50 mg bid, resume elquis after the procedure -Echo on 06/02/2024 showed an ejection fraction of 60-65%, trace pericardial effusion. -echo done on 06/05 after cardiac arrest showed EF of 45-50%, RV moderately dilated with severely reduced systolic function # DILAN-likely prerenal- improved Cr-likely trending up 2/2 diuresis Creatinine1.41 On lasix, and metolazone ? Monitor bmp and i/o chart #Hypernatremia #Hypokalemia-likely secondary to Lasix # mild metabolic alkalosis- 2/2 lasix induced contraction alkalosis Sodium- down to 143, continue free water flushes 200 mL q.4h K replacement per protocol and TF KCL 40 mEq Q6h # Elevated transaminase- normalized -lfts-normalized -suspect likely secondary to amiodarone # Diabetes mellitus type 2 with a1c of 6.8 -goal to maintain glucose in the range of 140-180 -insulin if needed Nutrition -continue TFs with corpak. # Post cardiac arrest encephalopathy : Has recovered with no neurological sequelae. -awake and alert -continue sedation with low dose fenatnyl Events on 06/06 -FiO2 50, and low-dose Levophed. -started tube feeds -DC amiodarone Events on 06/07 -FiO2 down to 40 from 50 -weaned off Levophed -SAT/SBT -creatinine, LFTs trending down -EEG today -added sotalol events on 06/08 -fio2-40 with peep of 10 -on levophed at 0.03 mcg/kg/min -sedation changed to ketamine and fentanyl -iv lasix 80 f/b 40 mg bid for pleural effusions and worsening pulm edema events on 06/09 -lasix increased to 40 mg q8 -PEEP down to 5 -SAT/SBT events on 06/10 -spiking fevers, blood cultures, resp cultures- sent -emperically started on piptazo, and vanco, DC Zosyn and vanco, started on IV doxy 100 mg b.i.d. -lasix dose increased to 60mg q8, for elevated CVP, and increased pulm congestion on cxr -DC OG and changed to corpak Events on 06/13 -discussed with patient and her son and they agreed for tracheostomy and PEG. Dr. Reeves consulted -Hemant held for trach and PEG placement -DC doxycycline and changed to IV nafcillin Events on 06/14 -Precedex DC dced sedation changed to fentanyl -awaiting trach and PEG on Events on 06/15 -hypokalemia -potassium replacement -hypernatremia increased free water flushes events on 06/16 -D5W for na of 150 -added metalozone -preop cardiac clearance for trach/peg placement requested events on 06/17 -na-145, dc D5W -cardiac clearance obtained, trach and peg today -DC sotalol, change to metoprolol 50 mg bid -ct chest- enlarged MPA, small to mod pericardial effusion -good uop after adding metolazone -cr- trending up Code Status: Full code Analgesia/sedation: precedex Line/tube: right radial arterial line, ETT, corpak, Ying, PIV GI prophylaxis: Changed to pantoprazole. DVT prophylaxis: SCD, resumed elquis after procedure Nutrition: Vital AF 1.2 at 70 mL/hour Prognosis: guarded Disposition: Continue care in ICU and plan to transfer out the pt to [facility] on 06/23/24 Expected Outcome/Goals Expected Outcomes/Goals: maintain stable wt, tolerance to TF, bowel regularity, maintain skin integrity, Glu 140-180 mg/dL PARMJIT PACHECO MD June 20, 2024 15:18
--- NOTE | 2024-06-20 17:47 | PROGRESS NOTE- Residence ---
Progress Note - Resident Providers to CC Resident Creating Document: TATI OCASIO RES ~ Antibiotic Timeout Antibiotic Ordered?: Yes Subjective The patient is responding to simple commands and questions, stay on mechanical ventilation, low-dose fentanyl is going on The patient only complains about the abdominal pain at the site of PEG tube which is 7/10. Objective Vital Signs Date Time Temp Pulse Resp B/P (MAP) Pulse Ox O2 Delivery O2 Flow Rate FiO2 06/20/24 17:24 77 21 94 40 06/20/24 17:11 100.6 122/54 (76) Mechanical Ventilator 06/20/24 14:55 8.0 Result Diagram: 06/20/24 0505 06/20/24 0505 Vitals were stable at the moment with AC/PRVC, SBT trial was done and passed. General: not in acute distress but awake and responded. HEENT: Conjunctive are pink, sclerae clear, no icterus, pupil is equal in both sides, reactive to light, no ear discharge, no pharyngeal erythema or an edema, mouth and lips are dry. Neck: Supple, no JVD, no lymphadenopathy and thyromegaly. Lungs: Equal air entry on both lungs, bilateral fine basal crackles Heart: S1-S2 atrial fibrillation rhythm and, RVR, no gallops, no rubs, no murmurs Abdomen: No visible peristalsis, Bowel sounds present on auscultation, soft, nontender, no guarding, no rigidity Extremities: No obvious deformities, no pitting edema bilaterally, capillary refill intact, able to wiggle toes both sides, peripheral pulsations are intact on both sides PATTERN FITTER: No focal neurological deficits, no motor and sensory weakness in all 4 extremities, could move all 4 extremities Musculoskeletal: No joint swelling, deformities, inflammations, and no scoliosis and back tenderness Skin: No active skin lesions and rashes. Assessment Assessment This is a 63-year-old female with a history of atrial fibrillation, hypertension, COPD, diabetes, depression. She was brought to the ER with rapid heart rate and respiratory distress. Reportedly had SVT, was given two doses of adenosine. In the ER at the time of admission patient was coughing and choking on her sandwich, was intubated on was transferred to the ICU. Patient was doing well, was extubated on 06/04/2024 and was transferred to the floors. On 2024, she choked on her eggs in the morning, went into cardiac arrest, code blue was initiated, ROSC was achieved in 6 minutes. She was intubated and was transferred to ICU. In the ICU central line was placed and was started on Levophed drip Plan Plan This is a 63-year-od female with a history of atrial fibrillation, hypertension, COPD, diabetes, depression. She was brought to the ER with rapid heart rate and respiratory distress. Reportedly had SVT, was given two doses of adenosine. In the ER at the time of admission patient was coughing and choking on her sandwich, was intubated on was transferred to the ICU. Patient was doing well, was extubated on 06/04/2024 and was transferred to the floors. On 2024, she choked on her eggs in the morning, went into cardiac arrest, code blue was initiated, ROSC was achieved in 6 minutes. She was intubated and was transferred to ICU. In the ICU central line was placed and was started on Levophed drip, currently off from pressors and sedations. # Small to moderate pericardial effusion # Acute hypoxemic respiratory failure, aspiration pneumonia from 06/05 # COPD exacerbation # ERASMO # PAH -currently on PSV 11/21/2039% FiO2 with a pulse oximeter reading of 95%. Patient tolerating humidified trach collar trial today.. -bronchoscopy done on 05/26- L-side with minimal secretion. R-side with copious thick secretion partially occluding R Main bronchus. BAL performed. -respiratory cultures on 06/05 negative -chest x-ray done today showed bilateral pleural effusions with pulmonary congestion, -CT Chest showed dilated MPA of 4.2 cms Plan -continue lasix 60 mg q8, and continue metalozone 10 mg q12 -status post tracheostomy and PEG tube placement 06/18/2023 -continue to wean patient via pressure support ventilation and humidified trach collar trials. # Possible aspiration induced fever new onset fever- resolved suspect 2/ aspiration pneumonia sepsis/septic shock-ruled out -respiratory cultures on 06/10- MSSA -received doxy from 06/10-06.13 -completed IV nafcillin 2 g q.6 from 06/13 to 06/17 # S/p cardiac arrest- PEA # ROSC after 6 mins -treated w/ targeted temp therapy # Cardiogenic shock: Resolved # AFib with CVR # Chronic heart failure with preserved ejection fraction -status post tracheostomy and PEG tube placement 06/18/2023 -continue to wean patient via pressure support ventilation and humidified trach collar trials. -bronchoscopy done on 05/26- L-side with minimal secretion. R-side with copious thick secretion partially occluding R Main bronchus. BAL performed. -respiratory cultures on 06/05 negative -chest x-ray done today showed bilateral pleural effusions with pulmonary congestion, -CT Chest showed dilated MPA of 4.2 cms Plan -continue lasix 60 mg q8, and continue metalozone 10 mg q12 # Possible aspiration induced fever new onset fever- resolved suspect 03/20 aspiration pneumonia sepsis/septic shock-ruled out -respiratory cultures on 06/10- MSSA -received doxy from 06/10-06.13 -continue IV nafcillin 2 g q.6 from 06/13 to 06/17 # S/p cardiac arrest- PEA. He has recovered without any neurological sequelae. # ROSC after 6 mins -treated w/ targeted temp therapy # Cardiogenic shock: Resolved # AFib with CVR # Chronic heart failure with preserved ejection fraction # Small to moderate pericardial effusion -levophed dced on 06/09 -monitor to maintain map above 65 -amiodarone is DCed on 06/06 -as per cardio, dc sotalol i/v/o low EF, and start metoprolol -continue metoprolol tartarate 50 mg bid, resume elquis after the procedure -Echo on 06/02/2024 showed an ejection fraction of 60-65%, trace pericardial effusion. -echo done on 06/05 after cardiac arrest showed EF of 45-50%, RV moderately dilated with severely reduced systolic function # DILAN-likely prerenal- improved Cr-likely trending up 2/2 diuresis Creatinine1.41 On lasix, and metolazone Monitor bmp and i/o chart #Hypernatremia -normalized #Hypokalemia-likely secondary to Lasix-normalized # mild metabolic alkalosis- 2/2 lasix induced contraction alkalosis Sodium was down to 143, and normalized continue free water flushes 200 mL q.4h K replacement per protocol and TF KCL 40 mEq Q6h # Elevated transaminase- normalized -lfts-normalized -suspect likely secondary to amiodarone # Diabetes mellitus type 2 with a1c of 6.8 -goal to maintain glucose in the range of 140-180 -insulin if needed Nutrition -continue TFs with corpak. # Post cardiac arrest encephalopathy : Has recovered with no neurological sequelae. -awake and alert -continue sedation with low dose fenatnyl Events on 06/06 -FiO2 50, and low-dose Levophed. -started tube feeds -DC amiodarone Events on 06/07 -FiO2 down to 40 from 50 -weaned off Levophed -SAT/SBT -creatinine, LFTs trending down -EEG today -added sotalol events on 06/08 -fio2-40 with peep of 10 -on levophed at 0.03 mcg/kg/min -sedation changed to ketamine and fentanyl -iv lasix 80 f/b 40 mg bid for pleural effusions and worsening pulm edema events on 06/09 -lasix increased to 40 mg q8 -PEEP down to 5 -SAT/SBT events on 06/10 -spiking fevers, blood cultures, resp cultures- sent -emperically started on piptazo, and vanco, DC Zosyn and vanco, started on IV doxy 100 mg b.i.d. -lasix dose increased to 60mg q8, for elevated CVP, and increased pulm congestion on cxr -DC OG and changed to corpak Events on 06/13 -discussed with patient and her son and they agreed for tracheostomy and PEG. Dr. Reeves consulted -Eliquis held for trach and PEG placement -DC doxycycline and changed to IV nafcillin Events on 06/14 -Precedex DC dced sedation changed to fentanyl -awaiting trach and PEG on Events on 06/15 -hypokalemia -potassium replacement -hypernatremia increased free water flushes events on 06/16 -D5W for na of 150 -added metalozone -preop cardiac clearance for trach/peg placement requested events on 06/17 -na-145, dc D5W -cardiac clearance obtained, trach and peg today -DC sotalol, change to metoprolol 50 mg bid -ct chest- enlarged MPA, small to mod pericardial effusion -good uop after adding metolazone -cr- trending up Code Status: Full code Analgesia/sedation: precedex Line/tube: right radial arterial line, ETT, corpak, Ying, PIV GI prophylaxis: Changed to pantoprazole. DVT prophylaxis: SCD, resumed elquis after procedure Nutrition: Vital AF 1.2 at 70 mL/hour Prognosis: guarded Disposition: Continue care in ICU and plan to transfer out the pt to [facility] on 06/23/24 Resident MD attestation: Patient was seen and examined with attending MD, Dr. Jeremy OCASIO MD Internal Medicine Resident, PGY2 [facility] Date of Service: June 20, 2024 Billing Provider: SHIRAZ MOLINA MD Common Visit Codes: [id number] INP/OBS CARE(HIGH) TATI OCASIO, RES June 20, 2024 17:47 SHIRAZ MOLINA MD June 20, 2024 21:33
[2024-06-21] VITALS (35 sets, daily range): BP systolic 90–140; BP diastolic 40–90; PULSE 71–106; RESP 11–27; O2SAT 91–99
[2024-06-21 02:45] LABS: BASOPHILS % (AUTO) 0.4 % (0-1); EOSINOPHILS # (AUTO) 0.4 X10'3 (0-0.9); EOSINOPHILS % (AUTO) 4.2 % (0-6); HEMATOCRIT 42.5 % (35.0-45.0); HEMOGLOBIN 13.6 g/dl (12.0-16.0); LYMPHOCYTES # (AUTO) 1.3 X10'3 (1.1-4.8); MEAN CORPUSCULAR HEMOGLOBIN 28.7 PG (27.0-31.0); MEAN CORPUSCULAR HGB CONC 31.9 g/dL (33.0-36.5); MEAN PLATELET VOLUME 10.2 FL (7.4-10.4); MONOCYTES # (AUTO) 0.7 X10'3 (0-0.9); MONOCYTES % (AUTO) 7.6 % (2-12); NEUTROPHILS # (AUTO) 6.3 X10'3 (1.8-7.7); NEUTROPHILS % (AUTO) 72.8 % (42-75); PLATELET COUNT 295 X10'3 (140-440); RED BLOOD COUNT 4.73 X10'6 (4.20-5.60); RED CELL DISTRIBUTION WIDTH 15.5 % (11.5-14.5); WHITE BLOOD COUNT 8.6 X10'3 (4.5-11.0)
[2024-06-21 02:59] LABS: ALANINE AMINOTRANSFERASE 20 U/L (12-78); ALBUMIN/GLOBULIN RATIO 0.6 (1.1-1.5); ALKALINE PHOSPHATASE 78 IU/L (46-116); ANION GAP 3 (8-16); ASPARTATE AMINO TRANSFERASE 15 U/L (10-37); BILIRUBIN,TOTAL 1.1 MG/DL (0.1-1.0); BLOOD UREA NITROGEN 70 MG/DL (7-18); BUN/CREATININE RATIO 44.9 (10.0-20.0); CALCIUM 9.1 MG/DL (8.5-10.1); CHLORIDE 100 MMOL/L (99-107); CREATININE 1.56 MG/DL (0.40-0.90); GLUCOSE 173 MG/DL (70-104); MAGNESIUM 2.7 MG/DL (1.5-2.4); PHOSPHORUS 4.2 MG/DL (2.3-4.5); POTASSIUM 4.1 MMOL/L (3.5-5.1); SODIUM 144 MMOL/L (135-145); TOTAL PROTEIN 7.8 G/DL (6.4-8.2); eCRCL 26 ML/MIN; eGFR 33 ML/MIN
[2024-06-21 03:08] LABS: TOTAL CARBON DIOXIDE 41.3 MMOL/L (24-32)
--- NOTE | 2024-06-21 18:31 | PROGRESS NOTE- Residence ---
Progress Note - Resident Providers to CC Resident Creating Document: TATI OCASIO RES ~ Antibiotic Timeout Antibiotic Ordered?: Yes Subjective The patient is responding and trying SBT for the rehab placement with trach and PEG. Objective Vital Signs Date Time Temp Pulse Resp B/P (MAP) Pulse Ox O2 Delivery O2 Flow Rate FiO2 06/21/24 17:45 99.1 105 15 117/68 (84) 97 40 06/21/24 17:00 T-piece 06/21/24 15:22 8 Result Diagram: 06/21/24 0236 06/21/24 0236 Vitals were stable at the moment with AC/PRVC, SBT trial was done. General: not in acute distress but awake and responded. HEENT: Conjunctive are pink, sclerae clear, no icterus, pupil is equal in both sides, reactive to light, no ear discharge, no pharyngeal erythema or an edema, mouth and lips are dry. Neck: Supple, no JVD, no lymphadenopathy and thyromegaly. Lungs: Equal air entry on both lungs, bilateral fine basal crackles Heart: S1-S2 atrial fibrillation rhythm and, RVR, no gallops, no rubs, no murmurs Abdomen: No visible peristalsis, Bowel sounds present on auscultation, soft, nontender, no guarding, no rigidity Extremities: No obvious deformities, no pitting edema bilaterally, capillary refill intact, able to wiggle toes both sides, peripheral pulsations are intact on both sides CHAIN PULLER: No focal neurological deficits, no motor and sensory weakness in all 4 extremities, could move all 4 extremities Musculoskeletal: No joint swelling, deformities, inflammations, and no scoliosis and back tenderness Skin: No active skin lesions and rashes. Assessment Assessment This is a 63-year-old female with a history of atrial fibrillation, hypertension, COPD, diabetes, depression. She was brought to the ER with rapid heart rate and respiratory distress. Reportedly had SVT, was given two doses of adenosine. In the ER at the time of admission patient was coughing and choking on her sandwich, was intubated on was transferred to the ICU. Patient was doing well, was extubated on 06/04/2024 and was transferred to the floors. On 2024, she choked on her eggs in the morning, went into cardiac arrest, code blue was initiated, ROSC was achieved in 6 minutes. She was intubated and was transferred to ICU. In the ICU central line was placed and was started on Levophed drip Plan Plan This is a 63-year-od female with a history of atrial fibrillation, hypertension, COPD, diabetes, depression. She was brought to the ER with rapid heart rate and respiratory distress. Reportedly had SVT, was given two doses of adenosine. In the ER at the time of admission patient was coughing and choking on her sandwich, was intubated on was transferred to the ICU. Patient was doing well, was extubated on 06/04/2024 and was transferred to the floors. On 2024, she choked on her eggs in the morning, went into cardiac arrest, code blue was initiated, ROSC was achieved in 6 minutes. She was intubated and was transferred to ICU. In the ICU central line was placed and was started on Levophed drip, currently off from pressors and sedations. # Small to moderate pericardial effusion # Acute hypoxemic respiratory failure, aspiration pneumonia from 06/05 # COPD exacerbation # ERASMO # PAH -currently on PSV 11/21/2039% FiO2 with a pulse oximeter reading of 95%. Patient tolerating humidified trach collar trial today.. -bronchoscopy done on 05/26- L-side with minimal secretion. R-side with copious thick secretion partially occluding R Main bronchus. BAL performed. -respiratory cultures on 06/05 negative -chest x-ray done today showed bilateral pleural effusions with pulmonary congestion, -CT Chest showed dilated MPA of 4.2 cms Plan -continue lasix 60 mg q8, and continue metalozone 10 mg q12 -status post tracheostomy and PEG tube placement 06/18/2023 -continue to wean patient via pressure support ventilation and humidified trach collar trials. # Possible aspiration induced fever new onset fever- resolved suspect 03/20 aspiration pneumonia sepsis/septic shock-ruled out -respiratory cultures on 06/10- MSSA -received doxy from 06/10-06.13 -completed IV nafcillin 2 g q.6 from 06/13 to 06/17 # S/p cardiac arrest- PEA # ROSC after 6 mins -treated w/ targeted temp therapy # Cardiogenic shock: Resolved # AFib with CVR # Chronic heart failure with preserved ejection fraction -status post tracheostomy and PEG tube placement 06/18/2023 -continue to wean patient via pressure support ventilation and humidified trach collar trials. -bronchoscopy done on 05/26- L-side with minimal secretion. R-side with copious thick secretion partially occluding R Main bronchus. BAL performed. -respiratory cultures on 06/05 negative -chest x-ray done today showed bilateral pleural effusions with pulmonary congestion, -CT Chest showed dilated MPA of 4.2 cms Plan -continue lasix 60 mg q8, and continue metalozone 10 mg q12 # Possible aspiration induced fever new onset fever- resolved suspect 03/20 aspiration pneumonia sepsis/septic shock-ruled out -respiratory cultures on 06/10- MSSA -received doxy from 06/10-06.13 -continue IV nafcillin 2 g q.6 from 06/13 to 06/17 # S/p cardiac arrest- PEA. He has recovered without any neurological sequelae. # ROSC after 6 mins -treated w/ targeted temp therapy # Cardiogenic shock: Resolved # AFib with CVR # Chronic heart failure with preserved ejection fraction # Small to moderate pericardial effusion -levophed dced on 06/09 -monitor to maintain map above 65 -amiodarone is DCed on 06/06 -as per cardio, dc sotalol i/v/o low EF, and start metoprolol -continue metoprolol tartarate 50 mg bid, resume elquis after the procedure -Echo on 06/02/2024 showed an ejection fraction of 60-65%, trace pericardial effusion. -echo done on 06/05 after cardiac arrest showed EF of 45-50%, RV moderately dilated with severely reduced systolic function # DILAN-likely prerenal- improved Cr-likely trending up 2/2 diuresis Creatinine1.41 On lasix, and metolazone Monitor bmp and i/o chart #Hypernatremia -normalized #Hypokalemia-likely secondary to Lasix-normalized # mild metabolic alkalosis- 2/2 lasix induced contraction alkalosis Sodium was down to 143, and normalized continue free water flushes 200 mL q.4h K replacement per protocol and TF KCL 40 mEq Q6h # Elevated transaminase- normalized -lfts-normalized -suspect likely secondary to amiodarone # Diabetes mellitus type 2 with a1c of 6.8 -goal to maintain glucose in the range of 140-180 -insulin if needed Nutrition -continue TFs with corpak. # Post cardiac arrest encephalopathy : Has recovered with no neurological sequelae. -awake and alert -continue sedation with low dose fenatnyl Events on 06/06 -FiO2 50, and low-dose Levophed. -started tube feeds -DC amiodarone Events on 06/07 -FiO2 down to 40 from 50 -weaned off Levophed -SAT/SBT -creatinine, LFTs trending down -EEG today -added sotalol events on 06/08 -fio2-40 with peep of 10 -on levophed at 0.03 mcg/kg/min -sedation changed to ketamine and fentanyl -iv lasix 80 f/b 40 mg bid for pleural effusions and worsening pulm edema events on 06/09 -lasix increased to 40 mg q8 -PEEP down to 5 -SAT/SBT events on 06/10 -spiking fevers, blood cultures, resp cultures- sent -emperically started on piptazo, and vanco, DC Zosyn and vanco, started on IV doxy 100 mg b.i.d. -lasix dose increased to 60mg q8, for elevated CVP, and increased pulm congestion on cxr -DC OG and changed to corpak Events on 06/13 -discussed with patient and her son and they agreed for tracheostomy and PEG. Dr. Reeves consulted -Eliquis held for trach and PEG placement -DC doxycycline and changed to IV nafcillin Events on 06/14 -Precedex DC dced sedation changed to fentanyl -awaiting trach and PEG on Events on 06/15 -hypokalemia -potassium replacement -hypernatremia increased free water flushes events on 06/16 -D5W for na of 150 -added metalozone -preop cardiac clearance for trach/peg placement requested events on 06/17 -na-145, dc D5W -cardiac clearance obtained, trach and peg today -DC sotalol, change to metoprolol 50 mg bid -ct chest- enlarged MPA, small to mod pericardial effusion -good uop after adding metolazone -cr- trending up Code Status: Full code Analgesia/sedation: precedex Line/tube: right radial arterial line, ETT, corpak, Ying, PIV GI prophylaxis: Changed to pantoprazole. DVT prophylaxis: SCD, resumed elquis after procedure Nutrition: Vital AF 1.2 at 70 mL/hour Prognosis: guarded Disposition: Continue care in ICU and plan to transfer out the pt to [facility] on 06/23/24 Resident MD attestation: Patient was seen and examined with attending MD, Dr. Jeremy OCASIO MD Internal Medicine Resident, PGY2 [facility] Date of Service: June 21, 2024 Billing Provider: SHIRAZ MOLINA MD Common Visit Codes: [id number] INP/OBS CARE(HIGH) TATI OCASIO, JOSEPH June 21, 2024 18:31 SHIRAZ MOLINA MD June 21, 2024 20:48
--- NOTE | 2024-06-21 20:38 | PROGRESS NOTE- Residence ---
Progress Note - Resident Providers to CC Resident Creating Document: RODRICK EARL, JOSEPH ~ Antibiotic Timeout Antibiotic Ordered?: No Subjective The patient is tolerating trach collar trials off of mechanical ventilation. She is planned to be transferred to LTAC and is awaiting placement. Objective Vital Signs Date Time Temp Pulse Resp B/P (MAP) Pulse Ox O2 Delivery O2 Flow Rate FiO2 06/21/24 19:48 92 20 Cool Aerosol 35 06/21/24 19:42 96 10 06/21/24 17:45 99.1 117/68 (84) Result Diagram: 06/21/24 0236 06/21/24 0236 General: Elderly female, obese, on trach collar off of mechanical ventilation. Awake, alert and following commands. Head: Normocephalic with an atraumatic Eyes: Pupils- 3mm, reacting to light, conjunctiva- anicteric Nose and throat: No polyps, septum- normal, no mucosal ulcers Neck: Supple, no lymphadenopathy, no carotid bruit Respiratory: No use of accessory muscles of respiration, Bilateral equal air entry, decreased breath sounds over the basal areas Cardiac: S1-S2 heard, rythm regular, no gallop/murmur Abdomen: obese, distended, no tenderness, no organomegaly, bowel sounds- heard Extremities: no clubbing, no pedal edema, no deformities, peripheral pulses- 2+ Skin: warm and dry, no rash, no purpura, edema- resolved Neuro: moving all extremities Assessment Assessment 63-year-old female past medical history of atrial fibrillation, hypertension, COPD, diabetes mellitus, depression is admitted in the ICU for evaluation and management of acute hypoxemic respiratory failure secondary to aspirational pneumonia. The patient was initially extubated on 06/04/2024 and was transferred to the floor after which she had one more episode of choking leading to cardiac arrest. The patient had to be intubated. She underwent tracheostomy tube placement on 06/17. The patient is planned to be transferred to long-term acute care facility for further care and recovery. Awaiting placement. Plan Plan Acute hypoxemic respiratory failure Aspirational pneumonia COPD exacerbation Patient had a tracheostomy and PEG tube placement on 06/17/2024. She is started on trach collar trials and is planned to be weaned off mechanical ventilation. RT eval and treat. DuoNeb nebulizations as needed for shortness of breaths and wheezing every 4 hours. Albuterol nebulizations every 6 hours scheduled. Sepsis-resolved Respiratory cultures on 06/10- MSSA Was on doxy from 06/10-. IV nafcillin 2 g q.6 hours from 06/10 Repeat blood cultures - no growth. Status post cardiac arrest Rosc after 6 minutes Cardiogenic shock -resolved AFib Chronic heart failure with preserved ejection fraction Discontinued IV Lasix. Continue close monitoring of input and output. Continue metoprolol tartrate 50 mg b.i.d.. Continue Eliquis 5 mg b.i.d. via Corpak DILAN on CKD Metabolic alkalosis most likely secondary to contraction alkalosis The patient's renal function is worsening, creatinine up trending. Most likely secondary to dehydration. Stopped IV diuretics. We will continue to monitor renal function test closely. CODE STATUS: Full code GI prophylaxis: Pantoprazole DVT prophylaxis: Eliquis Disposition: Continue ICU care. The patient will be weaned off mechanical ventilation and can be transferred to the floor. She is planned to be transferred to LTAC on 07/13/2024. Rodrick Earl MD Internal Medicine Resident, PGY-2 Date of Service: June 21, 2024 Billing Provider: PARMJIT PACHECO MD,RODRICK JORDAN, RES June 21, 2024 20:38
[2024-06-22] VITALS (30 sets, daily range): BP systolic 114–144; BP diastolic 46–96; PULSE 68–107; RESP 12–23; O2SAT 91–100
[2024-06-22 03:12] LABS: BASOPHILS % (AUTO) 0.3 % (0-1); EOSINOPHILS # (AUTO) 0.5 X10'3 (0-0.9); EOSINOPHILS % (AUTO) 5.5 % (0-6); HEMATOCRIT 40.9 % (35.0-45.0); HEMOGLOBIN 13.3 g/dl (12.0-16.0); LYMPHOCYTES # (AUTO) 1.2 X10'3 (1.1-4.8); LYMPHOCYTES % (AUTO) 13.2 % (21-51); MEAN CORPUSCULAR HEMOGLOBIN 29.3 PG (27.0-31.0); MEAN CORPUSCULAR HGB CONC 32.6 g/dL (33.0-36.5); MEAN PLATELET VOLUME 10.5 FL (7.4-10.4); MONOCYTES # (AUTO) 0.6 X10'3 (0-0.9); MONOCYTES % (AUTO) 6.4 % (2-12); NEUTROPHILS # (AUTO) 6.8 X10'3 (1.8-7.7); NEUTROPHILS % (AUTO) 74.6 % (42-75); PLATELET COUNT 291 X10'3 (140-440); RED BLOOD COUNT 4.54 X10'6 (4.20-5.60); RED CELL DISTRIBUTION WIDTH 15.9 % (11.5-14.5); WHITE BLOOD COUNT 9.1 X10'3 (4.5-11.0)
[2024-06-22 04:47] LABS: ALANINE AMINOTRANSFERASE 17 U/L (12-78); ALBUMIN/GLOBULIN RATIO 0.7 (1.1-1.5); ALKALINE PHOSPHATASE 78 IU/L (46-116); ANION GAP 6 (8-16); ASPARTATE AMINO TRANSFERASE 15 U/L (10-37); BILIRUBIN,TOTAL 1.1 MG/DL (0.1-1.0); BLOOD UREA NITROGEN 75 MG/DL (7-18); BUN/CREATININE RATIO 56.4 (10.0-20.0); CALCIUM 9.6 MG/DL (8.5-10.1); CHLORIDE 102 MMOL/L (99-107); CREATININE 1.33 MG/DL (0.40-0.90); GLUCOSE 170 MG/DL (70-104); MAGNESIUM 2.9 MG/DL (1.5-2.4); PHOSPHORUS 4.2 MG/DL (2.3-4.5); SODIUM 147 MMOL/L (135-145); TOTAL CARBON DIOXIDE 39.3 MMOL/L (24-32); TOTAL PROTEIN 7.6 G/DL (6.4-8.2); eCRCL 31 ML/MIN; eGFR 40 ML/MIN
--- NOTE | 2024-06-22 18:36 | PROGRESS NOTE- Residence ---
Progress Note - Resident Providers to CC Resident Creating Document: RODRICK EARLTIK, JOSEPH ~ Antibiotic Timeout Antibiotic Ordered?: Yes Subjective Patient has been on T-piece since yesterday and has been doing well. Denied any concerns or complaints. Appears to be in no acute distress. Objective Vital Signs Date Time Temp Pulse Resp B/P (MAP) Pulse Ox O2 Delivery O2 Flow Rate FiO2 06/22/24 18:00 98.2 97 18 134/65 (88) 98 T-piece 10.0 35 Result Diagram: 06/22/24 0254 06/22/24 0351 General: Elderly female, obese, on trach collar off of mechanical ventilation. Awake, alert and following commands. Head: Normocephalic with an atraumatic Eyes: Pupils- 3mm, reacting to light, conjunctiva- anicteric Nose and throat: No polyps, septum- normal, no mucosal ulcers Neck: Supple, no lymphadenopathy, no carotid bruit Respiratory: No use of accessory muscles of respiration, Bilateral equal air entry, decreased breath sounds over the basal areas Cardiac: S1-S2 heard, rythm regular, no gallop/murmur Abdomen: obese, distended, no tenderness, no organomegaly, bowel sounds- heard Extremities: no clubbing, no pedal edema, no deformities, peripheral pulses- 2+ Skin: warm and dry, no rash, no purpura, edema- resolved Neuro: moving all extremities Assessment Assessment 63-year-old female past medical history of atrial fibrillation, hypertension, COPD, diabetes mellitus, depression is admitted in the ICU for evaluation and management of acute hypoxemic respiratory failure secondary to aspirational pneumonia. The patient was initially extubated on 06/04/2024 and was transferred to the floor after which she had one more episode of choking leading to cardiac arrest. The patient had to be intubated. She underwent tracheostomy tube placement on 06/17. The patient is planned to be transferred to long-term acute care facility for further care and recovery. Awaiting placement. Plan Plan Acute hypoxemic respiratory failure Aspirational pneumonia COPD exacerbation Patient had a tracheostomy and PEG tube placement on 06/17/2024. Has been on trach collar since yesterday. Is tolerating well and is in no acute distress. RT eval and treat. DuoNeb nebulizations as needed for shortness of breaths and wheezing every 4 hours. Albuterol nebulizations every 6 hours scheduled. Sepsis Septic shock-resolved Respiratory cultures on 06/10- MSSA Was on doxy from 06/10-4.28 IV nafcillin 2 g q.6 hours from 06/10 Repeat blood cultures - no growth. Status post cardiac arrest Rosc after 6 minutes Cardiogenic shock -resolved AFib Chronic heart failure with preserved ejection fraction Discontinued IV Lasix. Continue close monitoring of input and output. Continue metoprolol tartrate 50 mg b.i.d.. Continue Eliquis 5 mg b.i.d. via Corpak DILAN on CKD Metabolic alkalosis most likely secondary to contraction alkalosis Hypernatremia The patient's renal function is improving. Creatinine trending down. Most likely due to the diuretics leading to contraction alkalosis. Discontinued IV diuretics yesterday. Started the patient on free water flushes 200 q.4 hours. We will continue to monitor renal function test closely. CODE STATUS: Full code GI prophylaxis: Pantoprazole DVT prophylaxis: Eliquis Disposition: Continue ICU care. The patient will be weaned off mechanical ventilation and can be transferred to the floor. She is planned to be transferred to LTAC on 06/23/2024. Rodrick Earl MD Internal Medicine Resident, PGY-2 Date of Service: June 22, 2024 Billing Provider: PARMJIT PACHECO MD,RODRICK JORDAN, RES June 22, 2024 18:36
--- NOTE | 2024-06-22 19:36 | PROGRESS NOTE- Residence ---
Progress Note - Resident Providers to CC Resident Creating Document: TATI OCASIO RES ~ Antibiotic Timeout Antibiotic Ordered?: Yes Subjective No significant changes and special recurrence reported this morning. Not in acute distress. Objective Vital Signs Date Time Temp Pulse Resp B/P (MAP) Pulse Ox O2 Delivery O2 Flow Rate FiO2 06/22/24 19:30 105 18 97 Cool/Heated Aerosol Mist+ 10 35 06/22/24 19:00 98.2 126/69 (88) Result Diagram: 06/22/24 0254 06/22/24 0351 Vitals were stable at the moment. General: not in acute distress but awake and responded. On mechanical ventilation. HEENT: Conjunctive are pink, sclerae clear, no icterus, pupil is equal in both sides, reactive to light, no ear discharge, no pharyngeal erythema or an edema, mouth and lips are dry. Neck: Supple, no JVD, no lymphadenopathy and thyromegaly. Lungs: Equal air entry on both lungs, bilateral fine basal crackles Heart: S1-S2 atrial fibrillation rhythm and, RVR, no gallops, no rubs, no murmurs Abdomen: No visible peristalsis, Bowel sounds present on auscultation, soft, nontender, no guarding, no rigidity Extremities: No obvious deformities, no pitting edema bilaterally, capillary refill intact, able to wiggle toes both sides, peripheral pulsations are intact on both sides PASTE MIXER LIQUID: No focal neurological deficits, no motor and sensory weakness in all 4 extremities, could move all 4 extremities Musculoskeletal: No joint swelling, deformities, inflammations, and no scoliosis and back tenderness Skin: No active skin lesions and rashes. Assessment Assessment 63-year-old female past medical history of atrial fibrillation, hypertension, COPD, diabetes mellitus, depression is admitted in the ICU for evaluation and management of acute hypoxemic respiratory failure secondary to aspirational pneumonia. The patient was initially extubated on 06/04/2024 and was transferred to the floor after which she had one more episode of choking leading to cardiac arrest. The patient had to be intubated. She underwent tracheostomy tube placement on 06/17. The patient is planned to be transferred to long-term acute care facility for further care and recovery. Awaiting placement. Plan Plan # Small to moderate pericardial effusion # Acute hypoxemic respiratory failure, aspiration pneumonia from 06/05 # COPD exacerbation # ERASMO # PAH -Patient tolerating humidified trach collar trial today.. -bronchoscopy done on 05/26- L-side with minimal secretion. R-side with copious thick secretion partially occluding R Main bronchus. BAL performed. -respiratory cultures on 06/05 negative -chest x-ray done today showed bilateral pleural effusions with pulmonary congestion, -CT Chest showed dilated MPA of 4.2 cms Plan -continue lasix 60 mg q8, and continue metalozone 10 mg q12 -status post tracheostomy and PEG tube placement 06/18/2023 -continue to wean patient via pressure support ventilation and humidified trach collar trials. # Possible aspiration induced fever new onset fever- resolved suspect 2/2 aspiration pneumonia sepsis/septic shock-ruled out -respiratory cultures on 06/10- MSSA -received doxy from 06/10-06.13 -continue IV nafcillin 2 g q.6 # S/p cardiac arrest- PEA # ROSC after 6 mins -treated w/ targeted temp therapy # Cardiogenic shock: Resolved # AFib with CVR # Chronic heart failure with preserved ejection fraction -status post tracheostomy and PEG tube placement 06/18/2023 -continue to wean patient via pressure support ventilation and humidified trach collar trials. -bronchoscopy done on 05/26- L-side with minimal secretion. R-side with copious thick secretion partially occluding R Main bronchus. BAL performed. -respiratory cultures on 06/05 negative -chest x-ray done today showed bilateral pleural effusions with pulmonary congestion, -CT Chest showed dilated MPA of 4.2 cms Plan -continue lasix 60 mg q8, and continue metalozone 10 mg q12 # Possible aspiration induced fever new onset fever- resolved suspect 2/2 aspiration pneumonia sepsis/septic shock-ruled out -respiratory cultures on 06/10- MSSA -received doxy from 06/10-06.13 -continue IV nafcillin 2 g q.6 from 06/13 to 06/17 # S/p cardiac arrest- PEA. He has recovered without any neurological sequelae. # ROSC after 6 mins -treated w/ targeted temp therapy # Cardiogenic shock: Resolved # AFib with CVR # Chronic heart failure with preserved ejection fraction # Small to moderate pericardial effusion -levophed dced on 06/09 -monitor to maintain map above 65 -amiodarone is DCed on 06/06 -as per cardio, dc sotalol i/v/o low EF, and start metoprolol -continue metoprolol tartarate 50 mg bid, resume elquis after the procedure -Echo on 06/02/2024 showed an ejection fraction of 60-65%, trace pericardial effusion. -echo done on 06/05 after cardiac arrest showed EF of 45-50%, RV moderately dilated with severely reduced systolic function # DILAN-likely prerenal- improved Cr-likely trending down Creatinine1.33 On lasix, and metolazone Monitor bmp and i/o chart #Hypernatremia -normalized #Hypokalemia-likely secondary to Lasix-normalized # mild metabolic alkalosis- 03/20 lasix induced contraction alkalosis Sodium was down to 143, and normalized continue free water flushes 200 mL q.4h K replacement per protocol and TF KCL 40 mEq Q6h # Elevated transaminase- normalized -lfts-normalized -suspect likely secondary to amiodarone # Diabetes mellitus type 2 with a1c of 6.8 -goal to maintain glucose in the range of 140-180 -insulin if needed Nutrition -continue TFs with corpak. # Post cardiac arrest encephalopathy : Has recovered with no neurological sequelae. -awake and alert -continue sedation with low dose fenatnyl Events on 06/06 -FiO2 50, and low-dose Levophed. -started tube feeds -DC amiodarone Events on 06/07 -FiO2 down to 40 from 50 -weaned off Levophed -SAT/SBT -creatinine, LFTs trending down -EEG today -added sotalol events on 06/08 -fio2-40 with peep of 10 -on levophed at 0.03 mcg/kg/min -sedation changed to ketamine and fentanyl -iv lasix 80 f/b 40 mg bid for pleural effusions and worsening pulm edema events on 06/09 -lasix increased to 40 mg q8 -PEEP down to 5 -SAT/SBT events on 06/10 -spiking fevers, blood cultures, resp cultures- sent -emperically started on piptazo, and vanco, DC Zosyn and vanco, started on IV doxy 100 mg b.i.d. -lasix dose increased to 60mg q8, for elevated CVP, and increased pulm congestion on cxr -DC OG and changed to corpak Events on 06/13 -discussed with patient and her son and they agreed for tracheostomy and PEG. Dr. Reeves consulted -Eliquis held for trach and PEG placement -DC doxycycline and changed to IV nafcillin Events on 06/14 -Precedex DC dced sedation changed to fentanyl -awaiting trach and PEG on Events on 06/15 -hypokalemia -potassium replacement -hypernatremia increased free water flushes events on 06/16 -D5W for na of 150 -added metalozone -preop cardiac clearance for trach/peg placement requested events on 06/17 -na-145, dc D5W -cardiac clearance obtained, trach and peg today -DC sotalol, change to metoprolol 50 mg bid -ct chest- enlarged MPA, small to mod pericardial effusion -good uop after adding metolazone -cr- trending up Code Status: Full code Analgesia/sedation: precedex Line/tube: right radial arterial line, ETT, corpak, Ying, PIV GI prophylaxis: Changed to pantoprazole. DVT prophylaxis: SCD, resumed elquis after procedure Nutrition: Vital AF 1.2 at 70 mL/hour Prognosis: guarded Disposition: Continue care in ICU and plan to transfer out the pt to [facility] on 06/23/24 Resident MD attestation: Patient was seen and examined with attending MD, Dr. Jeremy OCASIO MD Internal Medicine Resident, PGY2 [facility] Date of Service: June 22, 2024 Billing Provider: SHIRAZ MOLINA MD Common Visit Codes: [id number] INP/OBS CARE(HIGH) TATI OCASIO, JOSEPH June 22, 2024 19:36 SHIRAZ MOLINA MD June 22, 2024 21:36
[2024-06-22] MEDS: lactobacillus rhamnosus 10,000 MMU CELLS/CAPSULE PO SCH (20:01)
[2024-06-23] VITALS (31 sets, daily range): BP systolic 77–162; BP diastolic 34–76; PULSE 76–123; RESP 11–28; O2SAT 83–100
[2024-06-23] MEDS: dexmedetomidin/NS 400mcg/100ml 100 ML IV SCH (02:14)
[2024-06-23 02:53] LABS: BASOPHILS % (AUTO) 0.2 % (0-1); EOSINOPHILS # (AUTO) 0.4 X10'3 (0-0.9); EOSINOPHILS % (AUTO) 5.4 % (0-6); HEMATOCRIT 42.3 % (35.0-45.0); HEMOGLOBIN 13.8 g/dl (12.0-16.0); LYMPHOCYTES # (AUTO) 0.5 X10'3 (1.1-4.8); LYMPHOCYTES % (AUTO) 6.9 % (21-51); MEAN CORPUSCULAR HEMOGLOBIN 29.5 PG (27.0-31.0); MEAN CORPUSCULAR HGB CONC 32.5 g/dL (33.0-36.5); MEAN CORPUSCULAR VOLUME 90.6 FL (78-98); MEAN PLATELET VOLUME 10.3 FL (7.4-10.4); MONOCYTES # (AUTO) 0.3 X10'3 (0-0.9); MONOCYTES % (AUTO) 4.4 % (2-12); NEUTROPHILS # (AUTO) 6.6 X10'3 (1.8-7.7); NEUTROPHILS % (AUTO) 83.1 % (42-75); PLATELET COUNT 272 X10'3 (140-440); RED BLOOD COUNT 4.67 X10'6 (4.20-5.60); RED CELL DISTRIBUTION WIDTH 15.6 % (11.5-14.5); WHITE BLOOD COUNT 7.9 X10'3 (4.5-11.0)
[2024-06-23 03:06] LABS: ALANINE AMINOTRANSFERASE 12 U/L (12-78); ALBUMIN 2.8 G/DL (3.4-5.0); ALBUMIN/GLOBULIN RATIO 0.6 (1.1-1.5); ALKALINE PHOSPHATASE 78 IU/L (46-116); ANION GAP 7 (8-16); ASPARTATE AMINO TRANSFERASE 17 U/L (10-37); BILIRUBIN,TOTAL 1.4 MG/DL (0.1-1.0); BLOOD UREA NITROGEN 68 MG/DL (7-18); BUN/CREATININE RATIO 54.8 (10.0-20.0); CALCIUM 9.3 MG/DL (8.5-10.1); CHLORIDE 103 MMOL/L (99-107); CREATININE 1.24 MG/DL (0.40-0.90); GLUCOSE 216 MG/DL (70-104); MAGNESIUM 2.5 MG/DL (1.5-2.4); PHOSPHORUS 2.4 MG/DL (2.3-4.5); POTASSIUM 3.5 MMOL/L (3.5-5.1); SODIUM 146 MMOL/L (135-145); TOTAL CARBON DIOXIDE 36.4 MMOL/L (24-32); TOTAL PROTEIN 7.5 G/DL (6.4-8.2); TRIGLYCERIDES 91 MG/DL (20-135); eCRCL 33 ML/MIN; eGFR 44 ML/MIN
[2024-06-23] MEDS: amiodarone 200mg tablet PEG SCH ×3 (09:05→20:15)
[2024-06-23] MEDS: risperiDONE 0.5mg tablet PEG ONE (09:22)
[2024-06-23] MEDS: normal saline 500ml IV soln 500 ML IV SCH (11:17)
[2024-06-23] MEDS ORDERED: acetaminophen 325mg/10.15ml oral unit dose solution PEG PRN (11:31)
[2024-06-23] MEDS ORDERED: DEXTROSE 15 GM of carb/4 tabs (each vial/BOTTLE has 4 tablets) PEG PRN ×2 (11:31→11:32)
[2024-06-23] MEDS ORDERED: HYDROcodone/acetaminophen 7.5MG/325MG per 15ml UD CUP PEG PRN (11:32)
[2024-06-23] MEDS ORDERED: POTASSIUM CHLORIDE 20 MEQ/15 ML oral solution PEG PRN (11:33)
[2024-06-23 16:45] LABS: C DIFF ANTIGEN NEGATIVE (NEGATIVE); C DIFF SPECIMEN=DIARRHEA? ACCEPTABLE; C DIFFICILE TOXINS A&B NEGATIVE (Neg)
--- NOTE | 2024-06-23 17:56 | PROGRESS NOTE- Residence ---
Progress Note - Resident Providers to CC Resident Creating Document: TATI OCASIO RES ~ Antibiotic Timeout Antibiotic Ordered?: Yes Subjective No significant changes and special recurrence reported this morning. Not in acute distress. Objective Vital Signs Date Time Temp Pulse Resp B/P (MAP) Pulse Ox O2 Delivery O2 Flow Rate FiO2 06/23/24 16:00 99.1 98 21 132/63 (86) 92 Trach Collar 10.0 35 Result Diagram: 06/23/2423606/23/24 023 Vitals were stable at the moment. General: not in acute distress but awake and responded. On mechanical ventilation. HEENT: Conjunctive are pink, sclerae clear, no icterus, pupil is equal in both sides, reactive to light, no ear discharge, no pharyngeal erythema or an edema, mouth and lips are dry. Neck: Supple, no JVD, no lymphadenopathy and thyromegaly. Lungs: Equal air entry on both lungs, bilateral fine basal crackles Heart: S1-S2 atrial fibrillation rhythm and, RVR, no gallops, no rubs, no murmurs Abdomen: No visible peristalsis, Bowel sounds present on auscultation, soft, nontender, no guarding, no rigidity Extremities: No obvious deformities, no pitting edema bilaterally, capillary refill intact, able to wiggle toes both sides, peripheral pulsations are intact on both sides SKIP MINER BLASTING: No focal neurological deficits, no motor and sensory weakness in all 4 extremities, could move all 4 extremities Musculoskeletal: No joint swelling, deformities, inflammations, and no scoliosis and back tenderness Skin: No active skin lesions and rashes. Assessment Assessment 63-year-old female past medical history of atrial fibrillation, hypertension, COPD, diabetes mellitus, depression is admitted in the ICU for evaluation and management of acute hypoxemic respiratory failure secondary to aspirational pneumonia. The patient was initially extubated on 06/04/2024 and was transferred to the floor after which she had one more episode of choking leading to cardiac arrest. The patient had to be intubated. She underwent tracheostomy tube placement on 06/17. The patient is planned to be transferred to long-term acute care facility for further care and recovery. Awaiting placement. Plan Plan # Small to moderate pericardial effusion # Acute hypoxemic respiratory failure, aspiration pneumonia from 06/05 # COPD exacerbation # ERASMO # PAH -Patient tolerating humidified trach collar trial today.. -bronchoscopy done on 05/26- L-side with minimal secretion. R-side with copious thick secretion partially occluding R Main bronchus. BAL performed. -respiratory cultures on 06/05 negative -chest x-ray done today showed bilateral pleural effusions with pulmonary congestion, -CT Chest showed dilated MPA of 4.2 cms Plan -continue lasix 60 mg q8, and continue metalozone 10 mg q12 -status post tracheostomy and PEG tube placement 06/18/2023 -continue to wean patient via pressure support ventilation and humidified trach collar trials. # Possible aspiration induced fever new onset fever- resolved suspect 2/2 aspiration pneumonia sepsis/septic shock-ruled out -respiratory cultures on 06/10- MSSA -received doxy from 06/10-06.13 -continue IV nafcillin 2 g q.6 # S/p cardiac arrest- PEA # ROSC after 6 mins -treated w/ targeted temp therapy # Cardiogenic shock: Resolved # AFib with CVR # Chronic heart failure with preserved ejection fraction -status post tracheostomy and PEG tube placement 06/18/2023 -continue to wean patient via pressure support ventilation and humidified trach collar trials. -bronchoscopy done on 05/26- L-side with minimal secretion. R-side with copious thick secretion partially occluding R Main bronchus. BAL performed. -respiratory cultures on 06/05 negative -chest x-ray done today showed bilateral pleural effusions with pulmonary congestion, -CT Chest showed dilated MPA of 4.2 cms Plan -continue lasix 60 mg q8, and continue metalozone 10 mg q12 # Possible aspiration induced fever new onset fever- resolved suspect 2/2 aspiration pneumonia sepsis/septic shock-ruled out -respiratory cultures on 06/10- MSSA -received doxy from 06/10-06.13 -continue IV nafcillin 2 g q.6 from 06/13 to 06/17 # S/p cardiac arrest- PEA. He has recovered without any neurological sequelae. # ROSC after 6 mins -treated w/ targeted temp therapy # Cardiogenic shock: Resolved # AFib with CVR # Chronic heart failure with preserved ejection fraction # Small to moderate pericardial effusion -levophed dced on 06/09 -monitor to maintain map above 65 -amiodarone is DCed on 06/06 -as per cardio, dc sotalol i/v/o low EF, and start metoprolol -continue metoprolol tartarate 50 mg bid, resume elquis after the procedure -Echo on 06/02/2024 showed an ejection fraction of 60-65%, trace pericardial effusion. -echo done on 06/05 after cardiac arrest showed EF of 45-50%, RV moderately dilated with severely reduced systolic function # DILAN-likely prerenal- improved Cr-likely trending down Creatinine1.33 On lasix, and metolazone Monitor bmp and i/o chart #Hypernatremia -normalized #Hypokalemia-likely secondary to Lasix-normalized # mild metabolic alkalosis- 03/20 lasix induced contraction alkalosis Sodium was down to 143, and normalized continue free water flushes 200 mL q.4h K replacement per protocol and TF KCL 40 mEq Q6h # Elevated transaminase- normalized -lfts-normalized -suspect likely secondary to amiodarone # Diabetes mellitus type 2 with a1c of 6.8 -goal to maintain glucose in the range of 140-180 -insulin if needed Nutrition -continue TFs with corpak. # Post cardiac arrest encephalopathy : Has recovered with no neurological sequelae. -awake and alert -continue sedation with low dose fenatnyl Events on 06/06 -FiO2 50, and low-dose Levophed. -started tube feeds -DC amiodarone Events on 06/07 -FiO2 down to 40 from 50 -weaned off Levophed -SAT/SBT -creatinine, LFTs trending down -EEG today -added sotalol events on 06/08 -fio2-40 with peep of 10 -on levophed at 0.03 mcg/kg/min -sedation changed to ketamine and fentanyl -iv lasix 80 f/b 40 mg bid for pleural effusions and worsening pulm edema events on 06/09 -lasix increased to 40 mg q8 -PEEP down to 5 -SAT/SBT events on 06/10 -spiking fevers, blood cultures, resp cultures- sent -emperically started on piptazo, and vanco, DC Zosyn and vanco, started on IV doxy 100 mg b.i.d. -lasix dose increased to 60mg q8, for elevated CVP, and increased pulm congestion on cxr -DC OG and changed to corpak Events on 06/13 -discussed with patient and her son and they agreed for tracheostomy and PEG. Dr. Reeves consulted -Eliquis held for trach and PEG placement -DC doxycycline and changed to IV nafcillin Events on 06/14 -Precedex DC dced sedation changed to fentanyl -awaiting trach and PEG on Events on 06/15 -hypokalemia -potassium replacement -hypernatremia increased free water flushes events on 06/16 -D5W for na of 150 -added metalozone -preop cardiac clearance for trach/peg placement requested events on 06/17 -na-145, dc D5W -cardiac clearance obtained, trach and peg today -DC sotalol, change to metoprolol 50 mg bid -ct chest- enlarged MPA, small to mod pericardial effusion -good uop after adding metolazone -cr- trending up Code Status: Full code Analgesia/sedation: precedex Line/tube: right radial arterial line, ETT, corpak, Ying, PIV GI prophylaxis: Changed to pantoprazole. DVT prophylaxis: SCD, resumed elquis after procedure Nutrition: Vital AF 1.2 at 70 mL/hour Prognosis: guarded Disposition: Continue care in ICU and plan to transfer out the pt to [facility] on tomorrow 06/23/24 Resident MD attestation: Patient was seen and examined with attending MD, Dr. Jeremy OCASIO MD Internal Medicine Resident, PGY2 [facility] Date of Service: June 23, 2024 Billing Provider: SHIRAZ MOLINA MD Common Visit Codes: [id number] INP/OBS CARE(HIGH) TATI OCASIO, JOSEPH June 23, 2024 17:56 SHIRAZ MOLINA MD June 23, 2024 20:47
--- NOTE | 2024-06-23 18:52 | PROGRESS NOTE- Residence ---
Progress Note - Resident Providers to CC Resident Creating Document: RODRICK EARL JULIAN, JOSEPH ~ Antibiotic Timeout Antibiotic Ordered?: No Subjective Patient seen and examined at the bedside today. The patient was reported to be significantly anxious last night and was started on IV Precedex which was discontinued soon after. She continues to state that she wants to go home and feels very anxious. Denied any other concerns or complaints. Has been successfully weaned off mechanical ventilation. Objective Vital Signs Date Time Temp Pulse Resp B/P (MAP) Pulse Ox O2 Delivery O2 Flow Rate FiO2 06/23/24 18:00 98.2 107 21 143/58 (86) 94 Trach Collar 10.0 35 Result Diagram: 06/23/2423606/23/24236 General: Elderly female, obese, on trach collar off of mechanical ventilation. Awake, alert and following commands. Head: Normocephalic with an atraumatic Eyes: Pupils- 3mm, reacting to light, conjunctiva- anicteric Nose and throat: No polyps, septum- normal, no mucosal ulcers Neck: Supple, no lymphadenopathy, no carotid bruit Respiratory: No use of accessory muscles of respiration, Bilateral equal air entry, decreased breath sounds over the basal areas Cardiac: S1-S2 heard, rythm regular, no gallop/murmur Abdomen: obese, distended, no tenderness, no organomegaly, bowel sounds- heard Extremities: no clubbing, no pedal edema, no deformities, peripheral pulses- 2+ Skin: warm and dry, no rash, no purpura, edema- resolved Neuro: moving all extremities Assessment Assessment 63-year-old female past medical history of atrial fibrillation, hypertension, COPD, diabetes mellitus, depression is admitted in the ICU for evaluation and management of acute hypoxemic respiratory failure secondary to aspirational pneumonia. The patient was initially extubated on 06/04/2024 and was transferred to the floor after which she had one more episode of choking leading to cardiac arrest. The patient had to be intubated. She underwent tracheostomy tube placement on 06/17. The patient is planned to be transferred to long-term acute care facility for further care and recovery. Awaiting placement. Plan Plan Acute hypoxemic respiratory failure Aspirational pneumonia COPD exacerbation Patient had a tracheostomy and PEG tube placement on 06/17/2024. She has been successfully weaned off mechanical ventilation and is the tolerating trach mask well. RT eval and treat. DuoNeb nebulizations as needed for shortness of breaths and wheezing every 4 hours. Albuterol nebulizations every 6 hours scheduled. Septic shock- ruled out Respiratory cultures on 06/10- MSSA Was on doxy from 06/10-4.28 IV nafcillin 2 g q.6 hours from 06/10-06/23 Repeat blood cultures - no growth. Status post cardiac arrest Rosc after 6 minutes Cardiogenic shock -resolved AFib Chronic heart failure with preserved ejection fraction Discontinued IV Lasix. Continue close monitoring of input and output. Continue metoprolol tartrate 50 mg b.i.d.. She has been running in and out of atrial fibrillation with rapid ventricular rate. Started the patient on amiodarone 400 mg b.i.d. Continue Eliquis 5 mg b.i.d. via PEG DILAN on CKD Metabolic alkalosis most likely secondary to contraction alkalosis Hypernatremia The patient's renal function is improving. Creatinine trending down. Metabolic alkalosis improving. Was most likely due to contraction alkalosis. Discontinued IV diuretics. Started the patient on free water flushes 200 q.4 hours. We will continue to monitor renal function test closely. Anxiety/agitation Started the patient on risperidone 1 mg PEG hs. Weaned off of all sedation. We will continue close monitoring. CODE STATUS: Full code GI prophylaxis: Pantoprazole DVT prophylaxis: Eliquis Disposition: Continue ICU care. Has been weaned off of mechanical ventilation. She is planned to be transferred to LTAC on 06/23/2024. Rodrick Earl MD Internal Medicine Resident, PGY-2 Date of Service: June 23, 2024 Billing Provider: PARMJIT PACHECO MD,RODRICK JORDAN, RES June 23, 2024 18:52
[2024-06-23] MEDS: metoprolol tartrate 50mg tablet PEG SCH (20:14)
[2024-06-23] MEDS: apixaban 5mg tablet PEG SCH (20:14)
[2024-06-23] MEDS: LOPERAMIDE 2 mg/15 ml oral solution UD OGT PRN (21:07)
[2024-06-24] VITALS (20 sets, daily range): BP systolic 116–170; BP diastolic 40–75; PULSE 72–111; RESP 14–29; O2SAT 94–100
[2024-06-24 03:05] LABS: BASOPHILS % (AUTO) 0.2 % (0-1); EOSINOPHILS # (AUTO) 0.4 X10'3 (0-0.9); EOSINOPHILS % (AUTO) 6.7 % (0-6); HEMATOCRIT 37.3 % (35.0-45.0); HEMOGLOBIN 12.2 g/dl (12.0-16.0); LYMPHOCYTES % (AUTO) 17.4 % (21-51); MEAN CORPUSCULAR HEMOGLOBIN 29.3 PG (27.0-31.0); MEAN CORPUSCULAR HGB CONC 32.6 g/dL (33.0-36.5); MEAN CORPUSCULAR VOLUME 89.9 FL (78-98); MEAN PLATELET VOLUME 10.9 FL (7.4-10.4); MONOCYTES # (AUTO) 0.4 X10'3 (0-0.9); MONOCYTES % (AUTO) 7.2 % (2-12); NEUTROPHILS # (AUTO) 4.1 X10'3 (1.8-7.7); NEUTROPHILS % (AUTO) 68.5 % (42-75); PLATELET COUNT 246 X10'3 (140-440); RED BLOOD COUNT 4.15 X10'6 (4.20-5.60); RED CELL DISTRIBUTION WIDTH 15.4 % (11.5-14.5)
[2024-06-24 03:37] LABS: ALANINE AMINOTRANSFERASE 11 U/L (12-78); ALBUMIN 2.5 G/DL (3.4-5.0); ALBUMIN/GLOBULIN RATIO 0.6 (1.1-1.5); ALKALINE PHOSPHATASE 68 IU/L (46-116); ANION GAP 7 (8-16); ASPARTATE AMINO TRANSFERASE 18 U/L (10-37); BILIRUBIN,TOTAL 0.8 MG/DL (0.1-1.0); BLOOD UREA NITROGEN 63 MG/DL (7-18); CALCIUM 8.9 MG/DL (8.5-10.1); CHLORIDE 101 MMOL/L (99-107); CREATININE 1.26 MG/DL (0.40-0.90); GLUCOSE 156 MG/DL (70-104); MAGNESIUM 2.3 MG/DL (1.5-2.4); PHOSPHORUS 2.6 MG/DL (2.3-4.5); POTASSIUM 3.1 MMOL/L (3.5-5.1); SODIUM 143 MMOL/L (135-145); TOTAL CARBON DIOXIDE 34.7 MMOL/L (24-32); TOTAL PROTEIN 6.7 G/DL (6.4-8.2); eCRCL 32 ML/MIN; eGFR 43 ML/MIN
[2024-06-24] MEDS: POTASSIUM CHLORIDE 20 MEQ/15 ML oral solution PEG PRN (04:10)
[2024-06-24] MEDS: lactobacillus rhamnosus 10,000 MMU CELLS/CAPSULE PEG SCH (08:33)
[2024-06-24] MEDS: nystatin 500,000 unit/5ML UD oral suspension PEG SCH (08:33)
[2024-06-24] MEDS ORDERED: LOPERAMIDE 2 mg/15 ml oral solution UD PEG PRN (09:42)
[2024-06-24] MEDS: acetaminophen 325mg/10.15ml oral unit dose solution PEG PRN (12:16)
--- NOTE | 2024-06-24 16:12 | PROGRESS NOTE- Residence ---
Progress Note - Resident Providers to CC Resident Creating Document: BRIGIDO TRAN RES ~ Antibiotic Timeout Antibiotic Ordered?: No Subjective Patient seen and examined at the bedside today. Patient is going to the [facility] today. No new complaints Objective Vital Signs Date Time Temp Pulse Resp B/P (MAP) Pulse Ox O2 Delivery O2 Flow Rate FiO2 06/24/24 13:00 86 16 133/40 (71) 95 Trach Collar 10.0 35 06/24/24 11:00 99.0 Result Diagram: 06/24/24 0221 06/24/24 0221 General: not in acute distress but awake and responded. HEENT: Conjunctive are pink, sclerae clear, no icterus, pupil is equal in both sides, reactive to light, no ear discharge, no pharyngeal erythema or an edema, mouth and lips are dry. Neck: Supple, no JVD, no lymphadenopathy and thyromegaly. Lungs: Equal air entry on both lungs, bilateral fine basal crackles Heart: S1-S2 atrial fibrillation rhythm and, RVR, no gallops, no rubs, no murmurs Abdomen: No visible peristalsis, Bowel sounds present on auscultation, soft, nontender, no guarding, no rigidity Extremities: No obvious deformities, no pitting edema bilaterally, capillary refill intact, able to wiggle toes both sides, peripheral pulsations are intact on both sides MANAGER RECRUITMENT: No focal neurological deficits, no motor and sensory weakness in all 4 extremities, could move all 4 extremities Musculoskeletal: No joint swelling, deformities, inflammations, and no scoliosis and back tenderness Skin: No active skin lesions and rashes. Advance Care Planning Advanced Care plannin - 30 Minutes Assessment Assessment 63-year-old female past medical history of atrial fibrillation, hypertension, COPD, diabetes mellitus, depression is admitted in the ICU for evaluation and management of acute hypoxemic respiratory failure secondary to aspirational pneumonia. The patient was initially extubated on 06/04/2024 and was transferred to the floor after which she had one more episode of choking leading to cardiac arrest. The patient had to be intubated. She underwent tracheostomy tube placement on 06/17. The patient is planned to be transferred to long-term acute care facility for further care and recovery. Awaiting placement. Plan Plan Plan: Management plan per ICU team # Small to moderate pericardial effusion # Acute hypoxemic respiratory failure, aspiration pneumonia from 06/05 # COPD exacerbation # ERASMO # PAH -Patient tolerating humidified trach collar trial . -bronchoscopy done on 05/26- L-side with minimal secretion. R-side with copious thick secretion partially occluding R Main bronchus. BAL performed. -respiratory cultures on 06/05 negative -chest x-ray done today showed bilateral pleural effusions with pulmonary congestion, -CT Chest showed dilated MPA of 4.2 cms Plan -continue lasix 60 mg q8, and continue metalozone 10 mg q12 -status post tracheostomy and PEG tube placement 06/18/2023 -continue to wean patient via pressure support ventilation and humidified trach collar trials. # Possible aspiration induced fever new onset fever- resolved suspect 2/2 aspiration pneumonia sepsis/septic shock-ruled out -respiratory cultures on 06/10- MSSA -received doxy from 06/10-06.13 -continue IV nafcillin 2 g q.6 # S/p cardiac arrest- PEA # ROSC after 6 mins -treated w/ targeted temp therapy # Cardiogenic shock: Resolved # AFib with CVR # Chronic heart failure with preserved ejection fraction -status post tracheostomy and PEG tube placement 06/18/2023 -continue to wean patient via pressure support ventilation and humidified trach collar trials. -bronchoscopy done on 05/26- L-side with minimal secretion. R-side with copious thick secretion partially occluding R Main bronchus. BAL performed. -respiratory cultures on 06/05 negative -chest x-ray done today showed bilateral pleural effusions with pulmonary congestion, -CT Chest showed dilated MPA of 4.2 cms Plan -continue lasix 60 mg q8, and continue metalozone 10 mg q12 # Possible aspiration induced fever new onset fever- resolved suspect 2/2 aspiration pneumonia sepsis/septic shock-ruled out -respiratory cultures on 06/10- MSSA -received doxy from 06/10-06.13 -continue IV nafcillin 2 g q.6 from 06/13 to 06/17 # S/p cardiac arrest- PEA. He has recovered without any neurological sequelae. # ROSC after 6 mins -treated w/ targeted temp therapy # Cardiogenic shock: Resolved # AFib with CVR # Chronic heart failure with preserved ejection fraction # Small to moderate pericardial effusion -levophed dced on 06/09 -monitor to maintain map above 65 -amiodarone is DCed on 06/06 -as per cardio, dc sotalol i/v/o low EF, and start metoprolol -continue metoprolol tartarate 50 mg bid, resume elquis after the procedure -Echo on 06/02/2024 showed an ejection fraction of 60-65%, trace pericardial effusion. -echo done on 06/05 after cardiac arrest showed EF of 45-50%, RV moderately dilated with severely reduced systolic function # DILAN-likely prerenal- improved Cr-likely trending down Creatinine1.33 On lasix, and metolazone Monitor bmp and i/o chart #Hypernatremia -normalized #Hypokalemia-likely secondary to Lasix-normalized # mild metabolic alkalosis- / lasix induced contraction alkalosis Sodium was down to 143, and normalized continue free water flushes 200 mL q.4h K replacement per protocol and TF KCL 40 mEq Q6h # Elevated transaminase- normalized -lfts-normalized -suspect likely secondary to amiodarone # Diabetes mellitus type 2 with a1c of 6.8 -goal to maintain glucose in the range of 140-180 -insulin if needed Nutrition -continue TFs with corpak. # Post cardiac arrest encephalopathy : Has recovered with no neurological sequelae. -awake and alert -continue sedation with low dose fenatnyl Events on 06/06 -FiO2 50, and low-dose Levophed. -started tube feeds -DC amiodarone Events on 06/07 -FiO2 down to 40 from 50 -weaned off Levophed -SAT/SBT -creatinine, LFTs trending down -EEG today -added sotalol events on 06/08 -fio2-40 with peep of 10 -on levophed at 0.03 mcg/kg/min -sedation changed to ketamine and fentanyl -iv lasix 80 f/b 40 mg bid for pleural effusions and worsening pulm edema events on 06/09 -lasix increased to 40 mg q8 -PEEP down to 5 -SAT/SBT events on 06/10 -spiking fevers, blood cultures, resp cultures- sent -emperically started on piptazo, and vanco, DC Zosyn and vanco, started on IV doxy 100 mg b.i.d. -lasix dose increased to 60mg q8, for elevated CVP, and increased pulm congestion on cxr -DC OG and changed to corpak Events on 06/13 -discussed with patient and her son and they agreed for tracheostomy and PEG. Dr. Reeves consulted -Eliquis held for trach and PEG placement -DC doxycycline and changed to IV nafcillin Events on 06/14 -Precedex DC dced sedation changed to fentanyl -awaiting trach and PEG on Events on 06/15 -hypokalemia -potassium replacement -hypernatremia increased free water flushes events on 06/16 -D5W for na of 150 -added metalozone -preop cardiac clearance for trach/peg placement requested events on 06/17 -na-145, dc D5W -cardiac clearance obtained, trach and peg today -DC sotalol, change to metoprolol 50 mg bid -ct chest- enlarged MPA, small to mod pericardial effusion -good uop after adding metolazone 06/24/2024 Patient had tracheostomy and PEG tube. Patient is getting albuterol nebulization. We will continue Eliquis 5 mg b.i.d. through PEG tube, metoprolol tartrate 50 mg b.i.d. through PEG tube. Patient is transferring to [facility] for further care. Brigido Tran resident Date of Service: June 24, 2024 Billing Provider: SHIRAZ MOLINA MD Common Visit Codes: [id number] INP/OBS CARE(HIGH) BRIGIDO TRAN, JOSEPH June 24, 2024 16:12 SHIRAZ MOLINA MD June 24, 2024 22:05
--- NOTE | 2024-06-24 18:23 | DISCHARGE SUMMARY-Residence ---
Discharge Summary Providers to CC Resident Creating Document: PRUDENCE NIETO, RES ~ Discharge Summary Admission Diagnosis: Acute respiratory failure Hospital Course DATE OF ADMISSION: 06/02/2024 DATE OF DISCHARGE: 06/24/2024 Discharge Diagnosis\Comment: Acute hypoxemic respiratory failure COPD exacerbation Aspiration pneumonia-POA Status post tracheostomy and PEG tube placement on 06/17/2024 Status post cardiac arrest Cardiogenic shock -resolved AFib Chronic heart failure with preserved ejection fraction. DILAN on CKD Metabolic alkalosis Hypernatremia Agitation/anxiety Septic shock- ruled out Operations\Procedures: Tracheostomy and PEG tube placement on 06/17/2024 Consultants: Cardiology-Dr. Sung Digital Asset Manager-Dr. Rico/[place] Complications: None Condition on DC: Stable for transfer Discharge Summary: History of presenting illness by patient was admitted in the ICU for worsening acute hypoxemic respiratory failure the admitting physician Dr. Plaza on 06/02/2024: Patient was seen in ER in presence of ER physician and nursing staff. Patient was coughing and choking and about to get intubated. As per ER provider she c hoked on her sandwich and they are going to transfer her soon to CICU after intubation. Unable to get any history from the patient. All the history is obtained from ER records. I called Dr. Rico who is aware regarding patient's transferred to CICU.The patient arrives by EMS, with rapid heart rate and respiratory distress. She reportedly had SVT, was given 2 doses of adenosine, 6 mg and 12 mg, with what appeared to be atrial flutter as an underlying rhythm. She was placed on a non-rebreather for shortness of breath and hypoxia. Today, she started to develop some chest discomfort, lightheadedness, and worsening shortness of breath. Does have a history of COPD and has had an increased cough. She has been using her inhalers without relief. She also reports a history of atrial fibrillation, is on sotalol and Eliquis. She did not take her morning medications. Course in the hospital: The patient was admitted in the ICU for acute hypoxemic respiratory failure secondary to aspiration pneumonia and also COPD exacerbation. Due to her severe and significant respiratory distress and increased work of breathing the patient had to be intubated and mechanically ventilated. Patient also developed a cardiac arrest next and later Rosc was achieved after a successful code. She developed cardiogenic shock and had to be started on pressors. During her course in the hospital as she had rapid runs of atrial fibrillation with a rapid ventricular rate. Initially was started on IV amiodarone drip when later converted to p.o. amiodarone. Patient was treated with the broad-spectrum IV antibiotics forty suspected aspiration pneumonia. She was initially treated with the IV doxycycline and later was started on IV nafcillin 2 g q.6 hours on 06/13. The patient's respiratory cultures grew MSSA which was treated accordingly. Patient was also treated with the IV diuresis to maintain a negative fluid balance in view of her congestive heart failure and fluid overload state. Due to her prolonged requirement of intubation and mechanical ventilation we required the patient to get a tracheostomy done. Dr. Reeves performed a tracheostomy and PEG tube placement on 06/17/2024. She has been successfully weaned off IV vasopressors. The patient was also eventually weaned off of mechanical ventilation and was stable on trach mask. In view of her prolonged requirement of care and management the patient is being transferred to LTAC for further care and management. Examination at the time of discharge: General: Elderly female, obese, on trach collar off of mechanical ventilation. Awake, alert and following commands. Head: Normocephalic with an atraumatic Eyes: Pupils- 3mm, reacting to light, conjunctiva- anicteric Nose and throat: No polyps, septum- normal, no mucosal ulcers Neck: Supple, no lymphadenopathy, no carotid bruit Respiratory: No use of accessory muscles of respiration, Bilateral equal air entry, decreased breath sounds over the basal areas Cardiac: S1-S2 heard, rythm regular, no gallop/murmur Abdomen: obese, distended, no tenderness, no organomegaly, bowel sounds- heard Extremities: no clubbing, no pedal edema, no deformities, peripheral pulses- 2+ Skin: warm and dry, no rash, no purpura, edema- resolved Neuro: No focal deficits. Laboratory Tests Test 06/22/24 19:33 06/23/24 01:59 06/23/24 02:37 06/23/24 08:45 Glucometer 154 mg/dl 150 mg/dl 211 mg/dl White Blood Count 7.9 X10'3 Red Blood Count 4.67 X10'6 Hemoglobin 13.8 g/dl Hematocrit 42.3 % Mean Corpuscular Volume 90.6 FL Mean Corpuscular Hemoglobin 29.5 PG Mean Corpuscular Hemoglobin Concent 32.5 g/dL Red Cell Distribution Width 15.6 % Platelet Count 272 X10'3 Mean Platelet Volume 10.3 FL Neutrophils (%) (Auto) 83.1 % Lymphocytes (%) (Auto) 6.9 % Monocytes (%) (Auto) 4.4 % Eosinophils (%) (Auto) 5.4 % Basophils (%) (Auto) 0.2 % Neutrophils # (Auto) 6.6 X10'3 Lymphocytes # (Auto) 0.5 X10'3 Monocytes # (Auto) 0.3 X10'3 Eosinophils # (Auto) 0.4 X10'3 Basophils # (Auto) 0.0 X10'3 CBC Comment Sodium Level 146 MMOL/L Potassium Level 3.5 MMOL/L Chloride Level 103 MMOL/L Carbon Dioxide Level 36.4 MMOL/L Anion Gap 7 Blood Urea Nitrogen 68 MG/DL Creatinine 1.24 MG/DL Estimated GFR/1.73 m2 44 ML/MIN BUN/Creatinine Ratio 54.8 Glucose Level 216 MG/DL Calcium Level 9.3 MG/DL Phosphorus Level 2.4 MG/DL Magnesium Level 2.5 MG/DL Total Bilirubin 1.4 MG/DL Aspartate Amino Transf (AST/SGOT) 17 U/L Alanine Aminotransferase (ALT/SGPT) 12 U/L Alkaline Phosphatase 78 IU/L Total Protein 7.5 G/DL Albumin 2.8 G/DL Globulin 4.7 G/DL Albumin/Globulin Ratio 0.6 Triglycerides Level 91 MG/DL Chemistry Comments Test 06/23/24 14:09 06/23/24 15:00 06/23/24 20:20 06/24/24 02:20 Glucometer 196 mg/dl 160 mg/dl 164 mg/dl Clostridium Difficile Toxin A & B Negative Clostridium difficile Antigen Negative Test 06/24/24 02:21 06/24/24 12:42 White Blood Count 6.0 X10'3 Red Blood Count 4.15 X10'6 Hemoglobin 12.2 g/dl Hematocrit 37.3 % Mean Corpuscular Volume 89.9 FL Mean Corpuscular Hemoglobin 29.3 PG Mean Corpuscular Hemoglobin Concent 32.6 g/dL Red Cell Distribution Width 15.4 % Platelet Count 246 X10'3 Mean Platelet Volume 10.9 FL Neutrophils (%) (Auto) 68.5 % Lymphocytes (%) (Auto) 17.4 % Monocytes (%) (Auto) 7.2 % Eosinophils (%) (Auto) 6.7 % Basophils (%) (Auto) 0.2 % Neutrophils # (Auto) 4.1 X10'3 Lymphocytes # (Auto) 1.0 X10'3 Monocytes # (Auto) 0.4 X10'3 Eosinophils # (Auto) 0.4 X10'3 Basophils # (Auto) 0.0 X10'3 CBC Comment Sodium Level 143 MMOL/L Potassium Level 3.1 MMOL/L Chloride Level 101 MMOL/L Carbon Dioxide Level 34.7 MMOL/L Anion Gap 7 Blood Urea Nitrogen 63 MG/DL Creatinine 1.26 MG/DL Estimated GFR/1.73 m2 43 ML/MIN BUN/Creatinine Ratio 50.0 Glucose Level 156 MG/DL Calcium Level 8.9 MG/DL Phosphorus Level 2.6 MG/DL Magnesium Level 2.3 MG/DL Total Bilirubin 0.8 MG/DL Aspartate Amino Transf (AST/SGOT) 18 U/L Alanine Aminotransferase (ALT/SGPT) 11 U/L Alkaline Phosphatase 68 IU/L Total Protein 6.7 G/DL Albumin 2.5 G/DL Globulin 4.2 G/DL Albumin/Globulin Ratio 0.6 Chemistry Comments Blood Gas Specimen Type Arterial Blood Gas Puncture Site Rosemarie O2 Saturation 99.6 % Arterial Blood pH (Temp corrected) 7.102 Arterial Blood pCO2 (Temp correct) 59.3 mmHg Arterial Blood pO2 (Temp corrected) 231.5 mmHg Arterial Blood PO2/FiO2 Ratio 2.61 mmHg/% Arterial Blood HCO3 18.2 mmol/L Arterial Blood Base Excess -11.2 mmol/L Arterial Blood Oxyhemoglobin 98.8 % Arterial Blood Carboxyhemoglobin 0.6 % Arterial Blood Methemoglobin 0.2 % Arterial Blood Deoxyhemoglobin 0.4 % Tono Test Na Blood Gas Hemoglobin 8.9 G/dl Blood Gas Temperature 36.3 Blood Gas Set Respiration Rate 25 b/min Blood Gas Modality Vent - prvc FiO2 90.0 mmHg/% Blood Gas Tidal Volume 300 mL Blood Gas PEEP 18 cm H2O Blood Gas Critical Value Called To dr field Recommendation at the time of discharge: Continue care as per KALIE OROZCO. Continue p.o. amiodarone 400 mg b.i.d. for next five days and switch to 200 mg p.o. daily. Patient was restarted back on Eliquis. She was also started on metoprolol tartrate 50 mg b.i.d. for AFib with RVR. Continue feeding through the PEG tube. Hyperglycemia management with a sliding scale as per [facility] protocol. Was started on rocuronium 1 mg PO HS for anxiety. Follow up with the patient's transport company manager. Respiratory therapist evaluation and management recommended. Continue trach management. *Problems/Diagnosis: (1) Acute aspiration pneumonia (2) Acute hypoxic respiratory failure Status: Acute (3) Sepsis (4) Septic shock (5) Cardiac arrest (6) DILAN (acute kidney injury) (7) CKD (chronic kidney disease) (8) Hypernatremia (9) Metabolic alkalosis (10) Anxiety (11) Rapid atrial fibrillation Status: Acute (12) Acute exacerbation of congestive heart failure Status: Acute (13) Acute bronchitis Status: Acute (14) COPD exacerbation Status: Acute (15) Acute respiratory infection Status: Acute Total Time Spent on D/C: > 30 Minutes Date of Service: June 24, 2024 Billing Provider: PARMJIT FIELD MD,PRUDENCE JORDAN, RES June 24, 2024 18:23
[2024-06-24] MEDS ORDERED: risperiDONE 0.5mg tablet PEG SCH (21:00)
== END 2024-06-24 14:32 | DRG 4 ==
LOC: ER 10:13 → ED HOLD 12:28 → EDBEDREQSVC 15:35 → CICU 2S 15:52 → PCU 3S 06-04 17:49 → CICU 2S 06-05 09:01
PROVIDERS: ADMIT Internal Medicine; ATTEND Internal Medicine Critical Care Medicine
PROC: 0BH17EZ Insertion of Endotracheal Airway into Trachea, Via Natural or Artificial Opening (ICD-10-PCS; principal; 2024-06-02)
PROC: 5A1955Z Respiratory Ventilation, Greater than 96 Consecutive Hours (ICD-10-PCS; 2024-06-02)
PROC: 03HY32Z Insertion of Monitoring Device into Upper Artery, Percutaneous Approach (ICD-10-PCS; 2024-06-05)
PROC: 02HV33Z Insertion of Infusion Device into Superior Vena Cava, Percutaneous Approach (ICD-10-PCS; 2024-06-05)
PROC: 0B9K8ZX Drainage of Right Lung, Via Natural or Artificial Opening Endoscopic, Diagnostic (ICD-10-PCS; 2024-06-05)
PROC: 5A12012 Performance of Cardiac Output, Single, Manual (ICD-10-PCS; 2024-06-05)
PROC: 4A00X4Z Measurement of Central Nervous Electrical Activity, External Approach (ICD-10-PCS; 2024-06-07)
PROC: BW251ZZ Computerized Tomography (CT Scan) of Chest, Abdomen and Pelvis using Low Osmolar Contrast (ICD-10-PCS; 2024-06-16)
PROC: 0B110F4 Bypass Trachea to Cutaneous with Tracheostomy Device, Open Approach (ICD-10-PCS; 2024-06-17)
PROC: 0DH63UZ Insertion of Feeding Device into Stomach, Percutaneous Approach (ICD-10-PCS; 2024-06-17)
DX: J96.01 Acute respiratory failure with hypoxia (principal); I50.33 Acute on chronic diastolic (congestive) heart failure; J69.0 Pneumonitis due to inhalation of food and vomit; I46.9 Cardiac arrest, cause unspecified; I13.0 Hypertensive heart and chronic kidney disease with heart failure and stage 1 through stage 4 chronic kidney disease, or unspecified chronic kidney disease; I48.20 Chronic atrial fibrillation, unspecified; J44.1 Chronic obstructive pulmonary disease with (acute) exacerbation; E87.3 Alkalosis; E87.0 Hyperosmolality and hypernatremia; E87.1 Hypo-osmolality and hyponatremia; I31.39 Other pericardial effusion (noninflammatory); I47.10 Supraventricular tachycardia, unspecified; G93.40 Encephalopathy, unspecified; N17.9 Acute kidney failure, unspecified; E11.22 Type 2 diabetes mellitus with diabetic chronic kidney disease; F32.A Depression, unspecified; E66.01 Morbid (severe) obesity due to excess calories; T17.228A Food in pharynx causing other injury, initial encounter; W44.F3XA Food entering into or through a natural orifice, initial encounter; E87.6 Hypokalemia; G47.33 Obstructive sleep apnea (adult) (pediatric); R74.01 Elevation of levels of liver transaminase levels; T50.1X5A Adverse effect of loop [high-ceiling] diuretics, initial encounter; N18.30 Chronic kidney disease, stage 3 unspecified; Z88.5 Allergy status to narcotic agent; Z91.018 Allergy to other foods; Z79.01 Long term (current) use of anticoagulants; Z79.899 Other long term (current) drug therapy; Y92.89 Other specified places as the place of occurrence of the external cause; Y93.89 Activity, other specified; Y99.8 Other external cause status
CPT/HCPCS: 31645; 36415; 36600; 71045; 71260; 74018; 74177; 76700; 80048; 80053; 80202; 81001; 82803; 82948; 83036; 83605; 83735; 83880; 84100; 84132; 84134; 84145; 84443; 84478; 84484; 85008; 85018; 85025; 87040; 87070; 87077; 87081; 87186; 87324; 87449; 93005; 93306; 93308; 94002; 94003; 94640; 94660; 94760; 95816; 96374; 96375; 97110; 97161; 97164; 97530; 99285; A4215; A4615; A4618; A4620; A4623; A4624; A4628; A4649; A5200; A6154; A6196; A6209; A6212; A6213; A6250; A6258; A6402; A6449; A7000; A7015; A9900; B4087; C1752; C1758; G0378; J0171; J0282; J0461; J0694; J1120; J1815; J1938; J1940; J2003; J2250; J2270; J2405; J2470; J2543; J2704; J2919; J3010; J3370; J3480; J3490; J7030; J7040; J7050; J7070; J7120; P9045; Q9967

== ENCOUNTER 2024-07-28 16:03 | Emergency (ER) | payer MEDICARE, MEDICAID ==
[~2024-07-28] VITALS: Ht 152.4 cm; Wt 121.4 kg
[~2024-07-28 16:03] MED LIST changes: -ADV50250 IH; -ALBU18HF2 IH; -ALBU8.5H17 IH; +APIX5TAB3 PO; +FURO-149 PO; +HYDR12.55 PO; -IBUP-1986 PO; -LISI20TA28 PO; +LISI40TA13 PO; +POTA10CA95 PO; +SOTA80TA10 PO
[2024-07-28 16:14] VITALS: TEMP 98.8
--- NOTE | 2024-07-28 17:15 | Physician Documentation ---
History of Present Illness ~ Chief Complaint: G-Tube Problems Stated Complaint: LOW 02 Time Seen by MD: 16:51 Primary Medical Doctor: Radhames RODRÍGUEZ This is a 63-year-old female who presents with a PEG tube in place, patient reports that the area around the PEG tube is tender and is concerned it is infected, patient reports that she feels she was not discharged from long-term care facility with the appropriate supplies to change the dressing off enough. Patient reports that she was no longer utilizing the PEG tube for feeding and is scheduled to have the tube removed on the of this month. Patient reports no fever chills, or other systemic symptoms. Patient reports she feels otherwise well and reports no other acute symptoms or concerns. Medication Reconciliation Allergies: Coded Allergies: coconut (Verified Allergy, Unknown, 07/28/24) HIVES codeine (Verified Allergy, Unknown, rash, 07/28/24) Scheduled Apixaban (Eliquis), 1 TAB PO BID, (Reported) Doxycycline Hyclate (Doxycycline Hyclate), 1 CAP PO Q12H Furosemide (Lasix), 1 TAB PO DAILY, (Reported) Hydrochlorothiazide (Hydrochlorothiazide), 1 TAB PO DAILY, (Reported) Lisinopril* (Lisinopril*), 1 TAB PO DAILY, (Reported) Loratadine* (Claritin*), 10 MG PO DAILY, (Reported) Potassium Chloride* (Potassium Chloride*), 1 CAP PO DAILY, (Reported) Sotalol Hcl (Sotalol Af), 0.5 TAB PO BID, (Reported) Past Medical History Past Medical History: Atrial Fibrillation, Hypertension, COPD, Diabetes, Depression Past Surgical History: no surgical history Patient History: Patient reports no known family medical history. Alcohol Use: None Drug Use: none Lives with: Family Lives In: Home Occupation: unemployed Review of Systems ROS As stated above in the HPI, otherwise all systems are reviewed and negative. Physical Exam Vital Signs: Temperature: 98.8, Source: Oral, Heart Rate: 99, Respiratory Rate: 16, BP: 126/70, Pulse Oximetry: 99, Weight: 121.360 Oxygen Flow Rate: 6.0 Physical Exam VITALS: Reviewed and as above. GENERAL: Alert, nontoxic appearing, no apparent distress. RESPIRATORY: No increased work of breathing, no respiratory distress, speaking in full clear sentences GI: Nondistended, soft, nontender, no rebound, no guarding. Peg tube in place in left upper quadrant, mild erythema surrounding PEG tube site with purulent foul-smelling discharge on dressing Progress Results/Orders Results/Orders Completed Orders - BORIS HASTINGS Doxycycline 100mg Capsule (Vibramycin 10 (07/28/24 17:18) Medications Received in ER Medications (Trade) Dose Ordered Sig/Brina Route PRN Reason Start Time Stop Time Status Last Admin Dose Admin (VIBRAMYCIN 100mg capsule) 100 mg ONCE STAT PO 07/28/24 17:18 07/28/24 17:33 DC 07/28/24 18:00 100 MG Vital Signs 07/28/24 07/28/24 07/28/24 16:14 17:10 18:10 Temp 98.8 Pulse 99 85 Resp 16 16 B/P (MAP) 126/70 104/65 Pulse Ox 99 96 O2 Flow Rate 6.0 Medical Decision Making Findings This 63-year-old female presented with discharge from her PEG site, physical exam demonstrated mild localized erythema to the PEG site with purulent material on the dressing, it is reassuring erythema was very localized and there was no tenderness to palpation to the area and no induration or fluctuance. Remainder of physical exam benign patient hemodynamically stable. There was evidence of localized infection to the PEG tract without evidence of deeper infection or wound site cellulitis, reassuring that the PEG is no longer in use and scheduled for removal by surgeon in one-week. Patient is started on course of oral antibiotics. Patient is appropriate for outpatient follow up and given careful return to care precautions and follow up instructions which she verbalized understanding of. Differential Dx:Considerations: Include: Cellulitis, Ostomy site inflammation, Tube dislodgement, Tube malfunction, Other (Abscess) Departure Disposition: 01 HOME / SELF CARE / HOMELESS Impression: Primary Impression: Infection of PEG site Condition: Improved Discharge Instructions: PEG Tube Home Guide, [id number] Additional Instructions: There appears to be a minor infection to your PEG site, please take the antibiotics as prescribed, change dressings daily or sooner if they becomes soiled. Follow up as scheduled with your surgeon for PEG tube removal. Please follow up with your primary care provider in the next few days. Please return to the emergency department for any new or worsening concerning symptoms including but not limited to spreading of the pain and swelling to the site. Referrals: NO PRIMARY CARE PROVIDER (PCP) Prescriptions Doxycycline Hyclate (Doxycycline Hyclate) 100 Mg Capsule 1 CAP PO Q12H for 7 Days, #14 CAP Prov: BORIS HASTINGS 07/28/24 Education Educated: Patient Educated regarding: diagnosis, treatment, prognosis, need for follow up Signature Scribe Signature: No scribe Attestation: The note accurately reflects work and decisions made by me.ARLENE Esposito 07/28/24 22:48 BORIS HASTINGS Jul 28, 2024 17:14
[2024-07-28] MEDS ORDERED: DOXY-411 PO (17:47)
[2024-07-28] MEDS: DOXYCYCLINE 100MG CAPSULE PO STA (18:00)
[2024-07-28 18:10] VITALS: BP 104/65; PULSE 85; RESP 16; O2SAT 96
[2024-07-30] MEDS ORDERED: NYST15CR50 TOP (21:18)
[2024-07-30] MEDS ORDERED: KEN0.1O TOP (21:18)
[2024-08-01] MEDS ORDERED: PRED20TA PO (10:55)
[2024-08-01] MEDS ORDERED: ALBU2.5V7 NEB (10:56)
[2024-08-01] MEDS ORDERED: LACT1CAP76 PO (13:34)
[2024-08-01] MEDS ORDERED: DIPH-186 PO (13:34)
== END 2024-07-28 18:24 | disposition home or self-care (01) ==
LOC: ER 16:04
DX: K94.22 Gastrostomy infection (principal); E11.9 Type 2 diabetes mellitus without complications; I10 Essential (primary) hypertension; F32.A Depression, unspecified; I48.91 Unspecified atrial fibrillation; J44.9 Chronic obstructive pulmonary disease, unspecified; Z88.8 Allergy status to other drugs, medicaments and biological substances
CPT/HCPCS: 99283; A6402; A6250; A6449

== ENCOUNTER 2024-08-14 17:33 | Inpatient (IN) | payer MEDICARE, MEDICAID ==
[~2024-08-14] VITALS: Ht 160 cm; Wt 116.4 kg
[~2024-08-14 17:33] MED LIST changes: +ALBU2.5V7 NEB; +DIPH-186 PO; -HYDR12.55 PO; +KEN0.1O TOP; +LACT1CAP76 PO; -LISI40TA13 PO; +NYST15CR50 TOP
--- NOTE | 2024-08-14 18:11 | Physician Documentation ---
History of Present Illness ~ Chief Complaint: Extremity Swelling Stated Complaint: SWOLLEN LEGS Time Seen by MD: 20:46 Primary Medical Doctor: Radhames Source: patient, RN/, RN notes reviewed Mode of Arrival: POV Exam Limitations: no limitations HPI BED 12 This patient is a 63-year-old female presenting to the ED was chief complaint right sided like pain. Patient reports that she had a redness, swelling, and worsening pain to her right lower leg over the past three days. She denies any fevers, chest pain, or shortness a breath. Patient is taking Lasix and states she has been taking them as prescribed and has not missed any doses. When asked, patient states she does sleep upright, however this is due to her tracheotomy. Patient denies any other associated symptoms at this time. Patient denies any other alleviating or exacerbating factors. Tetanus witin 5 years: Yes Medication Reconciliation Allergies: Coded Allergies: coconut (Verified Allergy, Unknown, 08/14/24) HIVES codeine (Verified Allergy, Unknown, rash, 08/14/24) Scheduled Apixaban (Eliquis), 1 TAB PO BID, (Reported) Furosemide (Lasix), 1 TAB PO DAILY, (Reported) Lactobacillus Casei/Folic Acid (Restora Rx Capsule), 1 CAP PO DAILY Loratadine* (Claritin*), 10 MG PO DAILY, (Reported) Nystatin/Triamcin Cream* (Mycolog II Cream*), 1 APPLIC TOP Q12H, (Reported) Potassium Chloride* (Potassium Chloride*), 1 CAP PO DAILY, (Reported) Sotalol Hcl (Sotalol Af), 0.5 TAB PO BID, (Reported) Triamcinolone Acetonide 0.1% Crm* (Kenalog 0.1% Crm*), 1 APPLIC TOP Q12H, (Reported) Scheduled PRN Albuterol Sulfate (Albuterol Sulfate), 1 VIAL NEB Q6H PRN for wheezing Diphenoxylate HCl/Atropine (Lomotil 2.5-0.025 mg Tablet), 1 TAB PO Q8H PRN for diarrhea Past Medical History Past Medical History: Atrial Fibrillation, Congestive Heart Failure, Hypertension, COPD, Previously Intubated, Diabetes, Depression Past Surgical History: no surgical history Patient History: FH: COPD (chronic obstructive pulmonary disease) FATHER FH: diabetes mellitus FATHER FH: leukemia MOTHER Smoking Status: Former smoker Alcohol Use: None Drug Use: none Lives with: Family Lives In: Home Occupation: unemployed Review of Systems All Other Systems at this time: Reviewed and Negative Musculoskeletal: Reports: pain, swelling Physical Exam Vital Signs: Temperature: 98.4, Source: Temporal, Heart Rate: 97, Respiratory Rate: 18, BP: 173/75, Pulse Oximetry: 99, Weight: 116.360 Oxygen Flow Rate: 0 Physical Exam VITALS: Reviewed and as above. GENERAL: Alert, nontoxic appearing, no apparent distress. HEENT: RESPIRATORY: No increased work of breathing, no respiratory distress, speaking in full clear sentences CHEST: CV: Bilateral lower extremity edema with mild erythema to bilateral calves BACK: GI: MUSCULOSKELETAL: SKIN: NEURO: PSYCH: EXAM FINDINGS BY [facility]* General: The patient is well developed, well nourished, nontoxic appearing and is in no acute distress. Skin: (SEE EXTREMITY EXAM) [place], warm and dry with no rashes. HEENT: Head was normocephalic and atraumatic. Eyes - pupils equal, round, reactive to light and accommodation. Extraocular movements were intact. Conjunctivae were nonicteric. Ears - bilateral tympanic membranes were normal. The mouth and oropharynx were clear with moist mucous membranes. There were no pharyngeal exudates or erythema. Neck: Supple and nontender. There was no jugular venous distention, lymphadenopathy, thyromegaly or masses. Chest: Clear to auscultation bilaterally without wheezes, rales or rhonchi. No accessory muscle use. No dullness to percussion. Heart: Rate regular and rhythmic. S1, S2. No murmurs. Palpation of the chest wall was normal. No rubs or thrills. Abdomen: Soft, nontender and nondistended. Positive bowel sounds. No guarding or rebound. No hepatosplenomegaly or palpable masses. Extremities: The skin over the right leg is warm and tender to the touch. Bilateral lower extremity edema, right worse than left. No cyanosis or clubbing. The patient moves all extremities. Pulses were equal and symmetric. Neurologic: Cranial nerves II-XII were intact. Sensation was intact to light touch throughout. Motor strength was 5/5 in all four extremities. Deep tendon reflexes were intact in both upper and lower extremities. Psychologic: The patient was oriented to person, place and time. The patient demonstrated appropriate judgement and insight. Progress Progress Note 2251: Paged Hospitalist [id number]: Discussed case with hospitalist who agrees to evaluate patient for admission. Results/Orders Reviewed/noted all lab results: Yes Results/Orders Orders - FRANK CORLEY MD Culture Blood (08/14/24 22:49) Page Hospitalist (08/14/24 22:51) Fill Out Med Reconciliation (08/14/24 22:51) Completed Orders - FRANK CORLEY MD Magnesium Oxide Tablet (Mag-Ox 400mg Tab (08/14/24 20:00) Potassium Cl Sr Tablet (K-Dur Tablet) (08/14/24 19:59) Acetaminophen 325mg Tablet (Tylenol Tabl (08/14/24 20:35) Procalcitonin (08/14/24 22:49) Vancomycin/Ns 1 Gm Add-[place] (Vancomyc (08/14/24 22:50) Ceftriaxone 2gm/D5w 50ml Bag (Rocephin 2 (08/14/24 22:50) Furosemide Inj (Lasix Inj) (08/14/24 22:50) Lacticsepsis (08/14/24 22:49) Potassium Cl 10meq/100ml Bag (Potassium (08/14/24 22:50) Medications Received in ER Medications (Trade) Dose Ordered Sig/Brina Route PRN Reason Start Time Stop Time Status Last Admin Dose Admin (Tylenol tablet) 650 mg ONCE ONCE PO 08/14/24 20:35 08/14/24 20:36 DC 08/14/24 20:41 650 MG Ceftriaxone Sodium/Dextrose 50 ml @ 100 mls/hr ONCE ONCE IV 08/14/24 22:50 08/14/24 23:19 DC 08/14/24 23:47 100 MLS/HR (Lasix inj) 20 mg ONCE ONCE IV 08/14/24 22:50 08/14/24 22:52 DC 08/14/24 23:45 20 MG Potassium Chloride 100 ml @ 100 mls/hr ONCE ONCE IV 08/14/24 22:50 08/14/24 23:49 DC 08/15/24 00:16 100 MLS/HR Vital Signs 08/14/24 08/14/24 08/14/24 17:37 21:34 22:33 Temp 98.4 Pulse 97 77 Resp 18 16 16 B/P (MAP) 173/75 146/75 (98) Pulse Ox 99 95 O2 Flow Rate 0 Laboratory Tests Test 08/14/24 19:13 08/14/24 20:40 08/14/24 23:10 White Blood Count 5.7 Red Blood Count 3.84 L Hemoglobin 11.7 L Hematocrit 35.4 Mean Corpuscular Volume 92.1 Mean Corpuscular Hemoglobin 30.5 Mean Corpuscular Hemoglobin Concent 33.1 Red Cell Distribution Width 16.1 H Platelet Count 230 Mean Platelet Volume 9.2 Neutrophils (%) (Auto) 64.7 Lymphocytes (%) (Auto) 24.7 Monocytes (%) (Auto) 7.7 Eosinophils (%) (Auto) 2.5 Basophils (%) (Auto) 0.4 Neutrophils # (Auto) 3.7 Lymphocytes # (Auto) 1.4 Monocytes # (Auto) 0.4 Eosinophils # (Auto) 0.1 Basophils # (Auto) 0.0 CBC Comment Sodium Level 144 Potassium Level 3.0 *L Chloride Level 105 Carbon Dioxide Level 32.6 H Anion Gap 6 L Blood Urea Nitrogen 12 Creatinine 1.02 H Estimated GFR/1.73 m2 55 BUN/Creatinine Ratio 11.8 Glucose Level 132 H Calcium Level 8.9 Troponin I High Sensitivity 13 12 Pro-B-Type Natriuretic Peptide 239 H Albumin 3.2 L Procalcitonin < 0.05 Chemistry Comments Troponin I High Sens Percent Delta 7 Troponin I Hi Sens Absolute Change -1 Lactic Acid Level 1.0 Microbiology Date/Time Source Procedure Growth Status 08/14/24 23:35 Blood Arm Left Blood Culture - Preliminary NEGATIVE (LESS THAN 24 HOURS) Resulted EKG/XRAY/CT/US/VASC/MRI EKG : Additional Comment Patient: MIKE GOMES Medical Record: [id number] : 1960, Age: 63Sex: F Location: [facility] 3S Patient Status: ADM IN Service Date/Time: [id number] Ordering Physician: BORIS HASTINGS Exam Name: ELECTROCARDIOGRAM Technologist: [facility] Test Date: 2024-08-14 Test Time: 18:44:22 Pat Name: MIKE GOMES Department: [facility]-ER Patient ID: [facility]-[id number] Room: [place] [address] 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 Frank Corley Measurements Intervals [place] Rate: 86 P: 24 FL: 158 QRS: 67 QRSD: 84 T: 8 QT: 351 QTc: 420 Interpretive Statements Sinus rhythm Atrial premature complexes Low voltage, precordial leads Borderline T abnormalities, anterior leads Baseline wander in lead(s) V2 Electronically Signed On 08-15-2024 1:39:[address] Frank Corley Please click the below link to view image of tracing. EKG Date and Time:08/14/241843 Electronically Signed by: FRANK CORLEY MD Date and Time: 08/15/24138 NO PRIMARY CARE PROVIDER~ cc: ~ Chest X-Ray : Interpreted By: both Additional Comments Patient: MIKE GOMES Medical Record: [id number] [facility] : 1960, Age: 63 Sex: Female Location: ER Patient Status: [facility] ER Service Date/Time: 08/14/241843 Ordering Physician: BORIS HASTINGS Exam: CHEST,SINGLE VIEW EXAM: DI CHEST,SINGLE VIEW CLINICAL HISTORY: CP TECHNIQUE: Single AP view of the chest WID: COMPARISON: DI CHEST,SINGLE VIEW on DOS: 07/30/24 FINDINGS: Lines and tubes: None Chest: Cardiomegaly and pulmonary vascular congestion. Small bilateral pleural effusions. No pneumothorax. The osseous structures are grossly intact. IMPRESSION: Cardiomegaly, mild pulmonary vascular congestion, and small bilateral pleural effusions. Electronically Signed by:KAVIN LINTON MD Date & Time: 08/14/241850 Dictated by: KAVIN LINTON MD Dictation date and time: 08/14/241850 Primary Care Provider: NO PRIMARY CARE PROVIDER cc: BORIS HASTINGSP ~ EDMD ESTEHR REVIEWED IMAGING AND AGREES WITH ABOVE FINDINGS Medical Decision Making Findings MSE performed in triage and patient returned to ED lobby by nursing staff to await available ED room Departure Time of Disposition: 22:51 Disposition: 09 ADMITTED INPATIENT Admitted to Inpatient Unit: yes, to hospitalist Impression: Primary Impression: Bilateral lower leg cellulitis Additional Impression: CHF (congestive heart failure) Qualified Codes: I50.9 - Heart failure, unspecified Condition: Guarded Referrals: NO PRIMARY CARE PROVIDER (PCP) Critical Care Note Total Time (mins): 30 Critical Care Note The very real possibility of a deterioration of this patient's condition required the highest level of my preparedness for sudden, emergent intervention. I provided critical care services, which included medication orders, frequent reevaluations of the patient's condition and response to treatment, ordering and reviewing test results, and discussing the case with various consultants. Excludes time spent performing separately billable procedures. The critical care time associated with the care of the patient was 30 minutes. Signature Scribe Signature: Scribed for Frank Corley MD by Belia Gupta. 08/14/24 23:00 BORIS HASTINGS Aug 14, 2024 18:11 FRANK CORLEY MD Aug 14, 2024 23:01
--- NOTE | 2024-08-14 18:47 | ELECTROCARDIOGRAPH REPORT ---
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 Frank Corley Measurements Intervals [place] Rate: 86 P: 24 CO: 158 QRS: 67 QRSD: 84 T: 8 QT: 351 QTc: 420 Interpretive Statements Sinus rhythm Atrial premature complexes Low voltage, precordial leads Borderline T abnormalities, anterior leads Baseline wander in lead(s) V2 Electronically Signed On 08-15-2024 1:39:[address] Frank Corley Please click the below link to view image of tracing.
--- NOTE | 2024-08-14 18:54 | RADIOLOGY REPORT ---
EXAM: DI CHEST,SINGLE VIEW CLINICAL HISTORY: CP TECHNIQUE: Single AP view of the chest WID: COMPARISON: DI CHEST,SINGLE VIEW on DOS: 07/30/24 FINDINGS: Lines and tubes: None Chest: Cardiomegaly and pulmonary vascular congestion. Small bilateral pleural effusions. No pneumothorax. The osseous structures are grossly intact. IMPRESSION: Cardiomegaly, mild pulmonary vascular congestion, and small bilateral pleural effusions.
[2024-08-14 19:25] LABS: MEAN PLATELET VOLUME 9.2 FL (7.4-10.4); RED CELL DISTRIBUTION WIDTH 16.1 % (11.5-14.5)
[2024-08-14 19:44] LABS: CREATININE 1.02 MG/DL (0.40-0.90); PRO BRAIN NATRIURETIC PEPTIDE 239 PG/ML (0-125); TOTAL CARBON DIOXIDE 32.6 MMOL/L (24-32); eCRCL 46 ML/MIN; eGFR 55 ML/MIN
[2024-08-14] MEDS: potassium Cl 20 mEq SR tablet PO STA (20:41)
[2024-08-14] MEDS: vancomycin/NS 1 GM ADD-VANTAGE 250 ML IV ONE (22:50)
[2024-08-14] MEDS: furosemide 10 MG/1 ML 10ml inj IV ONE (23:45)
[2024-08-14] MEDS: CefTRIAXone 2gm/D5W 50ml BAG 50 ML IV ONE (23:47)
[2024-08-15] VITALS (18 sets, daily range): BP systolic 103–139; BP diastolic 47–73; PULSE 74–97; RESP 13–20; TEMP 97.6–99.1; O2SAT 89–100
[2024-08-15] MEDS ORDERED: magnesium hydroxide 30ml (MOM) UD suspension PO PRN
[2024-08-15] MEDS ORDERED: ondansetron/PF 4mg/2ml inj IV PRN
[2024-08-15] MEDS ORDERED: mag hydrox/Alum hydrox/simeth 30ml oral suspension PO PRN
[2024-08-15] MEDS ORDERED: magnesium Cl slow-release 64mg tablet PO PRN
[2024-08-15] MEDS ORDERED: piperacillin/tazo 3.375gm/50ml 50 ML IV SCH
[2024-08-15] MEDS ORDERED: potassium Cl 20 mEq SR tablet PO PRN
[2024-08-15] MEDS ORDERED: magnesium sulf-water 4G/100mL 100 ML IV PRN
[2024-08-15] MEDS ORDERED: magnesium sulf-water 2g/50mL 50 ML IV PRN
--- NOTE | 2024-08-15 00:04 | HISTORY AND PHYSICAL-Residence ---
History & Physical Providers to CC Resident Creating Document: YOLI HONEYCUTT RES ~ History of Present Illness Primary Medical Doctor: Radhames Reason for Admit\Complaint: Erythema and worsening bilateral leg swelling History of Present Illness The patient is a 63-year-old female with a past medical history of AFib, hypertension, COPD, acute on chronic respiratory failure-requiring tracheostomy, history of peg tube placement, code blue, SVT presented to the ER with a chief complaint of worsening bilateral leg swellings and she also noticed erythema today which made her come to the ER. Stated that she was recently discharged from [facility] after being treated for acute on chronic respiratory failure from 07/30/2024 to 08/01/2024. During her July admission, respiratory therapist suctioned a large clot from her tracheostomy which was causing her acute respiratory failure. She was previously admitted from June 02 to June 24 in the ICU and got a trach and PEG placed on 06/18/2023 and was sent to [facility] on 07/25/2024. During her May admission, she had SVT and required two doses of adenosine and had acute on chronic respiratory failure due to aspiration pneumonia and COPD exacerbation. She developed cardiac arrest and ROSC was achieved after a successful code. She developed cardiogenic shock and had to be kept on pressors. She was given IV amiodarone for AFib. The patient's respiratory cultures grew MSSA which was treated with IV nafcillin. Patient states that PEG tube fell a few days back and she no longer has a trach tube. A Band-Aid is placed on the tracheostomy and a dressing is in place at the PEG tube site. She says that she saw Dr. Braxton in his clinic on 08/05/2024 and he did not recommend any surgical procedures. She states that she noticed increased bilateral leg swellings for the last three days and today she noticed erythema and so came to the ER. Denies any fever or chills, nausea or vomiting, diarrhea or any other complaints. States that she uses a walker. Denies any shortness of breath or chest pain. Allergies: Coded Allergies: coconut (Verified Allergy, Unknown, 08/14/24) HIVES codeine (Verified Allergy, Unknown, rash, 08/14/24) Home Medications Home Medications Active Restora Rx Capsule (Lactobacillus Casei/Folic Acid) 60 Mg (200 Billion Cell)- 1.25 Mg Capsule 1 Cap PO DAILY 30 Days Lomotil 2.5-0.025 mg Tablet (Diphenoxylate HCl/Atropine) 2.5 Mg-0.025 Mg Tablet 1 Tab PO Q8H PRN 10 Days Albuterol Sulfate (Albuterol) 2.5 Mg/3 Ml Vial.neb 1 Vial NEB Q6H PRN Reported Mycolog II Cream* (Nystatin/Triamcinolone Acetonide) 15 Gm Tube 1 Applic TOP Q12H apply to affected area(s) Kenalog 0.1% Crm* (Triamcinolone Acetonide) 1 Applic Tube 1 Applic TOP Q12H 10 Days Lasix (Furosemide) 40 Mg Tablet 1 Tab PO DAILY Eliquis (Apixaban) 5 Mg Tablet 1 Tab PO BID Potassium Chloride* (Potassium Chloride) 10 Meq Capsule.sa 1 Cap PO DAILY Sotalol Af (Sotalol Hcl) 80 Mg Tablet 0.5 Tab PO BID Claritin* (Loratadine) 10 Mg Tablet 10 Mg PO DAILY Past Medical History Past Medical History Atrial Fibrillation, Congestive Heart Failure, Hypertension, COPD, Previously Intubated, Diabetes, Depression Past Surgical History Surgical History Comment Tracheostomy, peg tube placement Family History Family History: FH: COPD (chronic obstructive pulmonary disease) FATHER FH: diabetes mellitus FATHER FH: leukemia MOTHER Past Social History Social History Comment Denies smoking tobacco, drinking alcohol or abusing any other recreational drugs Smoking: Quit less than 1 year Alcohol Use: None Drug Use: None Lives with: Family Lives In: Home Occupation: unemployed ROS ROS Constitutional: No fever, chills, dizziness, weakness, weight gain or loss Eyes: No pain, erythema, discharge, blurring of vision ENT: No sore throat, epistaxis, tinnitus Cardiovascular: No chest pain, chest pressure, chest discomfort, palpitations, syncope, lower extremity edema, paroxysmal nocturnal dyspnea Respiratory: No shortness of breath, cough, hemoptysis Gastrointestinal: Normal appetite. No nausea, vomiting, diarrhea, constipation, hematemesis, abdominal pain, bloating, melena or fresh blood Genitourinary: No frequency, urgency, nocturia, hematuria or dysuria Musculoskeletal: No arthralgias or myalgias Extremities: Swelling of bilateral lower extremities and associated erythema Neurologic: No headache, neck pain, numbness or tingling of the extremities, weakness Psychiatric: No delusions, depression, loss of interest in normal activity or change in sleep pattern, hallucinations, suicidal ideations Endocrine: No fatigue, weakness, polydipsia, polyuria, change in appetite, heat or cold intolerance, sweating, dry skin Hematological: No bleeding, petechiae, bruising Allergies: No asthma or urticaria Musculoskeletal: Reports: pain, swelling Exam Vitals: Vital Signs Date Time Temp Pulse Resp B/P (MAP) Pulse Ox O2 Delivery O2 Flow Rate FiO2 08/15/24 00:02 77 16 142/68 (92) 94 08/14/24 17:37 98.4 0 General: Alert and oriented x4 HEENT: Normocephalic and atraumatic. Pupils equal round reactive to light and accommodation. Extraocular movements intact. Oral and nasal mucosa moist Neck: Trachea is in midline. No masses or JVD. Tracheostomy site has open wound. Band-Aid in place Chest: Bilateral normal breath sounds. No crackles, rhonchi or wheezes Cardiovascular: Regular rate and rhythm. S1-S2 normal. No rubs or murmurs Abdomen: Soft, nontender nondistended. Bowel sounds present. No PEG tube in place. Wound in place near the PEG tube site and dressing in place. No erythema or tenderness present. Mild discharge at the PEG tube site Extremities: Bilateral 3+ pedal edema with associated erythema and warmth. Bilateral onychomycosis present. No cyanosis or clubbing Central Nervous System: No gross sensory or motor deficits. CN II to XII intact Skin: Warm and dry. Bilateral lower extremity erythema and warmth Diagnostic Data Last Recorded Lab Results: 08/14/24191208/14/241912 Advance Care Planning Advanced Care plannin - 30 Minutes Additional Plan Possible bilateral lower extremity cellulitis Recent multiple hospitalization Obese with deep skin creases and poor hygiene No elevated white count, tachycardia or tachypnea Started vancomycin, metronidazole 500 mg IV q.8h and cefepime 1 g IV q.12h(renal dosing) Blood cultures ordered Bilateral lower extremity Venous ultrasound ordered to look for possible DVTs Paroxysmal atrial fibrillation Now in sinus rhythm with regular rate Started Eliquis 5 mg p.o. b.i.d. Continue home medications after med reconciliation CHF with mid-range EF Hypokalemia and metabolic alkalosis Chest x-ray showed cardiomegaly with mild pulmonary vascular congestion and small bilateral pleural effusions ProBNP 239 Denies any shortness of breaths EKG did not show any U-waves or significant life-threatening arrhythmias Received Lasix 20 mg IV once in the ER Started Lasix 40 mg p.o. daily. Did not start a higher dose consider putting underlying metabolic alkalosis and hypokalemia Continue potassium replacement as per protocol Diabetes mellitus HbA1c 6.8 on 06/07/2024 Started hyperglycemic/hypoglycemic protocol with Lantus 20 units HS and low-dose lispro protocol DVT prophylaxis: Eliquis Diet: Sodium restricted and carb controlled diet # Pending med reconciliation Yoli Honeycutt MD Internal Medicine Resident, PGY 2 I saw and discussed the pt with the resident team I suggested to remove metronidazole Continue thed rest of the management as outlined Date of Service: Aug 15, 2024 Billing Provider: KHADJIAH YE MD, MANOJNA RES Aug 15, 2024 00:04 KHADIJAH YE MD Aug 15, 2024 03:44
[2024-08-15] MEDS ORDERED: VANCOMYCIN 2GM/400ML H20 (PEG) 400 ML IV ONE (00:15)
[2024-08-15] MEDS: potassium CL 10mEq/100ml bag 100 ML IV ONE (00:16)
[2024-08-15] MEDS ORDERED: cefepime 1GM/NS ADD-VANTAGE 100 ML IV SCH ×2 (00:20→02:00)
[2024-08-15 01:04] LABS: APTT 23 SECONDS (22-32); INR 1.1 INR
[2024-08-15] MEDS: cefepime 1GM in D5W 50mL 50 ML IV ONE (02:09)
[2024-08-15] MEDS ORDERED: glucagon, human recombinant 1mg kit SUBCUT PRN (03:10)
[2024-08-15] MEDS ORDERED: dextrose 50%-water 50ml dispensing syringe IV PRN ×2 (03:10)
[2024-08-15] MEDS ORDERED: DEXTROSE 15 GM of carb/4 tabs (each vial/BOTTLE has 4 tablets) PO PRN ×2 (03:10)
[2024-08-15] MEDS ORDERED: cefepime 1GM in D5W 50mL 100 ML IV SCH (03:16)
[2024-08-15] MEDS ORDERED: cefepime 1GM in D5W 50mL 50 ML IV SCH (03:25)
[2024-08-15] MEDS: VANCOMYCIN 2GM/400ML H20 (PEG) 400 ML IV ONE (03:42)
[2024-08-15] MEDS ORDERED: ipratropium/albuterol 3ml nebule NEB PRN (04:15)
[2024-08-15] MEDS: diphenhydrAMINE 25 MG/10 ML UD oral solution PO ONE (04:50)
[2024-08-15 06:13] LABS: MEAN PLATELET VOLUME 9.7 FL (7.4-10.4); RED CELL DISTRIBUTION WIDTH 16.0 % (11.5-14.5)
[2024-08-15 06:24] LABS: CHOL/HDL RATIO 3.5 (0.00-4.99); CREATININE 0.98 MG/DL (0.40-0.90); LDL CHOLESTEROL 97 MG/DL (50-100); PHOSPHORUS 3.1 MG/DL (2.3-4.5); TOTAL CARBON DIOXIDE 31.5 MMOL/L (24-32); eCRCL 48 ML/MIN; eGFR 57 ML/MIN
[2024-08-15] MEDS: INSULIN LISPRO 100 UNIT/ML INSULN.PEN MULTI-DOSE SQ SCH (07:00)
[2024-08-15] MEDS: K and/or MAG REPLACEMENT MC SCH (07:47)
[2024-08-15] MEDS ORDERED: metroNIDAZOLE-Flagyl 500mg/NS 100 ML IV SCH (08:00)
[2024-08-15] MEDS: albuterol 2.5 MG/3 ML nebule NEB SCH (08:09)
[2024-08-15] MEDS: linezolid 600mg/300ml PREMIX 300 ML IV SCH (08:48)
--- NOTE | 2024-08-15 09:52 | VASCULAR REPORT ---
Bilateral lower extremity venous duplex Clinical History: edema Comparison: VASC VL VENOUS on DOS: 07/31/24 Technique: Duplex Doppler evaluation of the deep venous systems of both lower extremities from the common femora l veins to the popliteal veins including color Doppler and spectral/pulsed waveform analysis was perf ormed. Findings: RIGHT SIDE: The common femoral vein demonstrates appropriate compressibility and waveform variability. There is compressibility/patency of the great saphenous vein at the proximal thigh. The femoral vein demonstrates appropriate compressibility and waveform variability. The deep femoral vein demonstrates appropriate compressibility and waveform variability. The popliteal vein demonstrates appropriate compressibility and waveform variability. There is normal compressibility at the tibioperoneal trunk. LEFT SIDE: The common femoral vein demonstrates appropriate compressibility and waveform variability. There is compressibility/patency of the great saphenous vein at the proximal thigh. The femoral vein demonstrates appropriate compressibility and waveform variability. The deep femoral vein demonstrates appropriate compressibility and waveform variability. The popliteal vein demonstrates appropriate compressibility and waveform variability. There is normal compressibility at the tibioperoneal trunk. Impression: No right or left femoropopliteal venous thrombosis.
[2024-08-15] MEDS: potassium Cl 40MEQ/1/2NS 520ml 520 ML IV PRN (11:00)
[2024-08-15] MEDS ORDERED: VANCOmycin 1250MG/NS 250ml Bag 250 ML IV SCH (13:00)
[2024-08-15] MEDS ORDERED: ALB0.5UD NEB (14:15)
[2024-08-15] MEDS ORDERED: [UNRECOGNIZED DRUG - CODE] PO (14:17)
[2024-08-15] MEDS: cefepime 1GM in D5W 50mL 50 ML IV SCH (17:50)
--- NOTE | 2024-08-15 20:13 | PROGRESS NOTE ---
Daily Progress Note Providers to CC ~ Antibiotic Timeout Antibiotic Ordered?: Yes Subjective The patient has a focal area of erythema to the anterior shins bilaterally, the patient has had her tracheostomy and PEG tube removed in his wanting to be discharged I informed her maybe tomorrow Objective Vital Signs Date Time Temp Pulse Resp B/P (MAP) Pulse Ox O2 Delivery O2 Flow Rate FiO2 08/15/24 19:59 75 20 Room Air 0.0 08/15/24 19:52 90 21 08/15/24 15:00 97.6 139/66 (90) Result Diagram: 08/15/2452408/15/24524 Gen. No acute distress alert and oriented 4 Lungs clear to ascultation bilaterally, no wheezes rales or rhonchi appreciated Heart normal sinus rhythm no murmurs rubs or clicks noted Abdomen soft nontender bowel sounds are normoactive Lower extremities no clubbing cyanosis,appreciated bilaterally mild nonpitting edema bilaterally, focal area of erythema in a ovoid pattern and a bilateral shins approximately 20x30 cm Coagulation Studies Laboratory Tests Test 08/15/24 00:31 Prothrombin Time 11.4 SECONDS (9.0-12.0) INR International Normalized Ratio 1.1 INR Activated Partial Thromboplast Time 23 SECONDS (22-32) Coagulation Comments Problem\Assessment\Plan Problems/Diagnosis: (1) Bilateral lower leg cellulitis # bilateral lower extremity cellulitis On vancomycin, metronidazole and cefepime Ultrasounds negative for DVT # atrial fibrillation currently in sinus rhythm Continue apixaban Continue sotalol # Btl-tsemumj-ejimletse diabetes mellitus And a hyper and hypoglycemic protocol # history of tracheostomy with chronic respiratory failure Tracheostomy has been removed The patient is currently on room air # hypokalemia On potassium replacement protocol Date of Service: Aug 15, 2024 Billing Provider: DONTRELL MINOR DO Common Visit Codes: 25090-[id number] INP/OBS CARE(HIGH) DONTRELL MINOR DO Aug 15, 2024 20:13
[2024-08-15] MEDS: insulin glargine (Lantus) pen - multi-dose SQ SCH (21:00)
[2024-08-15] MEDS: potassium Cl 20 mEq SR tablet PO PRN (21:28)
[2024-08-16] MEDS: albuterol 2.5 MG/3 ML nebule NEB SCH ×2 (02:00→08:00)
[2024-08-16 04:59] LABS: MEAN PLATELET VOLUME 9.0 FL (7.4-10.4); RED CELL DISTRIBUTION WIDTH 16.7 % (11.5-14.5)
[2024-08-16 05:12] LABS: APTT 29 SECONDS (22-32); INR 1.1 INR
[2024-08-16 05:31] LABS: CREATININE 1.10 MG/DL (0.40-0.90); PHOSPHORUS 3.2 MG/DL (2.3-4.5); TOTAL CARBON DIOXIDE 29.3 MMOL/L (24-32); eCRCL 43 ML/MIN; eGFR 50 ML/MIN
[2024-08-16 06:00] VITALS: BP 129/67; PULSE 72; RESP 18; TEMP 97.3; O2SAT 95
[2024-08-16 08:00] VITALS: RESP 18; O2SAT 95
[2024-08-16 08:04] VITALS: PULSE 89; RESP 18; O2SAT 97
[2024-08-16 08:11] VITALS: PULSE 91; RESP 22
[2024-08-16] MEDS: sotalol HCl 40mg (1/2 tablet) PO SCH (09:30)
[2024-08-16 10:00] VITALS: BP 112/62; PULSE 84; RESP 18; TEMP 98.3; O2SAT 96
[2024-08-16] MEDS ORDERED: SACC250C PO (10:39)
[2024-08-16] MEDS ORDERED: AMOX-580 PO (10:39)
--- NOTE | 2024-08-16 19:47 | DISCHARGE SUMMARY ---
Discharge Summary Providers to CC ~ Discharge Summary Admission Diagnosis: POSSIBLE CELLULITIS Hospital Course DATE OF ADMISSION: 08/14/2024 DATE OF DISCHARGE: 08/16/2024 Discharge Diagnosis\\Comment: Bilateral lower extremity cellulitis Atrial fibrillation currently in sinus rhythm Gxa-demkcor-vriokbnul diabetes mellitus History of tracheostomy was chronic respiratory failure Hypokalemia Operations\\Procedures: None Consultants: None Complications: None Condition on DC: Stable New Medications: Amox Tr/Potassium Clavulanate 875/125 MG (Augmentin 875/125 MG) 875 Mg-125 Mg Tablet 1 TAB PO BID, #14 TAB Saccharomyces Boulardii (Florastor) 250 Mg Capsule 1 CAP PO Q12H for loose stool for 10 Days, #20 CAP 0 Refills Continued Medications: Albuterol Sulfate Nebs* (Proventil Nebs*) 2.5 Mg/0.5 Ml Vial.neb 1 VIAL NEB Q6H for WHEEZING for 37 Days, #150 ML Apixaban (Eliquis) 5 Mg Tablet 1 TAB PO BID Diphenoxylate HCl/Atropine (Diphenoxylate-Atrop 2.5-0.025) 2.5 Mg-0.025 Mg Tablet 1 TAB PO Q8H PRN for DIARRHEA for 10 Days, #30 TAB 0 Refills Furosemide (Lasix) 40 Mg Tablet 1 TAB PO DAILY Lactobacillus Casei/Folic Acid (Restora Rx Capsule) 60 Mg (200 Billion Cell)- 1.25 Mg Capsule 1 CAP PO DAILY for 30 Days, #30 CAP 0 Refills Loratadine* (Claritin*) 10 Mg Tablet 10 MG PO DAILY Nystatin/Triamcin Cream* (Mycolog II Cream*) 15 Gm Tube 1 APPLIC TOP Q12H, #30 GM apply to affected area(s) Potassium Chloride* (Potassium Chloride*) 10 Meq Capsule.sa 1 CAP PO DAILY Sotalol Hcl (Sotalol Af) 80 Mg Tablet 0.5 TAB PO BID Triamcinolone Acetonide 0.1% Crm* (Kenalog 0.1% Crm*) 1 Applic Tube 1 APPLIC TOP Q12H for 10 Days, #80 GM Discharge Summary: The patient was admitted by resident physician YOLI Martin under the supervision of KHADIJAH Quiñones MD With the following HPI:"The patient is a 63-year-old female with a past medical history of AFib, hypertension, COPD, acute on chronic respiratory failure-requiring tracheostomy, history of peg tube placement, MILI singh presented to the ER with a chief complaint of worsening bilateral leg swellings and she also noticed erythema today which made her come to the ER. Stated that she was recently discharged from [facility] after being treated for acute on chronic respiratory failure from 07/30/2024 to 08/01/2024. During her July admission, respiratory therapist suctioned a large clot from her tracheostomy which was causing her acute respiratory failure. She was previously admitted from June 02 to June 24 in the ICU and got a trach and PEG placed on 06/18/2023 and was sent to [facility] on 07/25/2024. During her May admission, she had SVT and required two doses of adenosine and had acute on chronic respiratory failure due to aspiration pneumonia and COPD exacerbation. She developed cardiac arrest and ROSC was achieved after a successful code. She developed cardiogenic shock and had to be kept on pressors. She was given IV amiodarone for AFib. The patient's respiratory cultures grew MSSA which was treated with IV nafcillin. Patient states that PEG tube fell a few days back and she no longer has a trach tube. A Band-Aid is placed on the tracheostomy and a dressing is in place at the PEG tube site. She says that she saw Dr. Braxton in his clinic on 08/05/2024 and he did not recommend any surgical procedures. She states that she noticed increased bilateral leg swellings for the last three days and today she noticed erythema and so came to the ER. Denies any fever or chills, nausea or vomiting, diarrhea or any other complaints. States that she uses a walker. Denies any shortness of breath or chest pain." The patient had no signs of respiratory distress she does have stridor however this is secondary to having a previous tracheostomy that has been removed the patient oxygen saturation was 96% on room air on the day of discharge and the patient was ambulating without any signs of weakness. The patient had regions of erythema on her lower extremities that were consistent with a cellulitis and was treated with IV Rocephin and linezolid during hospitalization and the patient was discharged with a prescription for Augmentin one tablet b.i.d. for an additional seven days. Also for Florastor probiotic however the I did recommend that the patient could buy an ilyd-oec-rqnuwxm probiotic if Florastor was not covered by her insurance. The patient has hlt-apdkbwm-efrhnqwth diabetes mellitus in her blood sugars were controlled during hospitalization. The patient also had hypokalemia and was on potassium replacement protocol on the day discharge his serum potassium was 3.9 and the patient was recommended to recheck a metabolic panel in one-week. Gen. No acute distress alert and oriented 4 Lungs clear to ascultation bilaterally, no wheezes rales or rhonchi appreciated Heart normal sinus rhythm no murmurs rubs or clicks noted Abdomen soft nontender bowel sounds are normoactive Lower extremities no clubbing cyanosis,appreciated bilaterally mild nonpitting edema bilaterally, focal area of erythema in a ovoid pattern and a bilateral shins approximately 20x30 cm The patient felt ready to be discharged and was medically cleared to be discharged on 08/16/2024 The patient was seen and evaluated on day of discharge. Time spent on discharge 35 minutes *Problems/Diagnosis: (1) Bilateral lower leg cellulitis Status: Acute Total Time Spent on D/C: > 30 Minutes Date of Service: Aug 16, 2024 Billing Provider: DONTRELL MINOR DO Common Visit Codes: 45585-XQN/OBS DISCH DAY >30min DONTRELL MINOR DO Aug 16, 2024 19:45
== END 2024-08-16 12:44 | disposition home or self-care (01) | DRG 603 ==
LOC: ER 17:33 → ED HOLD 23:37 → EDBEDREQ 08-15 00:44 → PCU 3S 08-15 01:17 → ORTHO 4S 08-15 14:17
PROVIDERS: ADMIT Internal Medicine; ATTEND Family Medicine
DX: L03.116 Cellulitis of left lower limb (principal); E87.3 Alkalosis; J44.1 Chronic obstructive pulmonary disease with (acute) exacerbation; I50.22 Chronic systolic (congestive) heart failure; L03.115 Cellulitis of right lower limb; I48.91 Unspecified atrial fibrillation; E11.9 Type 2 diabetes mellitus without complications; I11.0 Hypertensive heart disease with heart failure; E87.6 Hypokalemia; I48.0 Paroxysmal atrial fibrillation; F32.A Depression, unspecified; J44.9 Chronic obstructive pulmonary disease, unspecified; Z88.5 Allergy status to narcotic agent; Z91.018 Allergy to other foods; Z79.01 Long term (current) use of anticoagulants; Z79.899 Other long term (current) drug therapy; Z87.891 Personal history of nicotine dependence
CPT/HCPCS: 36415; 71045; 80048; 80053; 80061; 80202; 82948; 83605; 83735; 83880; 84100; 84145; 84484; 85025; 85610; 85730; 87040; 87081; 93005; 93970; 94640; 94760; 96365; 96375; 99291; A4615; A6250; G0378; J0692; J0696; J1815; J1938; J2020; J3372; J3480; J7030; J7040; Q0163